=== PATIENT | male | born 1940 | race Caucasian/White ===

== ENCOUNTER 2021-09-26 14:20 | Outpatient (CLI) | payer OTHER, SELFPAY | END 2021-09-26 14:21 | disposition home or self-care (01) | PROVIDERS: PCP Family Medicine; Visit Provider Family Medicine | DX: M17.12 Unilateral primary osteoarthritis, left knee (principal); M25.562 Pain in left knee | CPT/HCPCS: 64454 ==

== ENCOUNTER 2021-10-16 12:03 | Outpatient (REF) | payer OTHER, SELFPAY ==
[2021-10-16 14:11] LABS: SARS PCR* Negative SARS-CoV-2 (Negative)
== END 2021-10-16 12:04 | disposition home or self-care (01) ==
LOC: NPINS 12:03
PROVIDERS: PCP Family Medicine; Visit Provider Family Medicine
DX: Z20.822 Contact with and (suspected) exposure to COVID-19 (principal)
CPT/HCPCS: 87635

== ENCOUNTER 2021-10-17 13:09 | Outpatient (CLI) | payer OTHER, SELFPAY | END 2021-10-17 13:10 | disposition home or self-care (01) | LOC: INJ CL 13:11 | PROVIDERS: PCP Family Medicine; Visit Provider Family Medicine | DX: M17.12 Unilateral primary osteoarthritis, left knee (principal); G89.29 Other chronic pain; M25.562 Pain in left knee | CPT/HCPCS: 64624; J2250; J3010 ==

== ENCOUNTER 2023-03-01 09:45 | Outpatient (RCR) | payer OTHER, SELFPAY | END 2023-06-29 23:59 | disposition home or self-care (01) | PROVIDERS: PCP Family Medicine; Visit Provider Family Medicine | DX: R29.898 Other symptoms and signs involving the musculoskeletal system (principal); R26.81 Unsteadiness on feet; Z51.89 Encounter for other specified aftercare | CPT/HCPCS: 97110; 97162 ==

== ENCOUNTER 2023-03-20 08:45 | Outpatient (CLI) | payer OTHER, SELFPAY ==
--- OUTSIDE RECORDS SUMMARY | 2023-03-20 08:49 | XMS_ITS | Clinical Summary ---
Author Name Unknown Organization [facility] Address [address] [place] [id number] Care Team Providers Care Telecom Billing Analyst Name Role Phone [facility], [facility] Primary Care Provider Allergies No known active allergies Medications Medication Sig Dispensed Refills Start Date End Date Status cyanocobalamin 500 MCG TABS Take 1 tablet by mouth daily 0 Active losartan (COZAAR) 100 MG tablet Take 100 mg by mouth daily 0 Active metFORMIN (GLUCOPHAGE) 1000 MG tablet Take 1,000 mg by mouth 2 times daily (with meals) 0 Active Vitamin D, Cholecalciferol, 1000 UNITS CAPS Take 1,000 Units by mouth daily 0 Active warfarin (COUMADIN) 5 MG tablet Take by mouth daily 5mg on Tues,Thurs,Sat, & 2.5mg on Sun,Mon,Wed,Fri 0 Active atorvastatin (LIPITOR) 20 MG tablet Take 20 mg by mouth every evening 0 Active aspirin 81 MG EC tablet Take 81 mg by mouth daily 0 Active amLODIPine (NORVASC) 5 MG tablet Take 5 mg by mouth daily 0 Active acetaminophen (TYLENOL) 325 MG tabletIndications: Closed fracture of right hip, initial encounter (H) Take 2 tablets (650 mg) by mouth every 6 hours as needed for mild pain 100 tablet 0 03/28/2017 Active sennosides (SENOKOT) 8.6 MG tabletIndications: Closed fracture of right hip, initial encounter (H) Take 1-2 tablets by mouth 2 times daily as needed for constipation Hold if loose stools. 120 tablet 1 03/28/2017 Active polyethylene glycol (MIRALAX) powderIndications: Constipation, unspecified constipation type Take 17 g by mouth daily 510 g 1 03/28/2017 Active bisacodyl (DULCOLAX) 10 MG SuppositoryIndicat ions:Constipation, unspecified constipation type Place 1 suppository (10 mg) rectally daily as needed for constipation 25 suppository 1 03/28/2017 Active tamsulosin (FLOMAX) 0.4 MG capsuleIndications :Urine retention Take 1 capsule (0.4 mg) by mouth daily 60 capsule 0 03/29/2017 Active HYDROcodone-acetam inophen (NORCO) 5-325 MG per tabletIndications: Complete tear of right rotator cuff Take 1-2 tablets by mouth every 4 hours as needed for other (Moderate to Severe Pain) 40 tablet 0 08/13/2017 Active ondansetron (ZOFRAN-ODT) 4 MG ODT tabIndications:Com plete tear of right rotator cuff Take 1-2 tablets (4-8 mg) by mouth every 8 hours as needed for nausea Dissolve ON the tongue. 4 tablet 0 08/13/2017 Active senna-docusate (SENOKOT-S;PERICOL KONG) 8.6-50 MG per tabletIndications: Complete tear of right rotator cuff Take 1-2 tablets by mouth 2 times daily Take while on oral narcotics to prevent or treat constipation. 30 tablet 0 08/13/2017 Active Active Problems Problem Noted Date Diagnosed Date Hip fracture 03/23/2017 Social History Tobacco Use Types Packs/Day Years Used Date Smoking Tobacco: Former Cigarettes Q uit: 08/06/1978 Smokeless Tobacco: Never Alcohol Use Standard Drinks/Week Comments Yes 0 (1 standard drink = 0.6 oz pur e alcohol) occas Sex and Gender Information Value Date Recorded Sex Assigned at Not on file Gender Identity Not on file Sexual Orientation Not on file Last Filed Vital Signs Vital Sign Reading Time Taken Comments Blood Pressure 135/72 08/13/2017 5:00 PM CDT Pulse 55 03/23/2017 12:20 PM [employer] Temperature 36 ??C (96.8 ??F) 08/13/2017 4:04 PM CDT Respiratory Rate 18 08/13/2017 5:00 PM CDT Oxygen Saturation 97% 08/13/2017 5:00 PM CDT Inhaled Oxygen Concentration - - Weight 112.4 kg (247 lb 14.4 oz) 08/13/2017 8:39 AM CDT Height 188 cm (6' 2) 08/13/2017 8:39 AM CDT Body Mass Index 31.83 08/13/2017 8:39 AM CDT Plan of Treatment Not on file Medical Devices Implanted Type Area [employer] Builder Device Identifier Shelf Expiration Date Model / Serial / Lot Imp Mer[employer]-Swivelock [id number] Implanted:Qty : 1 on 08/13/2017 by Dg Rose MD at [facility] Metallic Hardware/An chor Right: Shoulder ARTH[employer]X 03/27/2019 [id number] / / [id number] Imp Femoral Sleeve S&N Long Mod +8mm Neck Ti [id number] Implanted:Qty : 1 on 03/25/2017 by Lj Ornelas MD at [facility] Total Joint Component/I nsert Right: Hip PASCAL 03/03/2025 [id number] / / [id number] 40mm Modular Femoral Head Implanted:Qty : 1 on 03/25/2017 by Lj Ornelas MD at [facility] Right: Hip 12/02/2026 [id number] / / [id number] Advance Directives For more information, please contact: [phone] Latest Code Status on File Code Status Date Activated Date Inactivated Comments Full Code 03/28/2017 2:36 PM Code Status History Code Status Date Activated Date Inactivated Comments Full Code 03/23/2017 5:42 PM 03/27/2017 12:01 AM Care Teams Telecom Billing Analyst Relationship Specialty Start Date End Date [address] [id number] PCP - General 03/23/17
--- OUTSIDE RECORDS SUMMARY | 2023-03-20 08:49 | XMS_ITS | Clinical Summary ---
Author Name Unknown Organization [facility] Address [place], [place] [address] Care Team Providers Care Plugman Name Role Phone Doug Taylor MD Primary Care Provider Allergies Active Allergy Reactions Criticality Noted Date Comments Amlodipine Edema 07/27/2019 On 5 mg Medications Medication Sig Dispensed Refills Start Date End Date Status polyethylene glycol-electrolyte (GOLYTELY) 236-22.74-6.74 -5.86 gram suspensionIndicatio ns:Encounter for screening colonoscopy Drink 3 quarts the day before procedure and drink 1 quart 6 hours before procedure 4000 mL 0 1 Active cholecalciferol (VITAMIN D3) 1,000 unit tabletIndications:V itamin D deficiency Take 1 Tablet (1,000 units) by mouth once daily. 90 tablet. 3 2 Active cyanocobalamin (Vitamin B-12) 500 mcg tabletIndications:N utrition disorder Take 1 Tablet (500 mcg) by mouth once daily. 90 Tablet 3 3 Active lancetsIndications: Type 2 diabetes mellitus with diabetic neuropathy, without long-term current use of insulin (HC) Test 1 times per day. 100 Each 3 3 Active tamsulosin (FLOMAX) 0.4 mg capsuleIndications: Frequent urination Take 1 Capsule (0.4 mg) by mouth once daily after a meal. 90 Capsule 3 3 Active blood sugar diagnostic (Blood Glucose Test) stripIndications:Ty pe 2 diabetes mellitus with diabetic neuropathy, without long-term current use of insulin (HC) Test one time per day. 100 Each 3 3 Active blood-glucose meterIndications:Ty pe 2 diabetes mellitus with diabetic neuropathy, without long-term current use of insulin (HC) Inject subcutaneous. Dispense meter, test strips, lancets covered by pt ins. E11.9 NIDDM type II - Test 1 time/day 1 Each 0 3 Active Walker - 4 wheelsIndications:G ait instability For home use. Length of need: 99 1 Each 0 3 Active Diabetic ShoeIndications:Makenzie betic peripheral neuropathy (HC) As directed. One pair diabetic shoes. 1 Each 1 3 Active losartan (COZAAR) 100 mg tabletIndications:H TN (hypertension) TAKE 1 AND 1/2 TABLETS EVERY DAY 135 Tablet 3 3 Active hydroCHLOROthiazide (HCTZ) 25 mg tabletIndications:B enign essential HTN Take 1 Tablet (25 mg) by mouth once daily. 90 Tablet 3 3 Active atorvastatin (LIPITOR) 20 mg tabletIndications:M ixed hyperlipidemia Take 1 Tablet (20 mg) by mouth once daily. 90 Tablet 3 3 Active metFORMIN (GLUCOPHAGE XR) 500 mg Extended-Release tabletIndications:D iabetes mellitus without complication (HC) Take 2 Tablets (1,000 mg) by mouth once daily with evening meal. 180 Tablet 1 3 Active Walker - 4 wheelsIndications:W eakness of lower extremity, unspecified laterality,Unstable gait For home use. Length of need: 99. With seat. 1 Each 0 3 Active sotaloL (BETAPACE) 80 mg tabletIndications:A trial fibrillation, unspecified type (HC) Take 1 Tablet (80 mg) by mouth every 24 hours. 180 Tablet 0 3 Active gabapentin (NEURONTIN) 100 mg capsuleIndications: Peripheral sensory neuropathy Take 1 Capsule (100 mg) by mouth three times daily. 270 Capsule 3 3 Active warfarin (COUMADIN) 2.5 mg tabletIndications:P aroxysmal atrial fibrillation (HC),Anticoagulatio n monitoring, INR range 2-3,TIA (transient ischemic attack) Take by mouth 2.5 mg (2.5 mg x 1) every Mon, Wed, Fri; 1.25 mg (2.5 mg x 0.5) all other days in the evening OR as directed 65 Tablet 0 3 Active DropSafe Alcohol Prep PadsIndications:Makenzie betes mellitus without complication (HC) USE DIRECTED 300 Each 3 3 Active honey (Manuka Honey) 100 % gelIndications:Diab etic ulcer of toe associated with type 2 diabetes mellitus, unspecified laterality, unspecified ulcer stage (HC) Apply topically to affected area(s) once daily. 15 mL 1 4 Active warfarin (COUMADIN) 2.5 mg tabletIndications:P aroxysmal atrial fibrillation (HC),Anticoagulatio n monitoring, INR range 2-3,TIA (transient ischemic attack) Take by mouth 2.5 mg (2.5 mg x 1) every Mon, Wed, Fri; 1.25 mg (2.5 mg x 0.5) all other days in the evening OR as directed 0 3 02/20/20 23 Discontinued Active Problems Problem Noted Date Diagnosed Date Anticoagulation monitoring, INR range 2-3 2022 Peripheral arterial disease 03/29/2022 Paroxysmal atrial fibrillation 10/16/2021 Malignant neoplasm of urinary bladder 05/05/2021 Stage 3a chronic kidney disease 12/29/2019 Bilateral lower extremity edema 08/18/2019 Chronic pain of right knee 09/03/2018 Overview: August 2018: cortisone injection by Dr. Berry bilateral knees. Great improvement 2 weeks out. March 2020: Repeat Bilateral cortisone knee injections. September 2020: Repeat Bilateral cortisone knee injections. Chronic pain of left knee 09/03/2018 Overview: August 2018: cortisone injection by Dr. Berry bilateral knees. Great improvement 2 weeks out. March 2020: Repeat Bilateral cortisone knee injections. September 2020: Repeat Bilateral cortisone knee injections. Trochanteric bursitis of both hips 04/23/2018 Overview: July [address] [facility]. Mar 2018: bilateral Greater Trochanteric Bursa injections by Dr. Berry. Left side improved, right side did not improve after injection. Sep 2018: repeat Greater Trochanteric Bursa injection on right side by Dr. Berry. Dec 2018: bilateral Greater Trochanteric Bursa injection. Diabetic peripheral neuropathy 07/23/2017 History of DVT (deep vein thrombosis) 03/11/2016 Hyperlipidemia 03/11/2016 TIA (transient ischemic attack) 03/11/2016 Overview: 03/11/16: 20 minutes of numbness affecting his right arm- [facility] [place] MRI and MRA showed no new acute changes, but underlying small vessel disease. Echo with bubble study was unremarkable. He was thought to have a TIA caused by small vessel disease. Discharged on aspirin 81 mg per day. Already on Coumadin and his INR was therapeutic. Apparently demonstrated some visual spatial disturbance and so OT evaluation was recommended 03/06/17: slurred speech and confusion at home that resolved by the time of presentation. Blood pressure was elevated into the 200s over 1 teens.MRI/A of the head and neck was normal. Serial neurologic exams were normal Type II or unspecified type diabetes mellitus without mention of complication, not stated as uncontrolled 10/09/2012 Obesity, unspecified 02/05/2012 Unspecified essential hypertension 06/04/2006 Resolved Problems Problem Noted Date Diagnosed Date Resolved Date Anticoagulation monitoring, DOAC 10/16/2021 07/31/2022 Anticoagulation monitoring, DOAC 10/14/2020 10/16/2021 Atrial fibrillation 11/24/2018 12/28/19 22 Anticoagulation monitoring, INR range 2-3 12/24/2013 10/13/2020 Diabetic neuropathy 10/09/2012 03/11/19 17 Acute thromboembolism of john p veins of both lower extremities 06/04/2006 03/11/2016 Type 2 diabetes mellitus wit h diabetic neuropathy, without long-term current use of insulin 05/14/2017 Encounters Date Type Department Care Team Description 03/18/2023 3:15 PM SECURITIES CONSULTANT Ancillary Procedure [facility] [address] [place] [address] Arrived 03/18/2023 3:00 PM SECURITIES CONSULTANT Ancillary Procedure [facility] [address] [place] [address] Arrived 03/18/2023 1:40 PM SECURITIES CONSULTANT Office Visit [facility] [address] [place] [address] Doug Taylor MD Fall (03/16/23, whole body hurts, knees, forehead, left arm) 03/18/2023 Travel 03/18/2023 Telephone [facility] [address] [place] [address] Doug Taylor MD Appointment Request (TODAY 03/18/23/FALL) 03/09/2023 Anticoagulation (warfarin) [facility] [address] [place] [address] 1, [facility] Anticoagulation 03/08/2023 2:30 PM SECURITIES CONSULTANT Orders [place] [address] [place] [address] Lab, [facility] 03/08/2023 Nurse Triage [facility] [address] [place] [address] Doug Taylor MD Arm Pain/problem (L inner elbow and forearm swelling) 03/08/2023 Travel 03/06/2023 3:00 PM SECURITIES CONSULTANT Office Visit [facility] [address] [place] [address] Seven Briones DPM Consult (Bilateral toe ulcer) 03/06/2023 Travel 02/26/2023 9:40 AM SECURITIES CONSULTANT Office Visit [facility] [place] [facility] [address] [place] [address] Rupert Moore MD Consult (Bilateral leg weakness /Bilateral heel x 6 months ) 02/26/2023 Travel 02/26/2023 Telephone [facility] [address] [place] [address] [place] [address] Светлана La MD Results (Mild progression per echo. Plan for annual echo) 02/21/2023 9:00 AM SECURITIES CONSULTANT Ancillary Procedure [facility] [address] [place] [address] 02/21/2023 Travel 02/17/2023 Refill [facility] [address] [place] [address] Doug Taylor MD Refill Request (Dropsafe Alcohol Prep Pads) 02/16/2023 Refill [facility] [address] [place] [address] Doug Taylor MD Refill Request (Warfarin) 02/15/[address] [place] [address] Светлана La MD Results 02/15/2023 Travel 02/08/2023 10:10 AM SECURITIES CONSULTANT Orders Only [address] [address] Lab[facility] 02/08/2023 Anticoagulation (warfarin) [address] [address] 1, [facility] Anticoagulation 02/08/2023 Travel 02/01/2023 Telephone [facility] [address] [place] [address] Doug Taylor MD Refill Request (Gabapentin 100mg ) 01/31/2023 Orders Only [facility] [address] [place] [address] Juan Davila NP <No scans attached> 01/28/2023 Telephone [facility] [address] [place] [address] Doug Taylor MD CLARIFICATION 01/23/2023 Orders Only [facility] [address] [place] [id number] Светлана La MD 1 scan: (1-Ord) [facility]-EKG-11.28.23 01/22/2023 3:00 PM SECURITIES CONSULTANT Office Visit [facility] [address] [place] [address] Светлана La MD Consult (Atrial fibrillation) 01/22/2023 Orders Only [facility] [address] [place] [address] [place] [address] Светлана La MD 1 scan: (1-Ord) LUZMA ([id number]) 01/22/2023 Telephone [facility] [place] [facility] [address] [place] [address] Rupert Moore MD Referral (Neurology consultation ready to schedule ) 01/21/2023 10:15 AM SECURITIES CONSULTANT Orders Only [facility] [address] [place] [address] 1 scan: (1-Ord) US TOE PRESSURE ONLY BILAT ([id number]) 01/21/2023 Travel 01/21/2023 Refill [facility] [address] [place] [address] Doug Taylor MD Refill Request (Gabapentin 300mg cap ) 01/18/2023 10:05 AM SECURITIES CONSULTANT Office Visit [facility] [address] [place] [address] Doug Taylor MD Medicare ANNUAL (subsequent) Visit (82 year old); Foot Problem (Bilateral foot neuropathy ); DME Supply (Discuss walker) 01/18/2023 Travel 01/08/2023 10:10 AM SECURITIES CONSULTANT Orders Only [facility] [address] [place] [address] Lab[facility] 01/08/2023 Anticoagulation (warfarin) [facility] [address] [place] [address] 1, [facility] Anticoagulation (Lab ) 01/08/2023 Travel 01/06/2023 Refill [facility] [address] [place] [address] Doug Taylor MD Refill Request (Losartan) 01/03/2023 Orders Only [facility] Scanner 1 scan: (1-Ord) [place] [facility], CYSTOSCOPY, 01/03/2023 12/27/2022 Telephone [facility] [address] [place] [address] Doug Taylor MD DME Supply (Prior authorization for walker); Follow Up 12/18/2022 Anticoagulation (warfarin) [facility] [address] [place] [address] Doug Taylor MD Error-please disregard (opened in error) 12/18/2022 Refill [facility] [address] [place] [address] Doug Taylor MD Refill Request (Warfarin) 12/18/2022 Refill [facility] [address] [place] [address] Doug Taylor MD Refill Request (Warfarin 2.5) from Last 3 Months Immunizations Name Administration Dates Next Due AMB INFLUENZA IIV3 (AGE 65+ YRS) PF (Flu Clinic Only) 01/01/2018 Amb Influenza, Inactivated A IIV4 (Age 65+ Years) Preserv Free 11/30/2019 COVID-19 vaccine (Pfizer-Bio NTech 30mcg/0.3mL) 12YO+ BIVALENT PF, MDV 06/28/2022,12/27/2021 COVID-19 vaccine (Pfizer-Bio NTech 30mcg/0.3mL) 12YO+ JOSE ANGEL-SUCROSE PF, MDV 06/12/2021 COVID-19 vaccine (Pfizer-Bio NTech 30mcg/0.3mL) PF, MDV 11/24/2020,04/26/2020,04/05/2020 Influenza A (H1N1), Inactiva vishnu (Age >=3 Years) 03/25/2009 Influenza, High-dose Inactivated 12/14/2015,1006/2014,12/24/2013 Influenza, IIV3 (Age 6-35 mos) 12/18/2010,2007 Influenza, IIV3 (Age >=3 years) 12/19/19 13,01/30/2012,11/24/2009,11/16,12/26/2006,11/29/2005,12/28/2004 ,12/06/2003,12/18/2002,12/19/2001,02/1988 Influenza, Inactivated AIIV4 (Age 65+ Years) Preserv Free 11/21/2022,12/27/2021,11/24/2020 Influenza, Inactivated IIV3 (Age 65+ Years) Preserv Free 11/18/2018,11/21/2016 Pneumococcal Conj 20-valent (Prevnar 20) 06/28/2022 Pneumococcal Poly,23-Valent (Pneumovax) 02/20/2011,11/29/2005,01/25/2005 Pneumococcal conj 13-Valent (Prevnar 13) 03/15/2016,09/17/2014 RSV, Recombinant ADJ Reconst ituted (Arexvy 120MCG/0.5mL) 02/04/2023 Td (Age >=7 Years) 01/25/2005,10/07/1998 Td, Preservative Free (age >= 7 Years) 6 Tdap 04/11/2022,02/20/2011 Zoster (Shingrix-RZV, recombinant) 07/20/2022, Zoster (Zostavax-ZVL, live) 01/05/2009, 9 Family History Medical History Relation Name Comments Cancer-colon Neg. 1 Cancer-prostate Neg. 2 Diabetes Paternal Grandmother Anesthesia Problem No Family History Relation Name Status Comments Neg. 1 Neg. 2 Paternal Grandmother Social History Tobacco Use Types Packs/Day Years Used Date Smoking Tobacco: Former Cigarettes Q uit: 02/25/1974 Smokeless Tobacco: Never Tobacco Cessation:Counseling Given: Yes Alcohol Use Standard Drinks/Week Comments Yes 0 (1 standard drink = 0.6 oz pur e alcohol) occasionally PHQ-2 Answer Date Recorded PHQ-2 TOTAL SCORE 0 01/18/2023 Social Connections Answer Date Recorded Frequency of Communication with Friends and Fami ly 0 01/18/2023 Financial Resource Strain Answer Date R ecorded Difficulty of Paying Living Expenses 3 01/18/2023 Difficulty of Paying Living Expenses Not on file 01/18/2023 Food Insecurity Answer Date Recorded Worried About Running Out of Food in the Last Ye ar 1 01/18/2023 Transportation Needs Answer Date Record ed Lack of Transportation (Medical) 1 01/18/2023 Housing Stability Answer Date Recorded Unable to Pay for Housing in the Last Year 1 01/18/2023 Sex and Gender Information Value Date Recorded Sex Assigned at Not on file Gender Identity Not on file Sexual Orientation Not on file Obstetrics History Last Filed Vital Signs Vital Sign Reading Time Taken Comments Blood Pressure 147/67 03/18/2023 1:53 PM SECURITIES CONSULTANT Pulse 66 03/18/2023 1:53 PM SECURITIES CONSULTANT Temperature 36.3 ??C (97.4 ??F) 03/06/2023 3:54 PM CS T Respiratory Rate 16 05/25/2021 2:10 PM CDT Oxygen Saturation 94% 03/18/2023 1:53 PM SECURITIES CONSULTANT Inhaled Oxygen Concentration - - Weight 108.9 kg (240 lb) 01/26/2021 11:29 AM SECURITIES CONSULTANT Height 188 cm (6' 2) 01/26/2021 11:29 AM SECURITIES CONSULTANT Body Mass Index 30.81 01/26/2021 11:29 AM SECURITIES CONSULTANT Plan of Treatment Upcoming Encounters Date Type Department Care Team (Late st Contact Info) Description 04/01/2023 10:00 AM SECURITIES CONSULTANT Orders Only [facility] [address] [place] [address] 04/04/2023 10:00 AM SECURITIES CONSULTANT Office Visit [facility] [address] [place] [address] Kuldip Briones MD [address] [place] [id number] [place] [address] 04/04/2023 11:45 AM SECURITIES CONSULTANT Ancillary Procedure [facility] [address] [place] [address] 04/04/2023 12:30 PM SECURITIES CONSULTANT Ancillary Procedure [facility] [address] [place] [address] 04/24/2023 2:40 PM SECURITIES CONSULTANT Office Visit [facility] [place] [facility] [address] [place] [address] Rupert Moore MD [address] [place] [address] 07/24/2023 10:30 AM CDT Office Visit [facility] [address] [place] [address] Doug Taylor MD [address] [place] [address] Health Maintenance Due Date Last Done Comments BMI (ht and wt on same day) for age 18+ 01/26/2022 01/26/2021, 12/06/2020, 12/29/2019, Additional history exists COVID-19 vaccine series ( season) 2023 11/21/2022, 06/28/2022, 12/27/2021, Additional history exists Medicare Wellness for age 65+ 01/18/2024 01/18/2023, 12/27/2021 Depression screening for age 12+ 01/23/2024 01/22/2023, 01/21/2023, 01/18/2023, Additional history exists Tetanus booster 04/11/2032 04/11/2022, 01/26, 11/29/2005, Additional history exists Tdap Completed 04/11/2022, 02/20/2011 Pneumococcal series for age 65+ Completed 06/28/2022, 03/15/2016, 09/17/2014, Additional history exists Zoster (shingles) series for age 50+ Completed 07/20/2022, 04/11/2022, 01/05/2009, Additional history exists Influenza for age 65+ Completed 11/21/2022 , 12/27/2021, 11/24/2020, Additional history exists Procedures Procedure Name Priority Date/Time Associated Diagnosis Comments XR KNEE 3 VIEWS LEFT Routine 03/18/2023 3:13 PM SECURITIES CONSULTANT Acute pain of left knee XR WRIST 3 VIEWS LEFT Routine 03/18/2023 3:04 PM SECURITIES CONSULTANT Left wrist pain INR,POCT Routine 03/08/2023 2:45 PM SECURITIES CONSULTANT Paroxysmal atrial fibrillation (HC) Anticoagulation monitoring, INR range 2-3 ECHO TTE COMPLETE WO CONTRAST Routine 02/21/2023 9:41 AM SECURITIES CONSULTANT Atrial fibrillation, unspecified type (HC) EXTENDED HOLTER Routine 02/14/2023 Atrial fibrillation, unspecified type (HC) INR,POCT Routine 02/08/2023 10:24 AM SECURITIES CONSULTANT Paroxysmal atrial fibrillation (HC) Anticoagulation monitoring, INR range 2-3 EKG 12 LEAD Routine 01/23/2023 2:42 PM SECURITIES CONSULTANT Atrial fibrillation, unspecified type (HC) US TOE PRESSURE ONLY BILAT Routine 01/21/2023 10:41 AM SECURITIES CONSULTANT PAD (peripheral artery disease) (HC) URINE ALBUMIN TO CREATININE RATIO, RANDOM Routine 01/18/2023 9:40 AM SECURITIES CONSULTANT Diabetes mellitus without complication (HC) PROTIME-INR STAT 01/08/2023 10:18 AM SECURITIES CONSULTANT Paroxysmal atrial fibrillation (HC) Anticoagulation monitoring, INR range 2-3 BASIC METABOLIC PANEL Routine 01/08/2023 10:18 AM SECURITIES CONSULTANT Diabetes mellitus without complication (HC) LIPID PANEL W REFLEX MEASURED LDL Routine 01/08/2023 10:18 AM SECURITIES CONSULTANT Diabetes mellitus without complication (HC) HEMOGLOBIN A1C Routine 01/08/2023 10:18 AM SECURITIES CONSULTANT Diabetes mellitus without complication (HC) SCAN-OPERATIVE/PROC EDURE REPORT 01/03/2023 12:00 AM SECURITIES CONSULTANT from Last 3 Months Results * XR KNEE 3 VIEWS LEFT (03/18/2023 3:13 PM SECURITIES CONSULTANT) Anatomical Region Laterality Modality KNEES, KNEE L Computed Radiogr aphy 03/18/2023 3:30 PM SECURITIES CONSULTANT Narrative 03/18/2023 3:30 PM SECURITIES CONSULTANT For Patients: ??As a result of the 21st Century Cures Act, medical imaging exams and procedure reports are released immediately into your electronic medical record. ??You may view this report before your referring provider. ??If you have questions, please contact your health care provider. Indication: Knee pain Technique: Left knee 3 views Comparison: 07/14/2018 Findings: Medial compartment narrowing and spurring. Spurring of the tibial spines and hypertrophic changes at the intercondylar notch. Chronic subcortical lucency involving the medial femoral condyle adjacent to the intercondylar notch. Joint effusion is present. Vascular calcifications noted. Patellofemoral spurring. Impression: Degenerative joint disease, similar to the prior study. Increased joint effusion. Dictated by Abel Padilla MD @ Mar 18 2023 ??3:30PM (Electronically Signed) ?? Procedure Note Abel Padilla MD - 03/18/2023 For Patients: As a result of the s , medical imagingexams and procedure reports are released immediately into your electronicmedical record. You may view this report before your referring provider.If you have questions, please contact your health care provider. Indication: Knee pain Technique: Left knee 3 views Comparison: 07/14/2018 Findings: Medial compartment narrowing and spurring. Spurring of the tibial spinesand hypertrophic changes at the intercondylar notch. Chronic subcorticallucency involving the medial femoral condyle adjacent to the intercondylarnotch. Joint effusion is present. Vascular calcifications noted.Patellofemoral spurring. Impression: Degenerative joint disease, similar to the prior study. Increased jointeffusion. Dictated by Aebl Padilla MD @ Mar 18 2023 3:30PM (Electronically Signed) Doug Taylor MD GENERAL IMAGIN G * XR WRIST 3 VIEWS LEFT (03/18/2023 3:04 PM SECURITIES CONSULTANT) Anatomical Region Laterality Modality WRISTS, WRIST L Computed Radiogr aphy 03/18/2023 3:28 PM SECURITIES CONSULTANT Narrative 03/18/2023 3:28 PM SECURITIES CONSULTANT For Patients: ??As a result of the s Act, medical imaging exams and procedure reports are released immediately into your electronic medical record. ??You may view this report before your referring provider. ??If you have questions, please contact your health care provider. Indication: Left wrist pain Technique: Three views left wrist Comparison: None Findings: Narrowing and spurring at the 1st carpometacarpal joint. No fracture. Vascular calcifications. Impression: Moderate 1st carpometacarpal degenerative joint disease. Dictated by Abel Padilla MD @ Mar 18 2023 ??3:28PM (Electronically Signed) ?? Procedure Note Abel Padilla MD - 03/18/2023 For Patients: As a result of the Cures Act, medical imagingexams and procedure reports are released immediately into your electronicmedical record. You may view this report before your referring provider.If you have questions, please contact your health care provider. Indication: Left wrist pain Technique: Three views left wrist Comparison: None Findings: Narrowing and spurring at the 1st carpometacarpal joint. No fracture.Vascular calcifications. Impression: Moderate 1st carpometacarpal degenerative joint disease. Dictated by Abel Padilla MD @ Mar 18 2023 3:28PM (Electronically Signed) Doug Taylor MD GENERAL IMAGIN G * (ABNORMAL) INR,POCT (03/08/2023 2:45 PM SECURITIES CONSULTANT) Only the most recent of2 resultswithin the time period is included. INR 2.4(H) <1.3 03/08/2023 2:48 PM SECURITIES CONSULTANT [facility] Blood BLOOD SPECIMEN / Unknown 03/08/2023 2:45 PM SECURITIES CONSULTANT 03/08/2023 2:48 PM SECURITIES CONSULTANT Narrative [facility] - 03/08/2023 2:48 PM SECURITIES CONSULTANT ?Therapeutic Range 2.0-3.0 for most anticoagulated patients 2.5-3.5 or 4.0 for high risk patients Doug Taylor MD LABORATORY [facility] [address] [place] [address], [place] [phone] * ECHO TTE COMPLETE WO CONTRAST (02/21/2023 9:41 AM SECURITIES CONSULTANT) AORTIC VALVE MEAN PG 22 mmHg EJECTION FRACTION 59 % PEAK TR VELOCITY 3.4 m/s LVEDD 4.4 cm EJECTION FRACTION 60 - 65% Anatomical Region Laterality Modality Ultrasound 02/21/2023 9:06 AM SECURITIES CONSULTANT Narrative 02/21/2023 10:41 AM SECURITIES CONSULTANT ECHOCARDIOGRAM CECILIO ROSA ?Accession#: ?? [id number] : ?1940 82 years Study Date: ?? 02/21/2023 9:06:01 AM Gender: M ? BP: ? 151/60 mmHg Height: 188.00 cm ? BSA: ?2.31 m? ? ? Weight: 105.00 kg ? Tech: ? MJW ?Referring MD: СВЕТЛАНА LA Site: ? [facility] Reading Location: Mobile-OP Patient Location: Outpatient. Procedure: 2D, Color Doppler and Spectral Doppler. Indication for study: A Fib Cardiac Rhythm: Normal sinus.Study quality: Final Impressions: 1. Normal LV size, mildly increased wall thickness, estimated EF of 60 - 65%. 2. Normal RV size and systolic function. 3. Moderate biatrial enlargement. 4. The aortic valve is calcified, likely moderate stenosis with discrepant measurements: Vmax 3.1 m/s, MG 22 mmHg, SVi is normal. 5. The mitral valve is sclerotic, mild regurgitation. 6. Elevated PA pressure based on incomplete TR Doppler signal: PASP 47 mmHg + RA pressure. 7. Normal IVC geometry. Comparison Compared to prior exam of 12/13/2020: - has progressed Chamber Sizes and Function Normal left ventricular size, mildly increased wall thickness, normal global systolic function with an estimated EF of 60 - 65%. No definite resting regional wall motion abnormality seen. Left atrial size is moderately enlarged. Right ventricular cavity size is normal, global systolic RV function is normal. RV wall thickness is normal. The right atrium is mildly enlarged. Right atrial volume index is 36 ml/m? ? ?. Right atrial area is 26 cm? ? ?. The pulmonary artery is of normal size and origin. The sinus of Valsalva is normal for age/sex/bsa. The ascending aorta is normal sized. Valves, RV Pressures and Diastolic Function The aortic valve is calcified, severe stenosis and no regurgitation. The mitral valve is sclerotic, mild mitral regurgitation. Mitral annular calcification is present. Indeterminate pattern of LV diastolic filling. The tricuspid valve is normal in structure. Tricuspid regurgitation is trace regurgitation. The tricuspid regurgitant velocity is 3.4 m/s, the estimated right ventricular systolic pressure is 47 mmHg plus right atrial pressure. There is moderately increased estimated pulmonary pressure by tricuspid regurgitation velocity and right atrial pressure. The pulmonic valve is normal. Mild pulmonary regurgitation. Masses, Effusion, Shunts There is no pericardial effusion. The inferior vena cava is normal sized, respiratory size variation greater than 50%. Interatrial septum is not well visualized. MEASUREMENTS AND CALCULATIONS 2-D Measurements and LV Function: LVID (d) 4.4 cm LV FS% (2D) ?? 22 % LVID (s) 3.4 cm LVOT diameter 2.9 cm IVS (d) ??1.3 cm HR ?66 bpm LVPW (d) 1.2 cm LA Vol index ??45 ml/m2 Ao Sinus 3.9 cm RA Vol index ??36 ml/m2 Asc Ao ?? 3.6 cm RA area ? 26 cm? ? ? LA ? 5.0 cm RV Max 4C (d) 4.0 cm Diastology: Mitral ?Tissue Doppler E Peak 0.9 m/s ??e', Septum ? 0.07 m/s A Peak 0.9 m/s ??e', Lateral ?0.08 m/s E/A ?1.0 ?E/e' Average ?? 10.86 DT ? 256 msec Aortic Valve: Vmax ? 3.1 m/s ??FELTON (V) ?? 1.41 cm? ? ? VTI ?0.72 m ?? FELTON (I) ?? 1.43 cm? ? ? LVOT V max ? 0.7 m/s ??Max PG ?39 mmHg LVOT VTI ? 0.16 m ?? Mean PG ?? 22 mmHg SV ? 103 ml ?? Dim Index 0.22 SV index ? 45 ml/m? ? ? CO ?6.8 l/min AV Ejection Time 0.35 sec CI ?2.9 l/min/m? ? ? AV Flow Rate ? 292 ml/s Mitral Valve: MVA ?3.0 cm? ? ? MV P 1/2 74 msec Tricuspid Valve and estimated PA pressures: TR Vmax 3.4 m/s TAPSE 2.6 cm TR maxG 47 mmHg . This study was interpreted by an [facility] accredited facility. ??Final ?? Procedure Note Anthony Thompson MD - 02/21/2023 ECHOCARDIOGRAM CECILIO ROSA : 1940 82 years Study Date: 02/21/2023 9:06:01 AM Gender: M BP: 151/60 mmHg Height: 188.00 cm BSA: 2.31 m? ? ? Weight: 105.00 kg Tech: XENIA Referring MD: СВЕТЛАНА LA Site: [facility] Reading Location: Mobile-OP Patient Location: Outpatient. Procedure: 2D, Color Doppler and Spectral Doppler. Indication for study: A Fib Cardiac Rhythm: Normal sinus.Study quality: Final Impressions: 1. Normal LV size, mildly increased wall thickness, estimated EF of 60 -65%. 2. Normal RV size and systolic function. 3. Moderate biatrial enlargement. 4. The aortic valve is calcified, likely moderate stenosis withdiscrepant measurements: Vmax 3.1 m/s, MG 22 mmHg, SVi is normal. 5. The mitral valve is sclerotic, mild regurgitation. 6. Elevated PA pressure based on incomplete TR Doppler signal: PASP 47mmHg + RA pressure. 7. Normal IVC geometry. Comparison Compared to prior exam of 12/13/2020: - has progressed Chamber Sizes and Function Normal left ventricular size, mildly increased wall thickness, normalglobal systolic function with an estimated EF of 60 - 65%. No definiteresting regional wall motion abnormality seen. Left atrial size ismoderately enlarged. Right ventricular cavity size is normal, globalsystolic RV function is normal. RV wall thickness is normal. The rightatrium is mildly enlarged. Right atrial volume index is 36 ml/m? ? ?. Rightatrial area is 26 cm? ? ?. The pulmonary artery is of normal size and origin.The sinus of Valsalva is normal for age/sex/bsa. The ascending aorta isnormal sized. Valves, RV Pressures and Diastolic Function The aortic valve is calcified, severe stenosis and no regurgitation. Themitral valve is sclerotic, mild mitral regurgitation. Mitral annularcalcification is present. Indeterminate pattern of LV diastolic filling.The tricuspid valve is normal in structure. Tricuspid regurgitation istrace regurgitation. The tricuspid regurgitant velocity is 3.4 m/s, theestimated right ventricular systolic pressure is 47 mmHg plus right atrialpressure. There is moderately increased estimated pulmonary pressure bytricuspid regurgitation velocity and right atrial pressure. The pulmonicvalve is normal. Mild pulmonary regurgitation. Masses, Effusion, Shunts There is no pericardial effusion. The inferior vena cava is normal sized,respiratory size variation greater than 50%. Interatrial septum is notwell visualized. MEASUREMENTS AND CALCULATIONS 2-D Measurements and LV Function: LVID (d) 4.4 cm LV FS% (2D) 22 % LVID (s) 3.4 cm LVOT diameter 2.9 cm IVS (d) 1.3 cm HR 66 bpm LVPW (d) 1.2 cm LA Vol index 45 ml/m2 Ao Sinus 3.9 cm RA Vol index 36 ml/m2 Asc Ao 3.6 cm RA area 26 cm? ? ? LA 5.0 cm RV Max 4C (d) 4.0 cm Diastology: Mitral Tissue Doppler E Peak 0.9 m/s e', Septum 0.07 m/s A Peak 0.9 m/s e', Lateral 0.08 m/s E/A 1.0 E/e' Average 10.86 DT 256 msec Aortic Valve: Vmax 3.1 m/s FELTON (V) 1.41 cm? ? ? VTI 0.72 m FELTON (I) 1.43 cm? ? ? LVOT V max 0.7 m/s Max PG 39 mmHg LVOT VTI 0.16 m Mean PG 22 mmHg SV 103 ml Dim Index 0.22 SV index 45 ml/m? ? ? CO 6.8 l/min AV Ejection Time 0.35 sec CI 2.9 l/min/m? ? ? AV Flow Rate 292 ml/s Mitral Valve: MVA 3.0 cm? ? ? MV P 1/2 74 msec Tricuspid Valve and estimated PA pressures: TR Vmax 3.4 m/s TAPSE 2.6 cm TR maxG 47 mmHg . This study was interpreted by an [facility] accredited facility. Final Светлана La MD ECHO ORD * ZIO PATCH XT - weekly to monthly symptoms. (02/14/2023) Светлана La MD CARDIAC SERVICE S ORD * EKG 12 LEAD (01/23/2023 2:42 PM SECURITIES CONSULTANT) Светлана La MD EKG ORD * US TOE PRESSURE ONLY BILAT (01/21/2023 10:41 AM SECURITIES CONSULTANT) Anatomical Region Laterality Modality TOES Ultrasound 01/21/2023 9:18 AM SECURITIES CONSULTANT Narrative 01/21/2023 12:39 PM SECURITIES CONSULTANT VASCULAR ULTRASOUND REPORT CECILIO ROSA Accession#: ?? [id number] : ?1940 ?? Study Date: ?? 01/21/2023 9:18:40 AM Age: ?82 years ?? Tech: ? BVB Gender: M ?Referring MD: DOUG TAYLOR Site: [facility] Study performed: ?Lower extremity TBI, (bilateral). Indication for study: Follow-up known PAD TECHNIQUE: Lower/upper extremity arteries were examined per exam protocol by duplex ultrasound, color-flow and spectral Doppler. Peak systolic velocities (PSV), Doppler waveform quality, velocity ratios and vessel size in cm, were documented at protocol specific sites. Physiologic data including segmental pressures, ankle/brachial index (BRITTNI), digit PPG recordings, laser Doppler flowmetry, transcutaneous oximetry, and digit temperatures were documented at sites per exam protocol and test requirements. IMPRESSION: 1. Toe-brachial index is moderately reduced on the right at 0.45 and toe- brachial index on the left at 0.38. 2. Monphasic waveforms noted at the bilateral posterior tibial and dorsalis pedias arteries. COMPARISON: Compared to prior study 07/31/21, 07/31/21. FINDINGS: Elevated BP. Right toe/brachial index indicates moderate range. +-------+ + + RIGHT ?? Velocity cm/s Phasicity +-------+ + + RUG FRAME MOUNTER DST ? 103 ? monophasic +-------+ + + DPA ? 71 ? monophasic +-------+ + + +-------+ + + LEFT ?? Velocity cm/s Phasicity +-------+ + + RUG FRAME MOUNTER DST ? 45 ? monophasic +-------+ + + DPA ? 52 ? monophasic +-------+ + + Criteria: Stenosis ?V. Ratio Mild ?<50% ?<2.0 Moderate ?? 50-74% ?> or = 2.0 Severe ? 75-99% ?> or = 4.0 Occluded ?100% ?? no detectable flow Pressures +-----+ +--------+ +-----+ ? RIGHT (mmHg) ? LEFT (mmHg) ? +-----+ +--------+ +-----+ Index ?189 ? Brachial ?190 ? Index +-----+ +--------+ +-----+ 0.45 ? 86 ? Digit 1 ?73 ? 0.38 +-----+ +--------+ +-----+ Nehemiah Reynolds MD. Electronically signed on 01/21/2023 12:39:56 PM This study was performed and interpreted by a service accredited by the Intersocietal Accreditation Commission (IAC/Vascular), [email or web address] Report generated by [employer]. ??Final ?? Procedure Note Nehemiah Reynolds MD - 01/21/2023 VASCULAR ULTRASOUND REPORT CECILIO ROSA : 1940 Study Date: 01/21/2023 9:18:40 AM Age: 82 years Tech: BVB Gender: M Referring MD: DOUG TAYLOR Site: [facility] Study performed: Lower extremity TBI, (bilateral). Indication for study: Follow-up known PAD TECHNIQUE: Lower/upper extremity arteries were examined per exam protocol by duplexultrasound, color-flow and spectral Doppler. Peak systolic velocities(PSV), Doppler waveform quality, velocity ratios and vessel size in cm,were documented at protocol specific sites. Physiologic data includingsegmental pressures, ankle/brachial index (BRITTNI), digit PPG recordings,laser Doppler flowmetry, transcutaneous oximetry, and digit temperatureswere documented at sites per exam protocol and test requirements. IMPRESSION: 1. Toe-brachial index is moderately reduced on the right at 0.45 andtoe-brachial index on the left at 0.38. 2. Monphasic waveforms noted at the bilateral posterior tibial anddorsalis pedias arteries. COMPARISON: Compared to prior study 07/31/21, 07/31/21. FINDINGS: Elevated BP. Right toe/brachial index indicates moderate range. +-------+ + + RIGHT Velocity cm/s Phasicity +-------+ + + RUG FRAME MOUNTER DST 103 monophasic +-------+ + + DPA 71 monophasic +-------+ + + +-------+ + + LEFT Velocity cm/s Phasicity +-------+ + + RUG FRAME MOUNTER DST 45 monophasic +-------+ + + DPA 52 monophasic +-------+ + + Criteria: Stenosis V. Ratio Mild <50% <2.0 Moderate 50-74% > or = 2.0 Severe 75-99% > or = 4.0 Occluded 100% no detectable flow Pressures +-----+ +--------+ +-----+ RIGHT (mmHg) LEFT (mmHg) +-----+ +--------+ +-----+ Index 189 Brachial 190 Index +-----+ +--------+ +-----+ 0.45 86 Digit 1 73 0.38 +-----+ +--------+ +-----+ Nehemiah Reynolds MD. Electronically signed on 01/21/2023 12:39:56 PM This study was performed and interpreted by a service accredited by theIntersocietal Accreditation Commission (IAC/Vascular),[email or web address] Report generated by [employer]. Final Doug Taylor MD US * (ABNORMAL) URINE ALBUMIN TO CREATININE RATIO, RANDOM (01/18/2023 9:40 AM SECURITIES CONSULTANT) ALB RAND URINE 63.3 mg/L 01/18/2023 6:24 PM SECURITIES CONSULTANT [facility] CREATININE,URIN E 1.80 g/L 01/18/2023 6:24 PM SECURITIES CONSULTANT [facility] ALBUMIN TO CREATININE RATIO,RAND UR 35.2(H) <30.0 mg/g creat 01/18/2023 6:24 PM SECURITIES CONSULTANT [facility] Urine URINE SPECIMEN / Unknown Non-Blood / Unknown 01/18/2023 9:40 AM SECURITIES CONSULTANT 01/18/2023 10:11 AM SECURITIES CONSULTANT Narrative [facility] - 01/18/2023 6:24 PM SECURITIES CONSULTANT If Albumin to Creatinine Ratio is elevated, consider the following: ? Elevations seen with incipient nephropathy associated ?? with diabetes mellitus or hypertension. Stress, exercise,hematuria, ?? and urinary tract infection may also produce elevated results. If clinically indicated, confirm with ?24 Hour Albumin to Creatinine Ratio. ?? Doug Taylor MD URINE [facility] [address] [place] [address], * LIPID PANEL W REFLEX MEASURED LDL (01/08/2023 10:18 AM SECURITIES CONSULTANT) CHOLESTEROL,TOTAL 119 100 - 199 mg/dL 01/08/2023 4:12 PM SECURITIES CONSULTANT [facility] Comment: Cholesterol, Total Reference Ranges Desirable <200 mg/dL Borderline 200-239 mg/dL High >=240 mg/dL TRIGLYCERIDES 70 <150 mg/dL 01/08/2023 4:12 PM SECURITIES CONSULTANT [facility] HDL CHOLESTEROL 70 >40 mg/dL 4:12 PM SECURITIES CONSULTANT [facility] NON-HDL CHOLESTEROL 49 <145 mg/dl 01/08/2023 4:12 PM [facility] CHOL/HDL RATIO 1.70 <4.50 01/08/2023 4:12 PM SECURITIES CONSULTANT [facility] LDL CHOLESTEROL 35 <=130 mg/dL 01/08/2023 4:12 PM SECURITIES CONSULTANT [facility] VLDL CHOLESTEROL 14 <=30 mg/dL 01/08/2023 4:12 PM SECURITIES CONSULTANT [facility] PROVIDER ORDERED STATUS RANDOM 01/08/2023 4:12 PM SECURITIES CONSULTANT [facility] Blood BLOOD SPECIMEN / Unknown Venipuncture / Unknown 01/08/2023 10:18 AM SECURITIES CONSULTANT 01/08/2023 10:23 AM SECURITIES CONSULTANT Doug Taylor MD CHEMISTRY Performing Organization Address [facility] Co de Phone Number [facility] [address] [place] [id number], * (ABNORMAL) PROTIME-INR (01/08/2023 10:18 AM SECURITIES CONSULTANT) INR 1.8(H) <1.3 01/08/2023 3:22 PM SECURITIES CONSULTANT [facility] PROTIME 19.8(H) 10.3 - 12.3 sec 01/08/2023 3:22 PM SECURITIES CONSULTANT [facility] Blood BLOOD SPECIMEN / Unknown Venipuncture / Unknown 01/08/2023 10:18 AM SECURITIES CONSULTANT 01/08/2023 10:23 AM SECURITIES CONSULTANT Narrative [facility] - 01/08/2023 3:22 PM SECURITIES CONSULTANT ?Therapeutic Range 2.0-3.0 for most anticoagulated patients 2.5-3.5 or 4.0 for high risk patients The INR is only used for patients on stable oral anticoagulant therapy. It makes no significant contribution to the diagnosis or treatment of patients whose Protime is prolonged for other reasons. INR results are increased when heparin levels exceed 1.0 U/mL, which corresponds to an aPTT >125 seconds if the patient is on UFH. Doug Taylor MD HEMATOLOGY Performing Organization Address [facility] Co de Phone Number [facility] [address] [place] [id number], [place] * HEMOGLOBIN A1C MONITORING (POCT) (01/08/2023 10:18 AM [facility]) [facility] HEMOGLOBIN A1C MONITORING (POCT) 5.6 <=6.4 % 01/08/2023 10:41 AM SECURITIES CONSULTANT [facility] Blood BLOOD SPECIMEN / Unknown Venipuncture / Unknown 01/08/2023 10:18 AM SECURITIES CONSULTANT 01/08/2023 10:23 AM SECURITIES CONSULTANT Narrative [facility] - 01/08/2023 10:41 AM SECURITIES CONSULTANT ? (<=6.9%) ? Indicates good control ? (7.0% to 7.9%) ? Indicates fair control ? (>=8.0%) ? Indicates poor control ?? NOTE: ??These thresholds are guidelines and ?individual targets may vary. Falsely low levels may be seen with: Recent Transfusion, Recent Significant Blood Loss, Hemolytic Diseases, or Falsely elevated levels may be seen with: Untreated Anemias, Splenectomy ? Doug Taylor MD CHEMISTRY [facility] [address] [place] [address], * (ABNORMAL) BASIC METABOLIC PANEL (01/08/2023 10:18 AM SECURITIES CONSULTANT) [facility] SODIUM 137 136 - 145 mmol/L 01/08/2023 4:12 PM [facility] POTASSIUM 4.3 3.5 - 5.1 mmol/L 01/08/2023 4:12 PM [facility] CHLORIDE 105 98 - 107 mmol/L 01/08/2023 4:12 PM [facility] CO2,TOTAL 22 22 - 29 mmol/L 01/08/2023 4:12 PM [facility] ANION GAP 10 5 - 18 01/08/2023 4:12 PM [facility] GLUCOSE 139(H) 70 - 99 mg/dL 01/08/2023 4:12 PM SECURITIES CONSULTANT [facility] CALCIUM 9.0 8.8 - 10.2 mg/dL 01/08/2023 4:12 PM SECURITIES CONSULTANT [facility] BUN 24(H) 8 - 23 mg/dL 01/08/2023 4:12 PM SECURITIES CONSULTANT [facility] CREATININE 1.61(H) 0.70 - 1.20 mg/dL 01/08/2023 4:12 PM SECURITIES CONSULTANT [facility] BUN/CREAT RATIO 15 10 - 20 4:12 PM SECURITIES CONSULTANT [facility] eGFR 42(L) >90 mL/min/1.7 3m2 01/08/2023 4:12 PM [facility] Comment:As of 2021, eG FR is calculated by the CKD-EPI creatinine equation without race adjustment. ??eGFR can be influenced by muscle mass, exercise, and diet. ??The reported eGFR is an estimation only and is only applicable if the renal function is stable. Blood BLOOD SPECIMEN / Unknown Venipuncture / Unknown 01/08/2023 10:18 AM SECURITIES CONSULTANT 01/08/2023 10:23 AM SECURITIES CONSULTANT Doug Taylor MD CHEMISTRY [facility] [address] [place] [address], * SCAN-OPERATIVE/PROCEDURE REPORT (01/03/2023 12:00 AM SECURITIES CONSULTANT) Scanner OTHER from Last 3 Months Advance Directives Latest Code Status on File Code Status Date Activated Date Inactivated Comments Full Code 04/15/2019 1:26 PM 04/15/2019 4:48 PM Code Status History Code Status Date Activated Date Inactivated Comments Full Code 03/11/2016 7:17 PM 03/12/2016 7:38 PM Question Answer Comments Code Status Discussion: Discussed Care Teams Plugman Relationship Specialty Start Date End Date Doug Taylor MD [address] [facility] [address] PCP - General Family Practice 04/18/12
--- OUTSIDE RECORDS SUMMARY | 2023-03-20 08:49 | XMS_ITS | Data Portability ---
Author Name Unknown Address [address] [place] [address] Phone [phone] Organization [facility], [facility] Address [address] [place] [address] Care Team Providers Care Radiographer Technologist Name Role Phone DOUG TAYLOR Primary Care Provider Assessment Encounter Date Assessment Date Assessment LastModified by Organization Details LastModified Time 06/08/2021 06/08/2021 Patient to return to clinic next week for BCG treatment #2/6. [email or web address] Not available 06/08/2021 13:21:00 06/15/2021 06/15/2021 Patient presented to clinic for BCG #2/6. Unable to complete procedure today as patient was positive for nitrates, large leuk, moderate blood, foul smelling/cloud y urine. Recommended increasing fluid intake. Touched base with JEOVANNY Hathaway about abx. Bactrim BID x4days sent to patient's pharmacy of choice. 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 Repeat resection with CIS only. 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 Repeat resection with CIS only. 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 Repeat resection with CIS only. [email or web address] Not available 01/03/2023 08:45:48 Plan of Treatment Reminders Order Date Submit Date Provider Last Modified By Organization Details Last Modified Time Details Appointments None recorded . Lab urinalys is, dipstick 2022 023 [email or web address] [facility], [address], [place], [address], 3 15:07:41 urinalys is, dipstick 2022 023 [email or web address] [facility], [address], [place], [address], 3 14:44:37 urinalys is, dipstick 2022 023 [email or web address] [facility], [address], [place], [address], 3 13:13:22 urinalys is, dipstick 2021 022 [email or web address] Not available 13:23:29 urinalys is, dipstick 2021 022 [email or web address] Not available 2 12:39:20 urinalys is, dipstick 2021 022 [email or web address] Not available 2 13:01:34 urinalys is, dipstick 2021 022 [email or web address] Not available 2 12:38:57 urinalys is, dipstick 2021 022 [email or web address] Not available 13:00:18 urinalys is, dipstick 2021 022 [email or web address] Not available 14:50:42 culture, urine 2021 022 [facility], [address], [place], [address], 11:27:28 urinalys is, dipstick 2021 [email or web address] Not available 13:20:30 Referral None recorded . Procedures None recorded . Surgeries None recorded . Imaging None recorded . Medication Orders Nilda BCG 50 mg intraves ical suspensi on 2021 [id number], [address] [place], [place], [id number], 3 13:09:52 Granger BCG 50 mg intraves ical suspensi on 2021 022 [id number], [address] [place], [place], [id number], 3 13:09:52 Granger BCG 50 mg intraves ical suspensi on 2021 022 [facility], [address] [place], [place], [id number], 3 13:09:52 Granger BCG 50 mg intraves ical suspensi on 2021 022 [facility]75846, [address] [place], [place], [id number], 3 13:09:52 Granger BCG 50 mg intraves ical suspensi on 2021 [facility], [address] [place], [place], [id number], 3 13:09:52 Bactrim DS 800 mg-160 mg tablet 2021 [facility], [address] [place], [place], [id number], 3 13:09:32 Nilda BCG 50 mg intraves ical suspensi on 2021 022 [email or web address] Not available 13:09:52 Patient TargetsNo targets recorded. Patient Instructions Encounter Date Encounter Id Patient Instructions Last Modified By Organization Details Last Modified Time 06/15/2021 [id number] Will f/u once urine culture results. Take Bactrim as prescribed and notified to call triage with any questions/concer ns. [email or web address] Not available 06/15/2021 15:16:16 06/08/2021 [id number] BCG instructions reviewed with patient and . Information provided. Direct triage line provided for any questions/concer ns. [email or web address] Not available 06/08/2021 13:21:42 Reason for Referral None Reported. Results Created Date Observation Date Name Description Value Unit Range Abnormal Flag LastModifiedBy Organization Detail LastModifiedTime 06/09/1906/08/2021 urina lysis , dipst ick Color-Status Yellow Not Available [facility] [address], [place], [address], 06/08/2021 13:18:58 06/09/19 22 06/08/2021 urina lysis , dipst ick Clarity-Stat us Clear Not Available [facility] [address], [place], [address], 06/08/2021 13:18:58 06/09/19 22 06/08/2021 urina lysis , dipst ick pH-Status 6.5 Not Available [facility] [address], [place], [address], 06/08/2021 13:18:58 06/09/19 22 06/08/2021 urina lysis , dipst ick Protein-Stat us >=9.0 Not Available [facility] [address], [place], [address], 06/08/2021 13:18:58 06/09/19 22 06/08/2021 urina lysis , dipst ick Urobilinogen -Status 2.0 Not Available [facility] [address], [place], [address], 06/08/2021 13:18:58 06/09/19 22 06/08/2021 urina lysis , dipst ick Nitrates-Sta tus negati ve Not Available [facility] [address], [place], [address], 06/08/2021 13:18:58 06/09/19 22 06/08/2021 urina lysis , dipst ick Blood-Status Trace Not Available [facility] [address], [place], [address], 06/08/2021 13:18:58 06/09/19 22 06/08/2021 urina lysis , dipst ick Leuko-Status Trace Not Available [facility] [address], [place], [address], 06/08/2021 13:18:58 06/09/19 22 06/08/2021 urina lysis , dipst ick Specimen Type Voided Not Available [facility] [address], [place], [address], 06/08/2021 13:18:58 06/09/19 22 06/08/2021 urina lysis , dipst ick Performed by Raquel BRANTLEY Not Available [facility] [address], [place], [address], 06/08/2021 13:18:58 06/09/19 22 06/08/2021 urina lysis , dipst ick Total Urine Volume 20cc Not Available [facility] [address], [place], [address], 06/08/2021 13:18:58 06/16/19 22 06/15/2021 URINE CULTU RE final report microb iology result s abnormal Not Available [facility] [address], [place], [address], 06/17/2021 11:27:28 06/16/19 22 06/15/2021 urina lysis , dipst ick Color-Status Yellow Not Available [facility] [address], [place], [address], 06/15/2021 14:49:06 06/16/19 22 06/15/2021 urina lysis , dipst ick Clarity-Stat us Cloudy Not Available [facility] [address], [place], [address], 06/15/2021 14:49:06 06/16/19 22 06/15/2021 urina lysis , dipst ick pH-Status 6.0 Not Available [facility] [address], [place], [address], 06/15/2021 14:49:06 06/16/19 22 06/15/2021 urina lysis , dipst ick Protein-Stat us >=9.0 Not Available [facility] [address], [place], [address], 06/15/2021 14:49:06 06/16/19 22 06/15/2021 urina lysis , dipst ick Nitrates-Sta tus positi ve Not Available [facility] [address], [place], [address], 06/15/2021 14:49:06 06/16/19 22 06/15/2021 urina lysis , dipst ick Blood-Status Modera te Not Available [facility] [address], [place], [address], 06/15/2021 14:49:06 06/16/19 22 06/15/2021 urina lysis , dipst ick Leuko-Status Large Not Available [facility] [address], [place], [address], 06/15/2021 14:49:06 06/16/19 22 06/15/2021 urina lysis , dipst ick Specimen Type Voided Not Available [facility] [address], [place], [address], 06/15/2021 14:49:06 06/16/19 22 06/15/2021 urina lysis , dipst ick Performed by Raquel BRANTLEY Not Available [facility] [address], [place], [address], 06/15/2021 14:49:06 06/16/19 22 06/15/2021 urina lysis , dipst ick Total Urine Volume 20cc Not Available [facility] [address], [place], [address], 06/15/2021 14:49:06 06/23/19 22 06/22/2021 urina lysis , dipst ick Color-Status Dark Yellow Not Available [facility] [address], [place], [address], 06/22/2021 12:59:06 06/23/19 22 06/22/2021 urina lysis , dipst ick Bilirubin-St atus Small Not Available [facility] [address], [place], [address], 06/22/2021 12:59:06 06/23/19 22 06/22/2021 urina lysis , dipst ick Nitrates-Sta tus negati ve Not Available [facility] [address], [place], [address], 06/22/2021 12:59:06 06/23/19 22 06/22/2021 urina lysis , dipst ick Blood-Status Trace Not Available [facility] [address], [place], [address], 06/22/2021 12:59:06 06/23/19 22 06/22/2021 urina lysis , dipst ick Leuko-Status Negati ve Not Available [facility] [address], [place], [address], 06/22/2021 12:59:06 06/23/19 22 06/22/2021 urina lysis , dipst ick Specimen Type Voided Not Available [facility] [address], [place], [address], 06/22/2021 12:59:06 06/23/19 22 06/22/2021 urina lysis , dipst ick Performed by ARELIS RN Not Available [facility] [address], [place], [address], 06/22/2021 12:59:06 06/23/19 22 06/22/2021 urina lysis , dipst ick Total Urine Volume 30cc Not Available [facility] [address], [place], [address], 06/22/2021 12:59:06 06/30/19 22 06/29/2021 urina lysis , dipst ick Color-Status Dark Yellow Not Available [facility] [address], [place], [address], 06/29/2021 12:37:33 06/30/19 22 06/29/2021 urina lysis , dipst ick Clarity-Stat us Clear Not Available [facility] [address], [place], [address], 06/29/2021 12:37:33 06/30/19 22 06/29/2021 urina lysis , dipst ick Nitrates-Sta tus negati ve Not Available [facility] [address], [place], [address], 06/29/2021 12:37:33 06/30/19 22 06/29/2021 urina lysis , dipst ick Blood-Status Trace Not Available [facility] [address], [place], [address], 06/29/2021 12:37:33 06/30/19 22 06/29/2021 urina lysis , dipst ick Leuko-Status Trace Not Available [facility] [address], [place], [address], 06/29/2021 12:37:33 06/30/19 22 06/29/2021 urina lysis , dipst ick Specimen Type Voided Not Available [facility] [address], [place], [address], 06/29/2021 12:37:33 06/30/19 22 06/29/2021 urina lysis , dipst ick Performed by ARELIS RN Not Available [facility] [address], [place], [address], 06/29/2021 12:37:33 06/30/19 22 06/29/2021 urina lysis , dipst ick Total Urine Volume 35cc Not Available [facility] [address], [place], [address], 06/29/2021 12:37:33 07/07/19 22 07/06/2021 urina lysis , dipst ick Color-Status Dark Yellow Not Available [facility] [address], [place], [address], 07/06/2021 13:00:14 07/07/19 22 07/06/2021 urina lysis , dipst ick Clarity-Stat us Clear Not Available [facility] [address], [place], [address], 07/06/2021 13:00:14 07/07/19 22 07/06/2021 urina lysis , dipst ick Nitrates-Sta tus negati ve Not Available [facility] [address], [place], [address], 07/06/2021 13:00:14 07/07/19 22 07/06/2021 urina lysis , dipst ick Blood-Status Negati ve Not Available [facility] [address], [place], [address], 07/06/2021 13:00:14 07/07/19 22 07/06/2021 urina lysis , dipst ick Leuko-Status Small Not Available [facility] [address], [place], [address], 07/06/2021 13:00:14 07/07/19 22 07/06/2021 urina lysis , dipst ick Specimen Type Cathet erized Not Available [facility] [address], [place], [address], 07/06/2021 13:00:14 07/07/19 22 07/06/2021 urina lysis , dipst ick Performed by ARELIS RN Not Available [facility] [address], [place], [address], 07/06/2021 13:00:14 07/07/19 22 07/06/2021 urina lysis , dipst ick Total Urine Volume 125cc Not Available [facility] [address], [place], [address], 07/06/2021 13:00:14 07/14/19 22 07/13/2021 urina lysis , dipst ick Color-Status Yellow Not Available [facility] [address], [place], [address], 07/13/2021 12:37:03 07/14/19 22 07/13/2021 urina lysis , dipst ick Clarity-Stat us Clear Not Available [facility] [address], [place], [address], 07/13/2021 12:37:03 07/14/19 22 07/13/2021 urina lysis , dipst ick Glucose-Stat us Negati ve Not Available [facility] [address], [place], [address], 07/13/2021 12:37:03 07/14/19 22 07/13/2021 urina lysis , dipst ick Bilirubin-St atus Negati ve Not Available [facility] [address], [place], [address], 07/13/2021 12:37:03 07/14/19 22 07/13/2021 urina lysis , dipst ick Ketones-Stat us Negati ve Not Available [facility] [address], [place], [address], 07/13/2021 12:37:03 07/14/19 22 07/13/2021 urina lysis , dipst ick Nitrates-Sta tus negati ve Not Available [facility] [address], [place], [address], 07/13/2021 12:37:03 07/14/19 22 07/13/2021 urina lysis , dipst ick Blood-Status Negati ve Not Available [facility] [address], [place], [address], 07/13/2021 12:37:03 07/14/19 22 07/13/2021 urina lysis , dipst ick Leuko-Status Negati ve Not Available [facility] [address], [place], [address], 07/13/2021 12:37:03 07/14/19 22 07/13/2021 urina lysis , dipst ick Specimen Type Voided Not Available [facility] [address], [place], [address], 07/13/2021 12:37:03 07/14/19 22 07/13/2021 urina lysis , dipst ick Performed by ARELIS RN Not Available [facility] [address], [place], [address], 07/13/2021 12:37:03 07/14/19 22 07/13/2021 urina lysis , dipst ick Total Urine Volume 45cc Not Available [facility] [address], [place], [address], 07/13/2021 12:37:03 07/21/19 22 07/20/2021 urina lysis , dipst ick Color-Status Yellow Not Available [facility] [address], [place], [address], 07/20/2021 13:22:03 07/21/19 22 07/20/2021 urina lysis , dipst ick Clarity-Stat us Clear Not Available [facility] [address], [place], [address], 07/20/2021 13:22:03 07/21/19 22 07/20/2021 urina lysis , dipst ick Nitrates-Sta tus negati ve Not Available [facility] [address], [place], [address], 07/20/2021 13:22:03 07/21/19 22 07/20/2021 urina lysis , dipst ick Blood-Status Negati ve Not Available [facility] [address], [place], [address], 07/20/2021 13:22:03 07/21/19 22 07/20/2021 urina lysis , dipst ick Leuko-Status Small Not Available [facility] [address], [place], [address], 07/20/2021 13:22:03 07/21/19 22 07/20/2021 urina lysis , dipst ick Specimen Type Voided Not Available [facility] [address], [place], [address], 07/20/2021 13:22:03 07/21/19 22 07/20/2021 urina lysis , dipst ick Performed by ARELIS BRANTLEY Not Available [facility] [address], [place], [address], 07/20/2021 13:22:03 07/21/19 22 07/20/2021 urina lysis , dipst ick Total Urine Volume 45cc Not Available [facility] [address], [place], [address], 07/20/2021 13:22:03 03/29/19 23 03/29/2022 urina lysis , dipst ick Color-Status Yellow Not Available [facility] [address], [place], [address], 03/29/2022 13:12:16 03/29/19 23 03/29/2022 urina lysis , dipst ick Clarity-Stat us Clear Not Available [facility] [address], [place], [address], 03/29/2022 13:12:16 03/29/19 23 03/29/2022 urina lysis , dipst ick Glucose-Stat us Negati ve Not Available [facility] [address], [place], [address], 03/29/2022 13:12:16 03/29/19 23 03/29/2022 urina lysis , dipst ick Bilirubin-St atus Negati ve Not Available [facility] [address], [place], [address], 03/29/2022 13:12:16 03/29/19 23 03/29/2022 urina lysis , dipst ick Ketones-Stat us Negati ve Not Available [facility] [address], [place], [address], 03/29/2022 13:12:16 03/29/19 23 03/29/2022 urina lysis , dipst ick Nitrates-Sta tus negati ve Not Available [facility] [address], [place], [address], 03/29/2022 13:12:16 03/29/19 23 03/29/2022 urina lysis , dipst ick Blood-Status Trace Not Available [facility] [address], [place], [address], 03/29/2022 13:12:16 03/29/19 23 03/29/2022 urina lysis , dipst ick Leuko-Status Negati ve Not Available [facility] [address], [place], [address], 03/29/2022 13:12:16 07/20/19 23 07/19/2022 urina lysis , dipst ick Color-Status Straw Not Available [facility] [address], [place], [address], 07/19/2022 14:43:03 07/20/1907/19/2022 urina lysis , dipst ick Clarity-Stat us Cloudy Not Available [facility] [address], [place], [address], 07/19/2022 14:43:03 07/20/19 23 07/19/2022 urina lysis , dipst ick Glucose-Stat us Negati ve Not Available [facility] [address], [place], [address], 07/19/2022 14:43:03 07/20/19 23 07/19/2022 urina lysis , dipst ick Bilirubin-St atus Small Not Available [facility] [address], [place], [address], 07/19/2022 14:43:03 07/20/19 23 07/19/2022 urina lysis , dipst ick Ketones-Stat us Negati ve Not Available [facility] [address], [place], [address], 07/19/2022 14:43:03 07/20/19 23 07/19/2022 urina lysis , dipst ick Urobilinogen -Status 4.0 Not Available [facility] [address], [place], [address], 07/19/2022 14:43:03 07/20/19 23 07/19/2022 urina lysis , dipst ick Nitrates-Sta tus negati ve Not Available [facility] [address], [place], [address], 07/19/2022 14:43:03 07/20/19 23 07/19/2022 urina lysis , dipst ick Blood-Status Modera te Not Available [facility] [address], [place], [address], 07/19/2022 14:43:03 07/20/19 23 07/19/2022 urina lysis , dipst ick Leuko-Status Large Not Available [facility] [address], [place], [address], 07/19/2022 14:43:03 01/04/20 23 01/03/2023 urina lysis , dipst ick pH-Status 6.5 Not Available [facility] [address], [place], [address], 01/03/2023 15:06:56 01/04/2001/03/2023 urina lysis , dipst ick Protein-Stat us >=9.0 Not Available [facility] [address], [place], [address], 01/03/2023 15:06:56 01/04/2001/03/2023 urina lysis , dipst ick Urobilinogen -Status 4.0 Not Available [facility] [address], [place], [address], 01/03/2023 15:06:56 01/04/20 23 01/03/2023 urina lysis , dipst ick Nitrates-Sta tus negati ve Not Available [facility] [address], [place], [address], 01/03/2023 15:06:56 01/04/20 23 01/03/2023 urina lysis , dipst ick Blood-Status Trace Not Available [facility] [address], [place], [address], 01/03/2023 15:06:56 01/04/20 23 01/03/2023 urina lysis , dipst ick Leuko-Status Negati ve Not Available [facility] [address], [place], [address], 01/03/2023 15:06:56 01/04/20 23 01/03/2023 urina lysis , dipst ick Specimen Type Voided Not Available [facility] [address], [place], [address], 01/03/2023 15:06:56 Result Notes None recorded. Problems Name Status Onset Date Resolution Date Notes Provider Name and Address Organization Details Recorded Time Malignant tumor of urinary bladder Active 2 Raquel Esquivel null, [facility] 06/08/2021 13:04:27 Problem Notes None recorded. Procedures Surgical History Date Name Laterality Status Provider Name and Address Organization Details Recorded Time 01/04/20 23 Cystoscopy- male completed Juan Garcia MD [address] [place] [address],[address], [place], [address], [facility] 01/03/2023 15:16:02 01/04/20 23 Sulfa post Cysto completed Farrah Curtis null, [facility] 01/03/2023 15:09:38 07/20/19 23 Cystoscopy- male completed Juan Garcia MD [address] [place] [address],[address], [place], [address], [facility] 07/19/2022 18:19:49 03/29/19 23 Cystoscopy- male completed Juan Garcia MD [address] [place] [address],[address], [place], [address], [facility] 03/29/2022 13:48:04 07/21/19 22 [facility] 13:21:59 07/14/19 22 BCG Full Dose Tx 50mg completed Brenda pena, [facility] 07/13/2021 12:36:56 07/07/19 22 BCG Full Dose Tx 50mg completed Brenda pena, [facility] 07/06/2021 13:00:05 06/30/19 22 BCG Full Dose Tx 50mg completed Brenda pena, [facility] 06/29/2021 12:37:26 06/23/19 22 BCG Full Dose Tx 50mg completed Brenda pena, [facility] 06/22/2021 12:59:03 06/16/19 22 Urinalysis completed Aminta pena [facility] 06/15/2021 15:06:05 06/09/19 22 BCG Full Dose Tx 50mg completed Raquel Jaznoel becky [facility] 06/08/2021 13:18:54 02/09/20 21 TRANSURETHRAL RESECTION OF BLADDER TUMOR (SURG) completed Jil Roy becky [facility] 02/08/2021 16:46:49 Imaging Results None recorded. Procedure Notes None recorded. Medical Equipment None Reported. Allergies No known drug allergies Medications Name Sig Start Date Stop Date Status Note LastModified by Organization Details LastModified Time atorvastati n 20 mg tablet active Not Available Not Available Not Available ofloxacin 0.3 % eye drops INT 1 DROP IN OPERATIVE EYE QID STARTING SATURDAY BEFORE SURGERY 07/19 completed Not Available Not Available Not Available cephalexin 250 mg capsule 07/19 completed Not Available Not Available Not Available sotalol 80 mg tablet active Not Available Not Available No t Available cyanocobala min (vit B-12) 1,000 mcg tablet active Not Available Not Available N ot Available warfarin 2.5 mg tablet active Not Available Not Available Not Available sulfamethox azole 800 mg-trimetho prim 160 mg tablet TAKE 1 TABLET BY MOUTH EVERY 12 HOURS 03/29 completed Not Available Not Available Not Available ketorolac 0.5 % eye drops 07/19 completed Not Available Not Available Not Available Granger BCG 50 mg intravesica l suspension Instill 50 mL by intravesi hussein route. 03/29 completed Not Available Not Available Not Available prednisolon e acetate 1 % eye drops,suspe nsion 07/19 completed Not Available Not Available Not Available tamsulosin 0.4 mg capsule active Not Available Not Available Not Available metformin 1,000 mg tablet 03/29 completed Not Available Not Available Not Available hydrochloro thiazide 25 mg tablet active Not Available Not Available No t Available zolpidem 5 mg tablet 03/29 completed Not Available Not Available Not Available furosemide 20 mg tablet 03/29 completed Not Available Not Available Not Available losartan 100 mg tablet active Not Available Not Available Not Available metformin ER 500 mg tablet,exte nded release 24 hr active Not Available Not Available Not Available oxycodone 5 mg tablet 07/19 completed Not Available Not Available Not Available enoxaparin 40 mg/0.4 mL subcutaneou s syringe INJECT 0.4ML SUBCUTANE OUS EVERY DAY active Not Available Not Available No t Available potassium chloride ER 10 mEq tablet,exte nded release(par t/cryst) 03/29 completed Not Available Not Available Not Available cholecalcif rj (vitamin D3) 25 mcg (1,000 unit) tablet TAKE 1 TABLET BY MOUTH EVERY DAY active Not Available Not Available No t Available peg 3350-electr olytes 236 gram-22.74 gram-6.74 gram-5.86 gram solution DRINK 3 QUARTS THE DAY BEFORE PROCEDURE AND DRINK 1 QUART 6 HOURS PRIOR TO PROCEDURE 03/29 completed Not Available Not Available Not Available Xarelto 15 mg tablet active Not Available Not Available No t Available Xarelto 20 mg tablet 03/29 completed Not Available Not Available Not Available TRUEplus Lancets 33 gauge active Not Available Not Available Not Available Invokana 100 mg tablet 03/29 completed Not Available Not Available Not Available True Metrix Glucose Test Strip active Not Available Not Available N ot Available Xarelto DVT-PE Treatment 30-Day Starter 15 mg(42)-20 mg(9) tablet pack 03/29 completed Not Available Not Available Not Available True Metrix Air Glucose Meter kit active Not Available Not Available No t Available Accu-Chek Guide Glucose Meter active Not Available Not Available Not Available DropSafe Alcohol Prep Pads active Not Available Not Available No t Available Vitals Date Recorded Body height Body mass index (BMI) Body weight Provider Name and Address Organization Details Last Updated DateTime 03/29/2022 187.96 cm 29.5 kg/m2 623064.25 g Tulio Haile [facility] 03/29/2022 13:05:47 Date Recorded Body height Body mass index (BMI) Body weight Provider Name and Address Organization Details Last Updated DateTime 07/19/2022 187.96 cm 29.5 kg/m2 086633.25 g Juan Garcia MD [address] [facility],[address], [place], [address] 07/19/2022 14:39:36 Date Recorded Body height Body mass index (BMI) Body weight Provider Name and Address Organization Details Last Updated DateTime 01/03/2023 187.96 cm 29.5 kg/m2 337463.25 g Farrah pena [facility] 01/03/2023 15:01:04 Social History Question Answer Notes LastModified by Organizat ion Details LastModified Time Tobacco Smoking Status Former Smoker Tulio pena [facility] 03/29/2022 13:11:40 What Is Your Level Of Alcohol Consumption? Moderate Information not available 03/29/2022 How Many Times Per Week Do You Consume Alcohol? 5-7 Times Per Week Information not available 07/19/2022 What Is Your Level Of Caffeine Consumption? Moderate Information not available 03/29/2022 Are You Currently Employed? No Information not available 03/29/2022 When Did You Quit Smoking? 16+yearssince lastcigarette Information not available 03/29/2022 Recreational Drug Use No Information not available 03/29/2022 What Was The Date Of Your Most Recent Tobacco Screening? 01/03/2023 [email or web address] Information not available 01/03/2023 What Is Your Relationship Status? Information not available 03/29/2022 Do You Use Any Illicit Or Recreational Drugs? No Information not available 03/29/2022 Has Tobacco Cessation Counseling Been Provided? No Information not available 03/29/2022 How Many Years Have You Smoked Tobacco? 25 Information not available 03/29/2022 Do You Or Have You Ever Used Any Other Forms Of Tobacco Or Nicotine? No Information not available 03/29/2022 Sex: Male Functional Status None recorded. Mental Status None recorded. Family History Nothing Reported. Medical History No medical history recorded. Immunizations Vaccine Type Date Status Provider Name and Address Organization Details Recorded Time influenza, trivalent, adjuvanted 11/18/2018 completed Farrah Curtis becky [facility] 01/03/2023 15:01:14 influenza, trivalent, adjuvanted 11/21/2016 completed Farrah Curtis becky [facility] 01/03/2023 15:01:14 influenza, trivalent, adjuvanted 01/01/2018 completed Farrah Curtis becky [facility] 01/03/2023 15:01:14 Influenza vaccine, quadrivalent, adjuvanted 11/24/2020 completed Farrah Stromquist null, [facility] 01/03/2023 15:01:14 Influenza vaccine, quadrivalent, adjuvanted 11/30/2019 completed Farrah Stromquist null, [facility] 01/03/2023 15:01:14 COVID-19, mRNA, LNP-S, PF, 30 mcg/0.3 mL dose 04/05/2020 completed Farrah Stromquist null, [facility] 01/03/2023 15:01:14 COVID-19, mRNA, LNP-S, PF, 30 mcg/0.3 mL dose 04/26/2020 completed Farrah Stromquist null, [facility] 01/03/2023 15:01:14 COVID-19, mRNA, LNP-S, PF, 30 mcg/0.3 mL dose 11/24/2020 completed Farrah Stromquist null, [facility] 01/03/2023 15:01:14 COVID-19, mRNA, LNP-S, PF, 30 mcg/0.3 mL dose, marvin-sucrose 06/12/2021 completed Farrah Stromquist null, [facility] 01/03/2023 15:01:14 pneumococcal polysaccharide PPV23 11/29/2005 completed Farrah Stromquist null, [facility] 01/03/2023 15:01:14 pneumococcal polysaccharide PPV23 01/25/2005 completed Farrah Stromquist null, [facility] 01/03/2023 15:01:14 pneumococcal polysaccharide PPV23 02/20/2011 completed Farrah Stromquist null, [facility] 01/03/2023 15:01:14 influenza, unspecified formulation 11/25/2008 completed Farrah Stromquist null, [facility] 01/03/2023 15:01:14 Tdap 02/20/2011 completed Farrah Stromquist null, [facility] 01/03/2023 15:01:14 Pneumococcal conjugate PCV 13 03/15/2016 completed Farrah Stromquist null, [facility] 01/03/2023 15:01:14 Pneumococcal conjugate PCV 13 09/17/2014 completed Farrah Stromquist null, [facility] 01/03/2023 15:01:14 zoster live 02/26/2008 completed Farrah Stromquist null, [facility] 01/03/2023 15:01:14 zoster live 01/05/2009 completed Farrah Stromquist null, [facility] 01/03/2023 15:01:14 Influenza, high dose seasonal 11/29/2014 completed Farrah Stromquist null, [facility] 01/03/2023 15:01:14 Influenza, high dose seasonal 12/14/2015 completed Farrah Stromquist null, [facility] 01/03/2023 15:01:14 Influenza, high dose seasonal 12/24/2013 completed Farrah Stromquist null, [facility] 01/03/2023 15:01:14 Influenza, seasonal, injectable 02/26/1988 completed Farrah Stromquist null, [facility] 01/03/2023 15:01:14 Influenza, seasonal, injectable 11/16/2008 completed Farrah Stromquist null, [facility] 01/03/2023 15:01:14 Influenza, seasonal, injectable 11/24/2009 completed Farrah Stromquist null, [facility] 01/03/2023 15:01:14 Influenza, seasonal, injectable 11/29/2005 completed Farrah Stromquist null, [facility] 01/03/2023 15:01:14 Influenza, seasonal, injectable 12/06/2003 completed Farrah Stromquist null, [facility] 01/03/2023 15:01:14 Influenza, seasonal, injectable 12/18/2002 completed Farrah Stromquist null, [facility] 01/03/2023 15:01:14 Influenza, seasonal, injectable 12/18/2012 completed Farrah Stromquist null, [facility] 01/03/2023 15:01:14 Influenza, seasonal, injectable 12/19/2001 completed Farrah Stromquist null, [facility] 01/03/2023 15:01:14 Influenza, seasonal, injectable 12/26/2006 completed Farrah Stromquist null, [facility] 01/03/2023 15:01:14 Influenza, seasonal, injectable 12/28/2004 completed Farrah Stromquist null, [facility] 01/03/2023 15:01:14 Influenza, seasonal, injectable 01/30/2012 completed Farrah Stromquist null, [facility] 01/03/2023 15:01:14 Influenza, seasonal, injectable, preservative free 12/16/2007 completed Farrah Stromquist null, [facility] 01/03/2023 15:01:14 Influenza, seasonal, injectable, preservative free 12/18/2010 completed Farrah Stromquist null, [facility] 01/03/2023 15:01:14 Novel [id number] 03/25/2009 completed Farrah Stromquist null, [facility] 01/03/2023 15:01:14 Td (adult), 5 Lf tetanus toxoid, preservative free, adsorbed 11/29/2005 completed Farrah Stromquist null, [facility] 01/03/2023 15:01:14 Td (adult), 2 Lf tetanus toxoid, preservative free, adsorbed 10/07/1998 completed Farrah Stromquist null, [facility] 01/03/2023 15:01:14 Td (adult), 2 Lf tetanus toxoid, preservative free, adsorbed 01/25/2005 completed Farrah Stromquist null, [facility] 01/03/2023 15:01:14 influenza, injectable, quadrivalent, preservative free 03/25/2009 completed Farrah Stromquist null, [facility] 01/03/2023 15:01:14 Past Encounters Encounter ID Performer Location Encounter Start Date Encounter Closed Date Diagnosis/Indication [id number] MD CLEM Brannon_Yoh[facility] [address] 06/08/2021 12:06:29 06/09/2021 12:49:18 Malignant tumor of urinary bladder [id number] MD CLEM Brannon[facility] [address] 06/15/2021 14:29:45 06/16/2021 10:17:08 Malignant tumor of urinary bladder [id number] MD Ezio Brannon [address] [place] [address] 06/22/2021 12:09:08 06/26/2021 10:10:48 Malignant tumor of urinary bladder [id number] MD CLEM Brannon[facility] [address] [place] [address] 06/29/2021 12:04:22 06/30/2021 10:32:05 Malignant tumor of urinary bladder [id number] MD CLEM Brannon[facility] [address] [place] [address] 07/06/2021 12:00:01 07/10/2021 08:52:06 Malignant tumor of urinary bladder [id number] MD David Brannona [address] [place] [address] 07/13/2021 11:55:07 07/14/2021 08:27:46 Malignant tumor of urinary bladder [id number] MD CLEM Brannon_[place] [address] [place] [address] 07/20/2021 12:41:28 07/21/2021 15:05:59 Malignant tumor of urinary bladder [id number] MD CLEM [facility]annon[facility] [address] [place] [address] 03/29/2022 12:36:10 04/02/2022 12:54:20 Malignant tumor of urinary bladder [id number] MD David Brannona [address] [place] [address] 07/19/2022 14:19:30 07/27/2022 15:09:48 Malignant tumor of urinary bladder Pyuria [id number] MD CLEM BrannonEdinnoel [address] [place] [address] 01/03/2023 14:52:35 01/08/2023 11:52:12 Malignant tumor of urinary bladder Pyuria Health Concerns Section Related Observation LastModified by Organization Detai ls LastModified Time None Recorded Concern Status LastModified by Organization Details LastModified Time None Recorded Advance Directives Directive None Recorded Payers Encounter Date Sequence Insurance Name Policy Number Policy Zelaya Covered Member ID Zelaya Member ID Guarantor Name 01/03/2023 1 [employer] (MEDICARE REPLACEMENT/A DVANTAGE - PPO) Cecilio Rosa [id number] Cecilio Rosa 07/19/2022 1 [employer] (MEDICARE REPLACEMENT/A DVANTAGE - PPO) Cecilio Rosa [id number] Cecilio Rosa 03/29/2022 1 [employer] (MEDICARE REPLACEMENT/A DVANTAGE - PPO) Cecilio Rosa [id number] Cecilio Rosa 07/20/2021 1 [employer] (MEDICARE REPLACEMENT/A DVANTAGE - PPO) Cecilio Rosa [id number] Cecilio Rosa 07/13/2021 1 [employer] (MEDICARE REPLACEMENT/A DVANTAGE - PPO) Cecilio Rosa [id number] Cecilio Rosa 07/06/2021 1 [employer] (MEDICARE REPLACEMENT/A DVANTAGE - PPO) Cecilio Rosa [id number] Cecilio Rosa 06/29/2021 1 [employer] (MEDICARE REPLACEMENT/A DVANTAGE - PPO) Cecilio Rosa [id number] Cecilio Rosa 06/22/2021 1 [employer] (MEDICARE REPLACEMENT/A DVANTAGE - PPO) Cecilio Rosa [id number] Cecilio Rosa 06/15/2021 1 [employer] (MEDICARE REPLACEMENT/A DVANTAGE - PPO) Cecilio Rosa [id number] Cecilio Rosa 06/08/2021 1 [employer] (MEDICARE REPLACEMENT/A DVANTAGE - PPO) Cecilio Rosa [id number] Cecilio Rosa Notes Date Note Type Note Provider Name and Address Organization Details Recorded Time 06/08/2021 text/html HPI Notes: Karin hanson arrived to clinic today to begin BCG induction therapy #03/02. Patient has history of urotheilial carcinoma in situ. Had 02/08/21 Transurethral resection of bladder tumor. Patient then had 05/10/2021 cystoscopy, biopsy with fulguration due to insufficient sampling. Juan Garcia MD [address] [facility],[address], [place], [address], [facility] 06/08/2021 18:20:54 06/15/2021 text/html HPI Notes: Karin hanson arrived to clinic today to begin BCG induction therapy #04/02. Patient has history of urotheilial carcinoma in situ. Unable to complete BCG due to nitrate positive urinalysis. Had 02/08/21 Transurethral resection of bladder tumor. Patient then had 05/10/2021 cystoscopy, biopsy with fulguration due to insufficient sampling. Juan Garcia MD [address] [place] [address],[address], [place], [address], [facility] 06/20/2021 12:01:54 06/22/2021 text/html HPI Notes: Karin hanson arrived to clinic today to begin BCG induction therapy #2/6. Patient has history of urotheilial carcinoma in situ. Unable to complete BCG due to nitrate positive urinalysis. Had 02/08/21 Transurethral resection of bladder tumor. Patient then had 05/10/2021 cystoscopy, biopsy with fulguration due to insufficient sampling. 06/22/21: Patient presented to clinic for #2/6 BCG induction treatment. Juan Garcia MD [address] [place] [address],[address], [place], [address], [facility] 06/22/2021 18:23:42 06/29/2021 text/html HPI Notes: Karin hanson arrived to clinic today to begin BCG induction therapy #2/6. Patient has history of urotheilial carcinoma in situ. Unable to complete BCG due to nitrate positive urinalysis. Had 02/08/21 Transurethral resection of bladder tumor. Patient then had 05/10/2021 cystoscopy, biopsy with fulguration due to insufficient sampling. 06/22/21: Patient presented to clinic for #2/6 BCG induction treatment. 06/29/21: Patient presented to clinic for #3/6 BCG induction treatment. Juan Garcia MD [address] [place] [address],[address], [place], [address], [facility] 06/30/2021 08:25:36 07/06/2021 text/html HPI Notes: Karin hanson arrived to clinic today to begin BCG induction therapy #2/6. Patient has history of urotheilial carcinoma in situ. Unable to complete BCG due to nitrate positive urinalysis. Had 02/08/21 Transurethral resection of bladder tumor. Patient then had 05/10/2021 cystoscopy, biopsy with fulguration due to insufficient sampling. 06/22/21: Patient presented to clinic for #2/6 BCG induction treatment. 06/29/21: Patient presented to clinic for #3/6 BCG induction treatment. 07/06/21: Patient presented to clinic for #4/6 BCG induction treatment. Juan Garcia MD [address] [place] [address],[address], [place], [address], [facility] 07/06/2021 13:50:26 07/13/2021 text/html HPI Notes: Karin hanson arrived to clinic today to begin BCG induction therapy #2/6. Patient has history of urotheilial carcinoma in situ. Unable to complete BCG due to nitrate positive urinalysis. Had 02/08/21 Transurethral resection of bladder tumor. Patient then had 05/10/2021 cystoscopy, biopsy with fulguration due to insufficient sampling. 06/22/21: Patient presented to clinic for #2/6 BCG induction treatment. 06/29/21: Patient presented to clinic for #3/6 BCG induction treatment. 07/06/21: Patient presented to clinic for #4/6 BCG induction treatment. 07/13/21: Patient presented to clinic for #5/6 BCG induction treatment. Juan Garcia MD [address] [place] [address],[address], [place], [address], [facility] 07/13/2021 18:13:55 07/20/2021 text/html HPI Notes: Karin hanson arrived to clinic today to begin BCG induction therapy #2/6. Patient has history of urotheilial carcinoma in situ. Unable to complete BCG due to nitrate positive urinalysis. Had 02/08/21 Transurethral resection of bladder tumor. Patient then had 05/10/2021 cystoscopy, biopsy with fulguration due to insufficient sampling. 06/22/21: Patient presented to clinic for #2/6 BCG induction treatment. 06/29/21: Patient presented to clinic for #3/6 BCG induction treatment. 07/06/21: Patient presented to clinic for #4/6 BCG induction treatment. 07/13/21: Patient presented to clinic for #5/6 BCG induction treatment. 07/20/21: Patient presented to clinic for #6/6 BCG induction treatment. Juan Garcia MD [address] [facility],[address], [place], [address], [facility] 07/20/2021 18:21:28 03/29/2022 text/html HPI Notes: Mr. Mary strange is a very pleasant 81 yoM who is referred to me by his PCP, Doug Taylor MD, regarding gross hematuria. Patient experienced painless gross hematuria several times. During this time he was supratherapeutic on his Warfarin (5.72). Once his INR was corrected he had no further hematuria. He underwent a CT A/P and was referred to me today for further evaluation and treatment. He has since been transitioned to Xarelto with no recurrence of his hematuria. 05/24/21 Here for follow up history of bladder cancer. Underwent re-resection which revealed... A) BLADDER, DEEP, BIOPSY: 1. Urothelial carcinoma in situ 2. Negative for invasive tumor in this sample 3. Sampling includes: Urothelium, lamina propria, muscularis propria Seen today with his who provides some of the history. 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 Has now completed induction course of BCG. Has been doing well. No issues. 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 No new symptoms Juan Garcia MD [address] [facility], [place], [address], [facility] 03/29/2022 13:49:01 07/19/2022 text/html HPI Notes: Mr. Mary strange is a very pleasant 81 yoM who is referred to me by his PCP, Doug Taylor MD, regarding gross hematuria. Patient experienced painless gross hematuria several times. During this time he was supratherapeutic on his Warfarin (5.72). Once his INR was corrected he had no further hematuria. He underwent a CT A/P and was referred to me today for further evaluation and treatment. He has since been transitioned to Xarelto with no recurrence of his hematuria. 05/24/21 Here for follow up history of bladder cancer. Underwent re-resection which revealed... A) BLADDER, DEEP, BIOPSY: 1. Urothelial carcinoma in situ 2. Negative for invasive tumor in this sample 3. Sampling includes: Urothelium, lamina propria, muscularis propria Seen today with his who provides some of the history. 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 Has now completed induction course of BCG. Has been doing well. No issues. 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 No new symptoms Juan Garcia MD [address] [facility],[address], [place], [address], [facility] 07/19/2022 18:20:57 01/03/2023 text/html HPI Notes: Mr. Mary strange is a very pleasant 82 yoM who is referred to me by his PCP, Doug Taylor MD, regarding gross hematuria. Patient experienced painless gross hematuria several times. During this time he was supratherapeutic on his Warfarin (5.72). Once his INR was corrected he had no further hematuria. He underwent a CT A/P and was referred to me today for further evaluation and treatment. He has since been transitioned to Xarelto with no recurrence of his hematuria. 05/24/21 Here for follow up history of bladder cancer. Underwent re-resection which revealed... A) BLADDER, DEEP, BIOPSY: 1. Urothelial carcinoma in situ 2. Negative for invasive tumor in this sample 3. Sampling includes: Urothelium, lamina propria, muscularis propria Seen today with his who provides some of the history. 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 Has now completed induction course of BCG. Has been doing well. No issues. 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 No new symptoms Juan Garcia MD [address] [facility],[address], [place], [address], [facility] 01/03/2023 15:16:45
--- OUTSIDE RECORDS SUMMARY | 2023-03-20 08:49 | XMS_ITS | Continuity of Care Document ---
Author Name Unknown Address [address] [place] [address] Phone [phone] Organization [facility], [facility] Address [address] 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 [email or web address] Not available 01/03/2023 08:45:48 Plan of Treatment Reminders Order Date Submit Date Provider Last Modified By Organization Details Last Modified Time Details Appointments None recorded . Lab urinalys is, dipstick 2022 023 [email or web address] [facility], [address], [place], [address], 15:07:41 Referral None recorded . Procedures None recorded . Surgeries None recorded . Imaging None recorded . Medication Orders None recorded . Patient TargetsNo targets recorded. Patient InstructionsNo instructions recorded. Reason for Referral None Reported. Results Created Date Observation Date Name Description Value Unit Range Abnormal Flag LastModifiedBy Organization Detail LastModifiedTime 01/04/2001/03/2023 urina lysis , dipst ick pH-Status 6.5 Not Available [facility] [address], [place], [address], 01/03/2023 15:06:56 01/04/2001/03/2023 urina lysis , dipst ick Protein-Stat us >=9.0 Not Available [facility] [address], [place], [address], 01/03/2023 15:06:56 01/04/20 23 01/03/2023 urina lysis , dipst ick Urobilinogen -Status 4.0 Not Available [facility] [address], [place], [address], 01/03/2023 15:06:56 01/04/20 23 01/03/2023 urina lysis , dipst ick Nitrates-Sta tus negati ve Not Available [facility] [address], [place], [address], 01/03/2023 15:06:56 01/04/20 23 01/03/2023 urina lysis , dipst ick Blood-Status Trace Not Available [facility] [address], [place], [address], 01/03/2023 15:06:56 01/04/20 23 01/03/2023 urina lysis , dipst ick Leuko-Status Negati ve Not Available [facility] [address], [place], [address], 01/03/2023 15:06:56 01/04/2001/03/2023 urina lysis , dipst ick Specimen Type Voided Not Available [facility] [address], [place], [address], 01/03/2023 15:06:56 Result Notes None recorded. Problems Name Status Onset Date Resolution Date Notes Provider Name and Address Organization Details Recorded Time Malignant tumor of urinary bladder Active 2 Raquel pena [place] - [facility] 06/08/2021 13:04:27 Problem Notes None recorded. Procedures Surgical History Date Name Laterality Status Provider Name and Address Organization Details Recorded Time 01/04/20 23 Cystoscopy- male completed Juan Garcia MD [address], [place], [address], [facility] 01/03/2023 15:16:02 01/04/20 23 Sulfa post Cysto completed Farrah Curtis null, [facility] 01/03/2023 15:09:38 07/20/19 23 Cystoscopy- male completed Juan Garcia MD [address], [place], [address], [facility] 07/19/2022 18:19:49 03/29/19 23 Cystoscopy- male completed Juan Garcia MD [address], [place], [address], [facility] 03/29/2022 13:48:04 07/21/19 22 BCG Full Dose Tx 50mg completed Brenda Colvin null, [facility] 07/20/2021 13:21:59 07/14/19 22 BCG Full Dose Tx 50mg completed Brenda Colvin null, [facility] 07/13/2021 12:36:56 07/07/19 22 BCG Full Dose Tx 50mg completed Brenda Colvin null, [facility] 07/06/2021 13:00:05 06/30/19 22 BCG Full Dose Tx 50mg completed Brenda Colvin null, [facility] 06/29/2021 12:37:26 06/23/19 22 BCG Full Dose Tx 50mg completed Brenda Colvin null, [facility] 06/22/2021 12:59:03 06/16/19 22 Urinalysis completed Aminta Interiano null, [facility] 06/15/2021 15:06:05 06/09/19 22 BCG Full Dose Tx 50mg completed Raquel Esquivel null, [facility] 06/08/2021 13:18:54 02/09/20 21 TRANSURETHRAL RESECTION OF BLADDER TUMOR (SURG) completed Jil Roy null, [facility] 02/08/2021 16:46:49 Imaging Results None recorded. Procedure [...] completed Not Available Not Available Not Available Nilda BCG 50 mg intravesica l suspension Instill [...] Updated DateTime 01/03/2023 187.96 cm 29.5 kg/m2 465694.25 g Farrah Kirsten pena [facility] 01/03/2023 15:01:04 Social History Question Answer Notes LastModified by Organizat ion Details LastModified Time Tobacco Smoking Status Former Smoker Tulio Haile [facility] 03/29/2022 13:11:40 What Is Your Level Of Alcohol Consumption? Moderate Information not available 03/29/2022 How Many Times Per Week Do You Consume Alcohol? 5-7 Times Per Week [email or web address] Information not available 07/19/2022 What Is Your [...] Time influenza, trivalent, adjuvanted 11/18/2018 completed Farrah Stromquist null, [facility] 01/03/2023 15:01:14 influenza, trivalent, adjuvanted 11/21/2016 completed Farrah Stromquist null, [facility] 01/03/2023 15:01:14 influenza, trivalent, adjuvanted 01/01/2018 completed Farrah Stromquist null, [facility] 01/03/2023 15:01:14 Influenza vaccine, quadrivalent, adjuvanted 11/24/2020 completed Farrah Stromquist null, [facility] 01/03/2023 15:01:14 Influenza vaccine, quadrivalent, adjuvanted 11/30/2019 [facility] 15:01:14 COVID-19, mRNA, LNP-S, PF, 30 mcg/0.3 mL dose 04/05/2020 completed Farrah Stromquist null, [facility] 01/03/2023 15:01:14 COVID-19, mRNA, LNP-S, PF, 30 mcg/0.3 mL dose 04/26/2020 completed Farrah Stromquist null, [facility] 01/03/2023 15:01:14 COVID-19, mRNA, LNP-S, PF, 30 mcg/0.3 mL dose 11/24/2020 [facility]23 15:01:14 COVID-19, mRNA, LNP-S, PF, 30 mcg/0.3 mL dose, marvin-sucrose 06/12/2021 completed Farrah Stromquist null, [facility] 01/03/2023 15:01:14 pneumococcal polysaccharide PPV23 11/29/2005 completed Farrah Stromquist null, [facility] 01/03/2023 15:01:14 pneumococcal polysaccharide PPV23 01/25/2005 completed Farrah Stromquist null, [facility] 01/03/2023 15:01:14 pneumococcal polysaccharide PPV23 02/20/2011 completed Farrah Stromquist null, [facility] 01/03/2023 15:01:14 influenza, unspecified formulation 11/25/2008 completed Farrah Stromquist null, [facility] 01/03/2023 15:01:14 Tdap 02/20/2011 completed Farrah Stromquist null, [facility] 01/03/2023 15:01:14 Pneumococcal conjugate PCV 13 03/15/2016 completed Farrah Stromquist null, [facility] 01/03/2023 15:01:14 Pneumococcal conjugate PCV 13 09/17/2014 completed Farrah Stromquist null, [facility] 01/03/2023 15:01:14 zoster live 02/26/2008 completed Farrah Stromquist null, [facility] 01/03/2023 15:01:14 zoster live 01/05/2009 completed Farrah Stromquist null, [facility] 01/03/2023 15:01:14 Influenza, high dose seasonal 11/29/2014 completed Farrah Stromquist null, [facility] 01/03/2023 15:01:14 Influenza, high dose seasonal 12/14/2015 completed Farrah Stromquist null, [facility] 01/03/2023 15:01:14 Influenza, high dose seasonal 12/24/2013 completed Farrah Stromquist null, [facility] 01/03/2023 15:01:14 Influenza, seasonal, injectable 02/26/1988 completed Farrah Stromquist null, [facility] 01/03/2023 15:01:14 Influenza, seasonal, injectable 11/16/2008 completed Farrah Stromquist null, [facility] 01/03/2023 15:01:14 Influenza, seasonal, injectable 11/24/2009 completed Farrah Stromquist null, [facility] 01/03/2023 15:01:14 Influenza, seasonal, injectable 11/29/2005 completed Farrah Stromquist null, [facility] 01/03/2023 15:01:14 Influenza, seasonal, injectable 12/06/2003 completed Farrah Stromquist null, [facility] 01/03/2023 15:01:14 Influenza, seasonal, injectable 12/18/2002 completed Farrah Stromquist null, [facility] 01/03/2023 15:01:14 Influenza, seasonal, injectable 12/18/2012 completed Farrah Stromquist null, [facility] 01/03/2023 15:01:14 Influenza, seasonal, injectable 12/19/2001 completed Farrah Stromquist null, [facility] 01/03/2023 15:01:14 Influenza, seasonal, injectable 12/26/2006 completed Farrah Stromquist null, [facility] 01/03/2023 15:01:14 Influenza, seasonal, injectable 12/28/2004 completed Farrah Stromquist null, [facility] 01/03/2023 15:01:14 Influenza, seasonal, injectable 01/30/2012 completed Farrah Stromquist null, [facility] 01/03/2023 15:01:14 Influenza, seasonal, injectable, preservative free 12/16/2007 completed Farrah Stromquist null, [facility] 01/03/2023 15:01:14 Influenza, seasonal, injectable, preservative free 12/18/2010 completed Farrah Stromquist null, [facility] 01/03/2023 15:01:14 Novel [id number] 03/25/2009 completed Farrah Stromquist null, [facility] 01/03/2023 15:01:14 Td (adult), 5 Lf tetanus toxoid, preservative free, adsorbed 11/29/2005 completed Farrah Stromquist null, [facility] 01/03/2023 15:01:14 Td (adult), 2 Lf tetanus toxoid, preservative free, adsorbed 10/07/1998 completed Farrah Stromquist null, [facility] 01/03/2023 15:01:14 Td (adult), 2 Lf tetanus toxoid, preservative free, adsorbed 01/25/2005 [facility] 15:01:14 influenza, injectable, quadrivalent, preservative free 03/25/2009 completed Farrah Curtis becky, [facility] 01/03/2023 15:01:14 Past Encounters Encounter ID Performer Location Encounter Start Date Encounter Closed Date Diagnosis/Indication [id number] Juan Garcia MD [facility] [address] [place] [address] 01/03/2023 14:52:35 01/08/2023 11:52:12 Malignant tumor of urinary bladder Pyuria Health Concerns Section Related Observation LastModified by Organization Detai ls LastModified Time None Recorded Concern Status LastModified by Organization Details LastModified Time None Recorded Payers Encounter Date Sequence Insurance Name Policy Number Policy Zelaya Covered Member ID Zelaya Member ID Guarantor Name 01/03/2023 1 [employer] (MEDICARE REPLACEMENT/A DVANTAGE - PPO) Cecilio Rosa [id number] Cecilio Rosa Notes Date Note Type Note Provider Name and Address Organization Details Recorded Time 01/03/2023 text/html HPI Notes: Mr. Mary strange [...] No new symptoms Juan Garcia MD [address], [place], [address], [facility] 01/03/2023 15:16:45
--- OUTSIDE RECORDS SUMMARY | 2023-03-20 08:49 | XMS_ITS | Referral Summary ---
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 Metallic Hardware/An chor Right: Shoulder [employer] 03/27/2019 [id number] / / [id number] Imp Femoral Sleeve S&N Long Mod +8mm Neck Ti [id number] Implanted:Qty : 1 on 03/25/2017 by Lj Ornelas MD at [facility] Total Joint Component/I nsert Right: Hip PASCAL 03/03/2025 [id number] / / [id number] 40mm Modular Femoral Head Implanted:Qty : 1 on 03/25/2017 by Lj Ornelas MD at [facility] Right: Hip 12/02/2026 [id number] / / [id number] Advance Directives For more information, please contact: [phone] Latest Code Status on File Code Status Date Activated Date Inactivated Comments Full Code 03/28/2017 2:36 PM Code Status History Code Status Date Activated Date Inactivated Comments Full Code 03/23/2017 5:42 PM 03/27/2017 12:01 AM Care Teams Air And Hydronic Balancing Technician Relationship Specialty Start Date End Date [address] [address] PCP - General 03/23/17
== END 2023-03-20 08:46 | disposition home or self-care (01) ==
LOC: WOUND 08:46
PROVIDERS: PCP Family Medicine; Visit Provider Family Medicine
DX: S81.012A Laceration without foreign body, left knee, initial encounter (principal); S81.011A Laceration without foreign body, right knee, initial encounter; S51.012A Laceration without foreign body of left elbow, initial encounter; S01.81XA Laceration without foreign body of other part of head, initial encounter; W19.XXXA Unspecified fall, initial encounter
CPT/HCPCS: 97602; G0463

== ENCOUNTER 2023-03-27 09:54 | Outpatient (CLI) | payer OTHER, SELFPAY ==
--- OUTSIDE RECORDS SUMMARY | 2023-03-27 09:56 | XMS_ITS | Clinical Summary ---
Author Name Unknown Organization [facility] Address [place], [place] [address] Care Team Providers Care [employer] Name Role Phone Doug Taylor MD Primary Care Provider Allergies Active Allergy Reactions Criticality Noted Date Comments Amlodipine Edema 07/27/2019 On 5 mg Medications Medication Sig Dispensed Refills Start Date End Date Status polyethylene glycol-electrolyte (GOLYTELY) 236-22.74-6.74 -5.86 gram suspensionIndications :Encounter for screening colonoscopy Drink 3 quarts the day before procedure and drink 1 quart 6 hours before procedure 4000 mL 0 12/28/2020 Active cholecalciferol (VITAMIN D3) 1,000 unit tabletIndications:Vit juan D deficiency Take 1 Tablet (1,000 units) by mouth once daily. 90 tablet. 3 06/23/2021 Active cyanocobalamin (Vitamin B-12) 500 mcg tabletIndications:Nut rition disorder Take 1 Tablet (500 mcg) by mouth once daily. 90 Tablet 3 03/29/2022 Active lancetsIndications:Ty pe 2 diabetes mellitus with diabetic neuropathy, without long-term current use of insulin (HC) Test 1 times per day. 100 Each 3 07/30/2022 Active tamsulosin (FLOMAX) 0.4 mg capsuleIndications:Fr equent urination Take 1 Capsule (0.4 mg) by mouth once daily after a meal. 90 Capsule 3 07/30/2022 Active blood sugar diagnostic (Blood Glucose Test) stripIndications:Type 2 diabetes mellitus with diabetic neuropathy, without long-term current use of insulin (HC) Test one time per day. 100 Each 3 07/30/2022 Active blood-glucose meterIndications:Type 2 diabetes mellitus with diabetic neuropathy, without long-term current use of insulin (HC) Inject subcutaneous. Dispense meter, test strips, lancets covered by pt ins. E11.9 NIDDM type II - Test 1 time/day 1 Each 0 07/30/2022 Active Walker - 4 wheelsIndications:Gai t instability For home use. Length of need: 99 1 Each 0 10/17/2022 Active Diabetic ShoeIndications:Diabe tic peripheral neuropathy (HC) As directed. One pair diabetic shoes. 1 Each 1 10/17/2022 Active losartan (COZAAR) 100 mg tabletIndications:HTN (hypertension) TAKE 1 AND 1/2 TABLETS EVERY DAY 135 Tablet 3 01/18/2023 Active hydroCHLOROthiazide (HCTZ) 25 mg tabletIndications:Orion ign essential HTN Take 1 Tablet (25 mg) by mouth once daily. 90 Tablet 3 01/18/2023 Active atorvastatin (LIPITOR) 20 mg tabletIndications:Mix ed hyperlipidemia Take 1 Tablet (20 mg) by mouth once daily. 90 Tablet 3 01/18/2023 Active metFORMIN (GLUCOPHAGE XR) 500 mg Extended-Release tabletIndications:Makenzie betes mellitus without complication (HC) Take 2 Tablets (1,000 mg) by mouth once daily with evening meal. 180 Tablet 1 01/18/2023 Active Walker - 4 wheelsIndications:Wea kness of lower extremity, unspecified laterality,Unstable gait For home use. Length of need: 99. With seat. 1 Each 0 01/18/2023 Active sotaloL (BETAPACE) 80 mg tabletIndications:Atr ial fibrillation, unspecified type (HC) Take 1 Tablet (80 mg) by mouth every 24 hours. 180 Tablet 0 01/22/2023 Active gabapentin (NEURONTIN) 100 mg capsuleIndications:Pe ripheral sensory neuropathy Take 1 Capsule (100 mg) by mouth three times daily. 270 Capsule 3 02/01/2023 Active warfarin (COUMADIN) 2.5 mg tabletIndications:Par oxysmal atrial fibrillation (HC),Anticoagulation monitoring, INR range 2-3,TIA (transient ischemic attack) Take by mouth 2.5 mg (2.5 mg x 1) every Mon, Wed, Fri; 1.25 mg (2.5 mg x 0.5) all other days in the evening OR as directed 65 Tablet 0 02/19/2023 Active DropSafe Alcohol Prep PadsIndications:Diabe treasure mellitus without complication (HC) USE DIRECTED 300 Each 3 02/18/2023 Active honey (Manuka Honey) 100 % gelIndications:Diabet ic ulcer of toe associated with type 2 diabetes mellitus, unspecified laterality, unspecified ulcer stage (HC) Apply topically to affected area(s) once daily. 15 mL 1 03/06/2023 Active Active Problems Problem Noted Date Diagnosed [...] minutes of numbness affecting his right arm- [facility] MRI and MRA showed no new acute [...] DOAC 10/14/2020 10/16/2021 Atrial fibrillation 11/24/2018 12/28/19 Anticoagulation monitoring, INR range 2-3 12/24/2013 10/13/2020 Diabetic neuropathy 10/09/2012 03/11/19 17 Acute thromboembolism of john p veins of both lower extremities 06/04/2006 03/11/2016 Type 2 diabetes mellitus wit h diabetic neuropathy, without long-term current use of insulin 05/14/2017 Encounters Date Type Department Care Team Description 03/22/2023 Telephone [facility] [address] [place] [address] Doug Taylor MD Follow Up 03/18/2023 3:15 PM SOFTWARE SYSTEMS ANALYST Ancillary Procedure [address] [address] 03/18/2023 3:00 PM SOFTWARE SYSTEMS ANALYST Ancillary Procedure [facility] [address] [place] [address] 03/18/2023 1:40 PM SOFTWARE SYSTEMS ANALYST Office Visit [address] [address] Doug Taylor MD Fall (03/16/23, whole body hurts, knees, forehead, left arm) 03/18/2023 Travel 03/18/[address] [place] [address] Doug Taylor MD Appointment Request (TODAY 03/18/23/FALL) 03/09/2023 Anticoagulation (warfarin) [facility] [address] [place] [address] 1, [facility] Anticoagulation 03/08/2023 2:30 PM SOFTWARE SYSTEMS ANALYST Orders Only [address] [address] Lab, [facility] 03/08/2023 Nurse Triage [facility] [address] [place] [address] Doug Taylor MD Arm Pain/problem (L inner elbow and forearm swelling) 03/08/2023 Travel 03/06/2023 3:00 PM SOFTWARE SYSTEMS ANALYST Office Visit [address] [address] Seven Briones DPM Consult (Bilateral toe ulcer) 03/06/2023 Travel 02/26/2023 9:40 AM SOFTWARE SYSTEMS ANALYST Office Visit [facility] [address] [place] [address] Rupert Moore MD Consult (Bilateral leg weakness /Bilateral heel x 6 months ) 02/26/2023 Travel 02/26/2023 Telephone [facility] [address] [place] [address] [place] [address] Светлана La MD Results (Mild progression per echo. Plan for annual echo) 02/21/2023 9:00 AM SOFTWARE SYSTEMS ANALYST Ancillary Procedure [facility] [address] [place] [address] 02/21/2023 Travel 02/17/[address] [address] Doug Taylor MD Refill Request (Dropsafe Alcohol Prep Pads) 02/16/[address] [address] Doug Taylor MD Refill Request (Warfarin) 02/15/[address] [place] [address] Светлана La MD Results 02/15/2023 Travel 02/08/2023 10:10 AM SOFTWARE SYSTEMS ANALYST Orders Only [facility] [address] [place] [address] Lab, [facility] 02/08/2023 Anticoagulation (warfarin) [facility] [address] [place] [address] 1, [facility] Anticoagulation 02/08/2023 Travel 02/01/2023 Telephone [facility] [address] [place] [address] Doug Taylor MD Refill Request (Gabapentin 100mg ) 01/31/2023 Orders Only [facility] [address] [place] [address] Juan Davila NP <No scans attached> 01/28/2023 Telephone [facility] [address] [place] [address] oDug Taylor MD CLARIFICATION 01/23/2023 Orders Only [facility] [address] [place] [phone] Светлана La MD 1 scan: (1-Ord) [facility]-11.28.23 01/22/2023 3:00 PM SOFTWARE SYSTEMS ANALYST Office Visit [facility] [address] [place] [phone] Светлана La MD Consult (Atrial fibrillation) 01/22/2023 Orders Only [address] [place] [address] Светлана La MD 1 scan: (1-Ord) [employer] ([id number]) 01/22/2023 Telephone [facility] [address] [place] [address] Rupert Moore MD Referral (Neurology consultation ready to schedule ) 01/21/2023 10:15 AM SOFTWARE SYSTEMS ANALYST Orders Only [facility] [address] [place] [address] 1 scan: (1-Ord) US TOE PRESSURE ONLY BILAT ([id number]) 01/21/2023 Travel 01/21/2023 Refill [facility] [address] [place] [address] Doug Taylor MD Refill Request (Gabapentin 300mg cap ) 01/18/2023 10:05 AM SOFTWARE SYSTEMS ANALYST Office Visit [facility] [address] [place] [address] Doug Taylor MD Medicare ANNUAL (subsequent) Visit (82 year old); Foot Problem (Bilateral foot neuropathy ); DME Supply (Discuss walker) 01/18/2023 Travel 01/08/2023 10:10 AM SOFTWARE SYSTEMS ANALYST Orders Only [facility] [address] [place] [address] Lab, [facility] 01/08/2023 Anticoagulation (warfarin) [facility] [address] [place] [address] 1, [facility] Anticoagulation (Lab ) 01/08/2023 Travel 01/06/2023 Refill [facility] [address] [place] [address] Doug Taylor MD Refill Request (Losartan) 01/03/2023 Orders Only [facility] Scanner 1 scan: (1-Ord) [facility]ESSICA UROLOGY, CYSTOSCOPY, 01/03/2023 12/27/2022 Telephone [facility] [address] [place] [address] Doug Taylor MD DME Supply (Prior authorization for walker); Follow Up from Last 3 Months Immunizations Name Administration Dates Next Due AMB INFLUENZA IIV3 (AGE 65+ YRS) PF (Flu Clinic Only) 01/01/2018 Amb Influenza, Inactivated A IIV4 (Age 65+ Years) Preserv Free 11/30/2019 COVID-19 vaccine ([employer] 30mcg/0.3mL) 12YO+ BIVALENT PF, MDV 06/28/2022,12/27/2021 COVID-19 vaccine ([employer] 30mcg/0.3mL) 12YO+ JOSE ANGEL-SUCROSE PF, MDV 06/12/2021 COVID-19 vaccine ([employer] 30mcg/0.3mL) PF, MDV 11/24/2020,04/26/2020,04/05/2020 Influenza A (H1N1), Inactiva vishnu (Age >=3 Years) 03/25/2009 Influenza, High-dose Inactivated 12/14/2015,06/2014,12/24/2013 Influenza, IIV3 (Age 6-35 mos) 12/18/2010,2007 Influenza, [...] Comments Blood Pressure 147/67 03/18/2023 1:53 PM SOFTWARE SYSTEMS ANALYST Pulse 66 03/18/2023 1:53 PM SOFTWARE SYSTEMS ANALYST Temperature 36.3 ??C (97.4 ??F) 03/06/2023 3:54 PM CS T Respiratory Rate 16 05/25/2021 2:10 PM CDT Oxygen Saturation 94% 03/18/2023 1:53 PM SOFTWARE SYSTEMS ANALYST Inhaled Oxygen Concentration - - Weight 108.9 kg (240 lb) 01/26/2021 11:29 AM SOFTWARE SYSTEMS ANALYST Height 188 cm (6' 2) 01/26/2021 11:29 AM SOFTWARE SYSTEMS ANALYST Body Mass Index 30.81 01/26/2021 11:29 AM SOFTWARE SYSTEMS ANALYST Plan of Treatment Upcoming Encounters Date Type Department Care Team (Late st Contact Info) Description 04/01/2023 10:00 AM SOFTWARE SYSTEMS ANALYST Orders Only [facility] [address] [place] [address] 04/04/2023 10:00 AM SOFTWARE SYSTEMS ANALYST Office Visit [facility] [address] [place] [address] Kuldip Briones MD [address] [place] [address] 04/04/2023 11:45 AM SOFTWARE SYSTEMS ANALYST Ancillary Procedure [facility] [address] [place] [address] 04/04/2023 12:30 PM SOFTWARE SYSTEMS ANALYST Ancillary Procedure [facility] [address] [place] [address] 04/24/2023 2:40 PM SOFTWARE SYSTEMS ANALYST Office Visit [facility] [address] [place] [address] Rupert Moore MD [address] [place] [address] 07/24/2023 10:30 AM CDT Office Visit [facility] [address] [place] [address] Doug Taylor MD [address] [place] [address] Health Maintenance Due Date Last Done Comments BMI (ht and wt on same day) for age 18+ 01/26/2022 01/26/2021, 12/06/2020, 12/29/2019, Additional history exists COVID-19 vaccine series (2022- season) 2023 11/21/2022, 06/28/2022, 12/27/2021, Additional history [...] 3 VIEWS LEFT Routine 03/18/2023 3:13 PM SOFTWARE SYSTEMS ANALYST Acute pain of left knee XR WRIST 3 VIEWS LEFT Routine 03/18/2023 3:04 PM SOFTWARE SYSTEMS ANALYST Left wrist pain INR,POCT Routine 03/08/2023 2:45 PM SOFTWARE SYSTEMS ANALYST Paroxysmal atrial fibrillation (HC) Anticoagulation monitoring, INR range 2-3 ECHO TTE COMPLETE WO CONTRAST Routine 02/21/2023 9:41 AM SOFTWARE SYSTEMS ANALYST Atrial fibrillation, unspecified type (HC) EXTENDED HOLTER Routine 02/14/2023 Atrial fibrillation, unspecified type (HC) INR,POCT Routine 02/08/2023 10:24 AM SOFTWARE SYSTEMS ANALYST Paroxysmal atrial fibrillation (HC) Anticoagulation monitoring, INR range 2-3 EKG 12 LEAD Routine 01/23/2023 2:42 PM SOFTWARE SYSTEMS ANALYST Atrial fibrillation, unspecified type (HC) US TOE PRESSURE ONLY BILAT Routine 01/21/2023 10:41 AM SOFTWARE SYSTEMS ANALYST PAD (peripheral artery disease) (HC) URINE ALBUMIN TO CREATININE RATIO, RANDOM Routine 01/18/2023 9:40 AM SOFTWARE SYSTEMS ANALYST Diabetes mellitus without complication (HC) PROTIME-INR STAT 01/08/2023 10:18 AM SOFTWARE SYSTEMS ANALYST Paroxysmal atrial fibrillation (HC) Anticoagulation monitoring, INR range 2-3 BASIC METABOLIC PANEL Routine 01/08/2023 10:18 AM SOFTWARE SYSTEMS ANALYST Diabetes mellitus without complication (HC) LIPID PANEL W REFLEX MEASURED LDL Routine 01/08/2023 10:18 AM SOFTWARE SYSTEMS ANALYST Diabetes mellitus without complication (HC) HEMOGLOBIN A1C Routine 01/08/2023 10:18 AM SOFTWARE SYSTEMS ANALYST Diabetes mellitus without complication (HC) SCAN-OPERATIVE/PROC EDURE REPORT 01/03/2023 12:00 AM SOFTWARE SYSTEMS ANALYST from Last 3 Months Results * XR KNEE 3 VIEWS LEFT (03/18/2023 3:13 PM SOFTWARE SYSTEMS ANALYST) Anatomical Region Laterality Modality KNEES, KNEE L Computed Radiogr aphy 03/18/2023 3:30 PM SOFTWARE SYSTEMS ANALYST Narrative 03/18/2023 3:30 PM SOFTWARE SYSTEMS ANALYST For Patients: ??As a result of the Cures Act, medical imaging exams and procedure [...] Patients: As a result of the s Act, medical imagingexams and procedure reports are [...] the prior study. Increased jointeffusion. Dictated by Abel Padilla MD @ Mar 18 2023 3:30PM (Electronically Signed) Doug Taylor MD GENERAL IMAGIN G * XR WRIST 3 VIEWS LEFT (03/18/2023 3:04 PM SOFTWARE SYSTEMS ANALYST) Anatomical Region Laterality Modality WRISTS, WRIST L Computed Radiogr aphy 03/18/2023 3:28 PM SOFTWARE SYSTEMS ANALYST Narrative 03/18/2023 3:28 PM SOFTWARE SYSTEMS ANALYST For Patients: ??As a result of the Cures Act, medical imaging exams and procedure [...] G * (ABNORMAL) INR,POCT (03/08/2023 2:45 PM SOFTWARE SYSTEMS ANALYST) Only the most recent of2 resultswithin the time period is included. INR 2.4(H) <1.3 03/08/2023 2:48 PM SOFTWARE SYSTEMS ANALYST [facility] Blood BLOOD SPECIMEN / Unknown 03/08/2023 2:45 PM SOFTWARE SYSTEMS ANALYST 03/08/2023 2:48 PM SOFTWARE SYSTEMS ANALYST Narrative [facility] - 03/08/2023 2:48 PM SOFTWARE SYSTEMS ANALYST ?Therapeutic Range 2.0-3.0 for most anticoagulated patients 2.5-3.5 or 4.0 for high risk patients Doug Taylor MD LABORATORY [facility] [address] [place] [address], * ECHO TTE COMPLETE WO CONTRAST (02/21/2023 9:41 AM SOFTWARE SYSTEMS ANALYST) AORTIC VALVE MEAN PG 22 mmHg EJECTION FRACTION 59 % PEAK TR VELOCITY 3.4 m/s LVEDD 4.4 cm EJECTION FRACTION 60 - 65% Anatomical Region Laterality Modality Ultrasound 02/21/2023 9:06 AM SOFTWARE SYSTEMS ANALYST Narrative 02/21/2023 10:41 AM SOFTWARE SYSTEMS ANALYST ECHOCARDIOGRAM CECILIO Param ROSA ?Accession#: ?? [id number] : ?1940 82 years Study Date: ?? 02/21/2023 9:06:01 AM Gender: M ? BP: ? 151/60 mmHg Height: 188.00 cm ? BSA: ?2.31 m? ? ? Weight: 105.00 kg ? Tech: ? MJW ?Referring MD: СВЕТЛАНА LA Site: ? [facility] Reading Location: Mobile-OP Patient Location: Outpatient. [...] . This study was interpreted by an [facility] accredited facility. ??Final ?? Procedure Note Anthony Thompson MD - 02/21/2023 ECHOCARDIOGRAM CECILIO ROSA : 1940 82 years Study Date: 02/21/2023 9:06:01 AM Gender: M BP: 151/60 mmHg Height: 188.00 cm BSA: 2.31 m? ? ? Weight: 105.00 kg Tech: XENIA Referring MD: СВЕТЛАНА LA Site: [facility] Reading Location: Mobile-OP Patient Location: Outpatient. [...] . This study was interpreted by an [facility] accredited facility. Final Светлана La MD ECHO ORD * ZIO PATCH XT - weekly to monthly symptoms. (02/14/2023) Светлана La MD CARDIAC SERVICE S ORD * EKG 12 LEAD (01/23/2023 2:42 PM SOFTWARE SYSTEMS ANALYST) Светлана La MD EKG ORD * US TOE PRESSURE ONLY BILAT (01/21/2023 10:41 AM SOFTWARE SYSTEMS ANALYST) Anatomical Region Laterality Modality TOES Ultrasound 01/21/2023 9:18 AM SOFTWARE SYSTEMS ANALYST Narrative 01/21/2023 12:39 PM SOFTWARE SYSTEMS ANALYST VASCULAR ULTRASOUND REPORT CECILIO ROSA Accession#: ?? [id number] : ?1940 ?? Study Date: ?? 01/21/2023 9:18:40 AM Age: ?82 years ?? Tech: ? BVB Gender: M ?Referring MD: DOUG TAYLOR Site: [facility] Study performed: ?Lower extremity TBI, (bilateral). [...] ?? Velocity cm/s Phasicity +-------+ + + CHIEF METEOROLOGIST DST ? 103 ? monophasic +-------+ + + DPA ? 71 ? monophasic +-------+ + + +-------+ + + LEFT ?? Velocity cm/s Phasicity +-------+ + + CHIEF METEOROLOGIST DST ? 45 ? monophasic +-------+ + [...] Accreditation Commission (IAC/Vascular), [email or web address].org/vascular Report generated by [employer]. ??Final ?? Procedure Note Nehemiah Reynolds MD - 01/21/2023 VASCULAR ULTRASOUND REPORT CECILIO ROSA : 1940 Study Date: 01/21/2023 9:18:40 AM Age: 82 years Tech: BVB Gender: M Referring MD: DOUG TAYLOR Site: [facility] Study performed: Lower extremity TBI, (bilateral). [...] RIGHT Velocity cm/s Phasicity +-------+ + + CHIEF METEOROLOGIST DST 103 monophasic +-------+ + + DPA 71 monophasic +-------+ + + +-------+ + + LEFT Velocity cm/s Phasicity +-------+ + + CHIEF METEOROLOGIST DST 45 monophasic +-------+ + + DPA [...] theIntersocietal Accreditation Commission (IAC/Vascular),[email or web address] Report generated by [employer]. Final Doug Taylor MD US * (ABNORMAL) URINE ALBUMIN TO CREATININE RATIO, RANDOM (01/18/2023 9:40 AM SOFTWARE SYSTEMS ANALYST) ALB RAND URINE 63.3 mg/L 01/18/2023 6:24 PM SOFTWARE SYSTEMS ANALYST [facility] CREATININE,URIN E 1.80 g/L 01/18/2023 6:24 PM SOFTWARE SYSTEMS ANALYST [facility] ALBUMIN TO CREATININE RATIO,RAND UR 35.2(H) <30.0 mg/g creat 01/18/2023 6:[address] [facility] Urine URINE SPECIMEN / Unknown Non-Blood / Unknown 01/18/2023 9:40 AM SOFTWARE SYSTEMS ANALYST 01/18/2023 10:11 AM SOFTWARE SYSTEMS ANALYST Narrative [facility] 01/18/2023 6:24 PM SOFTWARE SYSTEMS ANALYST If Albumin to Creatinine Ratio is elevated, consider the following: ? Elevations seen with incipient nephropathy associated ?? with diabetes mellitus or hypertension. Stress, exercise,hematuria, ?? and urinary tract infection may also produce elevated results. If clinically indicated, confirm with ?24 Hour Albumin to Creatinine Ratio. ?? Doug Taylor MD URINE [facility] [address] [place] [address], [place] * LIPID PANEL W REFLEX MEASURED LDL (01/08/2023 10:18 AM SOFTWARE SYSTEMS ANALYST) CHOLESTEROL,TOTAL 119 100 - 199 mg/dL 01/08/2023 4:12 PM SOFTWARE SYSTEMS ANALYST [facility] Comment: Cholesterol, Total Reference Ranges Desirable <200 mg/dL Borderline 200-239 mg/dL High >=240 mg/dL TRIGLYCERIDES 70 <150 mg/dL 01/08/2023 4:12 PM SOFTWARE SYSTEMS ANALYST [facility] HDL CHOLESTEROL 70 >40 mg/dL 4:12 PM SOFTWARE SYSTEMS ANALYST [facility] NON-HDL CHOLESTEROL 49 <145 mg/dl 01/08/2023 4:12 PM SOFTWARE SYSTEMS ANALYST [facility] CHOL/HDL RATIO 1.70 <4.50 01/08/2023 4:12 PM SOFTWARE SYSTEMS ANALYST [facility] LDL CHOLESTEROL 35 <=130 mg/dL 01/08/2023 4:12 PM SOFTWARE SYSTEMS ANALYST [facility] VLDL CHOLESTEROL 14 <=30 mg/dL 01/08/2023 4:12 PM SOFTWARE SYSTEMS ANALYST [facility] PROVIDER ORDERED STATUS RANDOM 01/08/2023 4:12 PM SOFTWARE SYSTEMS ANALYST [facility] Blood BLOOD SPECIMEN / Unknown Venipuncture / Unknown 01/08/2023 10:18 AM SOFTWARE SYSTEMS ANALYST 01/08/2023 10:23 AM SOFTWARE SYSTEMS ANALYST Doug Taylor MD CHEMISTRY [facility] [address] [place] [address], [place] * (ABNORMAL) PROTIME-INR (01/08/2023 10:18 AM SOFTWARE SYSTEMS ANALYST) INR 1.8(H) <1.3 01/08/2023 3:22 PM SOFTWARE SYSTEMS ANALYST [facility] PROTIME 19.8(H) 10.3 - 12.3 sec 01/08/2023 3:22 PM SOFTWARE SYSTEMS ANALYST [facility] Blood BLOOD SPECIMEN / Unknown Venipuncture / Unknown 01/08/2023 10:18 AM SOFTWARE SYSTEMS ANALYST 01/08/2023 10:23 AM SOFTWARE SYSTEMS ANALYST [facility] - 01/08/2023 3:22 PM SOFTWARE SYSTEMS ANALYST ?Therapeutic Range 2.0-3.0 for most anticoagulated patients [...] is on UFH. Doug Taylor MD HEMATOLOGY [facility] [address] [place], [place] [id number], * HEMOGLOBIN A1C MONITORING (POCT) (01/08/2023 10:18 AM SOFTWARE SYSTEMS ANALYST) Pathologist [facility] HEMOGLOBIN A1C MONITORING (POCT) 5.6 <=6.4 % 01/08/2023 10:41 AM SOFTWARE SYSTEMS ANALYST [facility] Blood BLOOD SPECIMEN / Unknown Venipuncture / Unknown 01/08/2023 10:18 AM SOFTWARE SYSTEMS ANALYST 01/08/2023 10:[address] [facility] - 01/08/2023 10:41 AM SOFTWARE SYSTEMS ANALYST ? (<=6.9%) ? Indicates good control ? (7.0% to 7.9%) ? Indicates fair control ? (>=8.0%) ? Indicates poor control ?? NOTE: ??These thresholds are guidelines and ?individual targets may vary. Falsely low levels may be seen with: Recent Transfusion, Recent Significant Blood Loss, Hemolytic Diseases, or Falsely elevated levels may be seen with: Untreated Anemias, Splenectomy ? Doug Taylor MD CHEMISTRY [facility] [address] [place] [address], * (ABNORMAL) BASIC METABOLIC PANEL (01/08/2023 10:18 AM SOFTWARE SYSTEMS ANALYST) SODIUM 137 136 - 145 mmol/L 01/08/2023 4:[address] [facility] POTASSIUM 4.3 3.5 - 5.1 mmol/L 01/08/2023 4:[address] [facility] CHLORIDE 105 98 - 107 mmol/L 01/08/2023 4:[address] [facility] CO2,TOTAL 22 22 - 29 mmol/L 01/08/2023 4:[address] [facility] ANION GAP 10 5 - 18 01/08/2023 4:[address] [facility] GLUCOSE 139(H) 70 - 99 mg/dL 01/08/2023 4:[address] [facility] CALCIUM 9.0 8.8 - 10.2 mg/dL 01/08/2023 4:[address] [facility] BUN 24(H) 8 - 23 mg/dL 01/08/2023 4:[address] [facility] CREATININE 1.61(H) 0.70 - 1.20 mg/dL 01/08/2023 4:[address] [facility] BUN/CREAT RATIO 15 10 - 20 4:[address] [facility] eGFR 42(L) >90 mL/min/1.7 3m2 01/08/2023 4:[address] [facility] Comment:As of 2021, eG FR is calculated by the CKD-EPI creatinine equation without race adjustment. ??eGFR can be influenced by muscle mass, exercise, and diet. ??The reported eGFR is an estimation only and is only applicable if the renal function is stable. Blood BLOOD SPECIMEN / Unknown Venipuncture / Unknown 01/08/2023 10:18 AM SOFTWARE SYSTEMS ANALYST 01/08/2023 10:23 AM SOFTWARE SYSTEMS ANALYST Doug Taylor MD CHEMISTRY [facility] [address] [place] [address], * SCAN-OPERATIVE/PROCEDURE REPORT (01/03/2023 12:00 AM SOFTWARE SYSTEMS ANALYST) Scanner OTHER from Last 3 Months Advance Directives Latest Code Status on File Code Status Date Activated Date Inactivated Comments Full Code 04/15/2019 1:26 PM 04/15/2019 4:48 PM Code Status History Code Status Date Activated Date Inactivated Comments Full Code 03/11/2016 7:17 PM 03/12/2016 7:38 PM Question Answer Comments Code Status Discussion: Discussed Care Teams [employer] Relationship Specialty Start Date End Date Doug Taylor MD [address] [place] [address] PCP - General Family Practice 04/18/12
--- OUTSIDE RECORDS SUMMARY | 2023-03-27 09:57 | XMS_ITS | Data Portability ---
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, [place], [address], 3 15:07:41 urinalys is, dipstick 2022 023 [email or web address] [facility], [address], [place], [address], 3 14:44:37 urinalys is, dipstick 2022 023 [email or web address] [facility], [address], [place], [address], 3 13:13:22 urinalys is, dipstick 2021 022 [email or web address] Not available 13:23:29 urinalys is, dipstick 2021 022 lzais Not available 2 12:39:20 urinalys is, dipstick 2021 022 lzais Not available 2 13:01:34 urinalys is, dipstick 2021 022 lzais Not available 2 12:38:57 urinalys is, dipstick 2021 022 lzais Not available 13:00:18 urinalys is, dipstick 2021 022 [email or web address] Not available 14:50:42 culture, urine 2021 022 [facility], [address], [address], [place], [address], 11:27:28 urinalys is, dipstick 2021 [email or web address] Not available 13:20:30 Referral None recorded . Procedures None recorded . Surgeries None recorded . Imaging None recorded . Medication Orders Nilda BCG 50 mg intraves ical suspensi on 2021 [id number], [address] [place], [place], [id number], 3 13:09:52 [place] BCG 50 mg intraves ical suspensi on 2021 022 [facility] #07889, [address] [place], [place], [id number], 3 13:09:52 [place] BCG 50 mg intraves ical suspensi on 2021 022 [facility] #13330, [address] [place], [place], [id number], 3 13:09:52 [place] BCG 50 mg intraves ical suspensi on 2021 022 [facility] #07327, [address] [place], [place], [id number], 3 13:09:52 [place] BCG 50 mg intraves ical suspensi on 2021 [facility] #72851, [address] [place], [place], [id number], 3 13:09:52 Bactrim DS 800 mg-160 mg tablet 2021 [facility] #33832, [address] [place], [place], [id number], 3 13:09:32 Nilda BCG 50 mg intraves ical suspensi on 2021 022 [email or web address] Not available 13:09:52 Patient TargetsNo targets recorded. Patient Instructions Encounter Date Encounter Id Patient Instructions Last Modified By Organization Details Last Modified Time 06/15/2021 [id number] Will f/u once urine culture results. Take Bactrim as prescribed and notified to call triage with any questions/concer ns. [email or web address] Not available 06/15/2021 15:16:16 06/08/2021 [id number] BCG instructions reviewed with patient and . Information provided. Direct triage line provided for any questions/concer ns. [email or web address] Not available 06/08/2021 13:21:42 Reason for Referral None Reported. Results Created Date Observation Date Name Description Value Unit Range Abnormal Flag LastModifiedBy Organization Detail LastModifiedTime 06/09/1906/08/2021 urina lysis , dipst ick Color-Status Yellow Not Available [facility] [address], [place], [address], 06/08/2021 13:18:58 06/09/19 22 06/08/2021 urina lysis , dipst ick Clarity-Stat us Clear Not Available [facility] [address], [place], [address], 06/08/2021 13:18:58 06/09/19 22 06/08/2021 urina lysis , dipst ick pH-Status 6.5 Not Available [facility] [address], [place], [address], 06/08/2021 13:18:58 06/09/19 22 06/08/2021 urina lysis , dipst ick Protein-Stat us >=9.0 Not Available [facility] [address], [place], [address], 06/08/2021 13:18:58 06/09/19 22 06/08/2021 urina lysis , dipst ick Urobilinogen -Status 2.0 Not Available [facility] [address], [place], [address], 06/08/2021 13:18:58 06/09/19 22 06/08/2021 urina lysis , dipst ick Nitrates-Sta tus negati ve Not Available [facility] [address], [place], [address], 06/08/2021 13:18:58 06/09/19 22 06/08/2021 urina lysis , dipst ick Blood-Status Trace Not Available [facility] [address], [place], [address], 06/08/2021 13:18:58 06/09/19 22 06/08/2021 urina lysis , dipst ick Leuko-Status Trace Not Available [facility] [address], [place], [address], 06/08/2021 13:18:58 06/09/19 22 06/08/2021 urina lysis , dipst ick Specimen Type Voided Not Available [facility] [address], [place], [address], 06/08/2021 13:18:58 06/09/19 22 06/08/2021 urina lysis , dipst ick Performed by Raquel BRANTLEY Not Available [facility] [address], [place], [address], 06/08/2021 13:18:58 06/09/19 22 06/08/2021 urina lysis , dipst ick Total Urine Volume 20cc Not Available [facility] [address], [place], [address], 06/08/2021 13:18:58 06/16/19 22 06/15/2021 URINE CULTU RE final report microb iology result s abnormal Not Available [facility] [address], [place], [address], 06/17/2021 11:27:28 06/16/19 22 06/15/2021 urina lysis , dipst ick Color-Status Yellow Not Available [facility] [address], [place], [address], 06/15/2021 14:49:06 06/16/19 22 06/15/2021 urina lysis , dipst ick Clarity-Stat us Cloudy Not Available [facility] [address], [place], [address], 06/15/2021 14:49:06 06/16/19 22 06/15/2021 urina lysis , dipst ick pH-Status 6.0 Not Available [facility] [address], [place], [address], 06/15/2021 14:49:06 06/16/19 22 06/15/2021 urina lysis , dipst ick Protein-Stat us >=9.0 Not Available [facility] [address], [place], [address], 06/15/2021 14:49:06 06/16/19 22 06/15/2021 urina lysis , dipst ick Nitrates-Sta tus positi ve Not Available [facility] [address], [place], [address], 06/15/2021 14:49:06 06/16/19 22 06/15/2021 urina lysis , dipst ick Blood-Status Modera te Not Available [facility] [address], [place], [address], 06/15/2021 14:49:06 06/16/19 22 06/15/2021 urina lysis , dipst ick Leuko-Status Large Not Available [facility] [address], [place], [address], 06/15/2021 14:49:06 06/16/19 22 06/15/2021 urina lysis , dipst ick Specimen Type Voided Not Available [facility] [address], [place], [address], 06/15/2021 14:49:06 06/16/19 22 06/15/2021 urina lysis , dipst ick Performed by Raquel BRANTLEY Not Available [facility] [address], [place], [address], 06/15/2021 14:49:06 06/16/19 22 06/15/2021 urina lysis , dipst ick Total Urine Volume 20cc Not Available [facility] [address], [place], [address], 06/15/2021 14:49:06 06/23/19 22 06/22/2021 urina lysis , dipst ick Color-Status Dark Yellow Not Available [facility] [address], [place], [address], 06/22/2021 12:59:06 06/23/19 22 06/22/2021 urina lysis , dipst ick Bilirubin-St atus Small Not Available [facility] [address], [place], [address], 06/22/2021 12:59:06 06/23/19 22 06/22/2021 urina lysis , dipst ick Nitrates-Sta tus negati ve Not Available [facility] [address], [place], [address], 06/22/2021 12:59:06 06/23/19 22 06/22/2021 urina lysis , dipst ick Blood-Status Trace Not Available [facility] [address], [place], [address], 06/22/2021 12:59:06 06/23/19 22 06/22/2021 urina lysis , dipst ick Leuko-Status Negati ve Not Available [facility] [address], [place], [address], 06/22/2021 12:59:06 06/23/19 22 06/22/2021 urina lysis , dipst ick Specimen Type Voided Not Available [facility] [address], [place], [address], 06/22/2021 12:59:06 06/23/19 22 06/22/2021 urina lysis , dipst ick Performed by ARELIS RN Not Available [facility] [address], [place], [address], 06/22/2021 12:59:06 06/23/19 22 06/22/2021 urina lysis , dipst ick Total Urine Volume 30cc Not Available [facility] [address], [place], [address], 06/22/2021 12:59:06 06/30/19 22 06/29/2021 urina lysis , dipst ick Color-Status Dark Yellow Not Available [facility] [address], [place], [address], 06/29/2021 12:37:33 06/30/19 22 06/29/2021 urina lysis , dipst ick Clarity-Stat us Clear Not Available [facility] [address], [place], [address], 06/29/2021 12:37:33 06/30/19 22 06/29/2021 urina lysis , dipst ick Nitrates-Sta tus negati ve Not Available [facility] [address], [place], [address], 06/29/2021 12:37:33 06/30/19 22 06/29/2021 urina lysis , dipst ick Blood-Status Trace Not Available [facility] [address], [place], [address], 06/29/2021 12:37:33 06/30/19 22 06/29/2021 urina lysis , dipst ick Leuko-Status Trace Not Available [facility] [address], [place], [address], 06/29/2021 12:37:33 06/30/19 22 06/29/2021 urina lysis , dipst ick Specimen Type Voided Not Available [facility] [address], [place], [address], 06/29/2021 12:37:33 06/30/19 22 06/29/2021 urina lysis , dipst ick Performed by ARELIS RN Not Available [facility] [address], [place], [address], 06/29/2021 12:37:33 06/30/19 22 06/29/2021 urina lysis , dipst ick Total Urine Volume 35cc Not Available [facility] [address], [place], [address], 06/29/2021 12:37:33 07/07/19 22 07/06/2021 urina lysis , dipst ick Color-Status Dark Yellow Not Available [facility] [address], [place], [address], 07/06/2021 13:00:14 07/07/19 22 07/06/2021 urina lysis , dipst ick Clarity-Stat us Clear Not Available [facility] [address], [place], [address], 07/06/2021 13:00:14 07/07/19 22 07/06/2021 urina lysis , dipst ick Nitrates-Sta tus negati ve Not Available [facility] [address], [place], [address], 07/06/2021 13:00:14 07/07/19 22 07/06/2021 urina lysis , dipst ick Blood-Status Negati ve Not Available [facility] [address], [place], [address], 07/06/2021 13:00:14 07/07/19 22 07/06/2021 urina lysis , dipst ick Leuko-Status Small Not Available [facility] [address], [place], [address], 07/06/2021 13:00:14 07/07/19 22 07/06/2021 urina lysis , dipst ick Specimen Type Cathet erized Not Available [facility] [address], [place], [address], 07/06/2021 13:00:14 07/07/19 22 07/06/2021 urina lysis , dipst ick Performed by ARELIS RN Not Available [facility] [address], [place], [address], 07/06/2021 13:00:14 07/07/19 22 07/06/2021 urina lysis , dipst ick Total Urine Volume 125cc Not Available [facility] [address], [place], [address], 07/06/2021 13:00:14 07/14/19 22 07/13/2021 urina lysis , dipst ick Color-Status Yellow Not Available [facility] [address], [place], [address], 07/13/2021 12:37:03 07/14/19 22 07/13/2021 urina lysis , dipst ick Clarity-Stat us Clear Not Available [facility] [address], [place], [address], 07/13/2021 12:37:03 07/14/19 22 07/13/2021 urina lysis , dipst ick Glucose-Stat us Negati ve Not Available [facility] [address], [place], [address], 07/13/2021 12:37:03 07/14/19 22 07/13/2021 urina lysis , dipst ick Bilirubin-St atus Negati ve Not Available [facility] [address], [place], [address], 07/13/2021 12:37:03 07/14/19 22 07/13/2021 urina lysis , dipst ick Ketones-Stat us Negati ve Not Available [facility] [address], [place], [address], 07/13/2021 12:37:03 07/14/19 22 07/13/2021 urina lysis , dipst ick Nitrates-Sta tus negati ve Not Available [facility] [address], [place], [address], 07/13/2021 12:37:03 07/14/19 22 07/13/2021 urina lysis , dipst ick Blood-Status Negati ve Not Available [facility] [address], [place], [address], 07/13/2021 12:37:03 07/14/19 22 07/13/2021 urina lysis , dipst ick Leuko-Status Negati ve Not Available [facility] [address], [place], [address], 07/13/2021 12:37:03 07/14/19 22 07/13/2021 urina lysis , dipst ick Specimen Type Voided Not Available [facility] [address], [place], [address], 07/13/2021 12:37:03 07/14/19 22 07/13/2021 urina lysis , dipst ick Performed by ARELIS RN Not Available [facility] [address], [place], [address], 07/13/2021 12:37:03 07/14/19 22 07/13/2021 urina lysis , dipst ick Total Urine Volume 45cc Not Available [facility] [address], [place], [address], 07/13/2021 12:37:03 07/21/19 22 07/20/2021 urina lysis , dipst ick Color-Status Yellow Not Available [facility] [address], [place], [address], 07/20/2021 13:22:03 07/21/19 22 07/20/2021 urina lysis , dipst ick Clarity-Stat us Clear Not Available [facility] [address], [place], [address], 07/20/2021 13:22:03 07/21/19 22 07/20/2021 urina lysis , dipst ick Nitrates-Sta tus negati ve Not Available [facility] [address], [place], [address], 07/20/2021 13:22:03 07/21/19 22 07/20/2021 urina lysis , dipst ick Blood-Status Negati ve Not Available [facility] [address], [place], [address], 07/20/2021 13:22:03 07/21/19 22 07/20/2021 urina lysis , dipst ick Leuko-Status Small Not Available [facility] [address], [place], [address], 07/20/2021 13:22:03 07/21/19 22 07/20/2021 urina lysis , dipst ick Specimen Type Voided Not Available [facility] [address], [place], [address], 07/20/2021 13:22:03 07/21/19 22 07/20/2021 urina lysis , dipst ick Performed by ARELIS BRANTLEY Not Available [facility] [address], [place], [address], 07/20/2021 13:22:03 07/21/19 22 07/20/2021 urina lysis , dipst ick Total Urine Volume 45cc Not Available [facility] [address], [place], [address], 07/20/2021 13:22:03 03/29/19 23 03/29/2022 urina lysis , dipst ick Color-Status Yellow Not Available [facility] [address], [place], [address], 03/29/2022 13:12:16 03/29/19 23 03/29/2022 urina lysis , dipst ick Clarity-Stat us Clear Not Available [facility] [address], [place], [address], 03/29/2022 13:12:16 03/29/19 23 03/29/2022 urina lysis , dipst ick Glucose-Stat us Negati ve Not Available [facility] [address], [place], [address], 03/29/2022 13:12:16 03/29/19 23 03/29/2022 urina lysis , dipst ick Bilirubin-St atus Negati ve Not Available [facility] [address], [place], [address], 03/29/2022 13:12:16 03/29/19 23 03/29/2022 urina lysis , dipst ick Ketones-Stat us Negati ve Not Available [facility] [address], [place], [address], 03/29/2022 13:12:16 03/29/19 23 03/29/2022 urina lysis , dipst ick Nitrates-Sta tus negati ve Not Available [facility] [address], [place], [address], 03/29/2022 13:12:16 03/29/19 23 03/29/2022 urina lysis , dipst ick Blood-Status Trace Not Available [facility] [address], [place], [address], 03/29/2022 13:12:16 03/29/19 23 03/29/2022 urina lysis , dipst ick Leuko-Status Negati ve Not Available [facility] [address], [place], [address], 03/29/2022 13:12:16 07/20/19 23 07/19/2022 urina lysis , dipst ick Color-Status Straw Not Available [facility] [address], [place], [address], 07/19/2022 14:43:03 07/20/1907/19/2022 urina lysis , dipst ick Clarity-Stat us Cloudy Not Available [facility] [address], [place], [address], 07/19/2022 14:43:03 07/20/19 23 07/19/2022 urina lysis , dipst ick Glucose-Stat us Negati ve Not Available [facility] [address], [place], [address], 07/19/2022 14:43:03 07/20/19 23 07/19/2022 urina lysis , dipst ick Bilirubin-St atus Small Not Available [facility] [address], [place], [address], 07/19/2022 14:43:03 07/20/19 23 07/19/2022 urina lysis , dipst ick Ketones-Stat us Negati ve Not Available [facility] [address], [place], [address], 07/19/2022 14:43:03 07/20/19 23 07/19/2022 urina lysis , dipst ick Urobilinogen -Status 4.0 Not Available [facility] [address], [place], [address], 07/19/2022 14:43:03 07/20/19 23 07/19/2022 urina lysis , dipst ick Nitrates-Sta tus negati ve Not Available [facility] [address], [place], [address], 07/19/2022 14:43:03 07/20/19 23 07/19/2022 urina lysis , dipst ick Blood-Status Modera te Not Available [facility] [address], [place], [address], 07/19/2022 14:43:03 07/20/19 23 07/19/2022 urina lysis , dipst ick Leuko-Status Large Not Available [facility] [address], [place], [address], 07/19/2022 14:43:03 01/04/20 23 01/03/2023 urina lysis , dipst ick pH-Status 6.5 Not Available [facility] [address], [place], [address], 01/03/2023 15:06:56 01/04/2001/03/2023 urina lysis , dipst ick Protein-Stat us >=9.0 Not Available [facility] [address], [place], [address], 01/03/2023 15:06:56 01/04/2001/03/2023 urina lysis , dipst ick Urobilinogen -Status 4.0 Not Available [facility] [address], [place], [address], 01/03/2023 15:06:56 01/04/20 23 01/03/2023 urina lysis , dipst ick Nitrates-Sta tus negati ve Not Available [facility] [address], [place], [address], 01/03/2023 15:06:56 01/04/20 23 01/03/2023 urina lysis , dipst ick Blood-Status Trace Not Available [facility] [address], [place], [address], 01/03/2023 15:06:56 01/04/20 23 01/03/2023 urina lysis , dipst ick Leuko-Status Negati ve Not Available [facility] [address], [place], [address], 01/03/2023 15:06:56 01/04/20 23 01/03/2023 urina lysis , dipst ick Specimen Type Voided Not Available [facility] [address], [place], [address], 01/03/2023 15:06:56 Result Notes None recorded. Problems Name Status Onset Date Resolution Date Notes Provider Name and Address Organization Details Recorded Time Malignant tumor of urinary bladder Active 2 Raquel Esquivel null, [facility] 06/08/2021 13:04:27 Problem Notes None recorded. Procedures Surgical History Date Name Laterality Status Provider Name and Address Organization Details Recorded Time 01/04/20 23 Cystoscopy- male completed Juan Garcia MD [address] [place] [address],[address], [place], [address], [facility] 01/03/2023 15:16:02 01/04/20 23 Sulfa post Cysto completed Farrah Curtis null, [facility] 01/03/2023 15:09:38 07/20/19 23 Cystoscopy- male completed Juan Garcia MD [address] [place] [address],[address], [place], [address], [facility] 07/19/2022 18:19:49 03/29/19 23 Cystoscopy- male completed Juan Garcia MD [address] [place] [address],[address], [place], [address], [facility] 03/29/2022 13:48:04 07/21/19 22 [facility] 13:21:59 07/14/19 22 BCG Full Dose Tx 50mg completed Brenda pena, [facility] 07/13/2021 12:36:56 07/07/19 22 BCG Full Dose Tx 50mg completed Brenda pena, [facility] 07/06/2021 13:00:05 06/30/19 22 BCG Full Dose Tx 50mg completed Brenda pena, [facility] 06/29/2021 12:37:26 06/23/19 22 BCG Full Dose Tx 50mg completed Brenda pena, [facility] 06/22/2021 12:59:03 06/16/19 22 Urinalysis completed Aminta pena [facility] 06/15/2021 15:06:05 06/09/19 22 BCG Full Dose Tx 50mg completed Raquel Jaznoel becky [facility] 06/08/2021 13:18:54 02/09/20 21 TRANSURETHRAL RESECTION OF BLADDER TUMOR (SURG) completed Jil Roy becky [facility] 02/08/2021 16:46:49 Imaging Results None recorded. [...] completed Not Available Not Available Not Available [place] BCG 50 mg intravesica l suspension Instill [...] Updated DateTime 03/29/2022 187.96 cm 29.5 kg/m2 946730.25 g Tulio Haile [facility] 03/29/2022 13:05:47 Date Recorded Body height Body mass index (BMI) Body weight Provider Name and Address Organization Details Last Updated DateTime 07/19/2022 187.96 cm 29.5 kg/m2 977940.25 g Juan Garcia MD [address] [facility] [facility],[address], [place], [address] 07/19/2022 14:39:36 Date Recorded Body height Body mass index (BMI) Body weight Provider Name and Address Organization Details Last Updated DateTime 01/03/2023 187.96 cm 29.5 kg/m2 310345.25 g Farrah pena [facility] 01/03/2023 15:01:04 Social History Question Answer Notes LastModified by Organizat ion Details LastModified Time Tobacco Smoking Status Former Smoker Tulio pena [facility] 03/29/2022 13:11:40 What Is Your Level Of [...] trivalent, adjuvanted 11/18/2018 completed Farrah Curtis becky [facility] 01/03/2023 15:01:14 influenza, trivalent, adjuvanted 11/21/2016 completed Farrah Curtis becky [facility] 01/03/2023 15:01:14 influenza, trivalent, adjuvanted 01/01/2018 completed Farrah Curtis becky [facility] 01/03/2023 15:01:14 Influenza vaccine, quadrivalent, adjuvanted 11/24/2020 completed Farrah Stromquist null, [facility] 01/03/2023 15:01:14 Influenza vaccine, quadrivalent, adjuvanted 11/30/2019 completed Farrah Stromquist null, [facility] 01/03/2023 15:01:14 COVID-19, mRNA, LNP-S, PF, 30 mcg/0.3 mL dose 04/05/2020 completed Farrah Stromquist null, [facility] 01/03/2023 15:01:14 COVID-19, mRNA, LNP-S, PF, 30 mcg/0.3 mL dose 04/26/2020 completed Farrah Stromquist null, [facility] 01/03/2023 15:01:14 COVID-19, mRNA, LNP-S, PF, 30 mcg/0.3 mL dose 11/24/2020 completed Farrah Stromquist null, [facility] 01/03/2023 15:01:14 COVID-19, mRNA, LNP-S, PF, 30 mcg/0.3 mL dose, marvin-sucrose 06/12/2021 completed Farrah Stromquist null, [facility] 01/03/2023 15:01:14 pneumococcal polysaccharide PPV23 11/29/2005 completed Farrah Stromquist null, [facility] 01/03/2023 15:01:14 pneumococcal polysaccharide PPV23 01/25/2005 completed Farrah Stromquist null, [facility] 01/03/2023 15:01:14 pneumococcal polysaccharide PPV23 02/20/2011 completed Farrah Stromquist null, [facility] 01/03/2023 15:01:14 influenza, unspecified formulation 11/25/2008 completed Farrah Stromquist null, [facility] 01/03/2023 15:01:14 Tdap 02/20/2011 completed Farrah Stromquist null, [facility] 01/03/2023 15:01:14 Pneumococcal conjugate PCV 13 03/15/2016 completed Farrah Stromquist null, [facility] 01/03/2023 15:01:14 Pneumococcal conjugate PCV 13 09/17/2014 completed Farrah Stromquist null, [facility] 01/03/2023 15:01:14 zoster live 02/26/2008 completed Farrah Stromquist null, [facility] 01/03/2023 15:01:14 zoster live 01/05/2009 completed Farrah Stromquist null, [facility] 01/03/2023 15:01:14 Influenza, high dose seasonal 11/29/2014 completed Farrah Stromquist null, [facility] 01/03/2023 15:01:14 Influenza, high dose seasonal 12/14/2015 completed Farrah Stromquist null, [facility] 01/03/2023 15:01:14 Influenza, high dose seasonal 12/24/2013 completed Farrah Stromquist null, [facility] 01/03/2023 15:01:14 Influenza, seasonal, injectable 02/26/1988 completed Farrah Stromquist null, [facility] 01/03/2023 15:01:14 Influenza, seasonal, injectable 11/16/2008 completed Farrah Stromquist null, [facility] 01/03/2023 15:01:14 Influenza, seasonal, injectable 11/24/2009 completed Farrah Stromquist null, [facility] 01/03/2023 15:01:14 Influenza, seasonal, injectable 11/29/2005 completed Farrah Stromquist null, [facility] 01/03/2023 15:01:14 Influenza, seasonal, injectable 12/06/2003 completed Farrah Stromquist null, [facility] 01/03/2023 15:01:14 Influenza, seasonal, injectable 12/18/2002 completed Farrah Stromquist null, [facility] 01/03/2023 15:01:14 Influenza, seasonal, injectable 12/18/2012 completed Farrah Stromquist null, [facility] 01/03/2023 15:01:14 Influenza, seasonal, injectable 12/19/2001 completed Farrah Stromquist null, [facility] 01/03/2023 15:01:14 Influenza, seasonal, injectable 12/26/2006 completed Farrah Stromquist null, [facility] 01/03/2023 15:01:14 Influenza, seasonal, injectable 12/28/2004 completed Farrah Stromquist null, [facility] 01/03/2023 15:01:14 Influenza, seasonal, injectable 01/30/2012 completed Farrah Stromquist null, [facility] 01/03/2023 15:01:14 Influenza, seasonal, injectable, preservative free 12/16/2007 completed Farrah Stromquist null, [facility] 01/03/2023 15:01:14 Influenza, seasonal, injectable, preservative free 12/18/2010 completed Farrah Stromquist null, [facility] 01/03/2023 15:01:14 Novel [id number] 03/25/2009 completed Farrah Stromquist null, [facility] 01/03/2023 15:01:14 Td (adult), 5 Lf tetanus toxoid, preservative free, adsorbed 11/29/2005 completed Farrah Stromquist null, [facility] 01/03/2023 15:01:14 Td (adult), 2 Lf tetanus toxoid, preservative free, adsorbed 10/07/1998 completed Farrah Stromquist null, [facility] 01/03/2023 15:01:14 Td (adult), 2 Lf tetanus toxoid, preservative free, adsorbed 01/25/2005 completed Farrah Stromquist null, [facility] 01/03/2023 15:01:14 influenza, injectable, quadrivalent, preservative free 03/25/2009 completed Farrah Stromquist null, [facility] 01/03/2023 15:01:14 Past Encounters Encounter ID Performer Location Encounter Start Date Encounter Closed Date Diagnosis/Indication [id number] MD CLEM [facility] [place] [address] 06/08/2021 12:06:29 06/09/2021 12:49:18 Malignant tumor of urinary bladder [id number] MD CLEM [facility] [place] [address] 06/15/2021 14:29:45 06/16/2021 10:17:08 Malignant tumor of urinary bladder [id number] MD Ezio Brannon [address] [place] [address] 06/22/2021 12:09:08 06/26/2021 10:10:48 Malignant tumor of urinary bladder [id number] MD CLEM [facility] [address] [place] [address] 06/29/2021 12:04:22 06/30/2021 10:32:05 Malignant tumor of urinary bladder [id number] MD CLEM [facility] [address] [place] [address] 07/06/2021 12:00:01 07/10/2021 08:52:06 Malignant tumor of urinary bladder [id number] MD David Brannona [address] [place] [address] 07/13/2021 11:55:07 07/14/2021 08:27:46 Malignant tumor of urinary bladder [id number] MD CLEM [facility] [address] [place] [address] 07/20/2021 12:41:28 07/21/2021 15:05:59 Malignant tumor of urinary bladder [id number] MD CLEM [facility] [address] [place] [address] 03/29/2022 12:36:10 04/02/2022 12:54:20 Malignant tumor of urinary bladder [id number] MD David Brannona [address] [place] [address] 07/19/2022 14:19:30 07/27/2022 15:09:48 Malignant tumor of urinary bladder Pyuria [id number] MD CLEM [facility] [address] [place] [address] 01/03/2023 14:52:35 01/08/2023 11:52:12 Malignant tumor of [...] (MEDICARE REPLACEMENT/A DVANTAGE - PPO) Cecilio Rosa [id number] Cecilio Rosa 07/19/2022 1 [employer] (MEDICARE REPLACEMENT/A DVANTAGE - PPO) Cecilio Rsoa [id number] Cecilio Rosa 03/29/2022 1 [employer] (MEDICARE REPLACEMENT/A DVANTAGE - PPO) Cecilio Rosa [id number] Cecilio Rosa 07/20/2021 1 [employer] (MEDICARE REPLACEMENT/A DVANTAGE - PPO) Cecilio Rosa [id number] Cecilio Rosa 07/13/2021 1 [employer] (MEDICARE REPLACEMENT/A DVANTAGE - PPO) Cecilio Rosa [id number] Cecilio Rosa 07/06/2021 1 [employer] (MEDICARE REPLACEMENT/A DVANTAGE - PPO) Cecilio Rosa [id number] Cecilio Rosa 06/29/2021 1 [employer] (MEDICARE REPLACEMENT/A DVANTAGE - PPO) Cecilio Rosa [id number] Cecilio Rosa 06/22/2021 1 [employer] (MEDICARE REPLACEMENT/A DVANTAGE - PPO) Cecilio Rosa [id number] Cecilio Rosa 06/15/2021 1 [employer] (MEDICARE REPLACEMENT/A DVANTAGE - PPO) Cecilio Rosa [id number] Cecilio Rosa 06/08/2021 1 [employer] (MEDICARE REPLACEMENT/A DVANTAGE - PPO) Cecilio Rosa [id number] Cecilio Rosa Notes Date Note Type Note Provider Name and Address Organization Details Recorded Time 06/08/2021 text/html HPI Notes: Karin hanson arrived to clinic today to begin BCG induction therapy #03/02. Patient has history of urotheilial carcinoma in situ. Had 02/08/21 Transurethral resection of bladder tumor. Patient then had 05/10/2021 cystoscopy, biopsy with fulguration due to insufficient sampling. Juan Garcia MD [address] [facility],[address], [place], [address], [facility] 06/08/2021 18:20:54 06/15/2021 text/html HPI Notes: Karin hanson arrived to clinic today to begin BCG induction therapy #04/02. Patient has history of urotheilial carcinoma in situ. Unable to complete BCG due to nitrate positive urinalysis. Had 02/08/21 Transurethral resection of bladder tumor. Patient then had 05/10/2021 cystoscopy, biopsy with fulguration due to insufficient sampling. Juan Garcia MD [address] [place] [address],[address], [place], [address], [facility] 06/20/2021 12:01:54 06/22/2021 text/html HPI Notes: Karin [...] #2/6 BCG induction treatment. Juan Garcia MD [address] [place] [address],[address], [address], [facility] 06/22/2021 18:23:42 06/29/2021 text/html HPI Notes: Karin [...] #3/6 BCG induction treatment. Juan Garcia MD [address] [place] [address],[address], [place], [address], [facility] 06/30/2021 08:25:36 07/06/2021 text/html HPI Notes: Karin [...] #4/6 BCG induction treatment. Juan Garcia MD [address] [place] [address],[address], [place], [address], [facility] 07/06/2021 13:50:26 07/13/2021 text/html HPI Notes: Karin [...] #5/6 BCG induction treatment. Juan Garcia MD [address] [place] [address],[address], [place], [address], [facility] 07/13/2021 18:13:55 07/20/2021 text/html HPI Notes: Karin [...] BCG induction treatment. Juan Garcia MD [address] [facility],[address], [place], [address], [facility] 07/20/2021 18:21:28 03/29/2022 text/html HPI Notes: [...] No new symptoms Juan Garcia MD [address] [facility],[address], [address], [facility] 03/29/2022 13:49:01 07/19/2022 text/html HPI Notes: [...] No new symptoms Juan Garcia MD [address] [facility],[address], [place], [address], [facility] 07/19/2022 18:20:57 01/03/2023 text/html HPI Notes: [...] No new symptoms Juan Garcia MD [address] [facility],[address], [place], [address], [facility] 01/03/2023 15:16:45
--- OUTSIDE RECORDS SUMMARY | 2023-03-27 09:57 | XMS_ITS | Continuity of Care Document ---
Author Name Unknown Address [address] [place] [address] Phone [phone] Organization [facility], [facility] Address [address] [place] [address] Care Team Providers Care Wafer Line Worker Name Role Phone DOUG TAYLOR Primary Care [...] 023 rstromquist [facility], [address], [place], [address], 15:07:41 Referral None recorded . Procedures None [...] Available [facility] [address], [place], [address], 01/03/2023 15:06:56 01/04/2001/03/2023 urina lysis , dipst ick Protein-Stat us >=9.0 Not Available [facility] [address], [place], [address], 01/03/2023 15:06:56 01/04/20 23 01/03/2023 urina lysis , dipst ick Urobilinogen -Status 4.0 Not Available [facility] [address], [place], [address], 01/03/2023 15:06:56 01/04/20 23 01/03/2023 urina lysis , dipst ick Nitrates-Sta tus negati ve Not Available [facility] [address], [place], [address], 01/03/2023 15:06:56 01/04/20 23 01/03/2023 urina lysis , dipst ick Blood-Status Trace Not Available [facility] [address], [place], [address], 01/03/2023 15:06:56 01/04/20 23 01/03/2023 urina lysis , dipst ick Leuko-Status Negati ve Not Available [facility] [address], [place], [address], 01/03/2023 15:06:56 01/04/2001/03/2023 urina lysis , dipst ick Specimen Type Voided Not Available [facility] [address], [place], [address], 01/03/2023 15:06:56 Result Notes None recorded. Problems Name Status Onset Date Resolution Date Notes Provider Name and Address Organization Details Recorded Time Malignant tumor of urinary bladder Active 2 Raquel pena [place] - [facility] 06/08/2021 13:04:27 Problem Notes None recorded. Procedures Surgical History Date Name Laterality Status Provider Name and Address Organization Details Recorded Time 01/04/20 23 Cystoscopy- male completed Juan Garcia MD [address] [facility],[address], [place], [address], [facility] 01/03/2023 15:16:02 01/04/20 23 Sulfa post Cysto completed Farrah Curtis null, [facility] 01/03/2023 15:09:38 07/20/19 23 Cystoscopy- male completed Juan Garcia MD [address] [facility],[address], [place], [address], [facility] 07/19/2022 18:19:49 03/29/19 23 Cystoscopy- male completed Juan Garcia MD [address] [facility],[address], [place], [address], [facility] 03/29/2022 13:48:04 07/21/19 22 BCG Full Dose Tx 50mg completed Brenda Colvin null, [facility] 07/20/2021 13:21:59 07/14/19 22 BCG Full Dose Tx 50mg completed Brenda Colvin null, [facility] 07/13/2021 12:36:56 07/07/19 22 BCG Full Dose Tx 50mg completed Brenda Colvin null, [facility] 07/06/2021 13:00:05 06/30/19 22 BCG Full Dose Tx 50mg completed Brenda Colvin null, [facility] 06/29/2021 12:37:26 06/23/19 22 BCG Full Dose Tx 50mg completed Brenda Colvin null, [facility] 06/22/2021 12:59:03 06/16/19 22 Urinalysis completed Aminta Interiano null, [facility] 06/15/2021 15:06:05 06/09/19 22 BCG Full Dose Tx 50mg completed Raquel Esquivel null, [facility] 06/08/2021 13:18:54 02/09/20 21 TRANSURETHRAL RESECTION OF BLADDER TUMOR (SURG) completed Jil Roy null, [facility] 02/08/2021 16:46:49 Imaging Results None recorded. Procedure [...] Updated DateTime 01/03/2023 187.96 cm 29.5 kg/m2 837539.25 g Farrah Kristen pena [facility] 01/03/2023 15:01:04 Social History Question Answer Notes LastModified by Organizat ion Details LastModified Time Tobacco Smoking Status Former Smoker Tulio Haile [facility] 03/29/2022 13:11:40 What Is Your Level [...] trivalent, adjuvanted 11/18/2018 completed Farrah Stromquist null, [facility] 01/03/2023 15:01:14 influenza, trivalent, adjuvanted 11/21/2016 completed Farrah Stromquist null, [facility] 01/03/2023 15:01:14 influenza, trivalent, adjuvanted 01/01/2018 completed Farrah Stromquist null, [facility] 01/03/2023 15:01:14 Influenza vaccine, quadrivalent, adjuvanted 11/24/2020 completed Farrah Stromquist null, [facility] 01/03/2023 15:01:14 Influenza vaccine, quadrivalent, adjuvanted 11/30/2019 [facility] 01/[facility]23 15:01:14 COVID-19, mRNA, LNP-S, PF, 30 mcg/0.3 mL dose 04/05/2020 completed Farrah Stromquist null, [facility] 01/03/2023 15:01:14 COVID-19, mRNA, LNP-S, PF, 30 mcg/0.3 mL dose 04/26/2020 completed Farrah Stromquist null, [facility] 01/03/2023 15:01:14 COVID-19, mRNA, LNP-S, PF, 30 mcg/0.3 mL dose 11/24/2020 [facility] 01/[facility]23 15:01:14 COVID-19, mRNA, LNP-S, PF, 30 mcg/0.3 mL dose, marvin-sucrose 06/12/2021 completed Farrah Stromquist null, [facility] 01/03/2023 15:01:14 pneumococcal polysaccharide PPV23 11/29/2005 completed Farrah Stromquist null, [facility] 01/03/2023 15:01:14 pneumococcal polysaccharide PPV23 01/25/2005 completed Farrah Stromquist null, [facility] 01/03/2023 15:01:14 pneumococcal polysaccharide PPV23 02/20/2011 completed Farrah Stromquist null, [facility] 01/03/2023 15:01:14 influenza, unspecified formulation 11/25/2008 completed Farrah Stromquist null, [facility] 01/03/2023 15:01:14 Tdap 02/20/2011 completed Farrah Stromquist null, [facility] 01/03/2023 15:01:14 Pneumococcal conjugate PCV 13 03/15/2016 completed Farrah Stromquist null, [facility] 01/03/2023 15:01:14 Pneumococcal conjugate PCV 13 09/17/2014 completed Farrah Stromquist null, [facility] 01/03/2023 15:01:14 zoster live 02/26/2008 completed Farrah Stromquist null, [facility] 01/03/2023 15:01:14 zoster live 01/05/2009 completed Farrah Stromquist null, [facility] 01/03/2023 15:01:14 Influenza, high dose seasonal 11/29/2014 completed Farrah Stromquist null, [facility] 01/03/2023 15:01:14 Influenza, high dose seasonal 12/14/2015 completed Farrah Stromquist null, [facility] 01/03/2023 15:01:14 Influenza, high dose seasonal 12/24/2013 completed Farrah Stromquist null, [facility] 01/03/2023 15:01:14 Influenza, seasonal, injectable 02/26/1988 completed Farrah Stromquist null, [facility] 01/03/2023 15:01:14 Influenza, seasonal, injectable 11/16/2008 completed Farrah Stromquist null, [facility] 01/03/2023 15:01:14 Influenza, seasonal, injectable 11/24/2009 completed Farrah Stromquist null, [facility] 01/03/2023 15:01:14 Influenza, seasonal, injectable 11/29/2005 completed Farrah Stromquist null, [facility] 01/03/2023 15:01:14 Influenza, seasonal, injectable 12/06/2003 completed Farrah Stromquist null, [facility] 01/03/2023 15:01:14 Influenza, seasonal, injectable 12/18/2002 completed Farrah Stromquist null, [facility] 01/03/2023 15:01:14 Influenza, seasonal, injectable 12/18/2012 completed Farrah Stromquist null, [facility] 01/03/2023 15:01:14 Influenza, seasonal, injectable 12/19/2001 completed Farrah Stromquist null, [facility] 01/03/2023 15:01:14 Influenza, seasonal, injectable 12/26/2006 completed Farrah Stromquist null, [facility] 01/03/2023 15:01:14 Influenza, seasonal, injectable 12/28/2004 completed Farrah Stromquist null, [facility] 01/03/2023 15:01:14 Influenza, seasonal, injectable 01/30/2012 completed Farrah Stromquist null, [facility] 01/03/2023 15:01:14 Influenza, seasonal, injectable, preservative free 12/16/2007 completed Farrah Stromquist null, [facility] 01/03/2023 15:01:14 Influenza, seasonal, injectable, preservative free 12/18/2010 completed Farrah Stromquist null, [facility] 01/03/2023 15:01:14 Novel [id number]-[id number] 03/25/2009 completed Farrah Stromquist null, [facility] 01/03/2023 15:01:14 Td (adult), 5 Lf tetanus toxoid, preservative free, adsorbed 11/29/2005 completed Farrah Stromquist null, [facility] 01/03/2023 15:01:14 Td (adult), 2 Lf tetanus toxoid, preservative free, adsorbed 10/07/1998 completed Farrah Stromquist null, [facility] 01/03/2023 15:01:14 Td (adult), 2 Lf tetanus toxoid, preservative free, adsorbed 01/25/2005 [facility] 15:01:14 influenza, injectable, quadrivalent, preservative free 03/25/2009 completed Farrah Curtis becky, [facility] 01/03/2023 15:01:14 Past Encounters Encounter ID Performer Location Encounter Start Date Encounter Closed Date Diagnosis/Indication [id number] Juan Garcia MD [facility] [address] [place] [address] 01/03/2023 14:52:35 01/08/2023 11:52:12 Malignant tumor of urinary bladder Pyuria Health Concerns Section Related Observation LastModified by Organization Detai ls LastModified Time None Recorded Concern Status LastModified by Organization Details LastModified Time None Recorded Payers Encounter Date Sequence Insurance Name Policy Number Policy Zelaya Covered Member ID Zelaya Member ID Guarantor Name 01/03/2023 1 [employer] (MEDICARE REPLACEMENT/A DVANTAGE - PPO) Cecilio Rosa [id number] Cecilio Rosa Notes Date Note Type Note [...] No new symptoms Juan Garcia MD [address] [facility],[address], [place], [address], [facility] 01/03/2023 15:16:45
--- OUTSIDE RECORDS SUMMARY | 2023-03-27 09:58 | XMS_ITS | Referral Summary ---
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 Temperature 36 ??C (96.8 ??F) 08/13/2017 4:04 [...] on file Medical Devices Implanted Type Area Senior Logistics Manager Device Identifier Shelf Expiration Date Model / Serial / Lot Imp [place] Ar[employer]rex Bio-Swivelock [id number] Implanted:Qty : 1 on 08/13/2017 by Dg Rose MD at [facility] Metallic Hardware/An chor Right: Shoulder ARTHREX 03/27/2019 AR-2324BCC- 2 / / [id number] Imp Femoral Sleeve S&N Long Mod +8mm Neck Ti [id number] Implanted:Qty : 1 on 03/25/2017 by Lj Ornelas MD at [facility] Total Joint Component/I nsert Right: Hip PASCAL 03/03/2025 [id number] / / [id number] 40mm Modular Femoral Head Implanted:Qty : 1 on 03/25/2017 by Lj Ornelas MD at [facility] Right: Hip 12/02/2026 [id number] / / [id number] Advance Directives For more information, please contact: [phone] Latest Code Status on File Code Status Date Activated Date Inactivated Comments Full Code 03/28/2017 2:36 PM Code Status History Code Status Date Activated Date Inactivated Comments Full Code 03/23/2017 5:42 PM 03/27/2017 12:01 AM Care Teams Controller Repairer And Tester Relationship Specialty Start Date End Date [address] [address] PCP - General 03/23/17
--- OUTSIDE RECORDS SUMMARY | 2023-03-27 09:58 | XMS_ITS | Clinical Summary ---
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 Temperature 36 ??C (96.8 ??F) 08/13/2017 4:04 [...] on file Medical Devices Implanted Type Area Courier Delivery Driver Device Identifier Shelf Expiration Date Model / Serial / Lot Imp [place] Ar[employer] Bio-Swivelock [id number] Implanted:Qty : 1 on 08/13/2017 by Dg Rose MD at [facility] Metallic Hardware/An chor Right: Shoulder ARTHREX 03/27/2019 AR-2324BCC- 2 / / [id number] Imp Femoral Sleeve S&N Long Mod +8mm Neck Ti [id number] Implanted:Qty : 1 on 03/25/2017 by Lj Ornelas MD at [facility] Total Joint Component/I nsert Right: Hip PASCAL 03/03/2025 [id number] / / [id number] 40mm Modular Femoral Head Implanted:Qty : 1 on 03/25/2017 by Lj Ornelas MD at [facility] Right: Hip 12/02/2026 [id number] / / [id number] Advance Directives For more information, please contact: [phone] Latest Code Status on File Code Status Date Activated Date Inactivated Comments Full Code 03/28/2017 2:36 PM Code Status History Code Status Date Activated Date Inactivated Comments Full Code 03/23/2017 5:42 PM 03/27/2017 12:01 AM Care Teams Biotechnician Relationship Specialty Start Date End Date [address] [address] PCP - General 03/23/17
== END 2023-03-27 09:55 | disposition home or self-care (01) ==
LOC: WOUND 09:54
PROVIDERS: PCP Family Medicine; Visit Provider Family Medicine
DX: S51.012A Laceration without foreign body of left elbow, initial encounter (principal); S81.011A Laceration without foreign body, right knee, initial encounter; W19.XXXA Unspecified fall, initial encounter
CPT/HCPCS: 11042

== ENCOUNTER 2023-04-03 08:29 | Outpatient (CLI) | payer OTHER, SELFPAY ==
--- OUTSIDE RECORDS SUMMARY | 2023-04-03 08:31 | XMS_ITS | Clinical Summary ---
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 Temperature 36 ??C (96.8 ??F) 08/13/2017 4:04 [...] on file Medical Devices Implanted Type Area Inspector [employer] Device Identifier Shelf Expiration Date Model / Serial / Lot Imp [place] Ar[employer]rex Bio-Swivelock [id number] Implanted:Qty : 1 on 08/13/2017 by Dg Rose MD at [facility] Metallic Hardware/An chor Right: Shoulder ARTHREX 03/27/2019 AR-2324BCC- 2 / / [id number] Imp Femoral Sleeve S&N Long Mod +8mm Neck Ti [id number] Implanted:Qty : 1 on 03/25/2017 by Lj Ornelas MD at [facility] Total Joint Component/I nsert Right: Hip PASCAL 03/03/2025 [id number] / / [id number] 40mm Modular Femoral Head Implanted:Qty : 1 on 03/25/2017 by Lj Ornelas MD at [facility] Right: Hip 12/02/2026 [id number] / / [id number] Advance Directives For more information, please contact: [phone] Latest Code Status on File Code Status Date Activated Date Inactivated Comments Full Code 03/28/2017 2:36 PM Code Status History Code Status Date Activated Date Inactivated Comments Full Code 03/23/2017 5:42 PM 03/27/2017 12:01 AM Care Teams Senior Nurse Manager Relationship Specialty Start Date End Date [address] [address] PCP - General 03/23/17
--- OUTSIDE RECORDS SUMMARY | 2023-04-03 08:31 | XMS_ITS | Clinical Summary ---
Author Name Unknown Organization [facility] Address [place], [place] [address] Care Team Providers Care Circular Ripsaw Operator Name Role Phone Doug Taylor MD Primary [...] 12/28/2020 Active cholecalciferol (VITAMIN D3) 1,000 unit tabletIndications:V itamin D deficiency Take 1 Tablet (1,000 units) by mouth once daily. 90 tablet. 3 06/23/2021 Active cyanocobalamin (Vitamin B-12) 500 mcg tabletIndications:N utrition disorder Take 1 Tablet (500 mcg) by mouth once daily. 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 100 Each 3 07/30/2022 Active tamsulosin (FLOMAX) 0.4 mg capsuleIndications: Frequent urination Take 1 Capsule (0.4 mg) by mouth once daily after a meal. 90 Capsule 3 07/30/2022 Active blood sugar diagnostic (Blood Glucose Test) stripIndications:Ty pe 2 diabetes mellitus with diabetic neuropathy, without long-term current use of insulin (HC) Test one time per day. 100 Each 3 07/30/2022 Active blood-glucose meterIndications:Ty pe 2 diabetes mellitus with diabetic neuropathy, without long-term current use of insulin (HC) Inject subcutaneous. Dispense meter, test strips, lancets covered by pt ins. E11.9 NIDDM type II - Test 1 time/day 1 Each 0 07/30/2022 Active Walker - 4 wheelsIndications:G ait instability For home use. Length of need: 99 1 Each 0 10/17/2022 Active Diabetic ShoeIndications:Makenzie betic peripheral neuropathy (HC) As directed. One pair diabetic shoes. 1 Each 1 10/17/2022 Active losartan (COZAAR) 100 mg tabletIndications:H TN (hypertension) TAKE 1 AND 1/2 TABLETS EVERY DAY 135 Tablet 3 01/18/2023 Active hydroCHLOROthiazide (HCTZ) 25 mg tabletIndications:B enign essential HTN Take 1 Tablet (25 mg) by mouth once daily. 90 Tablet 3 01/18/2023 Active atorvastatin (LIPITOR) 20 mg tabletIndications:M ixed hyperlipidemia Take 1 Tablet (20 mg) by mouth once daily. 90 Tablet 3 01/18/2023 Active metFORMIN (GLUCOPHAGE XR) 500 mg Extended-Release tabletIndications:D iabetes mellitus without complication (HC) Take 2 Tablets (1,000 mg) by mouth once daily with evening meal. 180 Tablet 1 01/18/2023 Active Walker - 4 wheelsIndications:W eakness of lower extremity, unspecified laterality,Unstable gait For home use. Length of need: 99. With seat. 1 Each 0 01/18/2023 Active gabapentin (NEURONTIN) 100 mg capsuleIndications: Peripheral sensory neuropathy Take 1 Capsule (100 mg) by mouth three times daily. 270 Capsule 3 02/01/2023 Active warfarin (COUMADIN) 2.5 mg tabletIndications:P aroxysmal atrial fibrillation (HC),Anticoagulatio n monitoring, INR range 2-3,TIA (transient ischemic attack) Take by mouth 2.5 mg (2.5 mg x 1) every Mon, Wed, Fri; 1.25 mg (2.5 mg x 0.5) all other days in the evening OR as directed 65 Tablet 0 02/19/2023 Active DropSafe Alcohol Prep PadsIndications:Makenzie betes mellitus without complication (HC) USE DIRECTED 300 Each 3 02/18/2023 Active honey (Manuka Honey) 100 % gelIndications:Diab etic ulcer of toe associated with type 2 diabetes mellitus, unspecified laterality, unspecified ulcer stage (HC) Apply topically to affected area(s) once daily. 15 mL 1 03/06/2023 Active sotaloL (BETAPACE) 80 mg tabletIndications:A trial fibrillation, unspecified type (HC) Take 1 Tablet (80 mg) by mouth every 24 hours. 90 Tablet 0 04/02/2023 Active sotaloL (BETAPACE) 80 mg tabletIndications:A trial fibrillation, unspecified type (HC) Take 1 Tablet (80 mg) by mouth every 24 hours. 180 Tablet 0 01/22/2023 4 Discontinue d(Reorder (E-cancel not sent)) Active Problems Problem Noted Date Diagnosed Date [...] minutes of numbness affecting his right arm- [facility] [place] MRI and MRA showed no new acute [...] Encounters Date Type Department Care Team Description 04/02/2023 Refill [facility] [address] [place] [address] Doug Taylor MD Refill Request (SOTALOL 80MG TAB) 04/01/2023 10:00 AM PLATE GRAINER Orders Only [facility] [address] [place] [address] 2 scans: (2-Ord) US ARTERIAL LOWER EXTREMITY W BRITTNI BILATERAL ([id number]) 04/01/2023 Travel 03/22/2023 Telephone [facility] [address] [place] [address] oDug Taylor MD Follow Up 03/18/2023 3:15 PM PLATE GRAINER Ancillary Procedure [facility] [address] [place] [address] 03/18/2023 3:00 PM PLATE GRAINER Ancillary Procedure [facility] [address] [place] [address] 03/18/2023 1:40 PM PLATE GRAINER Office Visit [facility] [address] [place] [address] Doug Taylor MD Fall (03/16/23, whole body hurts, knees, forehead, left arm) 03/18/2023 Travel 03/18/2023 Telephone [facility] [address] [place] [address] Doug Taylor MD Appointment Request (TODAY 03/18/23/FALL) 03/09/2023 Anticoagulation (warfarin) [facility] [address] [place] [address] 1, [facility] Anticoagulation 03/08/2023 2:30 PM PLATE GRAINER Orders [place] [address] [place] [address] Lab[facility] 03/08/2023 Nurse Triage [address] [place] [address] Doug Taylor MD Arm Pain/problem (L inner elbow and forearm swelling) 03/08/2023 Travel 03/06/2023 3:00 PM PLATE GRAINER Office Visit [facility] [address] [place] [address] Seven Briones DPM Consult (Bilateral toe ulcer) 03/06/2023 Travel 02/26/2023 9:40 AM PLATE GRAINER Office Visit [facility] [place] [facility] [address] [place] [address] Rupert Moore MD Consult (Bilateral leg weakness /Bilateral heel x 6 months ) 02/26/2023 Travel 02/26/[address] [facility] [address] Светлана La MD Results (Mild progression per echo. Plan for annual echo) 02/21/2023 9:00 AM PLATE GRAINER Ancillary Procedure [facility] [address] [place] [address] 02/21/2023 Travel 02/17/2023 Refill [facility] [address] [place] [address] Doug Taylor MD Refill Request (Dropsafe Alcohol Prep Pads) 02/16/2023 Refill [facility] [address] [place] [address] Doug Taylor MD Refill Request (Warfarin) 02/15/[address] [place] [address] Светлана La MD Results 02/15/2023 Travel 02/08/2023 10:10 AM PLATE GRAINER Orders Only [facility] [address] [place] [address] Lab[facility] 02/08/2023 Anticoagulation (warfarin) [facility] [address] [place] [address] 1, [facility] Anticoagulation 02/08/2023 Travel 02/01/2023 Telephone [facility] [address] [place] [address] Doug Taylor MD Refill Request (Gabapentin 100mg ) 01/31/2023 Orders Only [facility] [address] [place] [address] Juan Davila NP <No scans attached> 01/28/2023 Telephone [facility] [address] [place] [address] Doug Taylor MD CLARIFICATION 01/23/2023 Orders Only [facility] [address] [facility] [place] [address] Светлана La MD 1 scan: (1-Ord) NFLD-EKG-.[id number] 01/22/2023 3:00 PM PLATE GRAINER Office Visit [facility] [address] [place] [address] Светлана La MD Consult (Atrial fibrillation) 01/22/2023 Orders Only [address] [place] [address] Светлана La MD 1 scan: (1-Ord) [employer] ([id number]) 01/22/2023 Telephone [facility] [place] [facility] [address] [place] [address] Rupert Moore MD Referral (Neurology consultation ready to schedule ) 01/21/2023 10:15 AM PLATE GRAINER Orders Only [facility] [address] [place] [address] 1 scan: (1-Ord) US TOE PRESSURE ONLY BILAT ([id number]) 01/21/2023 Travel 01/21/2023 Refill [facility] [address] [place] [address] Doug Taylor MD Refill Request (Gabapentin 300mg cap ) 01/18/2023 10:05 AM PLATE GRAINER Office Visit [facility] [address] [place] [address] Doug Taylor MD Medicare ANNUAL (subsequent) Visit (82 year old); Foot Problem (Bilateral foot neuropathy ); DME Supply (Discuss walker) 01/18/2023 Travel 01/08/2023 10:10 AM PLATE GRAINER Orders Only [facility] [address] [place] [address] [facility] 01/08/2023 Anticoagulation (warfarin) [facility] [address] [place] [address] 1, [facility] Anticoagulation (Lab ) 01/08/2023 Travel 01/06/2023 Refill [facility] [address] [place] [address] Doug Taylor MD Refill Request (Losartan) 01/03/2023 Orders Only [facility] Scanner 1 scan: (1-Ord) [place] UROLOGY, CYSTOSCOPY, 01/03/2023 from Last 3 Months Immunizations Name Administration [...] Comments Blood Pressure 147/67 03/18/2023 1:53 PM PLATE GRAINER Pulse 66 03/18/2023 1:53 PM PLATE GRAINER Temperature 36.3 ??C (97.4 ??F) 03/06/2023 3:54 PM CS T Respiratory Rate 16 05/25/2021 2:10 PM CDT Oxygen Saturation 94% 03/18/2023 1:53 PM PLATE GRAINER Inhaled Oxygen Concentration - - Weight 108.9 kg (240 lb) 01/26/2021 11:29 AM PLATE GRAINER Height 188 cm (6' 2) 01/26/2021 11:29 AM PLATE GRAINER Body Mass Index 30.81 01/26/2021 11:29 AM PLATE GRAINER Plan of Treatment Upcoming Encounters Date Type Department Care Team (Late st Contact Info) Description 04/04/2023 10:00 AM PLATE GRAINER Office Visit [facility] [address] [place] [address] Kuldip Briones MD [address] [facility] [address] [place] [address] 04/04/2023 11:45 AM PLATE GRAINER Ancillary Procedure [facility] [address] [place] [address] 04/04/2023 12:30 PM PLATE GRAINER Ancillary Procedure [facility] [address] [place] [address] 04/08/2023 1:30 PM PLATE GRAINER Orders Only [facility] [address] [place] [address] [facility] [place] 04/24/2023 2:40 PM PLATE GRAINER Office Visit [facility] [place] [facility] [address] [place] [address] Rupert Moore MD [address] [place] [address] 07/24/2023 10:30 AM CDT Office Visit [facility] [address] [place] [address] Doug Taylor MD [address] [place] [address] Health Maintenance Due Date Last Done Comments BMI (ht and wt on same day) for age 18+ 01/26/2022 01/26/2021, 12/06/2020, 12/29/2019, Additional history exists COVID-19 vaccine series ( season) 2023 11/21/2022, 06/28/2022, 12/27/2021, Additional history exists Medicare Wellness for age 65+ 01/19/2024 01/18/2023, 12/27/2021 Depression screening for age 12+ [...] Procedure Name Priority Date/Time Associated Diagnosis Comments US ARTERIAL LOWER EXTREMITY W BRITTNI BILATERAL Routine 04/01/2023 1:23 PM PLATE GRAINER Peripheral arterial disease (HC) XR KNEE 3 VIEWS LEFT Routine 03/18/2023 3:13 PM PLATE GRAINER Acute pain of left knee XR WRIST 3 VIEWS LEFT Routine 03/18/2023 3:04 PM PLATE GRAINER Left wrist pain INR,POCT Routine 03/08/2023 2:45 PM PLATE GRAINER Paroxysmal atrial fibrillation (HC) Anticoagulation monitoring, INR range 2-3 ECHO TTE COMPLETE WO CONTRAST Routine 02/21/2023 9:41 AM PLATE GRAINER Atrial fibrillation, unspecified type (HC) EXTENDED HOLTER Routine 02/14/2023 Atrial fibrillation, unspecified type (HC) INR,POCT Routine 02/08/2023 10:24 AM PLATE GRAINER Paroxysmal atrial fibrillation (HC) Anticoagulation monitoring, INR range 2-3 EKG 12 LEAD Routine 01/23/2023 2:42 PM PLATE GRAINER Atrial fibrillation, unspecified type (HC) US TOE PRESSURE ONLY BILAT Routine 01/21/2023 10:41 AM PLATE GRAINER PAD (peripheral artery disease) (HC) URINE ALBUMIN TO CREATININE RATIO, RANDOM Routine 01/18/2023 9:40 AM PLATE GRAINER Diabetes mellitus without complication (HC) PROTIME-INR STAT 01/08/2023 10:18 AM PLATE GRAINER Paroxysmal atrial fibrillation (HC) Anticoagulation monitoring, INR range 2-3 BASIC METABOLIC PANEL Routine 01/08/2023 10:18 AM PLATE GRAINER Diabetes mellitus without complication (HC) LIPID PANEL W REFLEX MEASURED LDL Routine 01/08/2023 10:18 AM PLATE GRAINER Diabetes mellitus without complication (HC) HEMOGLOBIN A1C Routine 01/08/2023 10:18 AM PLATE GRAINER Diabetes mellitus without complication (HC) SCAN-OPERATIVE/PROC EDURE REPORT 01/03/2023 12:00 AM PLATE GRAINER from Last 3 Months Results * US ARTERIAL LOWER EXTREMITY W BRITTNI BILATERAL (04/01/2023 1:23 PM PLATE GRAINER) Anatomical Region Laterality Modality LEGS Ultrasound 04/01/2023 9:48 AM PLATE GRAINER Narrative 04/01/2023 2:57 PM PLATE GRAINER VASCULAR ULTRASOUND REPORT CECILIO ROSA Accession#: ?? [id number] : ?1940 ?? Study Date: ?? 04/01/2023 9:48:12 AM Age: ?82 years ?? Tech: ? TLW Gender: M ?Referring MD: JUAN DAVILA Site: [facility] Study performed: ?Lower extremity duplex US, TBI, (bilateral). Indication for study: Follow-up known PAD Study Quality: ?Good Patient History: H/O DVT and Diabetes. Other History: ?? Patient on blood thinners. TECHNIQUE: Lower/upper extremity arteries were examined per [...] test requirements. IMPRESSION: 1. Toe-brachial index is mildly reduced on the right at 0.56 and toe-brachial index is moderately reduced on the left at 0.43. 2. On the left, focal velocity elevation in proximal superficial femoral artery is at the threshold between 50-74% and 75-99% narrowing. No other site concerning for stenosis on the left leg. 3. No sonographic evidence of arterial occlusion or hemodynamically significant stenosis in the right leg. COMPARISON: Compared to prior study 01/21/2023, the TBIs have increased, previously 0.45 on the right and 0.38 on the left. FINDINGS: Incidental finding of bilateral DVT distal FEM V and POPV; suspect chronic. Patient H/O DVT. Patient on blood thinners. Right toe/brachial index indicates mild range. Left toe/brachial index indicates moderate range. + + + + RIGHT ? Velocity cm/s Phasicity ?? + + + + SWEET PICKLED FRUIT MAKER PRX ? 64 ? monophasic + + + + SWEET PICKLED FRUIT MAKER DST ? 48 ? multiphasic + + + + PFA ? 63 ? monophasic + + + + SFA PRX ? 66 ? multiphasic + + + + SFA PRX MID ? 45 ? monophasic + + + + SFA MID ? 51 ? multiphasic + + + + SFA MID DST ? 44 ? monophasic + + + + SFA DST ? 33 ? multiphasic + + + + MATTHEW PRX ? 34 ? multiphasic + + + + MATTHEW DST ? 30 ? multiphasic + + + + NET WPF DEVELOPER DST ? 62 ? multiphasic + + + + DPA ? 60 ? monophasic + + + + + + + + +--------+-----+ LEFT ? Velocity cm/s PRE ? Phasicity ?? Stenosis Ratio ? Velocity cm/s ? Phasicity ? + + + + +--------+-----+ SWEET PICKLED FRUIT MAKER PRX ? 51 ? multiphasic ? + + + + +--------+-----+ SWEET PICKLED FRUIT MAKER DST ? 47 ? multiphasic ? + + + + +--------+-----+ PFA ? 42 ? multiphasic ? + + + + +--------+-----+ SFA PRX ? 67 ? monophasic ? + + + + +--------+-----+ SFA PRX MID ? 262 ? 67 ? multiphasic 50-74% 3.9 ? monophasic ? + + + + +--------+-----+ SFA MID ? 37 ? multiphasic ? + + + + +--------+-----+ SFA MID DST ? 35 ? multiphasic ? + + + + +--------+-----+ SFA DST ? 39 ? multiphasic ? + + + + +--------+-----+ MATTHEW PRX ? 41 ? multiphasic ? + + + + +--------+-----+ MATTHEW DST ? 31 ? multiphasic ? + + + + +--------+-----+ NET WPF DEVELOPER DST ? 47 ? monophasic ? + + + + +--------+-----+ DPA ? 61 ? monophasic ? + + + + +--------+-----+ Criteria: Stenosis ?V. Ratio Mild ?<50% ?<2.0 Moderate ?? 50-74% ?> or = 2.0 Severe ? 75-99% ?> or = 4.0 Occluded ?100% ?? no detectable flow Pressures +-----+ +--------+ +-----+ ? RIGHT (mmHg) ? LEFT (mmHg) ? +-----+ +--------+ +-----+ Index ?172 ? Brachial ?158 ? Index +-----+ +--------+ +-----+ 0.56 ? 97 ? Digit 1 ?74 ? 0.43 +-----+ +--------+ +-----+ Reinaldo Limon MD. [employer] Electronically signed on 04/01/2023 2:57:53 PM This study was performed and interpreted by a service accredited by the Intersocietal Accreditation Commission (IAC/Vascular), www.intersocietal.org/vascular Report generated by [employer]. ??Final ?? Procedure Note Reinaldo Limon MD - 04/01/2023 VASCULAR ULTRASOUND REPORT CECILIO ROSA : 1940 Study Date: 04/01/2023 9:48:12 AM Age: 82 years Tech: TLW Gender: M Referring MD: JUAN DAVILA Site: [facility] Study performed: Lower extremity duplex US, TBI, (bilateral). Indication for study: Follow-up known PAD Study Quality: Good Patient History: H/O DVT and Diabetes. Other History: Patient on blood thinners. TECHNIQUE: Lower/upper extremity arteries were examined per [...] test requirements. IMPRESSION: 1. Toe-brachial index is mildly reduced on the right at 0.56 andtoe-brachial index is moderately reduced on the left at 0.43. 2. On the left, focal velocity elevation in proximal superficial femoralartery is at the threshold between 50-74% and 75-99% narrowing. No othersite concerning for stenosis on the left leg. 3. No sonographic evidence of arterial occlusion or hemodynamicallysignificant stenosis in the right leg. COMPARISON: Compared to prior study 01/21/2023, the TBIs have increased, previously0.45 on the right and 0.38 on the left. FINDINGS: Incidental finding of bilateral DVT distal FEM V and POPV; suspectchronic. Patient H/O DVT. Patient on blood thinners. Right toe/brachial index indicates mild range. Left toe/brachial index indicates moderate range. + + + + RIGHT Velocity cm/s Phasicity + + + + SWEET PICKLED FRUIT MAKER PRX 64 monophasic + + + + SWEET PICKLED FRUIT MAKER DST 48 multiphasic + + + + PFA 63 monophasic + + + + SFA PRX 66 multiphasic + + + + SFA PRX MID 45 monophasic + + + + SFA MID 51 multiphasic + + + + SFA MID DST 44 monophasic + + + + SFA DST 33 multiphasic + + + + MATTHEW PRX 34 multiphasic + + + + MATTHEW DST 30 multiphasic + + + + NET WPF DEVELOPER DST 62 multiphasic + + + + DPA 60 monophasic + + + + + + + + +--------+-----+ LEFT Velocity cm/s PRE Phasicity Stenosis Ratio Velocity cm/s Phasicity + + + + +--------+-----+ SWEET PICKLED FRUIT MAKER PRX 51 multiphasic + + + + +--------+-----+ SWEET PICKLED FRUIT MAKER DST 47 multiphasic + + + + +--------+-----+ PFA 42 multiphasic + + + + +--------+-----+ SFA PRX 67 monophasic + + + + +--------+-----+ SFA PRX MID 262 67 multiphasic 50-74% 3.9 monophasic + + + + +--------+-----+ SFA MID 37 multiphasic + + + + +--------+-----+ SFA MID DST 35 multiphasic + + + + +--------+-----+ SFA DST 39 multiphasic + + + + +--------+-----+ MATTHEW PRX 41 multiphasic + + + + +--------+-----+ MATTHEW DST 31 multiphasic + + + + +--------+-----+ NET WPF DEVELOPER DST 47 monophasic + + + + +--------+-----+ DPA 61 monophasic + + + + +--------+-----+ Criteria: Stenosis V. Ratio Mild <50% <2.0 Moderate 50-74% > or = 2.0 Severe 75-99% > or = 4.0 Occluded 100% no detectable flow Pressures +-----+ +--------+ +-----+ RIGHT (mmHg) LEFT (mmHg) +-----+ +--------+ +-----+ Index 172 Brachial 158 Index +-----+ +--------+ +-----+ 0.56 97 Digit 1 74 0.43 +-----+ +--------+ +-----+ Reinaldo Limon MD. [employer] Electronically signed on 04/01/2023 2:57:53 PM This study was performed and interpreted by a service accredited by theIntersocietal Accreditation Commission (IAC/Vascular),www.[email or web address]/vascular Report generated by [employer]. Final Juan Davila NP US * XR KNEE 3 VIEWS LEFT (03/18/2023 3:13 PM PLATE GRAINER) Anatomical Region Laterality Modality KNEES, KNEE L Computed Radiogr aphy 03/18/2023 3:30 PM PLATE GRAINER Narrative 03/18/2023 3:30 PM PLATE GRAINER For Patients: ??As a result of the [...] WRIST 3 VIEWS LEFT (03/18/2023 3:04 PM PLATE GRAINER) Anatomical Region Laterality Modality WRISTS, WRIST L Computed Radiogr aphy 03/18/2023 3:28 PM PLATE GRAINER Narrative 03/18/2023 3:28 PM PLATE GRAINER For Patients: ??As a result of the [...] G * (ABNORMAL) INR,POCT (03/08/2023 2:45 PM PLATE GRAINER) Only the most recent of2 resultswithin the time period is included. INR 2.4(H) <1.3 03/08/2023 2:48 PM PLATE GRAINER [facility] Blood BLOOD SPECIMEN / Unknown 03/08/2023 2:45 PM PLATE GRAINER 03/08/2023 2:48 PM PLATE GRAINER Narrative [facility] - 03/08/2023 2:48 PM PLATE GRAINER ?Therapeutic Range 2.0-3.0 for most anticoagulated patients 2.5-3.5 or 4.0 for high risk patients Doug Taylor MD LABORATORY [facility] [address] [place] [address], * ECHO TTE COMPLETE WO CONTRAST (02/21/2023 9:41 AM PLATE GRAINER) AORTIC VALVE MEAN PG 22 mmHg EJECTION FRACTION 59 % PEAK TR VELOCITY 3.4 m/s LVEDD 4.4 cm EJECTION FRACTION 60 - 65% Anatomical Region Laterality Modality Ultrasound 02/21/2023 9:06 AM PLATE GRAINER Narrative 02/21/2023 10:41 AM PLATE GRAINER ECHOCARDIOGRAM CECILIO Param ROSA ?Accession#: ?? [id number] : ?1940 82 years Study Date: ?? 02/21/2023 9:06:01 AM Gender: M ? BP: ? 151/60 mmHg Height: 188.00 cm ? BSA: ?2.31 m? ? ? Weight: 105.00 kg ? Tech: ? MJW ?Referring MD: СВЕТЛАНА LA Site: ? [facility] Reading Location: Mobile-OP Patient Location: Outpatient. [...] . This study was interpreted by an [facility] accredited facility. ??Final ?? Procedure Note Anthony Thompson MD - 02/21/2023 ECHOCARDIOGRAM CECILIO ROSA : 1940 82 years Study Date: 02/21/2023 9:06:01 AM Gender: M BP: 151/60 mmHg Height: 188.00 cm BSA: 2.31 m? ? ? Weight: 105.00 kg Tech: XENIA Referring MD: СВЕТЛАНА LA Site: [facility] Reading Location: Mobile-OP Patient Location: Outpatient. [...] . This study was interpreted by an [facility] accredited facility. Final Светлана La MD ECHO ORD * ZIO PATCH XT - weekly to monthly symptoms. (02/14/2023) Светлана La MD CARDIAC SERVICE S ORD * EKG 12 LEAD (01/23/2023 2:42 PM PLATE GRAINER) Светлана La MD EKG ORD * US TOE PRESSURE ONLY BILAT (01/21/2023 10:41 AM PLATE GRAINER) Anatomical Region Laterality Modality TOES Ultrasound 01/21/2023 9:18 AM PLATE GRAINER Narrative 01/21/2023 12:39 PM PLATE GRAINER VASCULAR ULTRASOUND REPORT CECILIO ROSA Accession#: ?? [id number] : ?1940 ?? Study Date: ?? 01/21/2023 9:18:40 AM Age: ?82 years ?? Tech: ? BVB Gender: M ?Referring MD: DOUG TAYLOR Site: [facility] Study performed: ?Lower extremity TBI, (bilateral). [...] ?? Velocity cm/s Phasicity +-------+ + + NET WPF DEVELOPER DST ? 103 ? monophasic +-------+ + + DPA ? 71 ? monophasic +-------+ + + +-------+ + + LEFT ?? Velocity cm/s Phasicity +-------+ + + NET WPF DEVELOPER DST ? 45 ? monophasic +-------+ + [...] Accreditation Commission (IAC/Vascular), www.intersocietal.org/vascular Report generated by [employer]. ??Final ?? Procedure Note Nehemiah Reynolds MD - 01/21/2023 VASCULAR ULTRASOUND REPORT CECILIO ROSA : 1940 Study Date: 01/21/2023 9:18:40 AM Age: 82 years Tech: BVB Gender: M Referring MD: DOUG TAYLOR Site: [facility] Study performed: Lower extremity TBI, (bilateral). [...] RIGHT Velocity cm/s Phasicity +-------+ + + NET WPF DEVELOPER DST 103 monophasic +-------+ + + DPA 71 monophasic +-------+ + + +-------+ + + LEFT Velocity cm/s Phasicity +-------+ + + NET WPF DEVELOPER DST 45 monophasic +-------+ + + DPA [...] theIntersocietal Accreditation Commission (IAC/Vascular),www.intersocietal.org/vascular Report generated by [employer]. Final Doug Taylor MD * (ABNORMAL) URINE ALBUMIN TO CREATININE RATIO, RANDOM (01/18/2023 9:40 AM PLATE GRAINER) ALB RAND URINE 63.3 mg/L 01/18/2023 6:24 PM [facility] CREATININE,URIN E 1.80 g/L 01/18/2023 6:24 PM [facility] ALBUMIN TO CREATININE RATIO,RAND UR 35.2(H) <30.0 mg/g creat 01/18/2023 6:24 PM [facility] Urine URINE SPECIMEN / Unknown Non-Blood / Unknown 01/18/2023 9:40 AM PLATE GRAINER 01[facility]18[facility]23 10:11 [facility] 01/18/2023 6:24 PM PLATE GRAINER If Albumin to Creatinine Ratio is elevated, consider the following: ? Elevations seen with incipient nephropathy associated ?? with diabetes mellitus or hypertension. Stress, exercise,hematuria, ?? and urinary tract infection may also produce elevated results. If clinically indicated, confirm with ?24 Hour Albumin to Creatinine Ratio. ?? Doug Taylor MD [facility] [address] [address], [place] * LIPID PANEL W REFLEX MEASURED LDL (01/08/2023 10:18 AM PLATE GRAINER) Pathologist [facility] CHOLESTEROL,TOTAL 119 100 - 199 mg/dL 01/08/2023 4:12 PM PLATE GRAINER [facility] Comment: Cholesterol, Total Reference Ranges Desirable <200 mg/dL Borderline 200-239 mg/dL High >=240 mg/dL TRIGLYCERIDES 70 <150 mg/dL 01/08/2023 4:12 PM PLATE GRAINER [facility] HDL CHOLESTEROL 70 >40 mg/dL 4:12 PM PLATE GRAINER [facility] NON-HDL CHOLESTEROL 49 <145 mg/dl 01/08/2023 4:12 PM PLATE GRAINER [facility] CHOL/HDL RATIO 1.70 <4.50 01/08/2023 4:12 PM PLATE GRAINER [facility] LDL CHOLESTEROL 35 <=130 mg/dL 01/08/2023 4:12 PM PLATE GRAINER [facility] VLDL CHOLESTEROL 14 <=30 mg/dL 01/08/2023 4:12 PM PLATE GRAINER [facility] PROVIDER ORDERED STATUS RANDOM 01/08/2023 4:12 PM PLATE GRAINER [facility] Blood BLOOD SPECIMEN / Unknown Venipuncture / Unknown 01/08/2023 10:18 AM PLATE GRAINER 01/08/2023 10:23 AM PLATE GRAINER Doug Taylor MD CHEMISTRY [facility] [address], [place] [address], * (ABNORMAL) PROTIME-INR (01/08/2023 10:18 AM PLATE GRAINER) INR 1.8(H) <1.3 01/08/2023 3:22 PM PLATE GRAINER [facility] PROTIME 19.8(H) 10.3 - 12.3 sec 01/08/2023 3:22 PM PLATE GRAINER [facility] Blood BLOOD SPECIMEN / Unknown Venipuncture / Unknown 01/08/2023 10:18 AM PLATE GRAINER 01/08/2023 10:23 AM PLATE GRAINER [facility] - 01/08/2023 3:22 PM PLATE GRAINER ?Therapeutic Range 2.0-3.0 for most anticoagulated patients [...] is on UFH. Doug Taylor MD HEMATOLOGY [facility] [address] [place] [address], * HEMOGLOBIN A1C MONITORING (POCT) (01/08/2023 10:18 AM PLATE GRAINER) HEMOGLOBIN A1C MONITORING (POCT) 5.6 <=6.4 % 01/08/2023 10:41 AM PLATE GRAINER [facility] Blood BLOOD SPECIMEN / Unknown Venipuncture / Unknown 01/08/2023 10:18 AM PLATE GRAINER 01/08/2023 10:23 AM PLATE GRAINER [facility] - 01/08/2023 10:41 AM PLATE GRAINER ? (<=6.9%) ? Indicates good control ? (7.0% to 7.9%) ? Indicates fair control ? (>=8.0%) ? Indicates poor control ?? NOTE: ??These thresholds are guidelines and ?individual targets may vary. Falsely low levels may be seen with: Recent Transfusion, Recent Significant Blood Loss, Hemolytic Diseases, or Falsely elevated levels may be seen with: Untreated Anemias, Splenectomy ? Doug Taylor MD CHEMISTRY [facility] [address] [place] [address], * (ABNORMAL) BASIC METABOLIC PANEL (01/08/2023 10:18 AM PLATE GRAINER) Pathologist [facility] SODIUM 137 136 - 145 mmol/L 01/08/2023 4:12 PM [facility] POTASSIUM 4.3 3.5 - 5.1 mmol/L 01/08/2023 4:12 PM [facility] CHLORIDE 105 98 - 107 mmol/L 01/08/2023 4:12 PM [facility] CO2,TOTAL 22 22 - 29 mmol/L 01/08/2023 4:12 PM [facility] ANION GAP 10 5 - 18 01/08/2023 4:12 PM [facility] GLUCOSE 139(H) 70 - 99 mg/dL 01/08/2023 4:12 PM [facility] CALCIUM 9.0 8.8 - 10.2 mg/dL 01/08/2023 4:12 PM [facility] BUN 24(H) 8 - 23 mg/dL 01/08/2023 4:12 PM [facility] CREATININE 1.61(H) 0.70 - 1.20 mg/dL 01/08/2023 4:12 PM [facility] BUN/CREAT RATIO 15 10 - 20 4:12 PM [facility] eGFR 42(L) >90 mL/min/1.7 3m2 01/08/2023 4:12 PM PLATE GRAINER [facility] Comment:As of 2021, eG FR is calculated by the CKD-EPI creatinine equation without race adjustment. ??eGFR can be influenced by muscle mass, exercise, and diet. ??The reported eGFR is an estimation only and is only applicable if the renal function is stable. Blood BLOOD SPECIMEN / Unknown Venipuncture / Unknown 01/08/2023 10:18 AM PLATE GRAINER 01/08/2023 10:23 AM PLATE GRAINER Doug Taylor MD CHEMISTRY [facility] [address] [place] [address], * SCAN-OPERATIVE/PROCEDURE REPORT (01/03/2023 12:00 AM PLATE GRAINER) Scanner OTHER from Last 3 Months Advance Directives Latest Code Status on File Code Status Date Activated Date Inactivated Comments Full Code 04/15/2019 1:26 PM 04/15/2019 4:48 PM Code Status History Code Status Date Activated Date Inactivated Comments Full Code 03/11/2016 7:17 PM 03/12/2016 7:38 PM Question Answer Comments Code Status Discussion: Discussed Care Teams Circular Ripsaw Operator Relationship Specialty Start Date End Date Doug Taylor MD [address] [place] [address] PCP - General Family Practice 04/18/12
--- OUTSIDE RECORDS SUMMARY | 2023-04-03 08:31 | XMS_ITS | Referral Summary ---
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 Metallic Hardware/An chor Right: Shoulder ARTHREX 03/27/2019 [id number] / / [id number] Imp Femoral Sleeve S&N Long Mod +8mm Neck Ti [id number] Implanted:Qty : 1 on 03/25/2017 by Lj Ornelas MD at [facility] Total Joint Component/I nsert Right: Hip PASCAL 03/03/2025 [id number] / / [id number] 40mm Modular Femoral Head Implanted:Qty : 1 on 03/25/2017 by Lj Ornelas MD at [facility] Right: Hip 12/02/2026 [id number] / / [id number] Advance Directives For more information, please contact: [phone] Latest Code Status on File Code Status Date Activated Date Inactivated Comments Full Code 03/28/2017 2:36 PM Code Status History Code Status Date Activated Date Inactivated Comments Full Code 03/23/2017 5:42 PM 03/27/2017 12:01 AM Care Teams Wireless Telegrapher Relationship Specialty Start Date End Date [address] [address] PCP - General 03/23/17
--- OUTSIDE RECORDS SUMMARY | 2023-04-03 08:31 | XMS_ITS | Continuity of Care Document ---
Author Name Unknown Address [address] [place] [address] Phone [phone] Organization [facility] Address [address] [place] [address] Care Team Providers Care Tank Tender Name Role Phone DOUG TAYLOR Primary Care Provider [phone] Assessment Encounter Date Assessment Date Assessment LastModified [...] 023 [email or web address] [facility], [address], [place], [address], 15:07:41 Referral None recorded . Procedures None [...] Available [facility] [address], [place], [address], 01/03/2023 15:06:56 01/04/2001/03/2023 urina lysis , dipst ick Protein-Stat us >=9.0 Not Available [facility] [address], [place], [address], 01/03/2023 15:06:56 01/04/20 23 01/03/2023 urina lysis , dipst ick Urobilinogen -Status 4.0 Not Available [facility] [address], [place], [address], 01/03/2023 15:06:56 01/04/20 23 01/03/2023 urina lysis , dipst ick Nitrates-Sta tus negati ve Not Available [facility] [address], [place], [address], 01/03/2023 15:06:56 01/04/20 23 01/03/2023 urina lysis , dipst ick Blood-Status Trace Not Available [facility] [address], [place], [address], 01/03/2023 15:06:56 01/04/20 23 01/03/2023 urina lysis , dipst ick Leuko-Status Negati ve Not Available [facility] [address], [place], [address], 01/03/2023 15:06:56 01/04/2001/03/2023 urina lysis , dipst ick Specimen Type Voided Not Available [facility] [address], [place], [address], 01/03/2023 15:06:56 Result Notes None recorded. Problems Name Status Onset Date Resolution Date Notes Provider Name and Address Organization Details Recorded Time Malignant tumor of urinary bladder Active 2 Raquel pena [place] - [facility] 06/08/2021 13:04:27 Problem Notes None recorded. Procedures Surgical History Date Name Laterality Status Provider Name and Address Organization Details Recorded Time 01/04/20 23 Cystoscopy- male completed Juan Garcia MD [address] [facility], [place], [address], [facility] 01/03/2023 15:16:02 01/04/20 23 Sulfa post Cysto completed Farrah Curtis null, [facility] 01/03/2023 15:09:38 07/20/19 23 Cystoscopy- male completed Juan Garcia MD [address] [facility],[address], [place], [address], [facility] 07/19/2022 18:19:49 03/29/19 23 Cystoscopy- male completed Juan Garcia MD [address] [facility],[address], [place], [address], [facility] 03/29/2022 13:48:04 07/21/19 22 BCG Full Dose Tx 50mg completed Brenda Colvin null, [facility] 07/20/2021 13:21:59 07/14/19 22 BCG Full Dose Tx 50mg completed Brenda Colvin null, [facility] 07/13/2021 12:36:56 07/07/19 22 BCG Full Dose Tx 50mg completed Brenda Colvin null, [facility] 07/06/2021 13:00:05 06/30/19 22 BCG Full Dose Tx 50mg completed Brenda Colvin null, [facility] 06/29/2021 12:37:26 06/23/19 22 BCG Full Dose Tx 50mg completed Brenda Colvin null, [facility] 06/22/2021 12:59:03 06/16/19 22 Urinalysis completed Aminta Interiano null, [facility] 06/15/2021 15:06:05 06/09/19 22 BCG Full Dose Tx 50mg completed Raquel Esquivel null, [facility] 06/08/2021 13:18:54 02/09/20 21 TRANSURETHRAL RESECTION OF BLADDER TUMOR (SURG) completed Jil Roy null, [facility] 02/08/2021 16:46:49 Imaging Results None [...] Updated DateTime 01/03/2023 187.96 cm 29.5 kg/m2 752140.25 g Farrah Kirsten pena [facility] 01/03/2023 15:01:04 Social History Question Answer Notes LastModified by Organizat ion Details LastModified Time Tobacco Smoking Status Former Smoker Tulio Haile [facility] 03/29/2022 13:11:40 What Is Your [...] trivalent, adjuvanted 11/18/2018 completed Farrah Stromquist null, [facility] 01/03/2023 15:01:14 influenza, trivalent, adjuvanted 11/21/2016 completed Farrah Stromquist null, [facility] 01/03/2023 15:01:14 influenza, trivalent, adjuvanted 01/01/2018 completed Farrah Stromquist null, [facility] 01/03/2023 15:01:14 Influenza vaccine, quadrivalent, adjuvanted 11/24/2020 completed Farrah Stromquist null, [facility] 01/03/2023 15:01:14 Influenza vaccine, quadrivalent, adjuvanted 11/30/2019 [facility] 15:01:14 COVID-19, mRNA, LNP-S, PF, 30 mcg/0.3 mL dose 04/05/2020 completed Farrah Stromquist null, [facility] 01/03/2023 15:01:14 COVID-19, mRNA, LNP-S, PF, 30 mcg/0.3 mL dose 04/26/2020 completed Farrah Stromquist null, [facility] 01/03/2023 15:01:14 COVID-19, mRNA, LNP-S, PF, 30 mcg/0.3 mL dose 11/24/2020 [facility] 15:01:14 COVID-19, mRNA, LNP-S, PF, 30 mcg/0.3 mL dose, marvin-sucrose 06/12/2021 completed Farrah Stromquist null, [facility] 01/03/2023 15:01:14 pneumococcal polysaccharide PPV23 11/29/2005 completed Farrah Stromquist null, [facility] 01/03/2023 15:01:14 pneumococcal polysaccharide PPV23 01/25/2005 completed Farrah Stromquist null, [facility] 01/03/2023 15:01:14 pneumococcal polysaccharide PPV23 02/20/2011 completed Farrah Stromquist null, [facility] 01/03/2023 15:01:14 influenza, unspecified formulation 11/25/2008 completed Farrah Stromquist null, [facility] 01/03/2023 15:01:14 Tdap 02/20/2011 completed Farrah Stromquist null, [facility] 01/03/2023 15:01:14 Pneumococcal conjugate PCV 13 03/15/2016 completed Farrah Stromquist null, [facility] 01/03/2023 15:01:14 Pneumococcal conjugate PCV 13 09/17/2014 completed Farrah Stromquist null, [facility] 01/03/2023 15:01:14 zoster live 02/26/2008 completed Farrah Stromquist null, [facility] 01/03/2023 15:01:14 zoster live 01/05/2009 completed Farrah Stromquist null, [facility] 01/03/2023 15:01:14 Influenza, high dose seasonal 11/29/2014 completed Farrah Stromquist null, [facility] 01/03/2023 15:01:14 Influenza, high dose seasonal 12/14/2015 completed Farrah Stromquist null, [facility] 01/03/2023 15:01:14 Influenza, high dose seasonal 12/24/2013 completed Farrah Stromquist null, [facility] 01/03/2023 15:01:14 Influenza, seasonal, injectable 02/26/1988 completed Farrah Stromquist null, [facility] 01/03/2023 15:01:14 Influenza, seasonal, injectable 11/16/2008 completed Farrah Stromquist null, [facility] 01/03/2023 15:01:14 Influenza, seasonal, injectable 11/24/2009 completed Farrah Stromquist null, [facility] 01/03/2023 15:01:14 Influenza, seasonal, injectable 11/29/2005 completed Farrah Stromquist null, [facility] 01/03/2023 15:01:14 Influenza, seasonal, injectable 12/06/2003 completed Farrah Stromquist null, [facility] 01/03/2023 15:01:14 Influenza, seasonal, injectable 12/18/2002 completed Farrah Stromquist null, [facility] 01/03/2023 15:01:14 Influenza, seasonal, injectable 12/18/2012 completed Farrah Stromquist null, [facility] 01/03/2023 15:01:14 Influenza, seasonal, injectable 12/19/2001 completed Farrah Stromquist null, [facility] 01/03/2023 15:01:14 Influenza, seasonal, injectable 12/26/2006 completed Farrah Stromquist null, [facility] 01/03/2023 15:01:14 Influenza, seasonal, injectable 12/28/2004 completed Farrah Stromquist null, [facility] 01/03/2023 15:01:14 Influenza, seasonal, injectable 01/30/2012 completed Farrah Stromquist null, [facility] 01/03/2023 15:01:14 Influenza, seasonal, injectable, preservative free 12/16/2007 completed Farrah Stromquist null, [facility] 01/03/2023 15:01:14 Influenza, seasonal, injectable, preservative free 12/18/2010 completed Farrah Stromquist null, [facility] 01/03/2023 15:01:14 Novel [id number] 03/25/2009 completed Farrah Stromquist null, [facility] 01/03/2023 15:01:14 Td (adult), 5 Lf tetanus toxoid, preservative free, adsorbed 11/29/2005 completed Farrah Stromquist null, [facility] 01/03/2023 15:01:14 Td (adult), 2 Lf tetanus toxoid, preservative free, adsorbed 10/07/1998 completed Farrah Stromquist null, [facility] 01/03/2023 15:01:14 Td (adult), 2 Lf tetanus toxoid, preservative free, adsorbed [facility]/25/2005 [facility] 15:01:14 influenza, injectable, quadrivalent, preservative free 03/25/2009 completed Farrah Curtis becky, [facility] 01/03/2023 15:01:14 Past Encounters Encounter ID Performer Location Encounter Start Date Encounter Closed Date Diagnosis/Indication [id number] Juan Garcia MD [facility] [address] [place] [address] 01/03/2023 14:52:35 01/08/2023 11:52:12 Malignant tumor of urinary bladder Pyuria Health Concerns Section Related Observation LastModified by Organization Detai ls LastModified Time None Recorded Concern Status LastModified by Organization Details LastModified Time None Recorded Payers Encounter Date Sequence Insurance Name Policy Number Policy Zelaya Covered Member ID Zelaya Member ID Guarantor Name 01/03/2023 1 [employer] (MEDICARE REPLACEMENT/A DVANTAGE - PPO) Cecilio Rosa [id number] Cecilio Rosa Notes Date Note Type Note [...] symptoms Juan Garcia MD [address] [facility], [place], [address], [facility] 01/03/2023 15:16:45
--- OUTSIDE RECORDS SUMMARY | 2023-04-03 08:31 | XMS_ITS | Data Portability ---
Author Name Unknown Address [address] [place] [address] Phone [phone] Organization [facility] Address [address] [place] [address] Care Team Providers Care Director Pharmacy Services Name Role Phone DOUG TAYLOR Primary Care [...] 023 [email or web address] [facility], [address], [place], [address], 3 15:07:41 urinalys is, dipstick 2022 023 [email or web address] [facility], [address], [place], [address], 3 14:44:37 urinalys is, dipstick 2022 023 [email or web address] [facility], [address], [place], [address], 3 13:13:22 urinalys is, dipstick 2021 022 lzais Not available 13:23:29 urinalys is, dipstick 2021 022 lzais Not available 2 12:39:20 urinalys is, dipstick 2021 022 lzais Not available 2 13:01:34 urinalys is, dipstick 2021 022 lzais Not available 2 12:38:57 urinalys is, dipstick 2021 022 lzais Not available 13:00:18 urinalys is, dipstick 2021 022 [email or web address] Not available 14:50:42 culture, urine 2021 022 [facility], [address], [place], [address], 11:27:28 urinalys is, dipstick 2021 [email or web address] Not available 13:20:30 Referral None recorded . Procedures None recorded . Surgeries None recorded . Imaging None recorded . Medication Orders Nilda BCG 50 mg intraves ical suspensi on 2021 [id number], [address] [place], [place], [id number], 3 13:09:52 Bartow BCG 50 mg intraves ical suspensi on 2021 022 [id number], [address] [place], [place], [phone], 3 13:09:52 Bartow BCG 50 mg intraves ical suspensi on 2021 022 [id number], [address] [place], [place], [id number], 3 13:09:52 Bartow BCG 50 mg intraves ical suspensi on 2021 022 [facility], [address] [place], [place], [phone], 3 13:09:52 Bartow BCG 50 mg intraves ical suspensi on 2021 [facility], [address] [place], [place], [id number], 3 13:09:52 Bactrim DS 800 mg-160 mg tablet 2021 [employer] [facility], [address] [place], [place], [phone], 3 13:09:32 Nilda BCG 50 mg intraves ical suspensi on 2021 022 [email or web address] Not available 13:09:52 Patient TargetsNo targets recorded. Patient Instructions Encounter Date Encounter Id Patient Instructions Last Modified By Organization Details Last Modified Time 06/15/2021 [id number] Will f/u once urine culture results. Take Bactrim as prescribed and notified to call triage with any questions/concer ns. [email or web address] Not available 06/15/2021 15:16:16 06/08/2021 [id number] BCG instructions reviewed with patient and . Information provided. Direct triage line provided for any questions/concer ns. [email or web address] Not available 06/08/2021 13:21:42 Reason for Referral None Reported. Results Created Date Observation Date Name Description Value Unit Range Abnormal Flag LastModifiedBy Organization Detail LastModifiedTime 06/09/1906/08/2021 urina lysis , dipst ick Color-Status Yellow Not Available [facility] [address], [place], [address], 06/08/2021 13:18:58 06/09/19 22 06/08/2021 urina lysis , dipst ick Clarity-Stat us Clear Not Available [facility] [address], [place], [address], 06/08/2021 13:18:58 06/09/19 22 06/08/2021 urina lysis , dipst ick pH-Status 6.5 Not Available [facility] [address], [place], [address], 06/08/2021 13:18:58 06/09/19 22 06/08/2021 urina lysis , dipst ick Protein-Stat us >=9.0 Not Available [facility] [address], [place], [address], 06/08/2021 13:18:58 06/09/19 22 06/08/2021 urina lysis , dipst ick Urobilinogen -Status 2.0 Not Available [facility] [address], [place], [address], 06/08/2021 13:18:58 06/09/19 22 06/08/2021 urina lysis , dipst ick Nitrates-Sta tus negati ve Not Available [facility] [address], [place], [address], 06/08/2021 13:18:58 06/09/19 22 06/08/2021 urina lysis , dipst ick Blood-Status Trace Not Available [facility] [address], [place], [address], 06/08/2021 13:18:58 06/09/19 22 06/08/2021 urina lysis , dipst ick Leuko-Status Trace Not Available [facility] [address], [place], [address], 06/08/2021 13:18:58 06/09/19 22 06/08/2021 urina lysis , dipst ick Specimen Type Voided Not Available [facility] [address], [place], [address], 06/08/2021 13:18:58 06/09/19 22 06/08/2021 urina lysis , dipst ick Performed by Raquel BRANTLEY Not Available [facility] [address], [place], [address], 06/08/2021 13:18:58 06/09/19 22 06/08/2021 urina lysis , dipst ick Total Urine Volume 20cc Not Available [facility] [address], [place], [address], 06/08/2021 13:18:58 06/16/19 22 06/15/2021 URINE CULTU RE final report microb iology result s abnormal Not Available [facility] [address], [place], [address], 06/17/2021 11:27:28 06/16/19 22 06/15/2021 urina lysis , dipst ick Color-Status Yellow Not Available [facility] [address], [place], [address], 06/15/2021 14:49:06 06/16/19 22 06/15/2021 urina lysis , dipst ick Clarity-Stat us Cloudy Not Available [facility] [address], [place], [address], 06/15/2021 14:49:06 06/16/19 22 06/15/2021 urina lysis , dipst ick pH-Status 6.0 Not Available [facility] [address], [place], [address], 06/15/2021 14:49:06 06/16/19 22 06/15/2021 urina lysis , dipst ick Protein-Stat us >=9.0 Not Available [facility] [address], [place], [address], 06/15/2021 14:49:06 06/16/19 22 06/15/2021 urina lysis , dipst ick Nitrates-Sta tus positi ve Not Available [facility] [address], [place], [address], 06/15/2021 14:49:06 06/16/19 22 06/15/2021 urina lysis , dipst ick Blood-Status Modera te Not Available [facility] [address], [place], [address], 06/15/2021 14:49:06 06/16/19 22 06/15/2021 urina lysis , dipst ick Leuko-Status Large Not Available [facility] [address], [place], [address], 06/15/2021 14:49:06 06/16/19 22 06/15/2021 urina lysis , dipst ick Specimen Type Voided Not Available [facility] [address], [place], [address], 06/15/2021 14:49:06 06/16/19 22 06/15/2021 urina lysis , dipst ick Performed by Raquel BRANTLEY Not Available [facility] [address], [place], [address], 06/15/2021 14:49:06 06/16/19 22 06/15/2021 urina lysis , dipst ick Total Urine Volume 20cc Not Available [facility] [address], [place], [address], 06/15/2021 14:49:06 06/23/19 22 06/22/2021 urina lysis , dipst ick Color-Status Dark Yellow Not Available [facility] [address], [place], [address], 06/22/2021 12:59:06 06/23/19 22 06/22/2021 urina lysis , dipst ick Bilirubin-St atus Small Not Available [facility] [address], [place], [address], 06/22/2021 12:59:06 06/23/19 22 06/22/2021 urina lysis , dipst ick Nitrates-Sta tus negati ve Not Available [facility] [address], [place], [address], 06/22/2021 12:59:06 06/23/19 22 06/22/2021 urina lysis , dipst ick Blood-Status Trace Not Available [facility] [address], [place], [address], 06/22/2021 12:59:06 06/23/19 22 06/22/2021 urina lysis , dipst ick Leuko-Status Negati ve Not Available [facility] [address], [place], [address], 06/22/2021 12:59:06 06/23/19 22 06/22/2021 urina lysis , dipst ick Specimen Type Voided Not Available [facility] [address], [place], [address], 06/22/2021 12:59:06 06/23/19 22 06/22/2021 urina lysis , dipst ick Performed by ARELIS RN Not Available [facility] [address], [place], [address], 06/22/2021 12:59:06 06/23/19 22 06/22/2021 urina lysis , dipst ick Total Urine Volume 30cc Not Available [facility] [address], [place], [address], 06/22/2021 12:59:06 06/30/19 22 06/29/2021 urina lysis , dipst ick Color-Status Dark Yellow Not Available [facility] [address], [place], [address], 06/29/2021 12:37:33 06/30/19 22 06/29/2021 urina lysis , dipst ick Clarity-Stat us Clear Not Available [facility] [address], [place], [address], 06/29/2021 12:37:33 06/30/19 22 06/29/2021 urina lysis , dipst ick Nitrates-Sta tus negati ve Not Available [facility] [address], [place], [address], 06/29/2021 12:37:33 06/30/19 22 06/29/2021 urina lysis , dipst ick Blood-Status Trace Not Available [facility] [address], [place], [address], 06/29/2021 12:37:33 06/30/19 22 06/29/2021 urina lysis , dipst ick Leuko-Status Trace Not Available [facility] [address], [place], [address], 06/29/2021 12:37:33 06/30/19 22 06/29/2021 urina lysis , dipst ick Specimen Type Voided Not Available [facility] [address], [place], [address], 06/29/2021 12:37:33 06/30/19 22 06/29/2021 urina lysis , dipst ick Performed by ARELIS RN Not Available [facility] [address], [place], [address], 06/29/2021 12:37:33 06/30/19 22 06/29/2021 urina lysis , dipst ick Total Urine Volume 35cc Not Available [facility] [address], [place], [address], 06/29/2021 12:37:33 07/07/19 22 07/06/2021 urina lysis , dipst ick Color-Status Dark Yellow Not Available [facility] [address], [place], [address], 07/06/2021 13:00:14 07/07/19 22 07/06/2021 urina lysis , dipst ick Clarity-Stat us Clear Not Available [facility] [address], [place], [address], 07/06/2021 13:00:14 07/07/19 22 07/06/2021 urina lysis , dipst ick Nitrates-Sta tus negati ve Not Available [facility] [address], [place], [address], 07/06/2021 13:00:14 07/07/19 22 07/06/2021 urina lysis , dipst ick Blood-Status Negati ve Not Available [facility] [address], [place], [address], 07/06/2021 13:00:14 07/07/19 22 07/06/2021 urina lysis , dipst ick Leuko-Status Small Not Available [facility] [address], [place], [address], 07/06/2021 13:00:14 07/07/19 22 07/06/2021 urina lysis , dipst ick Specimen Type Cathet erized Not Available [facility] [address], [place], [address], 07/06/2021 13:00:14 07/07/19 22 07/06/2021 urina lysis , dipst ick Performed by ARELIS RN Not Available [facility] [address], [place], [address], 07/06/2021 13:00:14 07/07/19 22 07/06/2021 urina lysis , dipst ick Total Urine Volume 125cc Not Available [facility] [address], [place], [address], 07/06/2021 13:00:14 07/14/19 22 07/13/2021 urina lysis , dipst ick Color-Status Yellow Not Available [facility] [address], [place], [address], 07/13/2021 12:37:03 07/14/19 22 07/13/2021 urina lysis , dipst ick Clarity-Stat us Clear Not Available [facility] [address], [place], [address], 07/13/2021 12:37:03 07/14/19 22 07/13/2021 urina lysis , dipst ick Glucose-Stat us Negati ve Not Available [facility] [address], [place], [address], 07/13/2021 12:37:03 07/14/19 22 07/13/2021 urina lysis , dipst ick Bilirubin-St atus Negati ve Not Available [facility] [address], [place], [address], 07/13/2021 12:37:03 07/14/19 22 07/13/2021 urina lysis , dipst ick Ketones-Stat us Negati ve Not Available [facility] [address], [place], [address], 07/13/2021 12:37:03 07/14/19 22 07/13/2021 urina lysis , dipst ick Nitrates-Sta tus negati ve Not Available [facility] [address], [place], [address], 07/13/2021 12:37:03 07/14/19 22 07/13/2021 urina lysis , dipst ick Blood-Status Negati ve Not Available [facility] [address], [place], [address], 07/13/2021 12:37:03 07/14/19 22 07/13/2021 urina lysis , dipst ick Leuko-Status Negati ve Not Available [facility] [address], [place], [address], 07/13/2021 12:37:03 07/14/19 22 07/13/2021 urina lysis , dipst ick Specimen Type Voided Not Available [facility] [address], [place], [address], 07/13/2021 12:37:03 07/14/19 22 07/13/2021 urina lysis , dipst ick Performed by ARELIS RN Not Available [facility] [address], [place], [address], 07/13/2021 12:37:03 07/14/19 22 07/13/2021 urina lysis , dipst ick Total Urine Volume 45cc Not Available [facility] [address], [place], [address], 07/13/2021 12:37:03 07/21/19 22 07/20/2021 urina lysis , dipst ick Color-Status Yellow Not Available [facility] [address], [place], [address], 07/20/2021 13:22:03 07/21/19 22 07/20/2021 urina lysis , dipst ick Clarity-Stat us Clear Not Available [facility] [address], [place], [address], 07/20/2021 13:22:03 07/21/19 22 07/20/2021 urina lysis , dipst ick Nitrates-Sta tus negati ve Not Available [facility] [address], [place], [address], 07/20/2021 13:22:03 07/21/19 22 07/20/2021 urina lysis , dipst ick Blood-Status Negati ve Not Available [facility] [address], [place], [address], 07/20/2021 13:22:03 07/21/19 22 07/20/2021 urina lysis , dipst ick Leuko-Status Small Not Available [facility] [address], [place], [address], 07/20/2021 13:22:03 07/21/19 22 07/20/2021 urina lysis , dipst ick Specimen Type Voided Not Available [facility] [address], [place], [address], 07/20/2021 13:22:03 07/21/19 22 07/20/2021 urina lysis , dipst ick Performed by ARELIS BRANTLEY Not Available [facility] [address], [place], [address], 07/20/2021 13:22:03 07/21/19 22 07/20/2021 urina lysis , dipst ick Total Urine Volume 45cc Not Available [facility] [address], [place], [address], 07/20/2021 13:22:03 03/29/19 23 03/29/2022 urina lysis , dipst ick Color-Status Yellow Not Available [facility] [address], [place], [address], 03/29/2022 13:12:16 03/29/19 23 03/29/2022 urina lysis , dipst ick Clarity-Stat us Clear Not Available [facility] [address], [place], [address], 03/29/2022 13:12:16 03/29/19 23 03/29/2022 urina lysis , dipst ick Glucose-Stat us Negati ve Not Available [facility] [address], [place], [address], 03/29/2022 13:12:16 03/29/19 23 03/29/2022 urina lysis , dipst ick Bilirubin-St atus Negati ve Not Available [facility] [address], [place], [address], 03/29/2022 13:12:16 03/29/19 23 03/29/2022 urina lysis , dipst ick Ketones-Stat us Negati ve Not Available [facility] [address], [place], [address], 03/29/2022 13:12:16 03/29/19 23 03/29/2022 urina lysis , dipst ick Nitrates-Sta tus negati ve Not Available [facility] [address], [place], [address], 03/29/2022 13:12:16 03/29/19 23 03/29/2022 urina lysis , dipst ick Blood-Status Trace Not Available [facility] [address], [place], [address], 03/29/2022 13:12:16 03/29/19 23 03/29/2022 urina lysis , dipst ick Leuko-Status Negati ve Not Available [facility] [address], [place], [address], 03/29/2022 13:12:16 07/20/19 23 07/19/2022 urina lysis , dipst ick Color-Status Straw Not Available [facility] [address], [place], [address], 07/19/2022 14:43:03 07/20/1907/19/2022 urina lysis , dipst ick Clarity-Stat us Cloudy Not Available [facility] [address], [place], [address], 07/19/2022 14:43:03 07/20/19 23 07/19/2022 urina lysis , dipst ick Glucose-Stat us Negati ve Not Available [facility] [address], [place], [address], 07/19/2022 14:43:03 07/20/19 23 07/19/2022 urina lysis , dipst ick Bilirubin-St atus Small Not Available [facility] [address], [place], [address], 07/19/2022 14:43:03 07/20/19 23 07/19/2022 urina lysis , dipst ick Ketones-Stat us Negati ve Not Available [facility] [address], [place], [address], 07/19/2022 14:43:03 07/20/19 23 07/19/2022 urina lysis , dipst ick Urobilinogen -Status 4.0 Not Available [facility] [address], [place], [address], 07/19/2022 14:43:03 07/20/19 23 07/19/2022 urina lysis , dipst ick Nitrates-Sta tus negati ve Not Available [facility] [address], [place], [address], 07/19/2022 14:43:03 07/20/19 23 07/19/2022 urina lysis , dipst ick Blood-Status Modera te Not Available [facility] [address], [place], [address], 07/19/2022 14:43:03 07/20/19 23 07/19/2022 urina lysis , dipst ick Leuko-Status Large Not Available [facility] [address], [place], [address], 07/19/2022 14:43:03 01/04/20 23 01/03/2023 urina lysis , dipst ick pH-Status 6.5 Not Available [facility] [address], [place], [address], 01/03/2023 15:06:56 01/04/2001/03/2023 urina lysis , dipst ick Protein-Stat us >=9.0 Not Available [facility] [address], [place], [address], 01/03/2023 15:06:56 01/04/2001/03/2023 urina lysis , dipst ick Urobilinogen -Status 4.0 Not Available [facility] [address], [place], [address], 01/03/2023 15:06:56 01/04/20 23 01/03/2023 urina lysis , dipst ick Nitrates-Sta tus negati ve Not Available [facility] [address], [place], [address], 01/03/2023 15:06:56 01/04/20 23 01/03/2023 urina lysis , dipst ick Blood-Status Trace Not Available [facility] [address], [place], [address], 01/03/2023 15:06:56 01/04/20 23 01/03/2023 urina lysis , dipst ick Leuko-Status Negati ve Not Available [facility] [address], [place], [address], 01/03/2023 15:06:56 01/04/20 23 01/03/2023 urina lysis , dipst ick Specimen Type Voided Not Available [facility] [address], [place], [address], 01/03/2023 15:06:56 Result Notes None recorded. Problems Name Status Onset Date Resolution Date Notes Provider Name and Address Organization Details Recorded Time Malignant tumor of urinary bladder Active 2 Raquel Esquivel null, [facility] 06/08/2021 13:04:27 Problem Notes None recorded. Procedures Surgical History Date Name Laterality Status Provider Name and Address Organization Details Recorded Time 01/04/20 23 Cystoscopy- male completed Juan Garcia MD [address] [place] [address],[address], [place], [address], [facility] 01/03/2023 15:16:02 01/04/20 23 Sulfa post Cysto completed Farrah Curtis null, [facility] 01/03/2023 15:09:38 07/20/19 23 Cystoscopy- male completed Juan Garcia MD [address] [place] [address],[address], [place], [address], [facility] 07/19/2022 18:19:49 03/29/19 23 Cystoscopy- male completed Juan Garcia MD [address] [place] [address],[address], [place], [address], [facility] 03/29/2022 13:48:04 07/21/19 22 [facility] 13:21:59 07/14/19 22 BCG Full Dose Tx 50mg completed Brenda pena, [facility] 07/13/2021 12:36:56 07/07/19 22 BCG Full Dose Tx 50mg completed Brenda pena, [facility] 07/06/2021 13:00:05 06/30/19 22 BCG Full Dose Tx 50mg completed Brenda pena, [facility] 06/29/2021 12:37:26 06/23/19 22 BCG Full Dose Tx 50mg completed Brenda pena, [facility] 06/22/2021 12:59:03 06/16/19 22 Urinalysis completed Aminta pena [facility] 06/15/2021 15:06:05 06/09/19 22 BCG Full Dose Tx 50mg completed Raquel Jaznoel becky [facility] 06/08/2021 13:18:54 02/09/20 21 TRANSURETHRAL RESECTION OF BLADDER TUMOR (SURG) completed Jil Roy becky [facility] 02/08/2021 16:46:49 Imaging Results None recorded. [...] completed Not Available Not Available Not Available [place] BCG 50 mg intravesica l suspension Instill [...] Updated DateTime 03/29/2022 187.96 cm 29.5 kg/m2 496359.25 g Tulio Haile [facility] 03/29/2022 13:05:47 Date Recorded Body height Body mass index (BMI) Body weight Provider Name and Address Organization Details Last Updated DateTime 07/19/2022 187.96 cm 29.5 kg/m2 457957.25 g Juan Garcia MD [address], [place], [address] 07/19/2022 14:39:36 Date Recorded Body height Body mass index (BMI) Body weight Provider Name and Address Organization Details Last Updated DateTime 01/03/2023 187.96 cm 29.5 kg/m2 759289.25 g Farrah pena [facility] 01/03/2023 15:01:04 Social History Question Answer Notes LastModified by Organizat ion Details LastModified Time Tobacco Smoking Status Former Smoker Tulio pena [facility] 03/29/2022 13:11:40 What Is Your Level [...] trivalent, adjuvanted 11/18/2018 completed Farrah Curtis becky [facility] 01/03/2023 15:01:14 influenza, trivalent, adjuvanted 11/21/2016 completed Farrah Curtis becky [facility] 01/03/2023 15:01:14 influenza, trivalent, adjuvanted 01/01/2018 completed Farrah Curtis becky [facility] 01/03/2023 15:01:14 Influenza vaccine, quadrivalent, adjuvanted 11/24/2020 completed Farrah Stromquist null, [facility] 01/03/2023 15:01:14 Influenza vaccine, quadrivalent, adjuvanted 11/30/2019 completed Farrah Stromquist null, [facility] 01/03/2023 15:01:14 COVID-19, mRNA, LNP-S, PF, 30 mcg/0.3 mL dose 04/05/2020 completed Farrah Stromquist null, [facility] 01/03/2023 15:01:14 COVID-19, mRNA, LNP-S, PF, 30 mcg/0.3 mL dose 04/26/2020 completed Farrah Stromquist null, [facility] 01/03/2023 15:01:14 COVID-19, mRNA, LNP-S, PF, 30 mcg/0.3 mL dose 11/24/2020 completed Farrah Stromquist null, [facility] 01/03/2023 15:01:14 COVID-19, mRNA, LNP-S, PF, 30 mcg/0.3 mL dose, marvin-sucrose 06/12/2021 completed Farrah Stromquist null, [facility] 01/03/2023 15:01:14 pneumococcal polysaccharide PPV23 11/29/2005 completed Farrah Stromquist null, [facility] 01/03/2023 15:01:14 pneumococcal polysaccharide PPV23 01/25/2005 completed Farrah Stromquist null, [facility] 01/03/2023 15:01:14 pneumococcal polysaccharide PPV23 02/20/2011 completed Farrah Stromquist null, [facility] 01/03/2023 15:01:14 influenza, unspecified formulation 11/25/2008 completed Farrah Stromquist null, [facility] 01/03/2023 15:01:14 Tdap 02/20/2011 completed Farrah Stromquist null, [facility] 01/03/2023 15:01:14 Pneumococcal conjugate PCV 13 03/15/2016 completed Farrah Stromquist null, [facility] 01/03/2023 15:01:14 Pneumococcal conjugate PCV 13 09/17/2014 completed Farrah Stromquist null, [facility] 01/03/2023 15:01:14 zoster live 02/26/2008 completed Farrah Stromquist null, [facility] 01/03/2023 15:01:14 zoster live 01/05/2009 completed Farrah Stromquist null, [facility] 01/03/2023 15:01:14 Influenza, high dose seasonal 11/29/2014 completed Farrah Stromquist null, [facility] 01/03/2023 15:01:14 Influenza, high dose seasonal 12/14/2015 completed Farrah Stromquist null, [facility] 01/03/2023 15:01:14 Influenza, high dose seasonal 12/24/2013 completed Farrah Stromquist null, [facility] 01/03/2023 15:01:14 Influenza, seasonal, injectable 02/26/1988 completed Farrah Stromquist null, [facility] 01/03/2023 15:01:14 Influenza, seasonal, injectable 11/16/2008 completed Farrah Stromquist null, [facility] 01/03/2023 15:01:14 Influenza, seasonal, injectable 11/24/2009 completed Farrah Stromquist null, [facility] 01/03/2023 15:01:14 Influenza, seasonal, injectable 11/29/2005 completed Farrah Stromquist null, [facility] 01/03/2023 15:01:14 Influenza, seasonal, injectable 12/06/2003 completed Farrah Stromquist null, [facility] 01/03/2023 15:01:14 Influenza, seasonal, injectable 12/18/2002 completed Farrah Stromquist null, [facility] 01/03/2023 15:01:14 Influenza, seasonal, injectable 12/18/2012 completed Farrah Stromquist null, [facility] 01/03/2023 15:01:14 Influenza, seasonal, injectable 12/19/2001 completed Farrah Stromquist null, [facility] 01/03/2023 15:01:14 Influenza, seasonal, injectable 12/26/2006 completed Farrah Stromquist null, [facility] 01/03/2023 15:01:14 Influenza, seasonal, injectable 12/28/2004 completed Farrah Stromquist null, [facility] 01/03/2023 15:01:14 Influenza, seasonal, injectable 01/30/2012 completed Farrah Stromquist null, [facility] 01/03/2023 15:01:14 Influenza, seasonal, injectable, preservative free 12/16/2007 completed Farrah Stromquist null, [facility] 01/03/2023 15:01:14 Influenza, seasonal, injectable, preservative free 12/18/2010 completed Farrah Stromquist null, [facility] 01/03/2023 15:01:14 Novel [id number] 03/25/2009 completed Farrah Stromquist null, [facility] 01/03/2023 15:01:14 Td (adult), 5 Lf tetanus toxoid, preservative free, adsorbed 11/29/2005 completed Farrah Stromquist null, [facility] 01/03/2023 15:01:14 Td (adult), 2 Lf tetanus toxoid, preservative free, adsorbed 10/07/1998 completed Farrah Stromquist null, [facility] 01/03/2023 15:01:14 Td (adult), 2 Lf tetanus toxoid, preservative free, adsorbed 01/25/2005 completed Farrah Stromquist null, [facility] 01/03/2023 15:01:14 influenza, injectable, quadrivalent, preservative free 03/25/2009 completed Farrah Stromquist null, [facility] 01/03/2023 15:01:14 Past Encounters Encounter ID Performer Location Encounter Start Date Encounter Closed Date Diagnosis/Indication [id number] MD CLEM Brannon_Yoh[place] [place] [address] 06/08/2021 12:06:29 06/09/2021 12:49:18 Malignant tumor of urinary bladder [id number] MD CLEM Brannon_Yohannes [place] [address] 06/15/2021 14:29:45 06/16/2021 10:17:08 Malignant tumor of urinary bladder [id number] MD Ezio Brannon [address] [place] [address] 06/22/2021 12:09:08 06/26/2021 10:10:48 Malignant tumor of urinary bladder [id number] MD CLEM Brannon_[place] [address] [place] [address] 06/29/2021 12:04:22 06/30/2021 10:32:05 Malignant tumor of urinary bladder [id number] MD CLEM Brannon[facility] [address] [place] [address] 07/06/2021 12:00:01 07/10/2021 08:52:06 Malignant tumor of urinary bladder [id number] MD David Brannona [address] [place] [address] 07/13/2021 11:55:07 07/14/2021 08:27:46 Malignant tumor of urinary bladder [id number] MD CLEM Brannon_[place] [address] [place] [address] 07/20/2021 12:41:28 07/21/2021 15:05:59 Malignant tumor of urinary bladder [id number] MD CLEM Brannon[place] [address] [place] [address] 03/29/2022 12:36:10 04/02/2022 12:54:20 Malignant tumor of urinary bladder [id number] MD David Brannona [address] [place] [address] 07/19/2022 14:19:30 07/27/2022 15:09:48 Malignant tumor of urinary bladder Pyuria [id number] MD CLEM BrannonEdinnoel [address] [place] [address] 01/03/2023 14:52:35 01/08/2023 11:52:12 Malignant tumor of [...] (MEDICARE REPLACEMENT/A DVANTAGE - PPO) Cecilio Rosa [id number] Cecilio Rosa 07/19/2022 1 [employer] (MEDICARE REPLACEMENT/A DVANTAGE - PPO) Cecilio Rosa [id number] Cecilio Rosa 03/29/2022 1 [employer] (MEDICARE REPLACEMENT/A DVANTAGE - PPO) Cecilio Rosa [id number] Cecilio Rosa 07/20/2021 1 [employer] (MEDICARE REPLACEMENT/A DVANTAGE - PPO) Cecilio Rosa [id number] Cecilio Rosa 07/13/2021 1 [employer] (MEDICARE REPLACEMENT/A DVANTAGE - PPO) Cecilio Rosa [id number] Cecilio Rosa 07/06/2021 1 [employer] (MEDICARE REPLACEMENT/A DVANTAGE - PPO) Cecilio Rosa [id number] Cecilio Rosa 06/29/2021 1 [employer] (MEDICARE REPLACEMENT/A DVANTAGE - PPO) Cecilio Rosa [id number] Cecilio Rosa 06/22/2021 1 [employer] (MEDICARE REPLACEMENT/A DVANTAGE - PPO) Cecilio Rosa [id number] Cecilio Rosa 06/15/2021 1 [employer] (MEDICARE REPLACEMENT/A DVANTAGE - PPO) Cecilio Rosa [id number] Cecilio Rosa 06/08/2021 1 [employer] (MEDICARE REPLACEMENT/A DVANTAGE - PPO) Cecilio Rosa [id number] Cecilio Rosa Notes Date Note Type Note [...] sampling. Juan Garcia MD [address], [place], [address], [facility] [[email or web address]] - [facility] 06/08/2021 18:20:54 06/15/2021 text/html HPI Notes: Karin hanson arrived to clinic today to begin BCG induction therapy #04/02. Patient has history of urotheilial carcinoma in situ. Unable to complete BCG due to nitrate positive urinalysis. Had 02/08/21 Transurethral resection of bladder tumor. Patient then had 05/10/2021 cystoscopy, biopsy with fulguration due to insufficient sampling. Juan Garcia MD [address] [place] [address],[address], [place], [address], [facility] 06/20/2021 12:01:54 06/22/2021 text/html HPI Notes: [...] #2/6 BCG induction treatment. Juan Garcia MD [address] [place] [address],[address], [place], [address], [facility] 06/22/2021 18:23:42 06/29/2021 text/html HPI Notes: [...] #3/6 BCG induction treatment. Juan Garcia MD [address] [place] [address],[address], [place], [address], [facility] 06/30/2021 08:25:36 07/06/2021 text/html HPI Notes: [...] #4/6 BCG induction treatment. Juan Garcia MD [address] [place] [address],[address], [place], [address], [facility] 07/06/2021 13:50:26 07/13/2021 text/html HPI Notes: [...] #5/6 BCG induction treatment. Juan Garcia MD [address] [place] [address],[address], [place], [address], [facility] 07/13/2021 18:13:55 07/20/2021 text/html HPI Notes: Karin [...] treatment. Juan Garcia MD [address] [facility], [place], [address], [facility] 07/20/2021 18:21:28 03/29/2022 text/html HPI Notes: [...] symptoms Juan Garcia MD [address], [place], [address], [facility] [[email or web address]] - [facility] 03/29/2022 13:49:01 07/19/2022 text/html HPI Notes: [...] symptoms Juan Garcia MD [address], [place], [address], [facility] 07/19/2022 18:20:57 01/03/2023 text/html HPI Notes: [...] symptoms Juan Garcia MD [address], [place], [address], [facility] 01/03/2023 15:16:45
== END 2023-04-03 08:30 | disposition home or self-care (01) ==
LOC: WOUND 08:29
PROVIDERS: PCP Family Medicine; Visit Provider Family Medicine
DX: S81.012A Laceration without foreign body, left knee, initial encounter (principal); W19.XXXA Unspecified fall, initial encounter
CPT/HCPCS: 11042

== ENCOUNTER 2023-04-10 08:33 | Outpatient (CLI) | payer OTHER, SELFPAY ==
--- OUTSIDE RECORDS SUMMARY | 2023-04-10 08:39 | XMS_ITS | Data Portability ---
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, [place], [address], 3 15:07:41 urinalys is, dipstick 2022 023 [email or web address] [facility], [address], [place], [address], 3 14:44:37 urinalys is, dipstick 2022 023 [email or web address] [facility], [address], [place], [address], 3 13:13:22 urinalys is, dipstick 2021 022 [email or web address] Not available 13:23:29 urinalys is, dipstick 2021 022 lzais Not available 2 12:39:20 urinalys is, dipstick 2021 022 lzais Not available 2 13:01:34 urinalys is, dipstick 2021 022 lzais Not available 2 12:38:57 urinalys is, dipstick 2021 022 lzais Not available 13:00:18 urinalys is, dipstick 2021 022 [email or web address] Not available 14:50:42 culture, urine 2021 022 [facility], [address], [place], [address], 11:27:28 urinalys is, dipstick 2021 [email or web address] Not available 13:20:30 Referral None recorded . Procedures None recorded . Surgeries None recorded . Imaging None recorded . Medication Orders Boyd BCG 50 mg intraves ical suspensi on 2021 [id number], [address] [place], [place], [phone], 3 13:09:52 Boyd BCG 50 mg intraves ical suspensi on 2021 022 [id number], [address] [place], [place], [id number], 3 13:09:52 Boyd BCG 50 mg intraves ical suspensi on 2021 022 [facility][id number], [address] [place], [place], [phone], 3 13:09:52 Nilda BCG 50 mg intraves ical suspensi on 2021 022 [facility][id number], [address] [place], [place], [phone], 3 13:09:52 Boyd BCG 50 mg intraves ical suspensi on 2021 [id number], [address] [place], [place], [phone], 3 13:09:52 Bactrim DS 800 mg-160 mg tablet 2021 [facility], [address] [place], [place], [id number], 3 13:09:32 Nilda BCG 50 mg intraves ical suspensi on 2021 022 [email or web address] Not available 13:09:52 Patient TargetsNo targets recorded. Patient Instructions Encounter Date Encounter Id Patient Instructions Last Modified By Organization Details Last Modified Time 06/15/2021 [id number] Will f/u once urine culture results. Take Bactrim as prescribed and notified to call triage with any questions/concer ns. [email or web address] Not available 06/15/2021 15:16:16 06/08/2021 [id number] BCG instructions reviewed with patient and . Information provided. Direct triage line provided for any questions/concer ns. [email or web address] Not available 06/08/2021 13:21:42 Reason for Referral None Reported. Results Created Date Observation Date Name Description Value Unit Range Abnormal Flag LastModifiedBy Organization Detail LastModifiedTime 06/09/1906/08/2021 urina lysis , dipst ick Color-Status Yellow Not Available [facility] [address], [place], [address], 06/08/2021 13:18:58 06/09/19 22 06/08/2021 urina lysis , dipst ick Clarity-Stat us Clear Not Available [facility] [address], [place], [address], 06/08/2021 13:18:58 06/09/19 22 06/08/2021 urina lysis , dipst ick pH-Status 6.5 Not Available [facility] [address], [place], [address], 06/08/2021 13:18:58 06/09/19 22 06/08/2021 urina lysis , dipst ick Protein-Stat us >=9.0 Not Available [facility] [address], [place], [address], 06/08/2021 13:18:58 06/09/19 22 06/08/2021 urina lysis , dipst ick Urobilinogen -Status 2.0 Not Available [facility] [address], [place], [address], 06/08/2021 13:18:58 06/09/19 22 06/08/2021 urina lysis , dipst ick Nitrates-Sta tus negati ve Not Available [facility] [address], [place], [address], 06/08/2021 13:18:58 06/09/19 22 06/08/2021 urina lysis , dipst ick Blood-Status Trace Not Available [facility] [address], [place], [address], 06/08/2021 13:18:58 06/09/19 22 06/08/2021 urina lysis , dipst ick Leuko-Status Trace Not Available [facility] [address], [place], [address], 06/08/2021 13:18:58 06/09/19 22 06/08/2021 urina lysis , dipst ick Specimen Type Voided Not Available [facility] [address], [place], [address], 06/08/2021 13:18:58 06/09/19 22 06/08/2021 urina lysis , dipst ick Performed by Raquel BRANTLEY Not Available [facility] [address], [place], [address], 06/08/2021 13:18:58 06/09/19 22 06/08/2021 urina lysis , dipst ick Total Urine Volume 20cc Not Available [facility] [address], [place], [address], 06/08/2021 13:18:58 06/16/19 22 06/15/2021 URINE CULTU RE final report microb iology result s abnormal Not Available [facility] [address], [place], [address], 06/17/2021 11:27:28 06/16/19 22 06/15/2021 urina lysis , dipst ick Color-Status Yellow Not Available [facility] [address], [place], [address], 06/15/2021 14:49:06 06/16/19 22 06/15/2021 urina lysis , dipst ick Clarity-Stat us Cloudy Not Available [facility] [address], [place], [address], 06/15/2021 14:49:06 06/16/19 22 06/15/2021 urina lysis , dipst ick pH-Status 6.0 Not Available [facility] [address], [place], [address], 06/15/2021 14:49:06 06/16/19 22 06/15/2021 urina lysis , dipst ick Protein-Stat us >=9.0 Not Available [facility] [address], [place], [address], 06/15/2021 14:49:06 06/16/19 22 06/15/2021 urina lysis , dipst ick Nitrates-Sta tus positi ve Not Available [facility] [address], [place], [address], 06/15/2021 14:49:06 06/16/19 22 06/15/2021 urina lysis , dipst ick Blood-Status Modera te Not Available [facility] [address], [place], [address], 06/15/2021 14:49:06 06/16/19 22 06/15/2021 urina lysis , dipst ick Leuko-Status Large Not Available [facility] [address], [place], [address], 06/15/2021 14:49:06 06/16/19 22 06/15/2021 urina lysis , dipst ick Specimen Type Voided Not Available [facility] [address], [place], [address], 06/15/2021 14:49:06 06/16/19 22 06/15/2021 urina lysis , dipst ick Performed by Raquel BRANTLEY Not Available [facility] [address], [place], [address], 06/15/2021 14:49:06 06/16/19 22 06/15/2021 urina lysis , dipst ick Total Urine Volume 20cc Not Available [facility] [address], [place], [address], 06/15/2021 14:49:06 06/23/19 22 06/22/2021 urina lysis , dipst ick Color-Status Dark Yellow Not Available [facility] [address], [place], [address], 06/22/2021 12:59:06 06/23/19 22 06/22/2021 urina lysis , dipst ick Bilirubin-St atus Small Not Available [facility] [address], [place], [address], 06/22/2021 12:59:06 06/23/19 22 06/22/2021 urina lysis , dipst ick Nitrates-Sta tus negati ve Not Available [facility] [address], [place], [address], 06/22/2021 12:59:06 06/23/19 22 06/22/2021 urina lysis , dipst ick Blood-Status Trace Not Available [facility] [address], [place], [address], 06/22/2021 12:59:06 06/23/19 22 06/22/2021 urina lysis , dipst ick Leuko-Status Negati ve Not Available [facility] [address], [place], [address], 06/22/2021 12:59:06 06/23/19 22 06/22/2021 urina lysis , dipst ick Specimen Type Voided Not Available [facility] [address], [place], [address], 06/22/2021 12:59:06 06/23/19 22 06/22/2021 urina lysis , dipst ick Performed by ARELIS RN Not Available [facility] [address], [place], [address], 06/22/2021 12:59:06 06/23/19 22 06/22/2021 urina lysis , dipst ick Total Urine Volume 30cc Not Available [facility] [address], [place], [address], 06/22/2021 12:59:06 06/30/19 22 06/29/2021 urina lysis , dipst ick Color-Status Dark Yellow Not Available [facility] [address], [place], [address], 06/29/2021 12:37:33 06/30/19 22 06/29/2021 urina lysis , dipst ick Clarity-Stat us Clear Not Available [facility] [address], [place], [address], 06/29/2021 12:37:33 06/30/19 22 06/29/2021 urina lysis , dipst ick Nitrates-Sta tus negati ve Not Available [facility] [address], [place], [address], 06/29/2021 12:37:33 06/30/19 22 06/29/2021 urina lysis , dipst ick Blood-Status Trace Not Available [facility] [address], [place], [address], 06/29/2021 12:37:33 06/30/19 22 06/29/2021 urina lysis , dipst ick Leuko-Status Trace Not Available [facility] [address], [place], [address], 06/29/2021 12:37:33 06/30/19 22 06/29/2021 urina lysis , dipst ick Specimen Type Voided Not Available [facility] [address], [place], [address], 06/29/2021 12:37:33 06/30/19 22 06/29/2021 urina lysis , dipst ick Performed by ARELIS RN Not Available [facility] [address], [place], [address], 06/29/2021 12:37:33 06/30/19 22 06/29/2021 urina lysis , dipst ick Total Urine Volume 35cc Not Available [facility] [address], [place], [address], 06/29/2021 12:37:33 07/07/19 22 07/06/2021 urina lysis , dipst ick Color-Status Dark Yellow Not Available [facility] [address], [place], [address], 07/06/2021 13:00:14 07/07/19 22 07/06/2021 urina lysis , dipst ick Clarity-Stat us Clear Not Available [facility] [address], [place], [address], 07/06/2021 13:00:14 07/07/19 22 07/06/2021 urina lysis , dipst ick Nitrates-Sta tus negati ve Not Available [facility] [address], [place], [address], 07/06/2021 13:00:14 07/07/19 22 07/06/2021 urina lysis , dipst ick Blood-Status Negati ve Not Available [facility] [address], [place], [address], 07/06/2021 13:00:14 07/07/19 22 07/06/2021 urina lysis , dipst ick Leuko-Status Small Not Available [facility] [address], [place], [address], 07/06/2021 13:00:14 07/07/19 22 07/06/2021 urina lysis , dipst ick Specimen Type Cathet erized Not Available [facility] [address], [place], [address], 07/06/2021 13:00:14 07/07/19 22 07/06/2021 urina lysis , dipst ick Performed by ARELIS RN Not Available [facility] [address], [place], [address], 07/06/2021 13:00:14 07/07/19 22 07/06/2021 urina lysis , dipst ick Total Urine Volume 125cc Not Available [facility] [address], [place], [address], 07/06/2021 13:00:14 07/14/19 22 07/13/2021 urina lysis , dipst ick Color-Status Yellow Not Available [facility] [address], [place], [address], 07/13/2021 12:37:03 07/14/19 22 07/13/2021 urina lysis , dipst ick Clarity-Stat us Clear Not Available [facility] [address], [place], [address], 07/13/2021 12:37:03 07/14/19 22 07/13/2021 urina lysis , dipst ick Glucose-Stat us Negati ve Not Available [facility] [address], [place], [address], 07/13/2021 12:37:03 07/14/19 22 07/13/2021 urina lysis , dipst ick Bilirubin-St atus Negati ve Not Available [facility] [address], [place], [address], 07/13/2021 12:37:03 07/14/19 22 07/13/2021 urina lysis , dipst ick Ketones-Stat us Negati ve Not Available [facility] [address], [place], [address], 07/13/2021 12:37:03 07/14/19 22 07/13/2021 urina lysis , dipst ick Nitrates-Sta tus negati ve Not Available [facility] [address], [place], [address], 07/13/2021 12:37:03 07/14/19 22 07/13/2021 urina lysis , dipst ick Blood-Status Negati ve Not Available [facility] [address], [place], [address], 07/13/2021 12:37:03 07/14/19 22 07/13/2021 urina lysis , dipst ick Leuko-Status Negati ve Not Available [facility] [address], [place], [address], 07/13/2021 12:37:03 07/14/19 22 07/13/2021 urina lysis , dipst ick Specimen Type Voided Not Available [facility] [address], [place], [address], 07/13/2021 12:37:03 07/14/19 22 07/13/2021 urina lysis , dipst ick Performed by ARELIS RN Not Available [facility] [address], [place], [address], 07/13/2021 12:37:03 07/14/19 22 07/13/2021 urina lysis , dipst ick Total Urine Volume 45cc Not Available [facility] [address], [place], [address], 07/13/2021 12:37:03 07/21/19 22 07/20/2021 urina lysis , dipst ick Color-Status Yellow Not Available [facility] [address], [place], [address], 07/20/2021 13:22:03 07/21/19 22 07/20/2021 urina lysis , dipst ick Clarity-Stat us Clear Not Available [facility] [address], [place], [address], 07/20/2021 13:22:03 07/21/19 22 07/20/2021 urina lysis , dipst ick Nitrates-Sta tus negati ve Not Available [facility] [address], [place], [address], 07/20/2021 13:22:03 07/21/19 22 07/20/2021 urina lysis , dipst ick Blood-Status Negati ve Not Available [facility] [address], [place], [address], 07/20/2021 13:22:03 07/21/19 22 07/20/2021 urina lysis , dipst ick Leuko-Status Small Not Available [facility] [address], [place], [address], 07/20/2021 13:22:03 07/21/19 22 07/20/2021 urina lysis , dipst ick Specimen Type Voided Not Available [facility] [address], [place], [address], 07/20/2021 13:22:03 07/21/19 22 07/20/2021 urina lysis , dipst ick Performed by ARELIS BRANTLEY Not Available [facility] [address], [place], [address], 07/20/2021 13:22:03 07/21/19 22 07/20/2021 urina lysis , dipst ick Total Urine Volume 45cc Not Available [facility] [address], [place], [address], 07/20/2021 13:22:03 03/29/19 23 03/29/2022 urina lysis , dipst ick Color-Status Yellow Not Available [facility] [address], [place], [address], 03/29/2022 13:12:16 03/29/19 23 03/29/2022 urina lysis , dipst ick Clarity-Stat us Clear Not Available [facility] [address], [place], [address], 03/29/2022 13:12:16 03/29/19 23 03/29/2022 urina lysis , dipst ick Glucose-Stat us Negati ve Not Available [facility] [address], [place], [address], 03/29/2022 13:12:16 03/29/19 23 03/29/2022 urina lysis , dipst ick Bilirubin-St atus Negati ve Not Available [facility] [address], [place], [address], 03/29/2022 13:12:16 03/29/19 23 03/29/2022 urina lysis , dipst ick Ketones-Stat us Negati ve Not Available [facility] [address], [place], [address], 03/29/2022 13:12:16 03/29/19 23 03/29/2022 urina lysis , dipst ick Nitrates-Sta tus negati ve Not Available [facility] [address], [place], [address], 03/29/2022 13:12:16 03/29/19 23 03/29/2022 urina lysis , dipst ick Blood-Status Trace Not Available [facility] [address], [place], [address], 03/29/2022 13:12:16 03/29/19 23 03/29/2022 urina lysis , dipst ick Leuko-Status Negati ve Not Available [facility] [address], [place], [address], 03/29/2022 13:12:16 07/20/19 23 07/19/2022 urina lysis , dipst ick Color-Status Straw Not Available [facility] [address], [place], [address], 07/19/2022 14:43:03 07/20/1907/19/2022 urina lysis , dipst ick Clarity-Stat us Cloudy Not Available [facility] [address], [place], [address], 07/19/2022 14:43:03 07/20/19 23 07/19/2022 urina lysis , dipst ick Glucose-Stat us Negati ve Not Available [facility] [address], [place], [address], 07/19/2022 14:43:03 07/20/19 23 07/19/2022 urina lysis , dipst ick Bilirubin-St atus Small Not Available [facility] [address], [place], [address], 07/19/2022 14:43:03 07/20/19 23 07/19/2022 urina lysis , dipst ick Ketones-Stat us Negati ve Not Available [facility] [address], [place], [address], 07/19/2022 14:43:03 07/20/19 23 07/19/2022 urina lysis , dipst ick Urobilinogen -Status 4.0 Not Available [facility] [address], [place], [address], 07/19/2022 14:43:03 07/20/19 23 07/19/2022 urina lysis , dipst ick Nitrates-Sta tus negati ve Not Available [facility] [address], [place], [address], 07/19/2022 14:43:03 07/20/19 23 07/19/2022 urina lysis , dipst ick Blood-Status Modera te Not Available [facility] [address], [place], [address], 07/19/2022 14:43:03 07/20/19 23 07/19/2022 urina lysis , dipst ick Leuko-Status Large Not Available [facility] [address], [place], [address], 07/19/2022 14:43:03 01/04/20 23 01/03/2023 urina lysis , dipst ick pH-Status 6.5 Not Available [facility] [address], [place], [address], 01/03/2023 15:06:56 01/04/2001/03/2023 urina lysis , dipst ick Protein-Stat us >=9.0 Not Available [facility] [address], [place], [address], 01/03/2023 15:06:56 01/04/2001/03/2023 urina lysis , dipst ick Urobilinogen -Status 4.0 Not Available [facility] [address], [place], [address], 01/03/2023 15:06:56 01/04/20 23 01/03/2023 urina lysis , dipst ick Nitrates-Sta tus negati ve Not Available [facility] [address], [place], [address], 01/03/2023 15:06:56 01/04/20 23 01/03/2023 urina lysis , dipst ick Blood-Status Trace Not Available [facility] [address], [place], [address], 01/03/2023 15:06:56 01/04/20 23 01/03/2023 urina lysis , dipst ick Leuko-Status Negati ve Not Available [facility] [address], [place], [address], 01/03/2023 15:06:56 01/04/20 23 01/03/2023 urina lysis , dipst ick Specimen Type Voided Not Available [facility] [address], [place], [address], 01/03/2023 15:06:56 Result Notes None recorded. Problems Name Status Onset Date Resolution Date Notes Provider Name and Address Organization Details Recorded Time Malignant tumor of urinary bladder Active 2 Raquel Esquivel null, [facility] 06/08/2021 13:04:27 Problem Notes None recorded. Procedures Surgical History Date Name Laterality Status Provider Name and Address Organization Details Recorded Time 01/04/20 23 Cystoscopy- male completed Juan Garcia MD [address] [place] [address],[address], [place], [address], [facility] 01/03/2023 15:16:02 01/04/20 23 Sulfa post Cysto completed Farrah Curtis null, [facility] 01/03/2023 15:09:38 07/20/19 23 Cystoscopy- male completed Juan Garcia MD [address] [place] [address],[address], [place], [address], [facility] 07/19/2022 18:19:49 03/29/19 23 Cystoscopy- male completed Juan Garcia MD [address] [place] [address],[address], [place], [address], [facility] 03/29/2022 13:48:04 07/21/19 22 [facility] 13:21:59 07/14/19 22 BCG Full Dose Tx 50mg completed Brenda pena, [facility] 07/13/2021 12:36:56 07/07/19 22 BCG Full Dose Tx 50mg completed Brenda pena, [facility] 07/06/2021 13:00:05 06/30/19 22 BCG Full Dose Tx 50mg completed Brenda pena, [facility] 06/29/2021 12:37:26 06/23/19 22 BCG Full Dose Tx 50mg completed Brenda pena, [facility] 06/22/2021 12:59:03 06/16/19 22 Ur[address]ysis [address]inta pena [facility] 06/15/2021 15:06:05 06/09/19 22 BCG Full Dose Tx 50mg completed Raquel Jaznoel becky [facility] 06/08/2021 13:18:54 02/09/20 21 TRANSURETHRAL RESECTION OF BLADDER TUMOR (SURG) completed Jil Roy becky [facility] 02/08/2021 16:46:49 Imaging Results None [...] completed Not Available Not Available Not Available Boyd BCG 50 mg intravesica l suspension Instill [...] Updated DateTime 03/29/2022 187.96 cm 29.5 kg/m2 058337.25 g Tuloi Haile [facility] 03/29/2022 13:05:47 Date Recorded Body height Body mass index (BMI) Body weight Provider Name and Address Organization Details Last Updated DateTime 07/19/2022 187.96 cm 29.5 kg/m2 921139.25 g Juan Garcia MD [address] [facility] [address], [place], [address] 07/19/2022 14:39:36 Date Recorded Body height Body mass index (BMI) Body weight Provider Name and Address Organization Details Last Updated DateTime 01/03/2023 187.96 cm 29.5 kg/m2 858429.[address] [facility] 01/03/2023 15:01:04 Social History Question Answer Notes LastModified by Organizat ion Details LastModified Time Tobacco Smoking Status Former Smoker Tulio pena [facility] 03/29/2022 13:11:40 What Is Your [...] trivalent, adjuvanted 11/18/2018 completed Farrah Curtis becky [facility] 01/03/2023 15:01:14 influenza, trivalent, adjuvanted 11/21/2016 completed Farrah Curtis becky [facility] 01/03/2023 15:01:14 influenza, trivalent, adjuvanted 01/01/2018 completed Farrah Curtis becky [facility] 01/03/2023 15:01:14 Influenza vaccine, quadrivalent, adjuvanted 11/24/2020 completed Farrah Stromquist null, [facility] 01/03/2023 15:01:14 Influenza vaccine, quadrivalent, adjuvanted 11/30/2019 completed Farrah Stromquist null, [facility] 01/03/2023 15:01:14 COVID-19, mRNA, LNP-S, PF, 30 mcg/0.3 mL dose 04/05/2020 completed Farrah Stromquist null, [facility] 01/03/2023 15:01:14 COVID-19, mRNA, LNP-S, PF, 30 mcg/0.3 mL dose 04/26/2020 completed Farrah Stromquist null, [facility] 01/03/2023 15:01:14 COVID-19, mRNA, LNP-S, PF, 30 mcg/0.3 mL dose 11/24/2020 completed Farrah Stromquist null, [facility] 01/03/2023 15:01:14 COVID-19, mRNA, LNP-S, PF, 30 mcg/0.3 mL dose, marvin-sucrose 06/12/2021 completed Farrah Stromquist null, [facility] 01/03/2023 15:01:14 pneumococcal polysaccharide PPV23 11/29/2005 completed Farrah Stromquist null, [facility] 01/03/2023 15:01:14 pneumococcal polysaccharide PPV23 01/25/2005 completed Farrah Stromquist null, [facility] 01/03/2023 15:01:14 pneumococcal polysaccharide PPV23 02/20/2011 completed Farrah Stromquist null, [facility] 01/03/2023 15:01:14 influenza, unspecified formulation 11/25/2008 completed Farrah Stromquist null, [facility] 01/03/2023 15:01:14 Tdap 02/20/2011 completed Farrah Stromquist null, [facility] 01/03/2023 15:01:14 Pneumococcal conjugate PCV 13 03/15/2016 completed Farrah Stromquist null, [facility] 01/03/2023 15:01:14 Pneumococcal conjugate PCV 13 09/17/2014 completed Farrah Stromquist null, [facility] 01/03/2023 15:01:14 zoster live 02/26/2008 completed Farrah Stromquist null, [facility] 01/03/2023 15:01:14 zoster live 01/05/2009 completed Farrah Stromquist null, [facility] 01/03/2023 15:01:14 Influenza, high dose seasonal 11/29/2014 completed Farrah Stromquist null, [facility] 01/03/2023 15:01:14 Influenza, high dose seasonal 12/14/2015 completed Farrah Stromquist null, [facility] 01/03/2023 15:01:14 Influenza, high dose seasonal 12/24/2013 completed Farrah Stromquist null, [facility] 01/03/2023 15:01:14 Influenza, seasonal, injectable 02/26/1988 completed Farrah Stromquist null, [facility] 01/03/2023 15:01:14 Influenza, seasonal, injectable 11/16/2008 completed Farrah Stromquist null, [facility] 01/03/2023 15:01:14 Influenza, seasonal, injectable 11/24/2009 completed Farrah Stromquist null, [facility] 01/03/2023 15:01:14 Influenza, seasonal, injectable 11/29/2005 completed Farrah Stromquist null, [facility] [facility] 01/03/2023 15:01:14 Influenza, seasonal, injectable 12/06/2003 completed Farrah Stromquist null, [facility] 01/03/2023 15:01:14 Influenza, seasonal, injectable 12/18/2002 completed Farrah Stromquist null, [facility] 01/03/2023 15:01:14 Influenza, seasonal, injectable 12/18/2012 completed Farrah Stromquist null, [facility] 01/03/2023 15:01:14 Influenza, seasonal, injectable 12/19/2001 completed Farrah Stromquist null, [facility] 01/03/2023 15:01:14 Influenza, seasonal, injectable 12/26/2006 completed Farrah Stromquist null, [facility] 01/03/2023 15:01:14 Influenza, seasonal, injectable 12/28/2004 completed Farrah Stromquist null, [facility] 01/03/2023 15:01:14 Influenza, seasonal, injectable 01/30/2012 completed Farrah Stromquist null, [facility] 01/03/2023 15:01:14 Influenza, seasonal, injectable, preservative free 12/16/2007 completed Farrah Stromquist null, [facility] 01/03/2023 15:01:14 Influenza, seasonal, injectable, preservative free 12/18/2010 completed Farrah Stromquist null, [facility] 01/03/2023 15:01:14 Novel [id number] 03/25/2009 completed Farrah Stromquist null, [facility] 01/03/2023 15:01:14 Td (adult), 5 Lf tetanus toxoid, preservative free, adsorbed 11/29/2005 completed Farrah Stromquist null, [facility] 01/03/2023 15:01:14 Td (adult), 2 Lf tetanus toxoid, preservative free, adsorbed 10/07/1998 completed Farrah Stromquist null, [facility] 01/03/2023 15:01:14 Td (adult), 2 Lf tetanus toxoid, preservative free, adsorbed 01/25/2005 completed Farrah Stromquist null, [facility] 01/03/2023 15:01:14 influenza, injectable, quadrivalent, preservative free 03/25/2009 completed Farrah Stromquist null, [facility] 01/03/2023 15:01:14 Past Encounters Encounter ID Performer Location Encounter Start Date Encounter Closed Date Diagnosis/Indication [id number] MD CLEM Brannon_Yohannes [employer] [place] [address] 06/08/2021 12:06:29 06/09/2021 12:49:18 Malignant tumor of urinary bladder [id number] MD CLEM Brannon_Yohannes [employer] [place] [address] 06/15/2021 14:29:45 06/16/2021 10:17:08 Malignant tumor of urinary bladder [id number] MD Ezio Brannon [address] [place] [address] 06/22/2021 12:09:08 06/26/2021 10:10:48 Malignant tumor of urinary bladder [id number] MD CLEM Brannon_[place] [address] [place] [address] 06/29/2021 12:04:22 06/30/2021 10:32:05 Malignant tumor of urinary bladder [id number] MD CLEM Brannon_[place] [address] [place] [address] 07/06/2021 12:00:01 07/10/2021 08:52:06 Malignant tumor of urinary bladder [id number] MD David Brannona [address] [place] [address] 07/13/2021 11:55:07 07/14/2021 08:27:46 Malignant tumor of urinary bladder [id number] MD CLEM Brannon_[place] [address] [place] [address] 07/20/2021 12:41:28 07/21/2021 15:05:59 Malignant tumor of urinary bladder [id number] MD CLEM Brannon_[place] [address] [place] [address] 03/29/2022 12:36:10 04/02/2022 12:54:20 Malignant tumor of urinary bladder [id number] MD David Brannona [address] [place] [address] 07/19/2022 14:19:30 07/27/2022 15:09:48 Malignant tumor of urinary bladder Pyuria [id number] MD CLEM BrannonEdinnoel [address] [place] [address] 01/03/2023 14:52:35 01/08/2023 11:52:12 Malignant tumor of [...] (MEDICARE REPLACEMENT/A DVANTAGE - PPO) Cecilio Rosa [id number] Cecilio Rosa 07/19/2022 1 [employer] (MEDICARE REPLACEMENT/A DVANTAGE - PPO) Cecilio Rosa [id number] Cecilio Rosa 03/29/2022 1 [employer] (MEDICARE REPLACEMENT/A DVANTAGE - PPO) Cecilio Rosa [id number] Cecilio Rosa 07/20/2021 1 [employer] (MEDICARE REPLACEMENT/A DVANTAGE - PPO) Cecilio Rosa [id number] Cecilio Rosa 07/13/2021 1 [employer] (MEDICARE REPLACEMENT/A DVANTAGE - PPO) Cecilio Rosa [id number] Cecilio Rosa 07/06/2021 1 [employer] (MEDICARE REPLACEMENT/A DVANTAGE - PPO) Cecilio Rosa [id number] Cecilio Rosa 06/29/2021 1 [employer] (MEDICARE REPLACEMENT/A DVANTAGE - PPO) Cecilio Rosa [id number] Cecilio Rosa 06/22/2021 1 [employer] (MEDICARE REPLACEMENT/A DVANTAGE - PPO) Cecilio Rosa [id number] Cecilio Rosa 06/15/2021 1 [employer] (MEDICARE REPLACEMENT/A DVANTAGE - PPO) Cecilio Rosa [id number] Cecilio Rosa 06/08/2021 1 [employer] (MEDICARE REPLACEMENT/A DVANTAGE - PPO) Cecilio Rosa [id number] Cecilio Rosa Notes Date Note Type Note Provider Name and Address Organization Details Recorded Time 06/08/2021 text/html HPI Notes: Karin hanson arrived to clinic today to begin BCG induction therapy #03/02. Patient has history of urotheilial carcinoma in situ. Had 02/08/21 Transurethral resection of bladder tumor. Patient then had 05/10/2021 cystoscopy, biopsy with fulguration due to insufficient sampling. Juan Garcia MD [address] [facility],[address], [place], [address], [facility] 06/08/2021 18:20:54 06/15/2021 text/html HPI Notes: Karin hanson arrived to clinic today to begin BCG induction therapy #04/02. Patient has history of urotheilial carcinoma in situ. Unable to complete BCG due to nitrate positive urinalysis. Had 02/08/21 Transurethral resection of bladder tumor. Patient then had 05/10/2021 cystoscopy, biopsy with fulguration due to insufficient sampling. Juan Garcia MD [address] [place] [address],[address], [place], [address], [facility] 06/20/2021 12:01:54 06/22/2021 text/html HPI Notes: Karin [...] #2/6 BCG induction treatment. Juan Garcia MD [address] [place] [address],[address], [place], [address], [facility] 06/22/2021 18:23:42 06/29/2021 text/html HPI Notes: Karin [...] #3/6 BCG induction treatment. Juan Garcia MD [address] [place] [address],[address], [place], [address], [facility] 06/30/2021 08:25:36 07/06/2021 text/html HPI Notes: Karin [...] #4/6 BCG induction treatment. Juan Garcia MD [address] [place] [address],[address], [place], [address], [facility] 07/06/2021 13:50:26 07/13/2021 text/html HPI Notes: Karin [...] #5/6 BCG induction treatment. Juan Garcia MD [address] [place] [address],[address], [place], [address], [facility] 07/13/2021 18:13:55 07/20/2021 text/html HPI Notes: Karin [...] BCG induction treatment. Juan Garcia MD [address] [facility],[address], [place], [address], [facility] 07/20/2021 18:21:28 03/29/2022 text/html HPI [...] symptoms Juan Garcia MD [address] [facility],[address], [place], [address], [facility] 03/29/2022 13:49:01 07/19/2022 text/html HPI Notes: [...] symptoms Juan Garcia MD [address] [facility],[address], [place], [address], [facility] 07/19/2022 18:20:57 01/03/2023 text/html HPI [...] symptoms Juan Garcia MD [address] [facility],[address], [place], [address], [facility] 01/03/2023 15:16:45
--- OUTSIDE RECORDS SUMMARY | 2023-04-10 08:39 | XMS_ITS | Referral Summary ---
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 Temperature 36 ??C (96.8 ??F) 08/13/2017 4:04 [...] on file Medical Devices Implanted Type Area Water Tender Device Identifier Shelf Expiration Date Model / Serial / Lot Imp [place] [employer] Bio-Swivelock [id number] Implanted:Qty : 1 on 08/13/2017 by Dg Rose MD at [facility] Metallic Hardware/An chor Right: Shoulder AR[employer] 03/27/2019 AR-2324BCC- 2 / / [id number] Imp Femoral Sleeve S&N Long Mod +8mm Neck Ti [id number] Implanted:Qty : 1 on 03/25/2017 by Lj Ornelas MD at [facility] Total Joint Component/I nsert Right: Hip PASCAL 03/03/2025 [id number] / / [id number] 40mm Modular Femoral Head Implanted:Qty : 1 on 03/25/2017 by Lj Ornelas MD at [facility] Right: Hip 12/02/2026 [id number] / / [id number] Advance Directives For more information, please contact: [phone] Latest Code Status on File Code Status Date Activated Date Inactivated Comments Full Code 03/28/2017 2:36 PM Code Status History Code Status Date Activated Date Inactivated Comments Full Code 03/23/2017 5:42 PM 03/27/2017 12:01 AM Care Teams Supervisor Hanging And Trimming Relationship Specialty Start Date End Date [address] [address] PCP - General 03/23/17
--- OUTSIDE RECORDS SUMMARY | 2023-04-10 08:39 | XMS_ITS | Clinical Summary ---
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 Metallic Hardware/An chor Right: Shoulder [employer] 03/27/2019 AR-2324BCC- 2 / / [id number] Imp Femoral Sleeve S&N Long Mod +8mm Neck Ti [id number] Implanted:Qty : 1 on 03/25/2017 by Lj Ornelas MD at [facility] Total Joint Component/I nsert Right: Hip PASCAL 03/03/2025 [id number] / / [id number] 40mm Modular Femoral Head Implanted:Qty : 1 on 03/25/2017 by Lj Ornelas MD at [facility] Right: Hip 12/02/2026 [id number] / / [id number] Advance Directives For more information, please contact: [phone] Latest Code Status on File Code Status Date Activated Date Inactivated Comments Full Code 03/28/2017 2:36 PM Code Status History Code Status Date Activated Date Inactivated Comments Full Code 03/23/2017 5:42 PM 03/27/2017 12:01 AM Care Teams Market Intelligence Consultant Relationship Specialty Start Date End Date [address] [address] PCP - General 03/23/17
--- OUTSIDE RECORDS SUMMARY | 2023-04-10 08:39 | XMS_ITS | Clinical Summary ---
Author Name Unknown Organization [facility] Address [place], [place] [address] Care Team Providers Care Senior Java Engineer Name Role Phone Doug Taylor MD Primary [...] minutes of numbness affecting his right arm- [facility] [place] MRI and MRA showed no new acute [...] Encounters Date Type Department Care Team Description 04/08/2023 1:30 PM SUPERVISOR ACCOUNTING CLERKS Orders Only [facility] [address] [place] [address] Lab[place] [facility] 04/08/2023 Anticoagulation (warfarin) [facility] [address] [place] [address] [address] 1, [place] Anticoagulation 04/08/2023 Travel 04/04/2023 12:30 PM SUPERVISOR ACCOUNTING CLERKS Ancillary Procedure [facility] [address] [place] [address] [address] 04/04/2023 11:45 AM SUPERVISOR ACCOUNTING CLERKS Ancillary Procedure [facility] [address] [place] [address] 04/04/2023 10:00 AM SUPERVISOR ACCOUNTING CLERKS Office Visit [facility] [address] [place] [address] Kuldip Briones MD Follow Up (Peripheral arterial disease); Fall (2 weeks ago hurt left side ) 04/04/2023 Travel 04/02/[address] [address] Doug Taylor MD Refill Request (SOTALOL 80MG TAB) 04/01/2023 10:00 AM SUPERVISOR ACCOUNTING CLERKS Orders Only [address] [address] 2 scans: (2-Ord) US ARTERIAL LOWER EXTREMITY W BRITTNI BILATERAL ([id number]) 04/01/2023 Travel 03/22/[address] [address] Doug Taylor MD Follow Up 03/18/2023 3:15 PM SUPERVISOR ACCOUNTING CLERKS Ancillary Procedure [address] [address] 03/18/2023 3:00 PM SUPERVISOR ACCOUNTING CLERKS Ancillary Procedure [address] [address] 03/18/2023 1:40 PM SUPERVISOR ACCOUNTING [employer]ERKS Office Visit [address] [address] Doug Taylor MD Fall (03/16/23, whole body hurts, knees, forehead, left arm) 03/18/2023 Travel 03/18/[address] [address] Doug Taylor MD Appointment Request (TODAY 03/18/23/FALL) 03/09/2023 Anticoagulation (warfarin) [address] [address] 1[facility] Anticoagulation 03/08/2023 2:30 PM SUPERVISOR ACCOUNTING CLERKS Orders Only [facility] [address] [place] [address] Lab[facility] [place] [facility] 03/08/2023 Nurse Triage [facility] [address] [place] [address] Doug Taylor MD Arm Pain/problem (L inner elbow and forearm swelling) 03/08/2023 Travel 03/06/2023 3:00 PM SUPERVISOR ACCOUNTING CLERKS Office Visit [facility] [address] [place] [address] Seven Briones DPM Consult (Bilateral toe ulcer) 03/06/2023 Travel 02/26/2023 9:40 AM SUPERVISOR ACCOUNTING CLERKS Office Visit [facility] [place] [facility] [address] [place] [address] Rupert Moore MD Consult (Bilateral leg weakness /Bilateral heel x 6 months ) 02/26/2023 Travel 02/26/2023 [facility]phone [facility] [address] [place] [address] Dr [address] [address] Светлана La MD Results (Mild progression per echo. Plan for annual echo) 02/21/2023 9:00 AM SUPERVISOR ACCOUNTING CLERKS Ancillary Procedure [facility] [address] [place] [address] 02/21/2023 Travel 02/17/2023 Refill [facility] [address] [place] [address] Doug Taylor MD Refill Request (Dropsafe Alcohol Prep Pads) 02/16/2023 Refill [facility] [address] [place] [address] Doug Taylor MD Refill Request (Warfarin) 02/15/2023 Telephone [facility] [address] [place] [address] Dr [address] [address] Светлана La MD Results 02/15/2023 Travel 02/08/2023 10:10 AM SUPERVISOR ACCOUNTING CLERKS Orders Only [facility] [address] [place] [address] Lab[facility] [place] [facility] 02/08/2023 Anticoagulation (warfarin) [facility] [address] [place] [address] 1, [facility] Anticoagulation 02/08/2023 Travel 02/01/2023 Telephone [facility] [address] [place] [address] Doug Taylor MD Refill Request (Gabapentin 100mg ) 01/31/2023 Orders Only [facility] [address] [place] [address] Juan Davila NP <No scans attached> 01/28/2023 Telephone [facility] [address] [place] [address] Doug Taylor MD CLARIFICATION 01/23/2023 Orders Only [facility] [address] [place] [address] Светлана La MD 1 scan: (1-Ord) [facility]-EKG-11.28.23 01/22/2023 3:00 PM SUPERVISOR ACCOUNTING CLERKS Office Visit [facility] [address] [place] [address] Светлана La MD Consult (Atrial fibrillation) 01/22/2023 Orders Only [facility] [address] [place] [address] [address] [address] Светлана La MD 1 scan: (1-Ord) EUNPORTS ([id number]) 01/22/2023 Telephone [facility] [place] [facility] [address] [place] [address] Rupert Moore MD Referral (Neurology consultation ready to schedule ) 01/21/2023 10:15 AM SUPERVISOR ACCOUNTING CLERKS Orders Only [facility] [address] [place] [address] 1 scan: (1-Ord) US TOE PRESSURE ONLY BILAT ([id number]) 01/21/2023 Travel 01/21/2023 Refill [facility] [address] [place] [address] Doug Taylor MD Refill Request (Gabapentin 300mg cap ) 01/18/2023 10:05 AM SUPERVISOR ACCOUNTING CLERKS Office Visit [facility] [address] [place] [address] Doug Taylor MD Medicare ANNUAL (subsequent) Visit (82 year old); Foot Problem (Bilateral foot neuropathy ); DME Supply (Discuss walker) 01/18/2023 Travel 01/08/2023 10:10 AM SUPERVISOR ACCOUNTING CLERKS Orders Only [facility] [address] [place] [address] Lab[facility] [place] [facility] 01/08/2023 Anticoagulation (warfarin) [facility] [address] [place] [address] 1[facility] Anticoagulation (Lab ) 01/08/2023 Travel from Last 3 Months Immunizations Name Administration [...] Sign Reading Time Taken Comments Blood Pressure 136/82 04/04/2023 10:09 AM SUPERVISOR ACCOUNTING CLERKS Pulse 68 04/04/2023 10:09 AM SUPERVISOR ACCOUNTING CLERKS Temperature 36.3 ??C (97.4 ??F) 03/06/2023 3:54 PM CS T Respiratory Rate 16 05/25/2021 2:10 PM CDT Oxygen Saturation 97% 04/04/2023 10:09 AM SUPERVISOR ACCOUNTING CLERKS Inhaled Oxygen Concentration - - Weight 108.9 kg (240 lb) 01/26/2021 11:29 AM SUPERVISOR ACCOUNTING CLERKS Height 188 cm (6' 2) 01/26/2021 11:29 AM SUPERVISOR ACCOUNTING CLERKS Body Mass Index 30.81 01/26/2021 11:29 AM SUPERVISOR ACCOUNTING CLERKS Plan of Treatment Upcoming Encounters Date Type Department Care Team (Late st Contact Info) Description 04/24/2023 2:40 PM SUPERVISOR ACCOUNTING CLERKS Office Visit [facility] [place] [facility] [address] [place] [address] Rupert Moore MD [address] [place] [address] 07/24/2023 10:30 AM CDT Office Visit [facility] [address] [place] [address] Doug Taylor MD [address] [place] [address] Health Maintenance Due Date Last Done Comments [...] Procedure Name Priority Date/Time Associated Diagnosis Comments INR,POCT Routine 04/08/2023 1:40 PM SUPERVISOR ACCOUNTING CLERKS Paroxysmal atrial fibrillation (HC) Anticoagulation monitoring, INR range 2-3 MR SPINE LUMBAR WO Routine 04/04/2023 12 :45 PM SUPERVISOR ACCOUNTING CLERKS Weakness of lower extremity, unspecified laterality MR HEAD BRAIN WO Routine 04/04/2023 12:2 2 PM SUPERVISOR ACCOUNTING CLERKS Weakness of lower extremity, unspecified laterality US ARTERIAL LOWER EXTREMITY W BRITTNI BILATERAL Routine 04/01/2023 1:23 PM SUPERVISOR ACCOUNTING CLERKS Peripheral arterial disease (HC) XR KNEE 3 VIEWS LEFT Routine 03/18/2023 3:13 PM SUPERVISOR ACCOUNTING CLERKS Acute pain of left knee XR WRIST 3 VIEWS LEFT Routine 03/18/2023 3:04 PM SUPERVISOR ACCOUNTING CLERKS Left wrist pain INR,POCT Routine 03/08/2023 2:45 PM SUPERVISOR ACCOUNTING CLERKS Paroxysmal atrial fibrillation (HC) Anticoagulation monitoring, INR range 2-3 ECHO TTE COMPLETE WO CONTRAST Routine 02/21/2023 9:41 AM SUPERVISOR ACCOUNTING CLERKS Atrial fibrillation, unspecified type (HC) EXTENDED HOLTER Routine 02/14/2023 Atrial fibrillation, unspecified type (HC) INR,POCT Routine 02/08/2023 10:24 AM SUPERVISOR ACCOUNTING CLERKS Paroxysmal atrial fibrillation (HC) Anticoagulation monitoring, INR range 2-3 EKG 12 LEAD Routine 01/23/2023 2:42 PM SUPERVISOR ACCOUNTING CLERKS Atrial fibrillation, unspecified type (HC) US TOE PRESSURE ONLY BILAT Routine 01/21/2023 10:41 AM SUPERVISOR ACCOUNTING CLERKS PAD (peripheral artery disease) (HC) URINE ALBUMIN TO CREATININE RATIO, RANDOM Routine 01/18/2023 9:40 AM SUPERVISOR ACCOUNTING CLERKS Diabetes mellitus without complication (HC) PROTIME-INR STAT 01/08/2023 10:18 AM SUPERVISOR ACCOUNTING CLERKS Paroxysmal atrial fibrillation (HC) Anticoagulation monitoring, INR range 2-3 BASIC METABOLIC PANEL Routine 01/08/2023 10:18 AM SUPERVISOR ACCOUNTING CLERKS Diabetes mellitus without complication (HC) LIPID PANEL W REFLEX MEASURED LDL Routine 01/08/2023 10:18 AM SUPERVISOR ACCOUNTING CLERKS Diabetes mellitus without complication (HC) HEMOGLOBIN A1C Routine 01/08/2023 10:18 AM SUPERVISOR ACCOUNTING CLERKS Diabetes mellitus without complication (HC) from Last 3 Months Results * (ABNORMAL) INR,POCT (04/08/2023 1:40 PM SUPERVISOR ACCOUNTING CLERKS) Only the most recent of3 resultswithin the time period is included. INR 1.9(H) <1.3 04/08/2023 1:42 PM SUPERVISOR ACCOUNTING CLERKS [facility] Blood BLOOD SPECIMEN / Unknown 04/08/2023 1:40 PM SUPERVISOR ACCOUNTING CLERKS 04/08/2023 1:42 PM SUPERVISOR ACCOUNTING [employer]ERKS Narrative [facility] - 04/08/2023 1:42 PM SUPERVISOR ACCOUNTING CLERKS ?Therapeutic Range 2.0-3.0 for most anticoagulated patients 2.5-3.5 or 4.0 for high risk patients Doug Taylor MD LABORATORY [facility] [address] [place] [address], * MR SPINE LUMBAR WO (04/04/2023 12:45 PM SUPERVISOR ACCOUNTING CLERKS) Anatomical Region Laterality Modality Spine, LUMBAR SPINE Magnetic Res onance 04/04/2023 1:07 PM SUPERVISOR ACCOUNTING CLERKS Narrative 04/04/2023 1:07 PM SUPERVISOR ACCOUNTING CLERKS For Patients: ??As a result of the Cures Act, medical imaging exams and procedure reports are released immediately into your electronic medical record. ??You may view this report before your referring provider. ??If you have questions, please contact your health care provider. Indication: Low back pain, lower extremity weakness. Technique: Multisequence multiplanar MRI of the lumbar spine without contrast. Comparison: Correlated with CT abdomen/pelvis dated 09/26/2020. Findings: Grade 1 8 mm anterolisthesis at L5-S1 with bilateral L5 pars interarticularis defects. Multilevel intervertebral disc loss and Schmorl`s nodes. Mild edema in the opposing endplates at L2-3 likely reflecting Modic type 1 degenerative signal. No T1 hypointense infiltrative lesion. Diffuse fatty infiltration of the paraspinal musculature and stable subcentimeter right upper pole renal cyst. Evaluation of the individual levels demonstrates: T12-L1: No significant spinal canal or neural foraminal stenosis. L1-L2: Shallow symmetric disc bulge. No significant spinal canal or neural foraminal stenosis. L2-L3: Mild spinal canal stenosis resulting from symmetric disc bulging and facet joint hypertrophy. No significant neural foraminal narrowing. L3-L4: Mild narrowing of the lateral recesses by epidural lipomatosis. Mild- moderate bilateral neural foraminal narrowing is sequela of show symmetric disc bulging and facet joint hypertrophy. L4-L5: Prominent facet joint hypertrophy narrows the lateral recesses questionably impinging the traversing L5 nerve roots. Shallow symmetric disc bulging and superimposed small central disc extrusion with approximately 6 mm caudal subligamentous migration. No significant neural foraminal narrowing. L5-S1: Pronounced facet joint hypertrophy with grade 1 anterolisthesis. No significant spinal canal or neural foraminal stenosis. Impression: 1. Grade 1 anterolisthesis at L5-S1 with bilateral L5 pars interarticularis defects. 2. Multilevel intervertebral disc height loss most pronounced at L4-L5 and L5- S1. 3. At L2-L3, mild spinal canal stenosis. 4. At L3-L4, mild narrowing of the lateral recesses by epidural lipomatosis and mild-moderate bilateral neural foraminal narrowing. 5. At L4-L5, prominent facet joint hypertrophy narrowing the lateral recesses and questionably contacting the traversing L5 nerve roots. In addition, small central disc extrusion with 6 mm caudal subligamentous migration. Dictated by Joesph Babin MD @ 04/04/2023 1:07:13 PM (Electronically Signed) Procedure Note Keith Babin MD - 04/04/2023 For Patients: As a result of the Century Cures Act, medical imagingexams and procedure reports are released immediately into your electronicmedical record. You may view this report before your referring provider.If you have questions, please contact your health care provider. Indication: Low back pain, lower extremity weakness. Technique: Multisequence multiplanar MRI of the lumbar spine without contrast. Comparison: Correlated with CT abdomen/pelvis dated 09/26/2020. Findings: Grade 1 8 mm anterolisthesis at L5-S1 with bilateral L5 parsinterarticularis defects. Multilevel intervertebral disc loss andSchmorl`s nodes. Mild edema in the opposing endplates at L2-3 likelyreflecting Modic type 1 degenerative signal. No T1 hypointenseinfiltrative lesion. Diffuse fatty infiltration of the paraspinalmusculature and stable subcentimeter right upper pole renal cyst. Evaluation of the individual levels demonstrates: T12-L1: No significant spinal canal or neural foraminal stenosis. L1-L2: Shallow symmetric disc bulge. No significant spinal canal or neuralforaminal stenosis. L2-L3: Mild spinal canal stenosis resulting from symmetric disc bulgingand facet joint hypertrophy. No significant neural foraminal narrowing. L3-L4: Mild narrowing of the lateral recesses by epidural lipomatosis.Mild- moderate bilateral neural foraminal narrowing is sequela of showsymmetric disc bulging and facet joint hypertrophy. L4-L5: Prominent facet joint hypertrophy narrows the lateral recessesquestionably impinging the traversing L5 nerve roots. Shallow symmetricdisc bulging and superimposed small central disc extrusion withapproximately 6 mm caudal subligamentous migration. No significant neuralforaminal narrowing. L5-S1: Pronounced facet joint hypertrophy with grade 1 anterolisthesis. Nosignificant spinal canal or neural foraminal stenosis. Impression: 1. Grade 1 anterolisthesis at L5-S1 with bilateral L5 parsinterarticularis defects. 2. Multilevel intervertebral disc height loss most pronounced at L4-L5 andL5-S1. 3. At L2-L3, mild spinal canal stenosis. 4. At L3-L4, mild narrowing of the lateral recesses by epidurallipomatosis and mild-moderate bilateral neural foraminal narrowing. 5. At L4-L5, prominent facet joint hypertrophy narrowing the lateralrecesses and questionably contacting the traversing L5 nerve roots. Inaddition, small central disc extrusion with 6 mm caudal subligamentousmigration. Dictated by Joesph Babin MD @ 04/04/2023 1:07:13 PM (Electronically Signed) Rupert Moore MD MR * MR HEAD BRAIN WO (04/04/2023 12:22 PM SUPERVISOR ACCOUNTING CLERKS) Anatomical Region Laterality Modality BRAIN, HEAD Magnetic Resonan ce 04/04/2023 12:3 2 PM SUPERVISOR ACCOUNTING CLERKS Impressions 04/04/2023 12:32 PM SUPERVISOR ACCOUNTING [employer]ERKS 1. No acute intracranial abnormality. 2. Similar moderate diffuse parenchymal volume loss and mild small vessel ischemic changes. 3. 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 Dictated by Joesph Babin MD @ 04/04/2023 12:32:06 PM (Electronically Signed) Narrative 04/04/2023 12:32 PM SUPERVISOR ACCOUNTING [employer]ERKS For Patients: ??As a result of the 21st Century Cures Act, medical imaging exams and procedure reports are released immediately into your electronic medical record. ??You may view this report before your referring provider. ??If you have questions, please contact your health care provider. INDICATION: Ataxia, lower extremity weakness. TECHNIQUE: Multisequence multiplanar MRI of the head without contrast. COMPARISON: MR brain dated 03/11/2016. FINDINGS: No evidence of acute ischemia. No focus of abnormal susceptibility artifact. Similar scattered T2/FLAIR hyperintensities in the periventricular and subcortical white matter of both cerebral hemispheres. 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 Similar moderate diffuse parenchymal volume loss. Flow voids of the larger intracranial arteries are preserved. No suspicious calvarial lesion. Evidence of prior cataract surgery. Scattered paranasal sinus mucosal thickening and trace bilateral mastoid effusions. Procedure Note Keith Babin MD - 04/04/2023 For Patients: As a result of the Cures Act, medical imagingexams and procedure reports are released immediately into your electronicmedical record. You may view this report before your referring provider.If you have questions, please contact your health care provider. INDICATION: Ataxia, lower extremity weakness. TECHNIQUE: Multisequence multiplanar MRI of the head without contrast. COMPARISON: MR brain dated 03/11/2016. FINDINGS: No evidence of acute ischemia. No focus of abnormal susceptibilityartifact. Similar scattered T2/FLAIR hyperintensities in theperiventricular and subcortical white matter of both cerebral hemispheres.Stable old lacunar infarcts in the right thalamus, right basal ganglia,and right cerebellum. Similar moderate diffuse parenchymal volume loss. Flow voids of the largerintracranial arteries are preserved. No suspicious calvarial lesion. Evidence of prior cataract surgery.Scattered paranasal sinus mucosal thickening and trace bilateral mastoideffusions. IMPRESSION: 1. No acute intracranial abnormality. 2. Similar moderate diffuse parenchymal volume loss and mild small vesselischemic changes. 3. Stable old lacunar infarcts in the right thalamus, right basal ganglia,and right cerebellum. Dictated by Joesph Babin MD @ 04/04/2023 12:32:06 PM (Electronically Signed) Rupert Moore MD MR * US ARTERIAL LOWER EXTREMITY W BRITTNI BILATERAL (04/01/2023 1:23 PM SUPERVISOR ACCOUNTING [employer]ERKS) Anatomical Region Laterality Modality LEGS Ultrasound 04/01/2023 9:48 AM SUPERVISOR ACCOUNTING [employer]ERKS Narrative 04/01/2023 2:57 PM SUPERVISOR ACCOUNTING [employer]ERKS VASCULAR ULTRASOUND REPORT CECILIO ROSA Accession#: ?? [id number] : ?1940 ?? Study Date: ?? 04/01/2023 9:48:12 AM Age: ?82 years ?? Tech: ? TLW Gender: M ?Referring MD: JUAN DAVILA Site: [facility] Study performed: ?Lower extremity duplex US, TBI, [...] cm/s Phasicity ?? + + + + RETAIL POS SPECIALIST PRX ? 64 ? monophasic + + + + RETAIL POS SPECIALIST DST ? 48 ? multiphasic + + [...] 30 ? multiphasic + + + + CHICKEN CLEANER DST ? 62 ? multiphasic + + + + DPA ? 60 ? monophasic + + + + + + + + +--------+-----+ LEFT ? Velocity cm/s PRE ? Phasicity ?? Stenosis Ratio ? Velocity cm/s ? Phasicity ? + + + + +--------+-----+ RETAIL POS SPECIALIST PRX ? 51 ? multiphasic ? + + + + +--------+-----+ RETAIL POS SPECIALIST DST ? 47 ? multiphasic ? + [...] multiphasic ? + + + + +--------+-----+ CHICKEN CLEANER DST ? 47 ? monophasic ? + [...] +-----+ +--------+ +-----+ Reinaldo Limon MD. [employer] Electronically signed on 04/01/2023 2:57:53 PM This study was performed and interpreted by a service accredited by the Intersocietal Accreditation Commission (IAC/Vascular), [email or web address] Report generated by [employer]. ??Final ?? Procedure Note Reinaldo Limon MD - 04/01/2023 VASCULAR ULTRASOUND REPORT CECILIO ROSA : 1940 Study Date: 04/01/2023 9:48:12 AM Age: 82 years Tech: TLW Gender: M Referring MD: JUAN DAVIAL Site: [facility] Study performed: Lower extremity duplex US, TBI, [...] Velocity cm/s Phasicity + + + + RETAIL POS SPECIALIST PRX 64 monophasic + + + + RETAIL POS SPECIALIST DST 48 multiphasic + + + + [...] DST 30 multiphasic + + + + CHICKEN CLEANER DST 62 multiphasic + + + + DPA 60 monophasic + + + + + + + + +--------+-----+ LEFT Velocity cm/s PRE Phasicity Stenosis Ratio Velocity cm/s Phasicity + + + + +--------+-----+ RETAIL POS SPECIALIST PRX 51 multiphasic + + + + +--------+-----+ RETAIL POS SPECIALIST DST 47 multiphasic + + + + [...] 31 multiphasic + + + + +--------+-----+ CHICKEN CLEANER DST 47 monophasic + + + + [...] +-----+ +--------+ +-----+ Reinaldo Limon MD. [employer] Electronically signed on 04/01/2023 2:57:53 PM This study was performed and interpreted by a service accredited by theIntersocietal Accreditation Commission (IAC/Vascular),[email or web address] Report generated by [employer]. Final Juan Davila NP US * XR KNEE 3 VIEWS LEFT (03/18/2023 3:13 PM SUPERVISOR ACCOUNTING CLERKS) Anatomical Region Laterality Modality KNEES, KNEE L Computed Radiogr aphy 03/18/2023 3:30 PM SUPERVISOR ACCOUNTING [employer]ERKS Narrative 03/18/2023 3:30 PM SUPERVISOR ACCOUNTING [employer]ERKS For Patients: ??As a result of the Century Cures Act, medical imaging exams and [...] WRIST 3 VIEWS LEFT (03/18/2023 3:04 PM SUPERVISOR ACCOUNTING CLERKS) Anatomical Region Laterality Modality WRISTS, WRIST L Computed Radiogr aphy 03/18/2023 3:28 PM SUPERVISOR ACCOUNTING [employer]ERKS Narrative 03/18/2023 3:28 PM SUPERVISOR ACCOUNTING [employer]ERKS For Patients: ??As a result of the [...] Doug Taylor MD GENERAL IMAGIN G * ECHO TTE COMPLETE WO CONTRAST (02/21/2023 9:41 AM SUPERVISOR ACCOUNTING CLERKS) AORTIC VALVE MEAN PG 22 mmHg EJECTION FRACTION 59 % PEAK TR VELOCITY 3.4 m/s LVEDD 4.4 cm EJECTION FRACTION 60 - 65% Anatomical Region Laterality Modality Ultrasound 02/21/2023 9:06 AM SUPER[employer]OR [employer]OUNTING [employer]ERKS Narrative 02/21/2023 10:41 AM SUPER[employer]OR [employer]OUNTING [employer]ERKS ECHOCARDIOGRAM CECILIO ROSA ?Accession#: ?? [id number] : ?1940 82 years Study Date: ?? 02/21/2023 9:06:01 AM Gender: M ? BP: ? 151/60 mmHg Height: 188.00 cm ? BSA: ?2.31 m? ? ? Weight: 105.00 kg ? Tech: ? MJW ?Referring MD: СВЕТЛАНА LA Site: ? [facility] Reading Location: Mobile-OP Patient Location: Outpatient. Procedure: [...] . This study was interpreted by an [facility] accredited facility. ??Final ?? Procedure Note Anthony Thompson MD - 02/21/2023 ECHOCARDIOGRAM CECILIO ROSA : 1940 82 years Study Date: 02/21/2023 9:06:01 AM Gender: M BP: 151/60 mmHg Height: 188.00 cm BSA: 2.31 m? ? ? Weight: 105.00 kg Tech: XENIA Referring MD: СВЕТЛАНА LA Site: [facility] Reading Location: Mobile-OP Patient Location: Outpatient. Procedure: [...] . This study was interpreted by an [facility] accredited facility. Final Светлана La MD ECHO ORD * ZIO PATCH XT - weekly to monthly symptoms. (02/14/2023) Светлана La MD CARDIAC SERVICE S ORD * EKG 12 LEAD (01/23/2023 2:42 PM SUPERVISOR ACCOUNTING [employer]ERKS) Светлана La MD EKG ORD * US TOE PRESSURE ONLY BILAT (01/21/2023 10:41 AM SUPERVISOR ACCOUNTING [employer]ERKS) Anatomical Region Laterality Modality TOES Ultrasound 01/21/2023 9:18 AM SUPERVISOR ACCOUNTING [employer]ERKS Narrative 01/21/2023 12:39 PM [employer]PER[employer]OR [employer]OUNTING [employer]ERKS VASCULAR ULTRASOUND REPORT CECILIO ROSA Accession#: ?? [id number] : ?1940 ?? Study Date: ?? 01/21/2023 9:18:40 AM Age: ?82 years ?? Tech: ? BVB Gender: M ?Referring MD: DOUG TAYLOR Site: [facility] Study performed: ?Lower extremity TBI, (bilateral). Indication [...] ?? Velocity cm/s Phasicity +-------+ + + CHICKEN CLEANER DST ? 103 ? monophasic +-------+ + + DPA ? 71 ? monophasic +-------+ + + +-------+ + + LEFT ?? Velocity cm/s Phasicity +-------+ + + CHICKEN CLEANER DST ? 45 ? monophasic +-------+ + [...] Accreditation Commission (IAC/Vascular), www.[email or web address]/vascular Report generated by [employer]. ??Final ?? Procedure Note Nehemiah Reynolds MD - 01/21/2023 VASCULAR ULTRASOUND REPORT CECILIO ROSA : 1940 Study Date: 01/21/2023 9:18:40 AM Age: 82 years Tech: BVB Gender: M Referring MD: DOUG TAYLOR Site: [facility] Study performed: Lower extremity TBI, (bilateral). Indication [...] RIGHT Velocity cm/s Phasicity +-------+ + + CHICKEN CLEANER DST 103 monophasic +-------+ + + DPA 71 monophasic +-------+ + + +-------+ + + LEFT Velocity cm/s Phasicity +-------+ + + CHICKEN CLEANER DST 45 monophasic +-------+ + + DPA [...] theIntersocietal Accreditation Commission (IAC/Vascular),[email or web address] Report generated by [employer]. Final Doug Taylor MD [place] * (ABNORMAL) URINE ALBUMIN TO CREATININE RATIO, RANDOM (01/18/2023 9:40 AM [employer]) ALB RAND URINE 63.3 mg/L 01/18/2023 6:24 PM [employer] [facility] CREATININE,URIN E 1.80 g/L 01/18/2023 6:24 PM [employer] [facility] ALBUMIN TO CREATININE RATIO,RAND UR 35.2(H) <30.0 mg/g creat 01/18/2023 6:24 PM [employer] [facility] Urine URINE SPECIMEN / Unknown Non-Blood / Unknown 01/18/2023 9:40 AM [employer] 01/18/2023 10:11 AM [employer] Narrative [facility] - 01/18/2023 6:24 PM [employer] If Albumin to Creatinine Ratio is elevated, consider the following: ? Elevations seen with incipient nephropathy associated ?? with diabetes mellitus or hypertension. Stress, exercise,hematuria, ?? and urinary tract infection may also produce elevated results. If clinically indicated, confirm with ?24 Hour Albumin to Creatinine Ratio. ?? Doug Taylor MD URINE [facility] [address] [place] [address], [place] * LIPID PANEL W REFLEX MEASURED LDL (01/08/2023 10:18 AM [employer]) CHOLESTEROL,TOTAL 119 100 - 199 mg/dL 01/08/2023 4:12 PM [employer] [facility] Comment: Cholesterol, Total Reference Ranges Desirable <200 mg/dL Borderline 200-239 mg/dL High >=240 mg/dL TRIGLYCERIDES 70 <150 mg/dL 01/08/2023 4:12 PM [employer] [facility] HDL CHOLESTEROL 70 >40 mg/dL 4:12 PM [employer] [facility] NON-HDL CHOLESTEROL 49 <145 mg/dl 01/08/2023 4:12 PM [employer] [facility] CHOL/HDL RATIO 1.70 <4.50 01/08/2023 4:12 PM [employer] [facility] LDL CHOLESTEROL 35 <=130 mg/dL 01/08/2023 4:12 PM [employer] [facility] VLDL CHOLESTEROL 14 <=30 mg/dL 01/08/2023 4:12 PM [employer] [facility] PROVIDER ORDERED STATUS RANDOM 01/08/2023 4:12 PM [employer] [facility] Blood BLOOD SPECIMEN / Unknown Venipuncture / Unknown 01/08/2023 10:18 AM [employer] 01/08/2023 10:23 AM [employer] Doug Taylor MD CHEMISTRY [facility] [address] [place] [id number], [place] * (ABNORMAL) PROTIME-INR (01/08/2023 10:18 AM [employer]) INR 1.8(H) <1.3 01/08/2023 3:22 PM [employer] [facility] PROTIME 19.8(H) 10.3 - 12.3 sec 01/08/2023 3:22 PM [employer] [facility] Blood BLOOD SPECIMEN / Unknown Venipuncture / Unknown 01/08/2023 10:18 AM [employer] 01/08/2023 10:23 AM [employer]PERVIS[employer] ACCOUNT[employer] [facility] - 01/08/2023 3:22 PM [employer] ?Therapeutic Range 2.0-3.0 for most anticoagulated patients [...] Doug Taylor MD HEMATOLOGY Performing Organization Address [facility] Co de Phone Number [facility] [address] [place] [address], * HEMOGLOBIN A1C MONITORING (POCT) (01/08/2023 10:18 AM [employer]PER[employer]OUNT[employer]) [facility] HEMOGLOBIN A1C MONITORING (POCT) 5.6 <=6.4 % 01/08/2023 10:41 AM [employer] [facility] Blood BLOOD SPECIMEN / Unknown Venipuncture / Unknown 01/08/2023 10:18 AM [employer] 01/08/2023 10:23 AM [employer] [facility] - 01/08/2023 10:41 AM [employer]PER[employer]OUNT[employer] ? (<=6.9%) ? Indicates good control ? (7.0% to 7.9%) ? Indicates fair control ? (>=8.0%) ? Indicates poor control ?? NOTE: ??These thresholds are guidelines and ?individual targets may vary. Falsely low levels may be seen with: Recent Transfusion, Recent Significant Blood Loss, Hemolytic Diseases, or Falsely elevated levels may be seen with: Untreated Anemias, Splenectomy ? Doug Taylor MD CHEMISTRY Performing Organization Address [facility] Co de Phone Number [facility] [place] [address], * (ABNORMAL) BASIC METABOLIC PANEL (01/08/2023 10:18 AM [employer]PER[employer]) SODIUM 137 136 - 145 mmol/L 01/08/2023 4:12 PM [facility] POTASSIUM 4.3 3.5 - 5.1 mmol/L 01/08/2023 4:12 PM [facility] CHLORIDE 105 98 - 107 mmol/L 01/08/2023 4:12 PM [facility] CO2,TOTAL 22 22 - 29 mmol/L 01/08/2023 4:12 PM [facility] ANION GAP 10 5 - 18 01/08/2023 4:12 PM [facility] GLUCOSE 139(H) 70 - 99 mg/dL 01/08/2023 4:12 PM [facility] CALCIUM 9.0 8.8 - 10.2 mg/dL 01/08/2023 4:12 PM [facility] BUN 24(H) 8 - 23 mg/dL 01/08/2023 4:12 PM [facility] CREATININE 1.61(H) 0.70 - 1.20 mg/dL 01/08/2023 4:12 PM [facility] BUN/CREAT RATIO 15 10 - 20 3 4:12 PM [facility] eGFR 42(L) >90 mL/min/1.7 3m2 01/08/2023 4:12 PM [facility] Comment:As of 2021, eG FR is calculated by the CKD-EPI creatinine equation without race adjustment. ??eGFR can be influenced by muscle mass, exercise, and diet. ??The reported eGFR is an estimation only and is only applicable if the renal function is stable. Blood BLOOD SPECIMEN / Unknown Venipuncture / Unknown 01/08/2023 10:18 AM [employer] 01/08/2023 10:23 AM [employer] Doug Taylor MD CHEMISTRY [facility] [address] [place] [address], from Last 3 Months Advance Directives Latest Code Status on File Code Status Date Activated Date Inactivated Comments Full Code 04/15/2019 1:26 PM 04/15/2019 4:48 PM Code Status History Code Status Date Activated Date Inactivated Comments Full Code 03/11/2016 7:17 PM 03/12/2016 7:38 PM Question Answer Comments Code Status Discussion: Discussed Care Teams Senior Java Engineer Relationship Specialty Start Date End Date Doug Taylor MD [address] [place] [address] PCP - General Family Practice 04/18/12
== END 2023-04-10 08:34 | disposition home or self-care (01) ==
LOC: WOUND 08:33
PROVIDERS: PCP Family Medicine; Visit Provider Family Medicine
DX: S81.012A Laceration without foreign body, left knee, initial encounter (principal); W19.XXXA Unspecified fall, initial encounter
CPT/HCPCS: 11042

== ENCOUNTER 2023-04-19 13:11 | Outpatient (CLI) | payer OTHER, SELFPAY | END 2023-04-19 13:12 | disposition home or self-care (01) | LOC: WOUND 13:11 | PROVIDERS: PCP Family Medicine; Visit Provider Physician Assistant | DX: S81.012A Laceration without foreign body, left knee, initial encounter (principal); W19.XXXA Unspecified fall, initial encounter | CPT/HCPCS: 11042 ==

== ENCOUNTER 2023-04-26 12:47 | Outpatient (CLI) | payer OTHER, SELFPAY | END 2023-04-26 12:48 | disposition home or self-care (01) | LOC: WOUND 12:47 | PROVIDERS: PCP Family Medicine; Visit Provider Nurse Practitioner Family | DX: S81.012A Laceration without foreign body, left knee, initial encounter (principal); W19.XXXA Unspecified fall, initial encounter | CPT/HCPCS: 11042 ==

== ENCOUNTER 2023-05-03 13:10 | Outpatient (CLI) | payer OTHER, SELFPAY | END 2023-05-03 13:11 | disposition home or self-care (01) | LOC: WOUND 13:10 | PROVIDERS: PCP Family Medicine; Visit Provider Nurse Practitioner Family | DX: S81.012A Laceration without foreign body, left knee, initial encounter (principal); W19.XXXA Unspecified fall, initial encounter | CPT/HCPCS: 11042 ==

== ENCOUNTER 2023-05-10 10:57 | Outpatient (CLI) | payer OTHER, SELFPAY | END 2023-05-10 10:58 | disposition home or self-care (01) | LOC: WOUND 10:57 | PROVIDERS: PCP Family Medicine; Visit Provider Nurse Practitioner Family | DX: S81.012A Laceration without foreign body, left knee, initial encounter (principal); W19.XXXA Unspecified fall, initial encounter | CPT/HCPCS: 11042 ==

== ENCOUNTER 2023-05-17 12:57 | Outpatient (CLI) | payer OTHER, SELFPAY | END 2023-05-17 12:58 | disposition home or self-care (01) | LOC: WOUND 12:57 | PROVIDERS: PCP Family Medicine; Visit Provider Nurse Practitioner Family | DX: S81.012A Laceration without foreign body, left knee, initial encounter (principal); W19.XXXA Unspecified fall, initial encounter | CPT/HCPCS: 11042 ==

== ENCOUNTER 2023-05-24 10:53 | Outpatient (CLI) | payer OTHER, SELFPAY | END 2023-05-24 10:54 | disposition home or self-care (01) | LOC: WOUND 10:53 | PROVIDERS: PCP Family Medicine; Visit Provider Family Medicine | DX: S81.012A Laceration without foreign body, left knee, initial encounter (principal); W19.XXXA Unspecified fall, initial encounter; L92.9 Granulomatous disorder of the skin and subcutaneous tissue, unspecified | CPT/HCPCS: 11042; 17250 ==

== ENCOUNTER 2023-05-31 12:57 | Outpatient (CLI) | payer OTHER, SELFPAY ==
--- OUTSIDE RECORDS SUMMARY | 2023-05-31 13:00 | XMS_ITS | Referral Summary ---
Author Name Unknown Organization [facility] Address [address] [place] [id number] Care Team Providers Care Leasing Sales Consultant Name Role Phone [facility], [facility] Primary Care Provider Allergies No known [...] PM CDT Pulse 55 03/23/2017 12:[address] [employer] Temperature 36 ??C (96.8 ??F) 08/13/2017 4:04 [...] on file Medical Devices Implanted Type Area Category Manager Device Identifier Shelf Expiration Date Model / Serial / Lot Imp [place] Arthrex Bio-Swivelock [id number] Implanted:Qty: 3 on 08/13/2017 by Dg Rose MD at [facility] Metallic Hardware/An chor Right: Shoulder ARTHREX 03/27/2019 AR-2324BCC -2 / / [id number] Imp [place] Arthrex Bio-Swivelock [id number] Implanted:Qty: 1 on 08/13/2017 by Dg Rose MD at [facility] Metallic Hardware/An chor Right: Shoulder ARTHREX 03/27/2019 AR-2324BCC -2 / / [id number] Imp Liner Acet S&N R3 Xlpe 40mm 20deg [id number] Implanted:Qty: 1 on 03/25/2017 by Lj Ornelas MD at [facility] Total Joint Component/I nsert Right: Hip PASCAL 04/24/2023 [id number] / / [id number] Imp Femoral Sleeve S&N Long Mod +8mm Neck Ti [id number] Implanted:Qty: 1 on 03/25/2017 by Lj Ornelas MD at [facility] Total Joint Component/I nsert Right: Hip PASCAL 03/03/2025 [id number] / / [id number] 60mm Od Three-Hole Hemispherical Coated Shell Implanted:Qty: 1 on 03/25/2017 by Lj Ornelas MD at [facility] Right: Hip 02/01/2026 [id number] / / [id number] 30mm Acetabular [place] Cancellous Screw, 6.5mm Diameter Implanted:Qty: 1 on 03/25/2017 by Lj Ornelas MD at [facility] Right: Hip 10/17/2025 [id number] / / [id number] Size 17, High Offset, Synergy Porous Femoral Component Implanted:Qty: 1 on 03/25/2017 by Lj Ornelas MD at [facility] Right: Hip 03/14/2025 [id number] / / [id number] 40mm Modular Femoral Head Implanted:Qty: 1 on 03/25/2017 by Lj Ornelas MD at [facility] Right: Hip 12/02/2026 [id number] / / [id number] Advance Directives For more information, please contact: [phone] Latest Code Status on File Code Status Date Activated Date Inactivated Comments Full Code 03/28/2017 2:36 PM Code Status History Code Status Date Activated Date Inactivated Comments Full Code 03/23/2017 5:42 PM 03/27/2017 12:01 AM Care Teams Leasing Sales Consultant Relationship Specialty Start Date End Date Clinic, [facility] [address] [place] [address] [phone] PCP - General 03/23/17
--- OUTSIDE RECORDS SUMMARY | 2023-05-31 13:00 | XMS_ITS | Clinical Summary ---
Author Name Unknown Organization [employer] [facility] [employer] [facility] Address [place], [place] [address] Care Team Providers Care Diesel Pile Hammer Operator Name Role Phone Doug Taylor MD Primary Care Provider Allergies Active Allergy Reactions Criticality Noted Date Comments Amlodipine Edema 07/27/2019 On 5 mg Medications Medication Sig Dispensed Refills Start Date End Date Status polyethylene glycol-electrolyte (GOLYTELY) 236-22.74-6.74 -5.86 gram suspensionIndicatio ns:Encounter for screening colonoscopy Drink 3 quarts the day before procedure and drink 1 quart 6 hours before procedure 4000 mL 1 Active cholecalciferol (VITAMIN D3) 1,000 unit [...] II - Test 1 time/day 1 Each 3 Active Walker - 4 wheelsIndications:G ait instability For home use. Length of need: 99 1 Each 3 Active Diabetic ShoeIndications:Makenzie betic peripheral neuropathy [...] of need: 99. With seat. 1 Each 3 Active gabapentin (NEURONTIN) 100 mg capsuleIndications: Peripheral sensory neuropathy Take 1 Capsule (100 mg) by mouth three times daily. 270 Capsule 3 3 Active DropSafe Alcohol Prep PadsIndications:Makenzie betes mellitus without complication (HC) USE DIRECTED 300 Each 3 3 Active honey (Manuka Honey) 100 % gelIndications:Diab etic ulcer of toe associated with type 2 diabetes mellitus, unspecified laterality, unspecified ulcer stage (HC) Apply topically to affected area(s) once daily. 15 mL 1 4 Active sotaloL (BETAPACE) 80 mg tabletIndications:A trial fibrillation, unspecified type (HC) Take 1 Tablet (80 mg) by mouth every 24 hours. 90 Tablet 4 Active warfarin (COUMADIN) 2.5 mg tabletIndications:P aroxysmal atrial fibrillation (HC),Anticoagulatio n monitoring, INR range 2-3,TIA (transient ischemic attack) TAKE 1 TABLET (2.5MG) EVERY MON, WED, FRI AND TAKE 1/2 TABLET (1.25MG) ALL OTHER DAYS IN THE EVENING OR DIRECTED 65 Tablet 1 4 Active tamsulosin (FLOMAX) 0.4 mg capsuleIndications: Frequent urination TAKE 1 CAPSULE (0.4 MG) BY MOUTH ONCE DAILY AFTER A MEAL. 90 Capsule 2 4 Active TRUEplus Lancets 33 gauge miscIndications:Typ e 2 diabetes mellitus with diabetic neuropathy, without long-term current use of insulin (HC) TEST BLOOD SUGAR ONE TIME DAILY 100 Each 3 4 Active blood sugar diagnostic (True Metrix Glucose Test Strip) stripIndications:Ty pe 2 diabetes mellitus with diabetic neuropathy, without long-term current use of insulin (HC) TEST BLOOD SUGAR ONE TIME DAILY 100 Each 3 4 Active tamsulosin (FLOMAX) 0.4 mg capsuleIndications: Frequent urination Take 1 Capsule (0.4 mg) by mouth once daily after a meal. 90 Capsule 3 3 05/04/19 24 Discontinued blood sugar diagnostic (Blood Glucose Test) stripIndications:Ty pe 2 diabetes mellitus with diabetic neuropathy, without long-term current use of insulin (HC) Test one time per day. 100 Each 3 3 05/11/19 24 Discontinued warfarin (COUMADIN) 2.5 mg tabletIndications:P aroxysmal atrial fibrillation (HC),Anticoagulatio n monitoring, INR range 2-3,TIA (transient ischemic attack) Take by mouth 2.5 mg (2.5 mg x 1) every Mon, Wed, Fri; 1.25 mg (2.5 mg x 0.5) all other days in the evening OR as directed 65 Tablet 3 05/04/19 24 Discontinued Active Problems Problem Noted Date Diagnosed [...] minutes of numbness affecting his right arm- [facility] [place] MRI and MRA showed no new acute [...] range 2-3 12/24/2013 10/13/2020 Diabetic neuropathy 10/09/2012 01/15/20 17 Acute thromboembolism of john p veins of both lower extremities 06/04/2006 03/11/2016 Type 2 diabetes mellitus wit h diabetic neuropathy, without long-term current use of insulin 05/14/2017 Encounters Date Type Department Care Team Description 05/10/2023 Refill [facility] [address] [facility] [place] [address] Doug Taylor MD Refill Request (Trueplus Lancets, True Metrix Glucose Test Strip) 05/08/2023 2:15 PM CDT Orders Only [facility] [address] [facility] [place] [address] Lab[facility] [place] [facility] 05/08/2023 Anticoagulation (warfarin) [facility] [address] [place] [address] 1, [facility] Anticoagulation 05/08/2023 Travel 05/03/2023 Refill [facility] [address] [place] [address] Doug Taylor MD Refill Request (Warfarin, Tamsulosin) 04/24/2023 2:40 PM PLANT ECOLOGIST Office Visit [facility] [address] [facility] [place] [address] Rupert Moore MD Follow Up (Leg weakness) 04/24/2023 Travel 04/08/2023 1:30 PM PLANT ECOLOGIST Orders Only [facility] [address] [place] [address] Lab[facility] [place] [facility] 04/08/2023 Anticoagulation (warfarin) [facility] [address] [place] [address] 1, [place] Anticoagulation 04/08/2023 Travel 04/04/2023 12:30 PM PLANT ECOLOGIST Ancillary Procedure [address] [address] 04/04/2023 11:45 AM PLANT ECOLOGIST Ancillary Procedure [facility] [address] [place] [address] 04/04/2023 10:00 AM PLANT ECOLOGIST Office Visit [facility] [address] [place] [address] Kuldip Briones MD Follow Up (Peripheral arterial disease); Fall (2 weeks ago hurt left side ) 04/04/2023 Travel 04/02/2023 Refill [facility] [address] [facility] [place] [address] Doug Taylor MD Refill Request (SOTALOL 80MG TAB) 04/01/2023 10:00 AM PLANT ECOLOGIST Orders Only [address] [place] [address] 2 scans: (2-Ord) US ARTERIAL LOWER EXTREMITY W BRITTNI BILATERAL ([id number]) 04/01/2023 Travel 03/22/[address] [address] Doug Taylor MD Follow Up 03/18/2023 3:15 PM PLANT ECOLOGIST Ancillary Procedure [address] [address] 03/18/2023 3:00 PM PLANT ECOLOGIST Ancillary Procedure [address] [address] 03/18/2023 1:40 PM PLANT ECOLOGIST Office Visit [address] [address] Doug Taylor MD Fall (03/16/23, whole body hurts, knees, forehead, left arm) 03/18/2023 Travel 03/18/[address] [address] Doug Taylor MD Appointment Request (TODAY 03/18/23/FALL) 03/09/2023 Anticoagulation (warfarin) [address] [address] 1, [facility] Anticoagulation 03/08/2023 2:30 PM PLANT ECOLOGIST Orders Only [address] [address] Lab, [place] [facility] 03/08/2023 Nurse Triage [facility] [address] [facility] [place] [address] Doug Taylor MD Arm Pain/problem (L inner elbow and forearm swelling) 03/08/2023 Travel 03/06/2023 3:00 PM PLANT ECOLOGIST Office Visit [facility] [address] [place] [address] Seven Briones, DPM Consult (Bilateral toe ulcer) 03/06/2023 Travel from Last 3 Months Immunizations Name Administration Dates Next Due AMB INFLUENZA IIV3 (AGE 65+ YRS) PF (Flu Clinic Only) 01/01/2018 Amb Influenza, Inactivated A IIV4 (Age 65+ Years) Preserv Free 11/30/2019 COVID-19 vaccine ([employer] 30mcg/0.3mL) 12YO+ BIVALENT PF, MDV 06/28/2022,12/27/2021 [...] Sign Reading Time Taken Comments Blood Pressure 140/100 04/24/2023 2:52 PM PLANT ECOLOGIST Pulse 61 04/24/2023 2:52 PM PLANT ECOLOGIST Temperature 36.3 ??C (97.4 ??F) 03/06/2023 3:54 PM CS T Respiratory Rate 16 05/25/2021 2:10 PM CDT Oxygen Saturation 100% 04/24/2023 2:52 PM PLANT ECOLOGIST Inhaled Oxygen Concentration - - Weight 108.9 kg (240 lb) 01/26/2021 11:29 AM PLANT ECOLOGIST Height 188 cm (6' 2) 01/26/2021 11:29 AM PLANT ECOLOGIST Body Mass Index 30.81 01/26/2021 11:29 AM PLANT ECOLOGIST Plan of Treatment Upcoming Encounters Date Type Department Care Team (Late st Contact Info) Description 06/14/2023 10:30 AM CDT Orders Only [facility] [address] [place] [address] [place] 07/24/2023 10:30 AM CDT Office Visit [facility] [address] [facility] [address] Doug Taylor MD [address] [place] [address] Health Maintenance Due Date Last Done Comments BMI (ht and wt on same day) for age 18+ 01/26/2022 01/26/2021, 12/06/2020, 12/29/2019, Additional history exists COVID-19 vaccine series ( season) 2023 11/21/2022, 06/28/2022, 12/27/2021, Additional history exists Influenza for age 65+ 10/27/2023 11/21/2022 , 12/27/2021, 11/24/2020, Additional history exists Medicare Wellness for age 65+ 01/19/2024 01/18/2023, 12/27/2021 Depression screening for age 12+ 01/23/2024 01/22/2023, 01/21/2023, 01/18/2023, Additional history exists Tetanus booster 04/11/2032 04/11/2022, 01/26, 11/29/2005, Additional history exists Tdap Completed 04/11/2022, 02/20/2011 Pneumococcal series for age 65+ Completed 06/28/2022, 03/15/2016, 09/17/2014, Additional history exists Zoster (shingles) series for age 50+ Completed 07/20/2022, 04/11/2022, 01/05/2009, Additional history exists Procedures Procedure Name Priority Date/Time Associated Diagnosis Comments INR,POCT Routine 05/08/2023 2:25 PM CDT Paroxysmal atrial fibrillation (HC) Anticoagulation monitoring, INR range 2-3 INR,POCT Routine 04/08/2023 1:40 PM PLANT ECOLOGIST Paroxysmal atrial fibrillation (HC) Anticoagulation monitoring, INR range 2-3 MR SPINE LUMBAR WO Routine 04/04/2023 12 :45 PM PLANT ECOLOGIST Weakness of lower extremity, unspecified laterality MR HEAD BRAIN WO Routine 04/04/2023 12:2 2 PM PLANT ECOLOGIST Weakness of lower extremity, unspecified laterality US ARTERIAL LOWER EXTREMITY W BRITTNI BILATERAL Routine 04/01/2023 1:23 PM PLANT ECOLOGIST Peripheral arterial disease (HC) XR KNEE 3 VIEWS LEFT Routine 03/18/2023 3:13 PM PLANT ECOLOGIST Acute pain of left knee XR WRIST 3 VIEWS LEFT Routine 03/18/2023 3:04 PM PLANT ECOLOGIST Left wrist pain INR,POCT Routine 03/08/2023 2:45 PM PLANT ECOLOGIST Paroxysmal atrial fibrillation (HC) Anticoagulation monitoring, INR range 2-3 from Last 3 Months Results * (ABNORMAL) INR,POCT (05/08/2023 2:25 PM CDT) Only the most recent of3 resultswithin the time period is included. INR 2.3(H) <1.3 05/08/2023 2:28 PM CDT [facility] Blood BLOOD SPECIMEN / Unknown 05/08/2023 2:25 PM CDT 05/08/2023 2:28 PM CDT Narrative [facility] - 05/08/2023 2:28 PM CDT ?Therapeutic Range 2.0-3.0 for most anticoagulated patients 2.5-3.5 or 4.0 for high risk patients Doug Taylor MD LABORATORY [facility] [address] [place] [address], * MR SPINE LUMBAR WO (04/04/2023 12:45 PM PLANT ECOLOGIST) Anatomical Region Laterality Modality Spine, LUMBAR SPINE Magnetic Res onance 04/04/2023 1:07 PM PLANT ECOLOGIST Narrative 04/04/2023 1:07 PM PLANT ECOLOGIST For Patients: ??As a result of the [...] MR HEAD BRAIN WO (04/04/2023 12:22 PM PLANT ECOLOGIST) Anatomical Region Laterality Modality BRAIN, HEAD Magnetic Resonan ce 04/04/2023 12:3 2 PM PLANT ECOLOGIST Impressions 04/04/2023 12:32 PM PLANT ECOLOGIST 1. No acute intracranial abnormality. 2. Similar moderate diffuse parenchymal volume loss and mild small vessel ischemic changes. 3. 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 Dictated by Joesph Babin MD @ 04/04/2023 12:32:06 PM (Electronically Signed) Narrative 04/04/2023 12:32 PM PLANT ECOLOGIST For Patients: ??As a result of the [...] EXTREMITY W BRITTNI BILATERAL (04/01/2023 1:23 PM PLANT ECOLOGIST) Anatomical Region Laterality Modality LEGS Ultrasound 04/01/2023 9:48 AM PLANT ECOLOGIST Narrative 04/01/2023 2:57 PM PLANT ECOLOGIST VASCULAR ULTRASOUND REPORT CECILIO ROSA Accession#: ?? [id number] : ?1940 ?? Study Date: ?? 04/01/2023 9:48:12 AM Age: ?82 years ?? Tech: ? TLW Gender: M ?Referring MD: JUAN DAVILA Site: [facility] Study performed: ?Lower extremity duplex US, TBI, [...] cm/s Phasicity ?? + + + + SERVICE DELIVERY DIRECTOR PRX ? 64 ? monophasic + + + + SERVICE DELIVERY DIRECTOR DST ? 48 ? multiphasic + + [...] 30 ? multiphasic + + + + WORKFORCE SPECIALIST DST ? 62 ? multiphasic + + + + DPA ? 60 ? monophasic + + + + + + + + +--------+-----+ LEFT ? Velocity cm/s PRE ? Phasicity ?? Stenosis Ratio ? Velocity cm/s ? Phasicity ? + + + + +--------+-----+ SERVICE DELIVERY DIRECTOR PRX ? 51 ? multiphasic ? + + + + +--------+-----+ SERVICE DELIVERY DIRECTOR DST ? 47 ? multiphasic ? + [...] multiphasic ? + + + + +--------+-----+ WORKFORCE SPECIALIST DST ? 47 ? monophasic ? + [...] 0.43 +-----+ +--------+ +-----+ Reinaldo Limon MD. [employer] Electronically signed on 04/01/2023 2:57:53 PM This study was performed and interpreted by a service accredited by the Intersocietal Accreditation Commission (IAC/Vascular), [email or web address].org/vascular Report generated by [employer]. ??Final ?? Procedure Note Reinaldo Limon MD - 04/01/2023 VASCULAR ULTRASOUND REPORT CECILIO ROSA : 1940 Study Date: 04/01/2023 9:48:12 AM Age: 82 years Tech: TLW Gender: M Referring MD: JUAN DAVILA Site: [facility] Study performed: Lower extremity duplex US, TBI, [...] Velocity cm/s Phasicity + + + + SERVICE DELIVERY DIRECTOR PRX 64 monophasic + + + + SERVICE DELIVERY DIRECTOR DST 48 multiphasic + + + + [...] DST 30 multiphasic + + + + WORKFORCE SPECIALIST DST 62 multiphasic + + + + DPA 60 monophasic + + + + + + + + +--------+-----+ LEFT Velocity cm/s PRE Phasicity Stenosis Ratio Velocity cm/s Phasicity + + + + +--------+-----+ SERVICE DELIVERY DIRECTOR PRX 51 multiphasic + + + + +--------+-----+ SERVICE DELIVERY DIRECTOR DST 47 multiphasic + + + + [...] 31 multiphasic + + + + +--------+-----+ WORKFORCE SPECIALIST DST 47 monophasic + + + + [...] theIntersocietal Accreditation Commission (IAC/Vascular),[email or web address]/vascular Report generated by [employer]. Final Juan Davila NP US * XR KNEE 3 VIEWS LEFT (03/18/2023 3:13 PM PLANT ECOLOGIST) Anatomical Region Laterality Modality KNEES, KNEE L Computed Radiogr aphy 03/18/2023 3:30 PM PLANT ECOLOGIST Narrative 03/18/2023 3:30 PM PLANT ECOLOGIST For Patients: ??As a result of the [...] WRIST 3 VIEWS LEFT (03/18/2023 3:04 PM PLANT ECOLOGIST) Anatomical Region Laterality Modality WRISTS, WRIST L Computed Radiogr aphy 03/18/2023 3:28 PM PLANT ECOLOGIST Narrative 03/18/2023 3:28 PM PLANT ECOLOGIST For Patients: ??As a result of the [...] Mar 18 2023 3:28PM (Electronically Signed) Doug SOLIZIN Nicky from Last 3 Months Advance Directives * Full Code (Latest Code Status on File) Date Activated Date Inactivated Comments 04/15/2019 1:26 PM 04/15/2019 4:48 PM * Full Code Date Activated Date Inactivated Comments 03/11/2016 7:17 PM 03/12/2016 7:38 PM Question Answer Comments Code Status Discussion: Discussed Care Teams Diesel Pile Hammer Operator Relationship Specialty Start Date End Date Doug Taylor MD [address] [place] [address] PCP - General Family Practice 04/18/12
--- OUTSIDE RECORDS SUMMARY | 2023-05-31 13:00 | XMS_ITS | Data Portability ---
Author Name Unknown Address [address] [place] [address] Phone [phone] Organization [facility], [facility] Address [address] [place] [address] Care Team Providers Care Stove Refinisher Name Role Phone DOUG TAYLOR Primary Care [...] 023 [email or web address] [facility], [address], [place], [address], 3 15:07:41 urinalys is, dipstick 2022 023 [email or web address] [facility], [address], [place], [address], 3 14:44:37 urinalys is, dipstick 2022 023 [email or web address] [facility], [address], [place], [address], 3 13:13:22 urinalys is, dipstick 2021 022 [email or web address] Not available 13:23:29 urinalys is, dipstick 2021 022 lzais Not available 2 12:39:20 urinalys is, dipstick 2021 022 [email or web address] Not available 2 13:01:34 urinalys is, dipstick 2021 022 lzais Not available 2 12:38:57 urinalys is, dipstick 2021 022 [email or web address] Not available 13:00:18 urinalys is, dipstick 2021 022 [email or web address] Not available 14:50:42 culture, urine 2021 022 [facility], [address], [place], [address], 11:27:28 urinalys is, dipstick 2021 [email or web address] Not available 13:20:30 Referral None recorded . Procedures None recorded . Surgeries None recorded . Imaging None recorded . Medication Orders Reeds BCG 50 mg intraves ical suspensi on 2021 [id number], [address] [place], [place], [phone], 3 13:09:52 Nilda BCG 50 mg intraves ical suspensi on 2021 022 [facility], [address] [place], [place], [id number], 3 13:09:52 Reeds BCG 50 mg intraves ical suspensi on 2021 022 [facility], [address] [place], [place], [phone], 3 13:09:52 Reeds BCG 50 mg intraves ical suspensi on 2021 022 [facility], [address] [place], [place], [id number], 3 13:09:52 Nilda BCG 50 mg intraves ical suspensi on 2021 [facility], [address] [place], [place], [phone], 3 13:09:52 Bactrim DS 800 mg-160 mg tablet 2021 [id number], [address] [place], [place], [id number], 3 13:09:32 Nilda BCG 50 mg intraves ical suspensi on 2021 022 [email or web address] Not available 13:09:52 Patient TargetsNo targets recorded. Patient Instructions Encounter Date Encounter Id Patient Instructions Last Modified By Organization Details Last Modified Time 06/15/2021 [id number] Will f/u once urine culture results. Take Bactrim as prescribed and notified to call triage with any questions/concer ns. [email or web address] Not available 06/15/2021 15:16:16 06/08/2021 [id number] BCG instructions reviewed with patient and . Information provided. Direct triage line provided for any questions/concer ns. [email or web address] Not available 06/08/2021 13:21:42 Reason for Referral None Reported. Results Created Date Observation Date Name Description Value Unit Range Abnormal Flag LastModifiedBy Organization Detail LastModifiedTime 06/09/1906/08/2021 urina lysis , dipst ick Color-Status Yellow Not Available [facility] [address], [place], [address], 06/08/2021 13:18:58 06/09/19 22 06/08/2021 urina lysis , dipst ick Clarity-Stat us Clear Not Available [facility] [address], [place], [address], 06/08/2021 13:18:58 06/09/19 22 06/08/2021 urina lysis , dipst ick pH-Status 6.5 Not Available [facility] [address], [place], [address], 06/08/2021 13:18:58 06/09/19 22 06/08/2021 urina lysis , dipst ick Protein-Stat us >=9.0 Not Available [facility] [address], [place], [address], 06/08/2021 13:18:58 06/09/19 22 06/08/2021 urina lysis , dipst ick Urobilinogen -Status 2.0 Not Available [facility] [address], [place], [address], 06/08/2021 13:18:58 06/09/19 22 06/08/2021 urina lysis , dipst ick Nitrates-Sta tus negati ve Not Available [facility] [address], [place], [address], 06/08/2021 13:18:58 06/09/19 22 06/08/2021 urina lysis , dipst ick Blood-Status Trace Not Available [facility] [address], [place], [address], 06/08/2021 13:18:58 06/09/19 22 06/08/2021 urina lysis , dipst ick Leuko-Status Trace Not Available [facility] [address], [place], [address], 06/08/2021 13:18:58 06/09/19 22 06/08/2021 urina lysis , dipst ick Specimen Type Voided Not Available [facility] [address], [place], [address], 06/08/2021 13:18:58 06/09/19 22 06/08/2021 urina lysis , dipst ick Performed by Raquel BRANTLEY Not Available [facility] [address], [place], [address], 06/08/2021 13:18:58 06/09/19 22 06/08/2021 urina lysis , dipst ick Total Urine Volume 20cc Not Available [facility] [address], [place], [address], 06/08/2021 13:18:58 06/16/19 22 06/15/2021 URINE CULTU RE final report microb iology result s abnormal Not Available [facility] [address], [place], [address], 06/17/2021 11:27:28 06/16/19 22 06/15/2021 urina lysis , dipst ick Color-Status Yellow Not Available [facility] [address], [place], [address], 06/15/2021 14:49:06 06/16/19 22 06/15/2021 urina lysis , dipst ick Clarity-Stat us Cloudy Not Available [facility] [address], [place], [address], 06/15/2021 14:49:06 06/16/19 22 06/15/2021 urina lysis , dipst ick pH-Status 6.0 Not Available [facility] [address], [place], [address], 06/15/2021 14:49:06 06/16/19 22 06/15/2021 urina lysis , dipst ick Protein-Stat us >=9.0 Not Available [facility] [address], [place], [address], 06/15/2021 14:49:06 06/16/19 22 06/15/2021 urina lysis , dipst ick Nitrates-Sta tus positi ve Not Available [facility] [address], [place], [address], 06/15/2021 14:49:06 06/16/19 22 06/15/2021 urina lysis , dipst ick Blood-Status Modera te Not Available [facility] [address], [place], [address], 06/15/2021 14:49:06 06/16/19 22 06/15/2021 urina lysis , dipst ick Leuko-Status Large Not Available [facility] [address], [place], [address], 06/15/2021 14:49:06 06/16/19 22 06/15/2021 urina lysis , dipst ick Specimen Type Voided Not Available [facility] [address], [place], [address], 06/15/2021 14:49:06 06/16/19 22 06/15/2021 urina lysis , dipst ick Performed by Raquel BRANTLEY Not Available [facility] [address], [place], [address], 06/15/2021 14:49:06 06/16/19 22 06/15/2021 urina lysis , dipst ick Total Urine Volume 20cc Not Available [facility] [address], [place], [address], 06/15/2021 14:49:06 06/23/19 22 06/22/2021 urina lysis , dipst ick Color-Status Dark Yellow Not Available [facility] [address], [place], [address], 06/22/2021 12:59:06 06/23/19 22 06/22/2021 urina lysis , dipst ick Bilirubin-St atus Small Not Available [facility] [address], [place], [address], 06/22/2021 12:59:06 06/23/19 22 06/22/2021 urina lysis , dipst ick Nitrates-Sta tus negati ve Not Available [facility] [address], [place], [address], 06/22/2021 12:59:06 06/23/19 22 06/22/2021 urina lysis , dipst ick Blood-Status Trace Not Available [facility] [address], [place], [address], 06/22/2021 12:59:06 06/23/19 22 06/22/2021 urina lysis , dipst ick Leuko-Status Negati ve Not Available [facility] [address], [place], [address], 06/22/2021 12:59:06 06/23/19 22 06/22/2021 urina lysis , dipst ick Specimen Type Voided Not Available [facility] [address], [place], [address], 06/22/2021 12:59:06 06/23/19 22 06/22/2021 urina lysis , dipst ick Performed by ARELIS RN Not Available [facility] [address], [place], [address], 06/22/2021 12:59:06 06/23/19 22 06/22/2021 urina lysis , dipst ick Total Urine Volume 30cc Not Available [facility] [address], [place], [address], 06/22/2021 12:59:06 06/30/19 22 06/29/2021 urina lysis , dipst ick Color-Status Dark Yellow Not Available [facility] [address], [place], [address], 06/29/2021 12:37:33 06/30/19 22 06/29/2021 urina lysis , dipst ick Clarity-Stat us Clear Not Available [facility] [address], [place], [address], 06/29/2021 12:37:33 06/30/19 22 06/29/2021 urina lysis , dipst ick Nitrates-Sta tus negati ve Not Available [facility] [address], [place], [address], 06/29/2021 12:37:33 06/30/19 22 06/29/2021 urina lysis , dipst ick Blood-Status Trace Not Available [facility] [address], [place], [address], 06/29/2021 12:37:33 06/30/19 22 06/29/2021 urina lysis , dipst ick Leuko-Status Trace Not Available [facility] [address], [place], [address], 06/29/2021 12:37:33 06/30/19 22 06/29/2021 urina lysis , dipst ick Specimen Type Voided Not Available [facility] [address], [place], [address], 06/29/2021 12:37:33 06/30/19 22 06/29/2021 urina lysis , dipst ick Performed by ARELIS RN Not Available [facility] [address], [place], [address], 06/29/2021 12:37:33 06/30/19 22 06/29/2021 urina lysis , dipst ick Total Urine Volume 35cc Not Available [facility] [address], [place], [address], 06/29/2021 12:37:33 07/07/19 22 07/06/2021 urina lysis , dipst ick Color-Status Dark Yellow Not Available [facility] [address], [place], [address], 07/06/2021 13:00:14 07/07/19 22 07/06/2021 urina lysis , dipst ick Clarity-Stat us Clear Not Available [facility] [address], [place], [address], 07/06/2021 13:00:14 07/07/19 22 07/06/2021 urina lysis , dipst ick Nitrates-Sta tus negati ve Not Available [facility] [address], [place], [address], 07/06/2021 13:00:14 07/07/19 22 07/06/2021 urina lysis , dipst ick Blood-Status Negati ve Not Available [facility] [address], [place], [address], 07/06/2021 13:00:14 07/07/19 22 07/06/2021 urina lysis , dipst ick Leuko-Status Small Not Available [facility] [address], [place], [address], 07/06/2021 13:00:14 07/07/19 22 07/06/2021 urina lysis , dipst ick Specimen Type Cathet erized Not Available [facility] [address], [place], [address], 07/06/2021 13:00:14 07/07/19 22 07/06/2021 urina lysis , dipst ick Performed by ARELIS RN Not Available [facility] [address], [place], [address], 07/06/2021 13:00:14 07/07/19 22 07/06/2021 urina lysis , dipst ick Total Urine Volume 125cc Not Available [facility] [address], [place], [address], 07/06/2021 13:00:14 07/14/19 22 07/13/2021 urina lysis , dipst ick Color-Status Yellow Not Available [facility] [address], [place], [address], 07/13/2021 12:37:03 07/14/19 22 07/13/2021 urina lysis , dipst ick Clarity-Stat us Clear Not Available [facility] [address], [place], [address], 07/13/2021 12:37:03 07/14/19 22 07/13/2021 urina lysis , dipst ick Glucose-Stat us Negati ve Not Available [facility] [address], [place], [address], 07/13/2021 12:37:03 07/14/19 22 07/13/2021 urina lysis , dipst ick Bilirubin-St atus Negati ve Not Available [facility] [address], [place], [address], 07/13/2021 12:37:03 07/14/19 22 07/13/2021 urina lysis , dipst ick Ketones-Stat us Negati ve Not Available [facility] [address], [place], [address], 07/13/2021 12:37:03 07/14/19 22 07/13/2021 urina lysis , dipst ick Nitrates-Sta tus negati ve Not Available [facility] [address], [place], [address], 07/13/2021 12:37:03 07/14/19 22 07/13/2021 urina lysis , dipst ick Blood-Status Negati ve Not Available [facility] [address], [place], [address], 07/13/2021 12:37:03 07/14/19 22 07/13/2021 urina lysis , dipst ick Leuko-Status Negati ve Not Available [facility] [address], [place], [address], 07/13/2021 12:37:03 07/14/19 22 07/13/2021 urina lysis , dipst ick Specimen Type Voided Not Available [facility] [address], [place], [address], 07/13/2021 12:37:03 07/14/19 22 07/13/2021 urina lysis , dipst ick Performed by ARELIS RN Not Available [facility] [address], [place], [address], 07/13/2021 12:37:03 07/14/19 22 07/13/2021 urina lysis , dipst ick Total Urine Volume 45cc Not Available [facility] [address], [place], [address], 07/13/2021 12:37:03 07/21/19 22 07/20/2021 urina lysis , dipst ick Color-Status Yellow Not Available [facility] [address], [place], [address], 07/20/2021 13:22:03 07/21/19 22 07/20/2021 urina lysis , dipst ick Clarity-Stat us Clear Not Available [facility] [address], [place], [address], 07/20/2021 13:22:03 07/21/19 22 07/20/2021 urina lysis , dipst ick Nitrates-Sta tus negati ve Not Available [facility] [address], [place], [address], 07/20/2021 13:22:03 07/21/19 22 07/20/2021 urina lysis , dipst ick Blood-Status Negati ve Not Available [facility] [address], [place], [address], 07/20/2021 13:22:03 07/21/19 22 07/20/2021 urina lysis , dipst ick Leuko-Status Small Not Available [facility] [address], [place], [address], 07/20/2021 13:22:03 07/21/19 22 07/20/2021 urina lysis , dipst ick Specimen Type Voided Not Available [facility] [address], [place], [address], 07/20/2021 13:22:03 07/21/19 22 07/20/2021 urina lysis , dipst ick Performed by ARELIS BRANTLEY Not Available [facility] [address], [place], [address], 07/20/2021 13:22:03 07/21/19 22 07/20/2021 urina lysis , dipst ick Total Urine Volume 45cc Not Available [facility] [address], [place], [address], 07/20/2021 13:22:03 03/29/19 23 03/29/2022 urina lysis , dipst ick Color-Status Yellow Not Available [facility] [address], [place], [address], 03/29/2022 13:12:16 03/29/19 23 03/29/2022 urina lysis , dipst ick Clarity-Stat us Clear Not Available [facility] [address], [place], [address], 03/29/2022 13:12:16 03/29/19 23 03/29/2022 urina lysis , dipst ick Glucose-Stat us Negati ve Not Available [facility] [address], [place], [address], 03/29/2022 13:12:16 03/29/19 23 03/29/2022 urina lysis , dipst ick Bilirubin-St atus Negati ve Not Available [facility] [address], [place], [address], 03/29/2022 13:12:16 03/29/19 23 03/29/2022 urina lysis , dipst ick Ketones-Stat us Negati ve Not Available [facility] [address], [place], [address], 03/29/2022 13:12:16 03/29/19 23 03/29/2022 urina lysis , dipst ick Nitrates-Sta tus negati ve Not Available [facility] [address], [place], [address], 03/29/2022 13:12:16 03/29/19 23 03/29/2022 urina lysis , dipst ick Blood-Status Trace Not Available [facility] [address], [place], [address], 03/29/2022 13:12:16 03/29/19 23 03/29/2022 urina lysis , dipst ick Leuko-Status Negati ve Not Available [facility] [address], [place], [address], 03/29/2022 13:12:16 07/20/19 23 07/19/2022 urina lysis , dipst ick Color-Status Straw Not Available [facility] [address], [place], [address], 07/19/2022 14:43:03 07/20/1907/19/2022 urina lysis , dipst ick Clarity-Stat us Cloudy Not Available [facility] [address], [place], [address], 07/19/2022 14:43:03 07/20/19 23 07/19/2022 urina lysis , dipst ick Glucose-Stat us Negati ve Not Available [facility] [address], [place], [address], 07/19/2022 14:43:03 07/20/19 23 07/19/2022 urina lysis , dipst ick Bilirubin-St atus Small Not Available [facility] [address], [place], [address], 07/19/2022 14:43:03 07/20/19 23 07/19/2022 urina lysis , dipst ick Ketones-Stat us Negati ve Not Available [facility] [address], [place], [address], 07/19/2022 14:43:03 07/20/19 23 07/19/2022 urina lysis , dipst ick Urobilinogen -Status 4.0 Not Available [facility] [address], [place], [address], 07/19/2022 14:43:03 07/20/19 23 07/19/2022 urina lysis , dipst ick Nitrates-Sta tus negati ve Not Available [facility] [address], [place], [address], 07/19/2022 14:43:03 07/20/19 23 07/19/2022 urina lysis , dipst ick Blood-Status Modera te Not Available [facility] [address], [place], [address], 07/19/2022 14:43:03 07/20/19 23 07/19/2022 urina lysis , dipst ick Leuko-Status Large Not Available [facility] [address], [place], [address], 07/19/2022 14:43:03 01/04/20 23 01/03/2023 urina lysis , dipst ick pH-Status 6.5 Not Available [facility] [address], [place], [address], 01/03/2023 15:06:56 01/04/2001/03/2023 urina lysis , dipst ick Protein-Stat us >=9.0 Not Available [facility] [address], [place], [address], 01/03/2023 15:06:56 01/04/2001/03/2023 urina lysis , dipst ick Urobilinogen -Status 4.0 Not Available [facility] [address], [place], [address], 01/03/2023 15:06:56 01/04/20 23 01/03/2023 urina lysis , dipst ick Nitrates-Sta tus negati ve Not Available [facility] [address], [place], [address], 01/03/2023 15:06:56 01/04/20 23 01/03/2023 urina lysis , dipst ick Blood-Status Trace Not Available [facility] [address], [place], [address], 01/03/2023 15:06:56 01/04/20 23 01/03/2023 urina lysis , dipst ick Leuko-Status Negati ve Not Available [facility] [address], [place], [address], 01/03/2023 15:06:56 01/04/20 23 01/03/2023 urina lysis , dipst ick Specimen Type Voided Not Available [facility] [address], [place], [address], 01/03/2023 15:06:56 Result Notes None recorded. Problems Name Status Onset Date Resolution Date Notes Provider Name and Address Organization Details Recorded Time Malignant tumor of urinary bladder Active 2 Raquel Esquivel null, [facility] 06/08/2021 13:04:27 Problem Notes None recorded. Procedures Surgical History Date Name Laterality Status Provider Name and Address Organization Details Recorded Time 01/04/20 23 Cystoscopy- male completed Juan Garcia MD [address] [place] [address],[address], [place], [address], [facility] 01/03/2023 15:16:02 01/04/20 23 Sulfa post Cysto completed Farrah Curtis null, [facility] 01/03/2023 15:09:38 07/20/19 23 Cystoscopy- male completed Juan Garcia MD [address] [place] [address],[address], [place], [address], [facility] 07/19/2022 18:19:49 03/29/19 23 Cystoscopy- male completed Juan Garcia MD [address] [place] [address],[address], [place], [address], [facility] 03/29/2022 13:48:04 07/21/19 22 [facility] 13:21:59 07/14/19 22 BCG Full Dose Tx 50mg completed Brenda pena, [facility] 07/13/2021 12:36:56 07/07/19 22 BCG Full Dose Tx 50mg completed Brenda pena, [facility] 07/06/2021 13:00:05 06/30/19 22 BCG Full Dose Tx 50mg completed Brenda pena, [facility] 06/29/2021 12:37:26 06/23/19 22 BCG Full Dose Tx 50mg completed Brenda pena, [facility] 06/22/2021 12:59:03 06/16/19 22 Urinalysis completed Aminta pena [facility] 06/15/2021 15:06:05 06/09/19 22 BCG Full Dose Tx 50mg completed Raquel Jaznoel becky [facility] 06/08/2021 13:18:54 02/09/20 21 TRANSURETHRAL RESECTION OF BLADDER TUMOR (SURG) completed Jil Roy becky [facility] 02/08/2021 16:46:49 Imaging Results [...] Updated DateTime 03/29/2022 187.96 cm 29.5 kg/m2 204861.25 g Tulio Haile [facility] 03/29/2022 13:05:47 Date Recorded Body height Body mass index (BMI) Body weight Provider Name and Address Organization Details Last Updated DateTime 07/19/2022 187.96 cm 29.5 kg/m2 702234.25 g Juan Garcia MD [address] [facility],[address], [place], [address] 07/19/2022 14:39:36 Date Recorded Body height Body mass index (BMI) Body weight Provider Name and Address Organization Details Last Updated DateTime 01/03/2023 187.96 cm 29.5 kg/m2 994946.25 g Farrah pena [facility] 01/03/2023 15:01:04 Social History Question Answer Notes LastModified by Organizat ion Details LastModified Time Tobacco Smoking Status Former Smoker Tulio pena [facility] 03/29/2022 13:11:40 What Is Your [...] trivalent, adjuvanted 11/18/2018 completed Farrah Curtis becky [facility] 01/03/2023 15:01:14 influenza, trivalent, adjuvanted 11/21/2016 completed Farrah Curtis becky [facility] 01/03/2023 15:01:14 influenza, trivalent, adjuvanted 01/01/2018 completed Farrah Curtis becky [facility] 01/03/2023 15:01:14 Influenza vaccine, quadrivalent, adjuvanted 11/24/2020 completed Farrah Stromquist null, [facility] 01/03/2023 15:01:14 Influenza vaccine, quadrivalent, adjuvanted 11/30/2019 completed Farrah Stromquist null, [facility] 01/03/2023 15:01:14 COVID-19, mRNA, LNP-S, PF, 30 mcg/0.3 mL dose 04/05/2020 completed Farrah Stromquist null, [facility] 01/03/2023 15:01:14 COVID-19, mRNA, LNP-S, PF, 30 mcg/0.3 mL dose 04/26/2020 completed Farrah Stromquist null, [facility] 01/03/2023 15:01:14 COVID-19, mRNA, LNP-S, PF, 30 mcg/0.3 mL dose 11/24/2020 completed Farrah Stromquist null, [facility] 01/03/2023 15:01:14 COVID-19, mRNA, LNP-S, PF, 30 mcg/0.3 mL dose, marvin-sucrose 06/12/2021 completed Farrah Stromquist null, [facility] 01/03/2023 15:01:14 pneumococcal polysaccharide PPV23 11/29/2005 completed Farrah Stromquist null, [facility] 01/03/2023 15:01:14 pneumococcal polysaccharide PPV23 01/25/2005 completed Farrah Stromquist null, [facility] 01/03/2023 15:01:14 pneumococcal polysaccharide PPV23 02/20/2011 completed Farrah Stromquist null, [facility] 01/03/2023 15:01:14 influenza, unspecified formulation 11/25/2008 completed Farrah Stromquist null, [facility] 01/03/2023 15:01:14 Tdap 02/20/2011 completed Farrah Stromquist null, [facility] 01/03/2023 15:01:14 Pneumococcal conjugate PCV 13 03/15/2016 completed Farrah Stromquist null, [facility] 01/03/2023 15:01:14 Pneumococcal conjugate PCV 13 09/17/2014 completed Farrah Stromquist null, [facility] 01/03/2023 15:01:14 zoster live 02/26/2008 completed Farrah Stromquist null, [facility] 01/03/2023 15:01:14 zoster live 01/05/2009 completed Farrah Stromquist null, [facility] 01/03/2023 15:01:14 Influenza, high dose seasonal 11/29/2014 completed Farrah Stromquist null, [facility] 01/03/2023 15:01:14 Influenza, high dose seasonal 12/14/2015 completed Farrah Stromquist null, [facility] 01/03/2023 15:01:14 Influenza, high dose seasonal 12/24/2013 completed Farrah Stromquist null, [facility] 01/03/2023 15:01:14 Influenza, seasonal, injectable 02/26/1988 completed Farrah Stromquist null, [facility] 01/03/2023 15:01:14 Influenza, seasonal, injectable 11/16/2008 completed Farrah Stromquist null, [facility] 01/03/2023 15:01:14 Influenza, seasonal, injectable 11/24/2009 completed Farrah Stromquist null, [facility] 01/03/2023 15:01:14 Influenza, seasonal, injectable 11/29/2005 completed Farrah Stromquist null, [facility] 01/03/2023 15:01:14 Influenza, seasonal, injectable 12/06/2003 completed Farrah Stromquist null, [facility] 01/03/2023 15:01:14 Influenza, seasonal, injectable 12/18/2002 completed Farrah Stromquist null, [facility] 01/03/2023 15:01:14 Influenza, seasonal, injectable 12/18/2012 completed Farrah Stromquist null, [facility] 01/03/2023 15:01:14 Influenza, seasonal, injectable 12/19/2001 completed Farrah Stromquist null, [facility] 01/03/2023 15:01:14 Influenza, seasonal, injectable 12/26/2006 completed Farrah Stromquist null, [facility] 01/03/2023 15:01:14 Influenza, seasonal, injectable 12/28/2004 completed Farrah Stromquist null, [facility] 01/03/2023 15:01:14 Influenza, seasonal, injectable 01/30/2012 completed Farrah Stromquist null, [facility] 01/03/2023 15:01:14 Influenza, seasonal, injectable, preservative free 12/16/2007 completed Farrah Stromquist null, [facility] 01/03/2023 15:01:14 Influenza, seasonal, injectable, preservative free 12/18/2010 completed Farrah Stromquist null, [facility] 01/03/2023 15:01:14 Novel adefiiewr-[id number] 03/25/2009 completed Farrah Stromquist null, [facility] 01/03/2023 15:01:14 Td (adult), 5 Lf tetanus toxoid, preservative free, adsorbed 11/29/2005 completed Farrah Stromquist null, [facility] 01/03/2023 15:01:14 Td (adult), 2 Lf tetanus toxoid, preservative free, adsorbed 10/07/1998 completed Farrah Stromquist null, [facility] 01/03/2023 15:01:14 Td (adult), 2 Lf tetanus toxoid, preservative free, adsorbed 01/25/2005 completed Farrah Stromquist null, [facility] 01/03/2023 15:01:14 influenza, injectable, quadrivalent, preservative free 03/25/2009 completed Farrah Stromquist null, [facility] 01/03/2023 15:01:14 Past Encounters Encounter ID Performer Location Encounter Start Date Encounter Closed Date Diagnosis/Indication Diagnosis SNOMED-CT Code [id number] MD Ezio Brannon [address] [place] [id number] 06/08/2021 12:06:29 06/09/2021 12:49:18 Malignant tumor of urinary bladder [id number] MD Ezio Brannon [address] [place] [id number] 06/15/2021 14:29:45 06/16/2021 10:17:08 Malignant tumor of urinary bladder [id number] MD Ezio Brannon [address] [place] [address] 06/22/2021 12:09:08 06/26/2021 10:10:48 Malignant tumor of urinary bladder [id number] [facility] [address] [place] [id number] 06/29/2021 12:04:22 06/30/2021 10:32:05 Malignant tumor of urinary bladder [id number] MD CLEM BrannonYohannes [address] [place] [id number] 07/06/2021 12:00:01 07/10/2021 08:52:06 Malignant tumor of urinary bladder [id number] MD Ezio Brannon [address] [place] [id number] 07/13/2021 11:55:07 07/14/2021 08:27:46 Malignant tumor of urinary bladder [id number] [facility] [address] [place] [id number] 07/20/2021 12:41:28 07/21/2021 15:05:59 Malignant tumor of urinary bladder [id number] MD CLEM BrannonYohannes [address] [place] [id number] 03/29/2022 12:36:10 04/02/2022 12:54:20 Malignant tumor of urinary bladder [id number] MD CLEM BrannonYohannes [address] [place] [id number] 07/19/2022 14:19:30 07/27/2022 15:09:48 Malignant tumor of urinary bladder [id number] Pyuria [id number] MD Ezio Brannon [address] [place] [id number] 01/03/2023 14:52:35 01/08/2023 11:52:12 Malignant tumor of urinary bladder [id number] Pyuria [id number] Health Concerns Section Related Observation LastModified by Organization Detai ls LastModified Time None Recorded Concern Status LastModified by Organization Details LastModified Time None Recorded Advance Directives Directive None Recorded Payers Encounter Date Sequence Insurance Name Policy Number Policy Zelaya Covered Member ID Zelaya Member ID Guarantor Name 01/03/2023 1 [employer] (MEDICARE REPLACEMENT/A DVANTAGE - PPO) Cecilio Rosa [id number] Cecilio Rosa 07/19/2022 1 [employer] (MEDICARE REPLACEMENT/A DVANTAGE - PPO) Cecilio Virgen Moe [id number] Cecilio Rosa 03/29/2022 1 [employer] (MEDICARE REPLACEMENT/A DVANTAGE - PPO) Cecilio Virgen Moe [id number] Cecilio Rosa 07/20/2021 1 [employer] (MEDICARE REPLACEMENT/A DVANTAGE - PPO) Cecilio Virgen Moe [id number] Cecilio Virgen Moe 07/13/2021 1 [employer] (MEDICARE REPLACEMENT/A DVANTAGE - PPO) Cecilio Virgen Moe [id number] Cecilio Rosa 07/06/2021 1 [employer] (MEDICARE REPLACEMENT/A DVANTAGE - PPO) Cecilio Virgen Moe [id number] Cecilio Virgen Moe 06/29/2021 1 [employer] (MEDICARE REPLACEMENT/A DVANTAGE - PPO) Cecilio Virgen Moe [id number] Cecilio Rosa 06/22/2021 1 [employer] (MEDICARE REPLACEMENT/A DVANTAGE - PPO) Cecilio Virgen Moe [id number] Cecilio Rosa 06/15/2021 1 [employer] (MEDICARE REPLACEMENT/A DVANTAGE - PPO) Cecilio Virgen Moe [id number] Cecilio Rosa 06/08/2021 1 [employer] (MEDICARE REPLACEMENT/A DVANTAGE - PPO) Cecilio Virgen Moe [id number] Cecilio Virgen Moe Notes Date Note Type Note Provider Name and Address Organization Details Recorded Time 06/08/2021 text/html HPI Notes: Karin hanson arrived to clinic today to begin BCG induction therapy #03/02. Patient has history of urotheilial carcinoma in situ. Had 02/08/21 Transurethral resection of bladder tumor. Patient then had 05/10/2021 cystoscopy, biopsy with fulguration due to insufficient sampling. Juan Garcia MD [address] [facility],[address], [place], [address], [facility] 06/08/2021 18:20:54 06/15/2021 text/html HPI Notes: Karin hanson arrived to clinic today to begin BCG induction therapy #2/6. Patient has history of urotheilial carcinoma in situ. Unable to complete BCG due to nitrate positive urinalysis. Had 02/08/21 Transurethral resection of bladder tumor. Patient then had 05/10/2021 cystoscopy, biopsy with fulguration due to insufficient sampling. Juan Garcia MD [address] [place] [address],[address], [place], [address], [facility] 06/20/2021 12:01:54 06/22/2021 text/html HPI Notes: [...] #2/6 BCG induction treatment. Juan Garcia MD [address] [place] [address],[address], [place], [address], [facility] 06/22/2021 18:23:42 06/29/2021 text/html HPI Notes: Karin [...] #3/6 BCG induction treatment. Juan Garcia MD [address] [place] [address],[address], [place], [address], [facility] 06/30/2021 08:25:36 07/06/2021 text/html HPI Notes: Karin [...] #4/6 BCG induction treatment. Juan Garcia MD [address] [place] [address],[address], [place], [address], [facility] 07/06/2021 13:50:26 07/13/2021 text/html HPI Notes: Karin nt arrived to clinic today to begin BCG [...] #5/6 BCG induction treatment. Juan Garcia MD [address] [place] [address],[address], [place], [address], [facility] 07/13/2021 18:13:55 07/20/2021 text/html HPI Notes: Karin nt arrived to clinic today to begin BCG [...] #6/6 BCG induction treatment. Juan Garcia MD [address] [place] [address],[address], [place], [address], [facility] 07/20/2021 18:21:28 03/29/2022 text/html HPI [...] 07/20/2021. No new symptoms Juan Garcia MD [address] [place] [address],[facility] [address], [place], [address], [facility] 03/29/2022 13:49:01 07/19/2022 text/html HPI Notes: [...] No new symptoms Juan Garcia MD [address] [facility],[address], [place], [address], [facility] 07/19/2022 18:20:57 01/03/2023 text/html HPI [...] 07/20/2021. No new symptoms Juan Garcia MD [address] [facility],[address], [place], [address], [facility] 01/03/2023 15:16:45
--- OUTSIDE RECORDS SUMMARY | 2023-05-31 13:00 | XMS_ITS | Clinical Summary ---
Author Name Unknown Organization [facility] Address [address] [place] [address] Care Team Providers Care Barrel Polisher Name Role Phone [facility], [facility] Primary Care Provider Allergies No known active [...] PM CDT Pulse 55 03/23/2017 12:20 PM HEALTH OUTREACH WORKER Temperature 36 ??C (96.8 ??F) 08/13/2017 4:04 [...] on file Medical Devices Implanted Type Area Patient Coordinator Front Desk Device Identifier Shelf Expiration Date Model / Serial / Lot Imp [place] Arthrex Bio-Swivelock [id number] Implanted:Qty: 3 on 08/13/2017 by Dg Rose MD at [facility] Metallic Hardware/An chor Right: Shoulder ARTHREX 03/27/2019 AR-2324BCC -2 / / [id number] Imp [place] Arthrex Bio-Swivelock [id number] Implanted:Qty: 1 on 08/13/2017 by Dg Rose MD at [facility] Metallic Hardware/An chor Right: Shoulder ARTHREX 03/27/2019 AR-2324BCC -2 / / [id number] Imp Liner Acet S&N R3 Xlpe 40mm 20deg [id number] Implanted:Qty: 1 on 03/25/2017 by Lj Ornelas MD at [facility] Total Joint Component/I nsert Right: Hip PASCAL 04/24/2023 [id number] / / [id number] Imp Femoral Sleeve S&N Long Mod +8mm Neck Ti [id number] Implanted:Qty: 1 on 03/25/2017 by Lj Ornelas MD at [facility] Total Joint Component/I nsert Right: Hip PASCAL 03/03/2025 [id number] / / [id number] 60mm Od Three-Hole Hemispherical Coated Shell Implanted:Qty: 1 on 03/25/2017 by Lj Ornelas MD at [facility] Right: Hip 02/01/2026 [id number] / / [id number] 30mm Acetabular [place] Cancellous Screw, 6.5mm Diameter Implanted:Qty: 1 on 03/25/2017 by Lj Ornelas MD at [facility] Right: Hip 10/17/2025 [id number] / / [id number] Size 17, High Offset, Synergy Porous Femoral Component Implanted:Qty: 1 on 03/25/2017 by Lj Ornelas MD at [facility] Right: Hip 03/14/2025 [id number] / / [id number] 40mm Modular Femoral Head Implanted:Qty: 1 on 03/25/2017 by Lj Ornelas MD at [facility] Right: Hip 12/02/2026 [id number] / / [id number] Advance Directives For more information, please contact: [phone] Latest Code Status on File Code Status Date Activated Date Inactivated Comments Full Code 03/28/2017 2:36 PM Code Status History Code Status Date Activated Date Inactivated Comments Full Code 03/23/2017 5:42 PM 03/27/2017 12:01 AM Care Teams Barrel Polisher Relationship Specialty Start Date End Date Clinic, [facility] [address] [place] [address] [id number] PCP - General 03/23/17
== END 2023-05-31 12:58 | disposition home or self-care (01) ==
LOC: WOUND 12:58
PROVIDERS: PCP Family Medicine; Visit Provider Nurse Practitioner Family
DX: S81.012A Laceration without foreign body, left knee, initial encounter (principal); W19.XXXA Unspecified fall, initial encounter; L92.9 Granulomatous disorder of the skin and subcutaneous tissue, unspecified; L23.89 Allergic contact dermatitis due to other agents
CPT/HCPCS: G0463

== ENCOUNTER 2023-06-07 12:51 | Outpatient (CLI) | payer OTHER, SELFPAY ==
--- OUTSIDE RECORDS SUMMARY | 2023-06-07 12:53 | XMS_ITS | Clinical Summary ---
Author Name Unknown Organization [facility] Address [address] [place] [address]. [place] [address] Care Team Providers Care Gameplay Engineer Name Role Phone [facility], [facility] Primary Care Provider Allergies No known active allergies Medications Medication Sig Dispensed Refills Start Date End Date Status cyanocobalamin 500 MCG TABS Take 1 tablet by mouth daily Active losartan (COZAAR) 100 MG tablet Take 100 mg by mouth daily Active metFORMIN (GLUCOPHAGE) 1000 MG tablet Take 1,000 mg by mouth 2 times daily (with meals) Active Vitamin D, Cholecalciferol, 1000 UNITS CAPS Take 1,000 Units by mouth daily Active warfarin (COUMADIN) 5 MG tablet Take by mouth daily 5mg on Tues,Thurs,Sat, & 2.5mg on Sun,Mon,Wed,Fri Active atorvastatin (LIPITOR) 20 MG tablet Take 20 mg by mouth every evening Active aspirin 81 MG EC tablet Take 81 mg by mouth daily Active amLODIPine (NORVASC) 5 MG tablet Take 5 mg by mouth daily Active acetaminophen (TYLENOL) 325 MG tabletIndications: Closed fracture of right hip, initial encounter (H) Take 2 tablets (650 mg) by mouth every 6 hours as needed for mild pain 100 tablet 03/28/2017 Active sennosides (SENOKOT) 8.6 MG tabletIndications: [...] (0.4 mg) by mouth daily 60 capsule 03/29/2017 Active HYDROcodone-acetam inophen (NORCO) 5-325 MG per tabletIndications: Complete tear of right rotator cuff Take 1-2 tablets by mouth every 4 hours as needed for other (Moderate to Severe Pain) 40 tablet 08/13/2017 Active ondansetron (ZOFRAN-ODT) 4 MG ODT tabIndications:Com plete tear of right rotator cuff Take 1-2 tablets (4-8 mg) by mouth every 8 hours as needed for nausea Dissolve ON the tongue. 4 tablet 08/13/2017 Active senna-docusate (SENOKOT-S;PERICOL KONG) 8.6-50 MG per tabletIndications: Complete tear of right rotator cuff Take 1-2 tablets by mouth 2 times daily Take while on oral narcotics to prevent or treat constipation. 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 Metallic Hardware/An chor Right: Shoulder ARTHREX 03/27/2019 AR-2324BCC -2 / / [id number] Imp [place] Arthrex Bio-Swivelock [id number] Implanted:Qty: 1 on 08/13/2017 by Dg Rose MD at [facility] Metallic Hardware/An chor Right: Shoulder ARTHREX 03/27/2019 AR-2324BCC -2 / / [id number] Imp Liner Acet S&N R3 Xlpe 40mm 20deg [id number] Implanted:Qty: 1 on 03/25/2017 by Lj Ornelas MD at [facility] Total Joint Component/I nsert Right: Hip PASCAL 04/24/2023 [id number] / / [id number] Imp Femoral Sleeve S&N Long Mod +8mm Neck Ti [id number] Implanted:Qty: 1 on 03/25/2017 by Lj Ornelas MD at [facility] Total Joint Component/I nsert Right: Hip PASCAL 03/03/2025 [id number] / / [id number] 60mm Od Three-Hole Hemispherical Coated Shell Implanted:Qty: 1 on 03/25/2017 by Lj Ornelas MD at [facility] Right: Hip 02/01/2026 [id number] / / [id number] 30mm Acetabular [place] Cancellous Screw, 6.5mm Diameter Implanted:Qty: 1 on 03/25/2017 by Lj Ornelas MD at [facility] Right: Hip 10/17/2025 [id number] / / [id number] Size 17, High Offset, Synergy Porous Femoral Component Implanted:Qty: 1 on 03/25/2017 by Lj Ornelas MD at [facility] Right: Hip 03/14/2025 [id number] / / [id number] 40mm Modular Femoral Head Implanted:Qty: 1 on 03/25/2017 by Lj Ornelas MD at [facility] Right: Hip 12/02/2026 [id number] / / [id number] Advance Directives For more information, please contact: [phone] * Full Code (Latest Code Status on File) Date Activated Date Inactivated Comments 03/28/2017 2:36 PM * Full Code Date Activated Date Inactivated Comments 03/23/2017 5:42 PM 03/27/2017 12:01 AM Care Teams Gameplay Engineer Relationship Specialty Start Date End Date [facility] [address] [address] PCP - General 03/23/17
--- OUTSIDE RECORDS SUMMARY | 2023-06-07 12:53 | XMS_ITS | Referral Summary ---
Author Name Unknown Organization [facility] Address [address] [place] [address] Care Team Providers Care Community Chest Officer Name Role Phone [facility], [facility] Primary Care Provider Allergies [...] PM CDT Pulse 55 03/23/2017 12:20 PM PUNCHER Temperature 36 ??C (96.8 ??F) 08/13/2017 4:04 [...] on file Medical Devices Implanted Type Area Cut Out Operator Device Identifier Shelf Expiration Date Model / Serial / Lot Imp [place] Arthrex Bio-Swivelock [id number] Implanted:Qty: 3 on 08/13/2017 by Dg Rose MD at [facility] Metallic Hardware/An chor Right: Shoulder ARTHREX 03/27/2019 AR-2324BCC -2 / / [id number] Imp [place] Arthrex Bio-Swivelock [id number] Implanted:Qty: 1 on 08/13/2017 by Dg Rose MD at [facility] Metallic Hardware/An chor Right: Shoulder ARTHREX 03/27/2019 AR-2324BCC -2 / / [id number] Imp Liner Acet S&N R3 Xlpe 40mm 20deg [id number] Implanted:Qty: 1 on 03/25/2017 by Lj Ornelas MD at [facility] Total Joint Component/I nsert Right: Hip PASCAL 04/24/2023 [id number] / / [id number] Imp Femoral Sleeve S&N Long Mod +8mm Neck Ti [id number] Implanted:Qty: 1 on 03/25/2017 by Lj Ornelas MD at [facility] Total Joint Component/I nsert Right: Hip PASCAL 03/03/2025 [id number] / / [id number] 60mm Od Three-Hole Hemispherical Coated Shell Implanted:Qty: 1 on 03/25/2017 by Lj Ornelas MD at [facility] Right: Hip 02/01/2026 [id number] / / [id number] 30mm Acetabular [place] Cancellous Screw, 6.5mm Diameter Implanted:Qty: 1 on 03/25/2017 by Lj Ornelas MD at [facility] Right: Hip 10/17/2025 [id number] / / [id number] Size 17, High Offset, Synergy Porous Femoral Component Implanted:Qty: 1 on 03/25/2017 by Lj Ornelas MD at [facility] Right: Hip 03/14/2025 [id number] / / [id number] 40mm Modular Femoral Head Implanted:Qty: 1 on 03/25/2017 by Lj Ornelas MD at [facility] Right: Hip 12/02/2026 [id number] / / [id number] Advance Directives For more information, please contact: [phone] * Full Code (Latest Code Status on File) Date Activated Date Inactivated Comments 03/28/2017 2:36 PM * Full Code Date Activated Date Inactivated Comments 03/23/2017 5:42 PM 03/27/2017 12:01 AM Care Teams Community Chest Officer Relationship Specialty Start Date End Date [facility] [address] [address] PCP - General 03/23/17
--- OUTSIDE RECORDS SUMMARY | 2023-06-07 12:53 | XMS_ITS | Clinical Summary ---
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 100 Each 3 3 05/11/19 24 Discontinued Active Problems Problem Noted Date [...] minutes of numbness affecting his right arm- [facility] At [place] MRI and MRA showed no new acute [...] Type Department Care Team Description 05/10/2023 Refill [facility] [address] [place] [address] [address] Doug Taylor MD Refill Request (Trueplus Lancets, True Metrix Glucose Test Strip) 05/08/2023 2:15 PM CDT Orders Only [facility] [address] [place] [address] [address] [place] [facility] 05/08/2023 Anticoagulation (warfarin) [facility] [address] [place] [address] 1, [place] [facility] Anticoagulation 05/08/2023 Travel 05/03/2023 Refill [facility] [address] [place] [address] Doug Taylor MD Refill Request (Warfarin, Tamsulosin) 04/24/2023 2:40 PM SPECIALIST ICU Office Visit [facility] [place] [facility] [place][note 2] [address] [place] [address] Rupert Moore MD Follow Up (Leg weakness) 04/24/2023 Travel 04/08/2023 1:30 PM SPECIALIST ICU Orders Only [facility] [address] [place] [address] [place] [facility] 04/08/2023 Anticoagulation (warfarin) [facility] [address] [facility] [place] [address] 1, [place] [facility] Anticoagulation 04/08/2023 Travel 04/04/2023 12:30 PM SPECIALIST ICU Ancillary Procedure [facility] [address] [facility] [place] [address] 04/04/2023 11:45 AM SPECIALIST ICU Ancillary Procedure [address] [place] [address] 04/04/2023 10:00 AM SPECIALIST ICU Office Visit [facility] [address] [facility] [place] [address] Kuldip Briones MD Follow Up (Peripheral arterial disease); Fall (2 weeks ago hurt left side ) 04/04/2023 Travel 04/02/2023 Refill [facility] [address] [facility] [place] [address] Doug Taylor MD Refill Request (SOTALOL 80MG TAB) 04/01/2023 10:00 AM SPECIALIST ICU Orders Only [facility] [address] [place] [place] [address] 2 scans: (2-Ord) US ARTERIAL LOWER EXTREMITY W BRITTNI BILATERAL ([id number]) 04/01/2023 Travel 03/22/2023 Telephone [facility] [place] [address] Doug Taylor MD Follow Up 03/18/2023 3:15 PM SPECIALIST ICU Ancillary Procedure [address] [place] [address] 03/18/2023 3:00 PM SPECIALIST ICU Ancillary Procedure [address] [place] [address] 03/18/2023 1:40 PM SPECIALIST ICU Office Visit [address] [place] [address] Doug Taylor MD Fall (03/16/23, whole body hurts, knees, forehead, left arm) 03/18/2023 Travel 03/18/2023 Telephone [facility] [address] [facility] [place] [address] Doug Taylor MD Appointment Request (TODAY 03/18/23/FALL) 03/09/2023 Anticoagulation (warfarin) [address] [place] [address] 1, [facility] Anticoagulation 03/08/2023 2:30 PM SPECIALIST ICU Orders Only [address] [address] [place] 03/08/2023 Nurse Triage [address] [address] Doug Taylor MD Arm Pain/problem (L inner elbow and forearm swelling) 03/08/2023 Travel from Last 3 Months Immunizations Name Administration Dates Next Due AMB INFLUENZA IIV3 (AGE 65+ YRS) PF (Flu Clinic Only) 01/01/2018 Amb Influenza, Inactivated A IIV4 (Age 65+ Years) Preserv Free 11/30/2019 COVID-19 vaccine ([employer] 30mcg/0.3mL) 12YO+ BIVALENT PF, MDV 06/28/2022,12/27/2021 COVID-19 vaccine ([employer] 30mcg/0.3mL) 12YO+ JOSE ANGEL-SUCROSE PF, MDV 06/12/2021 COVID-19 vaccine ([employer] 30mcg/0.3mL) PF, MDV 11/24/2020,04/26/2020,04/05/2020 Influenza A [...] Comments Blood Pressure 140/100 04/24/2023 2:52 PM SPECIALIST ICU Pulse 61 04/24/2023 2:52 PM SPECIALIST ICU Temperature 36.3 ??C (97.4 ??F) 03/06/2023 3:54 PM CS T Respiratory Rate 16 05/25/2021 2:10 PM CDT Oxygen Saturation 100% 04/24/2023 2:52 PM SPECIALIST ICU Inhaled Oxygen Concentration - - Weight 108.9 kg (240 lb) 01/26/2021 11:29 AM SPECIALIST ICU Height 188 cm (6' 2) 01/26/2021 11:29 AM SPECIALIST ICU Body Mass Index 30.81 01/26/2021 11:29 AM SPECIALIST ICU Plan of Treatment Upcoming Encounters Date Type Department Care Team (Late st Contact Info) Description 06/14/2023 10:30 AM CDT Orders Only [facility] [address] [place] [address] [address] [place] 07/24/2023 10:30 AM CDT Office Visit [facility] [address] [place] [address] [address] Doug Taylor MD [address] [place] [address] Health Maintenance Due Date Last Done Comments [...] range 2-3 INR,POCT Routine 04/08/2023 1:40 PM SPECIALIST ICU Paroxysmal atrial fibrillation (HC) Anticoagulation monitoring, INR range 2-3 MR SPINE LUMBAR WO Routine 04/04/2023 12 :45 PM SPECIALIST ICU Weakness of lower extremity, unspecified laterality MR HEAD BRAIN WO Routine 04/04/2023 12:2 2 PM SPECIALIST ICU Weakness of lower extremity, unspecified laterality US ARTERIAL LOWER EXTREMITY W BRITTNI BILATERAL Routine 04/01/2023 1:23 PM SPECIALIST ICU Peripheral arterial disease (HC) XR KNEE 3 VIEWS LEFT Routine 03/18/2023 3:13 PM SPECIALIST ICU Acute pain of left knee XR WRIST 3 VIEWS LEFT Routine 03/18/2023 3:04 PM SPECIALIST ICU Left wrist pain INR,POCT Routine 03/08/2023 2:45 PM SPECIALIST ICU Paroxysmal atrial fibrillation (HC) Anticoagulation monitoring, INR range 2-3 from Last 3 Months Results * (ABNORMAL) INR,POCT (05/08/2023 2:25 PM CDT) Only the most recent of3 resultswithin the time period is included. INR 2.3(H) <1.3 05/08/2023 2:28 PM CDT [facility] Blood BLOOD SPECIMEN / Unknown 05/08/2023 2:25 PM CDT 05/08/2023 2:28 PM CDT Narrative [facility] - 05/08/2023 2:28 PM CDT ?Therapeutic Range 2.0-3.0 for most anticoagulated patients 2.5-3.5 or 4.0 for high risk patients Doug Taylor MD LABORATORY [facility] [address] [place] [address], * MR SPINE LUMBAR WO (04/04/2023 12:45 PM SPECIALIST ICU) Anatomical Region Laterality Modality Spine, LUMBAR SPINE Magnetic Res onance 04/04/2023 1:07 PM SPECIALIST ICU Narrative 04/04/2023 1:07 PM SPECIALIST ICU For Patients: ??As a result of the [...] MR HEAD BRAIN WO (04/04/2023 12:22 PM SPECIALIST ICU) Anatomical Region Laterality Modality BRAIN, HEAD Magnetic Resonan ce 04/04/2023 12:3 2 PM SPECIALIST ICU Impressions 04/04/2023 12:32 PM SPECIALIST ICU 1. No acute intracranial abnormality. 2. Similar moderate diffuse parenchymal volume loss and mild small vessel ischemic changes. 3. 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 Dictated by Joesph Babin MD @ 04/04/2023 12:32:06 PM (Electronically Signed) Narrative 04/04/2023 12:32 PM SPECIALIST ICU For Patients: ??As a result of the [...] EXTREMITY W BRITTNI BILATERAL (04/01/2023 1:23 PM SPECIALIST ICU) Anatomical Region Laterality Modality LEGS Ultrasound 04/01/2023 9:48 AM SPECIALIST ICU Narrative 04/01/2023 2:57 PM SPECIALIST ICU VASCULAR ULTRASOUND REPORT CECILIO ROSA Accession#: ?? [id number] : ?1940 ?? Study Date: ?? 04/01/2023 [...] cm/s Phasicity ?? + + + + ROVING HAULER PRX ? 64 ? monophasic + + + + ROVING HAULER DST ? 48 ? multiphasic + + [...] 30 ? multiphasic + + + + DESIGNATED BROKER DST ? 62 ? multiphasic + + + + DPA ? 60 ? monophasic + + + + + + + + +--------+-----+ LEFT ? Velocity cm/s PRE ? Phasicity ?? Stenosis Ratio ? Velocity cm/s ? Phasicity ? + + + + +--------+-----+ ROVING HAULER PRX ? 51 ? multiphasic ? + + + + +--------+-----+ ROVING HAULER DST ? 47 ? multiphasic ? + [...] multiphasic ? + + + + +--------+-----+ DESIGNATED BROKER DST ? 47 ? monophasic ? + [...] 0.43 +-----+ +--------+ +-----+ Reinaldo Limon MD. [employer] Electronically signed on 04/01/2023 2:57:53 PM This study was performed and interpreted by a service accredited by the Intersocietal Accreditation Commission (IAC/Vascular), [email or web address] Report generated by [employer]. ??Final ?? Procedure Note Reinaldo Limon MD - 04/01/2023 VASCULAR ULTRASOUND REPORT CECILIO ROSA : 1940 Study Date: 04/01/2023 9:48:12 AM Age: 82 years Tech: TLW Gender: M Referring MD: JUAN DAVILA [facility] [...] Velocity cm/s Phasicity + + + + ROVING HAULER PRX 64 monophasic + + + + ROVING HAULER DST 48 multiphasic + + + + [...] DST 30 multiphasic + + + + DESIGNATED BROKER DST 62 multiphasic + + + + DPA 60 monophasic + + + + + + + + +--------+-----+ LEFT Velocity cm/s PRE Phasicity Stenosis Ratio Velocity cm/s Phasicity + + + + +--------+-----+ ROVING HAULER PRX 51 multiphasic + + + + +--------+-----+ ROVING HAULER DST 47 multiphasic + + + + [...] 31 multiphasic + + + + +--------+-----+ DESIGNATED BROKER DST 47 monophasic + + + + [...] theIntersocietal Accreditation Commission (IAC/Vascular),[email or web address] Report generated by [employer]. Final Juan Davila LOOM STARTER US * XR KNEE 3 VIEWS LEFT (03/18/2023 3:13 PM SPECIALIST ICU) Anatomical Region Laterality Modality KNEES, KNEE L Computed Radiogr aphy 03/18/2023 3:30 PM SPECIALIST ICU Narrative 03/18/2023 3:30 PM SPECIALIST ICU For Patients: ??As a result of the [...] Mar 18 2023 3:30PM (Electronically Signed) Doug LUI IMAGIN G * XR WRIST 3 VIEWS LEFT (03/18/2023 3:04 PM SPECIALIST ICU) Anatomical Region Laterality Modality WRISTS, WRIST L Computed Radiogr aphy 03/18/2023 3:28 PM SPECIALIST ICU Narrative 03/18/2023 3:28 PM SPECIALIST ICU For Patients: ??As a result of the [...] Mar 18 2023 3:28PM (Electronically Signed) Doug LUI IMAGIN G from Last 3 Months Advance Directives * Full Code (Latest Code Status on File) Date Activated Date Inactivated Comments 04/15/2019 1:26 PM 04/15/2019 4:48 PM * Full Code Date Activated Date Inactivated Comments 03/11/2016 7:17 PM 03/12/2016 7:38 PM Question Answer Comments Code Status Discussion: Discussed Care Teams Local Driver Relationship Specialty Start Date End Date Doug Taylor MD [address] [facility] [address] PCP - General Family Practice 04/18/12
--- OUTSIDE RECORDS SUMMARY | 2023-06-07 12:53 | XMS_ITS | Data Portability ---
Author Name Unknown Address [address] [place] [address] Phone [phone] Organization [facility] Address [address] [place] [address] Care Team Providers Care Project Mgr Name Role Phone DOUG TAYLOR Primary Care [...] 023 [email or web address] [facility], [address], [place], [address], 3 15:07:41 urinalys is, dipstick 2022 023 [email or web address] [facility], [address], [place], [address], 3 14:44:37 urinalys is, dipstick 2022 023 [email or web address] [facility], [address], [place], [address], 3 13:13:22 urinalys is, dipstick 2021 022 [email or web address] Not available 13:23:29 urinalys is, dipstick 2021 022 lzais Not available 2 12:39:20 urinalys is, dipstick 2021 022 [email or web address] Not available 2 13:01:34 urinalys is, dipstick 2021 022 lzais Not available 2 12:38:57 urinalys is, dipstick 2021 022 [email or web address] Not available 13:00:18 urinalys is, dipstick 2021 022 [email or web address] Not available 14:50:42 culture, urine 2021 022 [facility], [address], [place], [address], 11:27:28 urinalys is, dipstick 2021 [email or web address] Not available 13:20:30 Referral None recorded . Procedures None recorded . Surgeries None recorded . Imaging None recorded . Medication Orders Nilda BCG 50 mg intraves ical suspensi on 2021 [id number], [address] [place], [place], [id number], 3 13:09:52 Kinross BCG 50 mg intraves ical suspensi on 2021 022 [facility] #[id number], [address] [place], [place], [id number], 3 13:09:52 Nilda BCG 50 mg intraves ical suspensi on 2021 022 [facility] #[id number], [address] [place], [place], [id number], 3 13:09:52 Kinross BCG 50 mg intraves ical suspensi on 2021 022 [facility] #[id number], [address] [place], [place], [id number], 3 13:09:52 Kinross BCG 50 mg intraves ical suspensi on 2021 [facility], [address] [place], [place], [id number], 3 13:09:52 Bactrim DS 800 mg-160 mg tablet 2021 [facility], [address] [place], [place], [phone], 3 13:09:32 Kinross BCG 50 mg intraves ical suspensi on 2021 022 [email or web address] Not available 13:09:52 Patient TargetsNo targets recorded. Patient Instructions Encounter Date Encounter Id Patient Instructions Last Modified By Organization Details Last Modified Time 06/15/2021 [id number] Will f/u once urine culture results. Take Bactrim as prescribed and notified to call triage with any questions/concer ns. [email or web address] Not available 06/15/2021 15:16:16 06/08/2021 [id number] BCG instructions reviewed with patient and . Information provided. Direct triage line provided for any questions/concer ns. [email or web address] Not available 06/08/2021 13:21:42 Reason for Referral None Reported. Results Created Date Observation Date Name Description Value Unit Range Abnormal Flag LastModifiedBy Organization Detail LastModifiedTime 06/09/1906/08/2021 urina lysis , dipst ick Color-Status Yellow Not Available [facility] [address], [place], [address], 06/08/2021 13:18:58 06/09/19 22 06/08/2021 urina lysis , dipst ick Clarity-Stat us Clear Not Available [facility] [address], [place], [address], 06/08/2021 13:18:58 06/09/19 22 06/08/2021 urina lysis , dipst ick pH-Status 6.5 Not Available [facility] [address], [place], [address], 06/08/2021 13:18:58 06/09/19 22 06/08/2021 urina lysis , dipst ick Protein-Stat us >=9.0 Not Available [facility] [address], [place], [address], 06/08/2021 13:18:58 06/09/19 22 06/08/2021 urina lysis , dipst ick Urobilinogen -Status 2.0 Not Available [facility] [address], [place], [address], 06/08/2021 13:18:58 06/09/19 22 06/08/2021 urina lysis , dipst ick Nitrates-Sta tus negati ve Not Available [facility] [address], [place], [address], 06/08/2021 13:18:58 06/09/19 22 06/08/2021 urina lysis , dipst ick Blood-Status Trace Not Available [facility] [address], [place], [address], 06/08/2021 13:18:58 06/09/19 22 06/08/2021 urina lysis , dipst ick Leuko-Status Trace Not Available [facility] [address], [place], [address], 06/08/2021 13:18:58 06/09/19 22 06/08/2021 urina lysis , dipst ick Specimen Type Voided Not Available [facility] [address], [place], [address], 06/08/2021 13:18:58 06/09/19 22 06/08/2021 urina lysis , dipst ick Performed by Raquel BRANTLEY Not Available [facility] [address], [place], [address], 06/08/2021 13:18:58 06/09/19 22 06/08/2021 urina lysis , dipst ick Total Urine Volume 20cc Not Available [facility] [address], [place], [address], 06/08/2021 13:18:58 06/16/19 22 06/15/2021 URINE CULTU RE final report microb iology result s abnormal Not Available [facility] [address], [place], [address], 06/17/2021 11:27:28 06/16/19 22 06/15/2021 urina lysis , dipst ick Color-Status Yellow Not Available [facility] [address], [place], [address], 06/15/2021 14:49:06 06/16/19 22 06/15/2021 urina lysis , dipst ick Clarity-Stat us Cloudy Not Available [facility] [address], [place], [address], 06/15/2021 14:49:06 06/16/19 22 06/15/2021 urina lysis , dipst ick pH-Status 6.0 Not Available [facility] [address], [place], [address], 06/15/2021 14:49:06 06/16/19 22 06/15/2021 urina lysis , dipst ick Protein-Stat us >=9.0 Not Available [facility] [address], [place], [address], 06/15/2021 14:49:06 06/16/19 22 06/15/2021 urina lysis , dipst ick Nitrates-Sta tus positi ve Not Available [facility] [address], [place], [address], 06/15/2021 14:49:06 06/16/19 22 06/15/2021 urina lysis , dipst ick Blood-Status Modera te Not Available [facility] [address], [place], [address], 06/15/2021 14:49:06 06/16/19 22 06/15/2021 urina lysis , dipst ick Leuko-Status Large Not Available [facility] [address], [place], [address], 06/15/2021 14:49:06 06/16/19 22 06/15/2021 urina lysis , dipst ick Specimen Type Voided Not Available [facility] [address], [place], [address], 06/15/2021 14:49:06 06/16/19 22 06/15/2021 urina lysis , dipst ick Performed by Raquel BRANTLEY Not Available [facility] [address], [place], [address], 06/15/2021 14:49:06 06/16/19 22 06/15/2021 urina lysis , dipst ick Total Urine Volume 20cc Not Available [facility] [address], [place], [address], 06/15/2021 14:49:06 06/23/19 22 06/22/2021 urina lysis , dipst ick Color-Status Dark Yellow Not Available [facility] [address], [place], [address], 06/22/2021 12:59:06 06/23/19 22 06/22/2021 urina lysis , dipst ick Bilirubin-St atus Small Not Available [facility] [address], [place], [address], 06/22/2021 12:59:06 06/23/19 22 06/22/2021 urina lysis , dipst ick Nitrates-Sta tus negati ve Not Available [facility] [address], [place], [address], 06/22/2021 12:59:06 06/23/19 22 06/22/2021 urina lysis , dipst ick Blood-Status Trace Not Available [facility] [address], [place], [address], 06/22/2021 12:59:06 06/23/19 22 06/22/2021 urina lysis , dipst ick Leuko-Status Negati ve Not Available [facility] [address], [place], [address], 06/22/2021 12:59:06 06/23/19 22 06/22/2021 urina lysis , dipst ick Specimen Type Voided Not Available [facility] [address], [place], [address], 06/22/2021 12:59:06 06/23/19 22 06/22/2021 urina lysis , dipst ick Performed by ARELIS RN Not Available [facility] [address], [place], [address], 06/22/2021 12:59:06 06/23/19 22 06/22/2021 urina lysis , dipst ick Total Urine Volume 30cc Not Available [facility] [address], [place], [address], 06/22/2021 12:59:06 06/30/19 22 06/29/2021 urina lysis , dipst ick Color-Status Dark Yellow Not Available [facility] [address], [place], [address], 06/29/2021 12:37:33 06/30/19 22 06/29/2021 urina lysis , dipst ick Clarity-Stat us Clear Not Available [facility] [address], [place], [address], 06/29/2021 12:37:33 06/30/19 22 06/29/2021 urina lysis , dipst ick Nitrates-Sta tus negati ve Not Available [facility] [address], [place], [address], 06/29/2021 12:37:33 06/30/19 22 06/29/2021 urina lysis , dipst ick Blood-Status Trace Not Available [facility] [address], [place], [address], 06/29/2021 12:37:33 06/30/19 22 06/29/2021 urina lysis , dipst ick Leuko-Status Trace Not Available [facility] [address], [place], [address], 06/29/2021 12:37:33 06/30/19 22 06/29/2021 urina lysis , dipst ick Specimen Type Voided Not Available [facility] [address], [place], [address], 06/29/2021 12:37:33 06/30/19 22 06/29/2021 urina lysis , dipst ick Performed by ARELIS RN Not Available [facility] [address], [place], [address], 06/29/2021 12:37:33 06/30/19 22 06/29/2021 urina lysis , dipst ick Total Urine Volume 35cc Not Available [facility] [address], [place], [address], 06/29/2021 12:37:33 07/07/19 22 07/06/2021 urina lysis , dipst ick Color-Status Dark Yellow Not Available [facility] [address], [place], [address], 07/06/2021 13:00:14 07/07/19 22 07/06/2021 urina lysis , dipst ick Clarity-Stat us Clear Not Available [facility] [address], [place], [address], 07/06/2021 13:00:14 07/07/19 22 07/06/2021 urina lysis , dipst ick Nitrates-Sta tus negati ve Not Available [facility] [address], [place], [address], 07/06/2021 13:00:14 07/07/19 22 07/06/2021 urina lysis , dipst ick Blood-Status Negati ve Not Available [facility] [address], [place], [address], 07/06/2021 13:00:14 07/07/19 22 07/06/2021 urina lysis , dipst ick Leuko-Status Small Not Available [facility] [address], [place], [address], 07/06/2021 13:00:14 07/07/19 22 07/06/2021 urina lysis , dipst ick Specimen Type Cathet erized Not Available [facility] [address], [place], [address], 07/06/2021 13:00:14 07/07/19 22 07/06/2021 urina lysis , dipst ick Performed by ARELIS RN Not Available [facility] [address], [place], [address], 07/06/2021 13:00:14 07/07/19 22 07/06/2021 urina lysis , dipst ick Total Urine Volume 125cc Not Available [facility] [address], [place], [address], 07/06/2021 13:00:14 07/14/19 22 07/13/2021 urina lysis , dipst ick Color-Status Yellow Not Available [facility] [address], [place], [address], 07/13/2021 12:37:03 07/14/19 22 07/13/2021 urina lysis , dipst ick Clarity-Stat us Clear Not Available [facility] [address], [place], [address], 07/13/2021 12:37:03 07/14/19 22 07/13/2021 urina lysis , dipst ick Glucose-Stat us Negati ve Not Available [facility] [address], [place], [address], 07/13/2021 12:37:03 07/14/19 22 07/13/2021 urina lysis , dipst ick Bilirubin-St atus Negati ve Not Available [facility] [address], [place], [address], 07/13/2021 12:37:03 07/14/19 22 07/13/2021 urina lysis , dipst ick Ketones-Stat us Negati ve Not Available [facility] [address], [place], [address], 07/13/2021 12:37:03 07/14/19 22 07/13/2021 urina lysis , dipst ick Nitrates-Sta tus negati ve Not Available [facility] [address], [place], [address], 07/13/2021 12:37:03 07/14/19 22 07/13/2021 urina lysis , dipst ick Blood-Status Negati ve Not Available [facility] [address], [place], [address], 07/13/2021 12:37:03 07/14/19 22 07/13/2021 urina lysis , dipst ick Leuko-Status Negati ve Not Available [facility] [address], [place], [address], 07/13/2021 12:37:03 07/14/19 22 07/13/2021 urina lysis , dipst ick Specimen Type Voided Not Available [facility] [address], [place], [address], 07/13/2021 12:37:03 07/14/19 22 07/13/2021 urina lysis , dipst ick Performed by ARELIS RN Not Available [facility] [address], [place], [address], 07/13/2021 12:37:03 07/14/19 22 07/13/2021 urina lysis , dipst ick Total Urine Volume 45cc Not Available [facility] [address], [place], [address], 07/13/2021 12:37:03 07/21/19 22 07/20/2021 urina lysis , dipst ick Color-Status Yellow Not Available [facility] [address], [place], [address], 07/20/2021 13:22:03 07/21/19 22 07/20/2021 urina lysis , dipst ick Clarity-Stat us Clear Not Available [facility] [address], [place], [address], 07/20/2021 13:22:03 07/21/19 22 07/20/2021 urina lysis , dipst ick Nitrates-Sta tus negati ve Not Available [facility] [address], [place], [address], 07/20/2021 13:22:03 07/21/19 22 07/20/2021 urina lysis , dipst ick Blood-Status Negati ve Not Available [facility] [address], [place], [address], 07/20/2021 13:22:03 07/21/19 22 07/20/2021 urina lysis , dipst ick Leuko-Status Small Not Available [facility] [address], [place], [address], 07/20/2021 13:22:03 07/21/19 22 07/20/2021 urina lysis , dipst ick Specimen Type Voided Not Available [facility] [address], [place], [address], 07/20/2021 13:22:03 07/21/19 22 07/20/2021 urina lysis , dipst ick Performed by ARELIS BRANTLEY Not Available [facility] [address], [place], [address], 07/20/2021 13:22:03 07/21/19 22 07/20/2021 urina lysis , dipst ick Total Urine Volume 45cc Not Available [facility] [address], [place], [address], 07/20/2021 13:22:03 03/29/19 23 03/29/2022 urina lysis , dipst ick Color-Status Yellow Not Available [facility] [address], [place], [address], 03/29/2022 13:12:16 03/29/19 23 03/29/2022 urina lysis , dipst ick Clarity-Stat us Clear Not Available [facility] [address], [place], [address], 03/29/2022 13:12:16 03/29/19 23 03/29/2022 urina lysis , dipst ick Glucose-Stat us Negati ve Not Available [facility] [address], [place], [address], 03/29/2022 13:12:16 03/29/19 23 03/29/2022 urina lysis , dipst ick Bilirubin-St atus Negati ve Not Available [facility] [address], [place], [address], 03/29/2022 13:12:16 03/29/19 23 03/29/2022 urina lysis , dipst ick Ketones-Stat us Negati ve Not Available [facility] [address], [place], [address], 03/29/2022 13:12:16 03/29/19 23 03/29/2022 urina lysis , dipst ick Nitrates-Sta tus negati ve Not Available [facility] [address], [place], [address], 03/29/2022 13:12:16 03/29/19 23 03/29/2022 urina lysis , dipst ick Blood-Status Trace Not Available [facility] [address], [place], [address], 03/29/2022 13:12:16 03/29/19 23 03/29/2022 urina lysis , dipst ick Leuko-Status Negati ve Not Available [facility] [address], [place], [address], 03/29/2022 13:12:16 07/20/19 23 07/19/2022 urina lysis , dipst ick Color-Status Straw Not Available [facility] [address], [place], [address], 07/19/2022 14:43:03 07/20/1907/19/2022 urina lysis , dipst ick Clarity-Stat us Cloudy Not Available [facility] [address], [place], [address], 07/19/2022 14:43:03 07/20/19 23 07/19/2022 urina lysis , dipst ick Glucose-Stat us Negati ve Not Available [facility] [address], [place], [address], 07/19/2022 14:43:03 07/20/19 23 07/19/2022 urina lysis , dipst ick Bilirubin-St atus Small Not Available [facility] [address], [place], [address], 07/19/2022 14:43:03 07/20/19 23 07/19/2022 urina lysis , dipst ick Ketones-Stat us Negati ve Not Available [facility] [address], [place], [address], 07/19/2022 14:43:03 07/20/19 23 07/19/2022 urina lysis , dipst ick Urobilinogen -Status 4.0 Not Available [facility] [address], [place], [address], 07/19/2022 14:43:03 07/20/19 23 07/19/2022 urina lysis , dipst ick Nitrates-Sta tus negati ve Not Available [facility] [address], [place], [address], 07/19/2022 14:43:03 07/20/19 23 07/19/2022 urina lysis , dipst ick Blood-Status Modera te Not Available [facility] [address], [place], [address], 07/19/2022 14:43:03 07/20/19 23 07/19/2022 urina lysis , dipst ick Leuko-Status Large Not Available [facility] [address], [place], [address], 07/19/2022 14:43:03 01/04/20 23 01/03/2023 urina lysis , dipst ick pH-Status 6.5 Not Available [facility] [address], [place], [address], 01/03/2023 15:06:56 01/04/2001/03/2023 urina lysis , dipst ick Protein-Stat us >=9.0 Not Available [facility] [address], [place], [address], 01/03/2023 15:06:56 01/04/2001/03/2023 urina lysis , dipst ick Urobilinogen -Status 4.0 Not Available [facility] [address], [place], [address], 01/03/2023 15:06:56 01/04/20 23 01/03/2023 urina lysis , dipst ick Nitrates-Sta tus negati ve Not Available [facility] [address], [place], [address], 01/03/2023 15:06:56 01/04/20 23 01/03/2023 urina lysis , dipst ick Blood-Status Trace Not Available [facility] [address], [place], [address], 01/03/2023 15:06:56 01/04/20 23 01/03/2023 urina lysis , dipst ick Leuko-Status Negati ve Not Available [facility] [address], [place], [address], 01/03/2023 15:06:56 01/04/20 23 01/03/2023 urina lysis , dipst ick Specimen Type Voided Not Available [facility] [address], [place], [address], 01/03/2023 15:06:56 Result Notes None recorded. Problems Name Status Onset Date Resolution Date Notes Provider Name and Address Organization Details Recorded Time Malignant tumor of urinary bladder Active 2 Raquel Esquivel null, [facility] 06/08/2021 13:04:27 Problem Notes None recorded. Procedures Surgical History Date Name Laterality Status Provider Name and Address Organization Details Recorded Time 01/04/20 23 Cystoscopy- male completed Juan Garcia MD [address] [place] [address],[address], [place], [address], [facility] 01/03/2023 15:16:02 01/04/20 23 Sulfa post Cysto completed Farrah Curtis null, [facility] 01/03/2023 15:09:38 07/20/19 23 Cystoscopy- male completed Juan Garcia MD [address] [place] [address],[address], [place], [address], [facility] 07/19/2022 18:19:49 03/29/19 23 Cystoscopy- male completed Juan Garcia MD [address] [place] [address],[address], [place], [address], [facility] 03/29/2022 13:48:04 07/21/19 22 [facility] 13:21:59 07/14/19 22 BCG Full Dose Tx 50mg completed Brenda pena, [facility] 07/13/2021 12:36:56 07/07/19 22 BCG Full Dose Tx 50mg completed Brenda pena, [facility] 07/06/2021 13:00:05 06/30/19 22 BCG Full Dose Tx 50mg completed Brenda pena, [facility] 06/29/2021 12:37:26 06/23/19 22 BCG Full Dose Tx 50mg completed Brenda pena, [facility] 06/22/2021 12:59:03 06/16/19 22 Urinalysis completed Aminta pena [facility] 06/15/2021 15:06:05 06/09/19 22 BCG Full Dose Tx 50mg completed Raquel Jaznoel becky [facility] 06/08/2021 13:18:54 02/09/20 21 TRANSURETHRAL RESECTION OF BLADDER TUMOR (SURG) completed Jil Roy becky [facility] 02/08/2021 16:46:49 Imaging Results None [...] completed Not Available Not Available Not Available [facility] BCG 50 mg intravesica l suspension Instill [...] Updated DateTime 03/29/2022 187.96 cm 29.5 kg/m2 117796.25 g Tulio Haile [facility] 03/29/2022 13:05:47 Date Recorded Body height Body mass index (BMI) Body weight Provider Name and Address Organization Details Last Updated DateTime 07/19/2022 187.96 cm 29.5 kg/m2 399109.25 g Juan Garcia MD [address] [facility],[address], [place], [address] 07/19/2022 14:39:36 Date Recorded Body height Body mass index (BMI) Body weight Provider Name and Address Organization Details Last Updated DateTime 01/03/2023 187.96 cm 29.5 kg/m2 625382.25 g Farrah pena [facility] 01/03/2023 15:01:04 Social History Question Answer Notes LastModified by Organizat ion Details LastModified Time Tobacco Smoking Status Former Smoker Tulio pena [facility] 03/29/2022 13:11:40 What Is Your Level [...] trivalent, adjuvanted 11/18/2018 completed Farrah Curtis becky [facility] 01/03/2023 15:01:14 influenza, trivalent, adjuvanted 11/21/2016 completed Farrah Crutis becky [facility] 01/03/2023 15:01:14 influenza, trivalent, adjuvanted 01/01/2018 completed Farrah Curtis becky [facility] 01/03/2023 15:01:14 Influenza vaccine, quadrivalent, adjuvanted 11/24/2020 completed Farrah Stromquist null, [facility] 01/03/2023 15:01:14 Influenza vaccine, quadrivalent, adjuvanted 11/30/2019 completed Farrah Stromquist null, [facility] 01/03/2023 15:01:14 COVID-19, mRNA, LNP-S, PF, 30 mcg/0.3 mL dose 04/05/2020 completed Farrah Stromquist null, [facility] 01/03/2023 15:01:14 COVID-19, mRNA, LNP-S, PF, 30 mcg/0.3 mL dose 04/26/2020 completed Farrah Stromquist null, [facility] 01/03/2023 15:01:14 COVID-19, mRNA, LNP-S, PF, 30 mcg/0.3 mL dose 11/24/2020 completed Farrah Stromquist null, [facility] 01/03/2023 15:01:14 COVID-19, mRNA, LNP-S, PF, 30 mcg/0.3 mL dose, marvin-sucrose 06/12/2021 completed Farrah Stromquist null, [facility] 01/03/2023 15:01:14 pneumococcal polysaccharide PPV23 11/29/2005 completed Farrah Stromquist null, [facility] 01/03/2023 15:01:14 pneumococcal polysaccharide PPV23 01/25/2005 completed Farrah Stromquist null, [facility] 01/03/2023 15:01:14 pneumococcal polysaccharide PPV23 02/20/2011 completed Farrah Stromquist null, [facility] 01/03/2023 15:01:14 influenza, unspecified formulation 11/25/2008 completed Farrah Stromquist null, [facility] 01/03/2023 15:01:14 Tdap 02/20/2011 completed Farrah Stromquist null, [facility] 01/03/2023 15:01:14 Pneumococcal conjugate PCV 13 03/15/2016 completed Farrah Stromquist null, [facility] 01/03/2023 15:01:14 Pneumococcal conjugate PCV 13 09/17/2014 completed Farrah Stromquist null, [facility] 01/03/2023 15:01:14 zoster live 02/26/2008 completed Farrah Stromquist null, [facility] 01/03/2023 15:01:14 zoster live 01/05/2009 completed Farrah Stromquist null, [facility] 01/03/2023 15:01:14 Influenza, high dose seasonal 11/29/2014 completed Farrah Stromquist null, [facility] 01/03/2023 15:01:14 Influenza, high dose seasonal 12/14/2015 completed Farrah Stromquist null, [facility] 01/03/2023 15:01:14 Influenza, high dose seasonal 12/24/2013 completed Farrah Stromquist null, [facility] 01/03/2023 15:01:14 Influenza, seasonal, injectable 02/26/1988 completed Farrah Stromquist null, [facility] 01/03/2023 15:01:14 Influenza, seasonal, injectable 11/16/2008 completed Farrah Stromquist null, [facility] 01/03/2023 15:01:14 Influenza, seasonal, injectable 11/24/2009 completed Farrah Stromquist null, [facility] 01/03/2023 15:01:14 Influenza, seasonal, injectable 11/29/2005 completed Farrah Stromquist null, [facility] 01/03/2023 15:01:14 Influenza, seasonal, injectable 12/06/2003 completed Farrah Stromquist null, [facility] 01/03/2023 15:01:14 Influenza, seasonal, injectable 12/18/2002 completed Farrah Stromquist null, [facility] 01/03/2023 15:01:14 Influenza, seasonal, injectable 12/18/2012 completed Farrah Stromquist null, [facility] 01/03/2023 15:01:14 Influenza, seasonal, injectable 12/19/2001 completed Farrah Stromquist null, [facility] 01/03/2023 15:01:14 Influenza, seasonal, injectable 12/26/2006 completed Farrah Stromquist null, [facility] 01/03/2023 15:01:14 Influenza, seasonal, injectable 12/28/2004 completed Farrah Stromquist null, [facility] 01/03/2023 15:01:14 Influenza, seasonal, injectable 01/30/2012 completed Farrah Stromquist null, [facility] 01/03/2023 15:01:14 Influenza, seasonal, injectable, preservative free 12/16/2007 completed Farrah Stromquist null, [facility] 01/03/2023 15:01:14 Influenza, seasonal, injectable, preservative free 12/18/2010 completed Farrah Stromquist null, [facility] 01/03/2023 15:01:14 Novel [id number] 03/25/2009 completed Farrah Stromquist null, [facility] 01/03/2023 15:01:14 Td (adult), 5 Lf tetanus toxoid, preservative free, adsorbed 11/29/2005 completed Farrah Stromquist null, [facility] 01/03/2023 15:01:14 Td (adult), 2 Lf tetanus toxoid, preservative free, adsorbed 10/07/1998 completed Farrah Stromquist null, [facility] 01/03/2023 15:01:14 Td (adult), 2 Lf tetanus toxoid, preservative free, adsorbed 01/25/2005 completed Farrah Stromquist null, [facility] 01/03/2023 15:01:14 influenza, injectable, quadrivalent, preservative free 03/25/2009 completed Farrah Stromquist null, [facility] 01/03/2023 15:01:14 Past Encounters Encounter ID Performer Location Encounter Start Date Encounter Closed Date Diagnosis/Indication Diagnosis SNOMED-CT Code [id number] MD Ezio Brannon [address] [place] [id number] 06/08/2021 12:06:29 06/09/2021 12:49:18 Malignant tumor of urinary bladder [id number] MD Ezio Brannon [address] [place] [id number] 06/15/2021 14:29:45 06/16/2021 10:17:08 Malignant tumor of urinary bladder [id number] MD Ezio Brannon [address] [place] [address] 06/22/2021 12:09:08 06/26/2021 10:10:48 Malignant tumor of urinary bladder [id number] [facility] [address] [place] [id number] 06/29/2021 12:04:22 06/30/2021 10:32:05 Malignant tumor of urinary bladder [id number] MD CLEM BrannonYohannes [address] [place] [id number] 07/06/2021 12:00:01 07/10/2021 08:52:06 Malignant tumor of urinary bladder [id number] MD Ezio Brannon [address] [place] [address] 07/13/2021 11:55:07 07/14/2021 08:27:46 Malignant tumor of urinary bladder [id number] [facility] [address] [place] [id number] 07/20/2021 12:41:28 07/21/2021 15:05:59 Malignant tumor of urinary bladder [id number] MD CLEM BrannonYohannes [address] [place] [id number] 03/29/2022 12:36:10 04/02/2022 12:54:20 Malignant tumor of urinary bladder [id number] MD CLEM BrannonYohannes [address] [place] [id number] 07/19/2022 14:19:30 07/27/2022 15:09:48 Malignant tumor of urinary bladder [id number] Pyuria [id number] MD Ezio Brannon [address] [place] [id number] 01/03/2023 14:52:35 01/08/2023 11:52:12 Malignant tumor of urinary bladder [id number] Pyuria [id number] Health Concerns Section Related Observation LastModified by Organization Detai ls LastModified Time None Recorded Concern Status LastModified by Organization Details LastModified Time None Recorded Advance Directives Directive None Recorded Payers Encounter Date Sequence Insurance Name Policy Number Policy Zelaya Covered Member ID Zelaya Member ID Guarantor Name 01/03/2023 1 [employer] (MEDICARE REPLACEMENT/A DVANTAGE - PPO) Cecilio Rosa [id number] Cecilio Rosa 07/19/2022 1 [employer] (MEDICARE REPLACEMENT/A DVANTAGE - PPO) Cecilio Virgen Moe [id number] Cecilio Rosa 03/29/2022 1 [employer] (MEDICARE REPLACEMENT/A DVANTAGE - PPO) Cecilio Virgen Moe [id number] Cecilio Rosa 07/20/2021 1 [employer] (MEDICARE REPLACEMENT/A DVANTAGE - PPO) Cecilio Virgen Moe [id number] Cecilio Virgen Moe 07/13/2021 1 [employer] (MEDICARE REPLACEMENT/A DVANTAGE - PPO) Cecilio Virgen Moe [id number] Cecilio Rosa 07/06/2021 1 [employer] (MEDICARE REPLACEMENT/A DVANTAGE - PPO) Cecilio Virgen Moe [id number] Cecilio Virgen Moe 06/29/2021 1 [employer] (MEDICARE REPLACEMENT/A DVANTAGE - PPO) Cecilio Virgen Moe [id number] Cecilio Rosa 06/22/2021 1 [employer] (MEDICARE REPLACEMENT/A DVANTAGE - PPO) Cecilio Virgen Moe [id number] Cecilio Rosa 06/15/2021 1 [employer] (MEDICARE REPLACEMENT/A DVANTAGE - PPO) Cecilio Virgen Moe [id number] Cecilio Rosa 06/08/2021 1 [employer] (MEDICARE REPLACEMENT/A DVANTAGE - PPO) Cecilio Virgen Moe [id number] Cecilio Virgen Moe Notes Date Note Type Note Provider Name and Address Organization Details Recorded Time 06/08/2021 text/html HPI Notes: Karin hanson arrived to clinic today to begin BCG induction therapy #03/02. Patient has history of urotheilial carcinoma in situ. Had 02/08/21 Transurethral resection of bladder tumor. Patient then had 05/10/2021 cystoscopy, biopsy with fulguration due to insufficient sampling. Juan Garcia MD [address],[address], [place], [address], [facility] 06/08/2021 18:20:54 06/15/2021 text/html HPI Notes: Karin hanson arrived to clinic today to begin BCG induction therapy #2/6. Patient has history of urotheilial carcinoma in situ. Unable to complete BCG due to nitrate positive urinalysis. Had 02/08/21 Transurethral resection of bladder tumor. Patient then had 05/10/2021 cystoscopy, biopsy with fulguration due to insufficient sampling. Juan Garcia MD [address] [place] [address],[address], [place], [address], [facility] 06/20/2021 12:01:54 06/22/2021 text/html HPI [...] #2/6 BCG induction treatment. Juan Garcia MD [address] [place] [address],[address], [place], [address], [facility] 06/22/2021 18:23:42 06/29/2021 text/html HPI Notes: [...] #3/6 BCG induction treatment. Juan Garcia MD [address] [place] [address],[address], [place], [address], [facility] 06/30/2021 08:25:36 07/06/2021 text/html HPI Notes: [...] #4/6 BCG induction treatment. Juan Garcia MD [address] [place] [address],[address], [place], [address], [facility] 07/06/2021 13:50:26 07/13/2021 text/html HPI [...] #5/6 BCG induction treatment. Juan Garcia MD [address] [place] [address],[address], [place], [address], [facility] 07/13/2021 18:13:55 07/20/2021 text/html HPI Notes: [...] #6/6 BCG induction treatment. Juan Garcia MD [address] [place] [address],[address], [place], [address], [facility] 07/20/2021 18:21:28 03/29/2022 text/html [...] 07/20/2021. No new symptoms Juan Garcia MD [address] [place] [address],[facility] [address], [place], [address], [facility] 03/29/2022 13:49:01 07/19/2022 text/html HPI Notes: [...] No new symptoms Juan Garcia MD [address] [facility],[address], [place], [address], [facility] 07/19/2022 18:20:57 01/03/2023 text/html [...] 07/20/2021. No new symptoms Juan Garcia MD [address],[address], [place], [address], [facility] 01/03/2023 15:16:45
== END 2023-06-07 12:52 | disposition home or self-care (01) ==
LOC: WOUND 12:51
PROVIDERS: PCP Family Medicine; Visit Provider Nurse Practitioner Family
DX: S81.012D Laceration without foreign body, left knee, subsequent encounter (principal); W19.XXXD Unspecified fall, subsequent encounter; L23.89 Allergic contact dermatitis due to other agents
CPT/HCPCS: G0463

== ENCOUNTER 2023-12-20 19:51 | Outpatient (CLI) | payer OTHER, SELFPAY ==
--- OUTSIDE RECORDS SUMMARY | 2023-12-25 19:06 | XMS_ITS | Clinical Summary ---
Author Organization [employer] [facility] Address [place], [place] [address] Care Team Providers Care Automatic Brine Mixer Operator Name Role Phone Doug Taylor MD Primary Care Provider Allergies Active Allergy Reactions Criticality Noted Date Comments Amlodipine Edema 07/27/2019 On 5 mg Medications Medication Sig Dispensed Refills Start Date End Date Status cholecalciferol (VITAMIN D3) 1,000 unit tabletIndications: Vitamin D deficiency Take 1 Tablet (1,000 units) by mouth once daily. 90 tablet. 3 2 Active cyanocobalamin (Vitamin B-12) 500 mcg tabletIndications: Nutrition disorder Take 1 Tablet (500 mcg) by mouth once daily. 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 100 Each 3 3 Active blood-glucose meterIndications:T ype 2 diabetes mellitus with diabetic neuropathy, without long-term current use of insulin (HC) Inject subcutaneous. Dispense meter, test strips, lancets covered by pt ins. E11.9 NIDDM type II - Test 1 time/day 1 Each 3 Active Walker - 4 wheelsIndications: Gait instability For home use. Length of need: 99 1 Each 3 Active Diabetic ShoeIndications:Di abetic peripheral neuropathy (HC) As directed. One pair diabetic shoes. 1 Each 1 3 Active losartan (COZAAR) 100 mg tabletIndications: HTN (hypertension) TAKE 1 AND 1/2 TABLETS EVERY DAY 135 Tablet 3 3 Active Walker - 4 wheelsIndications: Weakness of lower extremity, unspecified laterality,Unstabl e gait For home use. Length of need: 99. With seat. 1 Each 3 Active gabapentin (NEURONTIN) 100 mg capsuleIndications :Peripheral sensory neuropathy Take 1 Capsule (100 mg) by mouth three times daily. 270 Capsule 3 3 Active honey (Manuka Honey) 100 % gelIndications:Makenzie betic ulcer of toe associated with type 2 diabetes mellitus, unspecified laterality, unspecified ulcer stage (HC) Apply topically to affected area(s) once daily. 15 mL 1 4 Active TRUEplus Lancets 33 gauge miscIndications:Ty pe 2 diabetes mellitus with diabetic neuropathy, without long-term current use of insulin (HC) TEST BLOOD SUGAR ONE TIME DAILY 100 Each 3 4 Active blood sugar diagnostic (True Metrix Glucose Test Strip) stripIndications:T ype 2 diabetes mellitus with diabetic neuropathy, without long-term current use of insulin (HC) TEST BLOOD SUGAR ONE TIME DAILY 100 Each 3 4 Active sotaloL (BETAPACE) 80 mg tabletIndications: Atrial fibrillation, unspecified type (HC) TAKE 1 TABLET EVERY 24 HOURS 90 Tablet 3 4 Active predniSONE (DELTASONE) 20 mg tabletIndications: Acute eczema Two tab oral daily for 4 days. 8 Tablet 4 Active True Metrix Air Glucose MeterIndications:D iabetes mellitus without complication (HC) USE DIRECTED 1 Kit 3 4 Active triamcinolone (ARISTOCORT; KENALOG) 0.1 % creamIndications:A cute eczema Apply topically to affected area(s) two times daily. 45 g 4 Active hydroCHLOROthiazid e 25 mg tabletIndications: Benign essential HTN TAKE 1 TABLET ONE TIME DAILY 90 Tablet 1 4 Active warfarin (COUMADIN) 2.5 mg tabletIndications: Paroxysmal atrial fibrillation (HC),Anticoagulati on monitoring, INR range 2-3,TIA (transient ischemic attack) Take by mouth 1.25 mg (2.5 mg x 0.5) every Sun, Snehal; 2.5 mg (2.5 mg x 1) all other days in the evening OR as directed 80 Tablet 4 Active alcohol swabs (DropSafe Alcohol Prep Pads)Indications:D iabetes mellitus without complication (HC) For home use. 300 Each 3 4 Active atorvastatin (LIPITOR) 20 mg tabletIndications: Mixed hyperlipidemia Take 1 Tablet (20 mg) by mouth once daily. 90 Tablet 1 4 Active metFORMIN (GLUCOPHAGE XR) 500 mg Extended-Release tabletIndications: Diabetes mellitus without complication (HC) Take 1 Tablet (500 mg) by mouth once daily with evening meal. 4 Active tamsulosin (FLOMAX) 0.4 mg capsuleIndications :Frequent urination Take 1 Capsule (0.4 mg) by mouth once daily after a meal. 90 Capsule 4 Active atorvastatin (LIPITOR) 20 mg tabletIndications: Mixed hyperlipidemia Take 1 Tablet (20 mg) by mouth once daily. 90 Tablet 3 3 12/16/19 24 Discontinued(*Av ailability/Formu mamie change/Cost of medication) DropSafe Alcohol Prep PadsIndications:Di abetes mellitus without complication (HC) USE DIRECTED 300 Each 3 3 12/16/19 24 Discontinued(*Av ailability/Formu mamie change/Cost of medication) tamsulosin (FLOMAX) 0.4 mg capsuleIndications :Frequent urination TAKE 1 CAPSULE (0.4 MG) BY MOUTH ONCE DAILY AFTER A MEAL. 90 Capsule 2 4 12/25/19 24 Discontinued warfarin (COUMADIN) 2.5 mg tabletIndications: Paroxysmal atrial fibrillation (HC),Anticoagulati on monitoring, INR range 2-3,TIA (transient ischemic attack) Take by mouth 1.25 mg (2.5 mg x 0.5) every Sun, Snehal; 2.5 mg (2.5 mg x 1) all other days in the evening OR as directed 80 Tablet 4 11/30/19 24 Discontinued metFORMIN (GLUCOPHAGE XR) 500 mg Extended-Release tabletIndications: Diabetes mellitus without complication (HC) TAKE 2 TABLETS ONE TIME DAILY WITH EVENING MEAL 180 Tablet 4 12/18/19 24 Discontinued(*Me dication adjustment) Active Problems Problem Noted Date Diagnosed Date Anticoagulation monitoring, INR range 2-3 2022 Peripheral arterial disease 03/29/2022 Paroxysmal atrial fibrillation 10/16/2021 Malignant neoplasm of urinary bladder 05/05/2021 Stage 3a chronic kidney disease 12/29/2019 Bilateral lower extremity edema 08/18/2019 Chronic pain of right knee 09/03/2018 Overview (10/08/2020): August 2018: cortisone injection by Dr. Berry bilateral knees. Great improvement 2 weeks out. March 2020: Repeat Bilateral cortisone knee injections. September 2020: Repeat Bilateral cortisone knee injections. Chronic pain of left knee 09/03/2018 Overview (10/08/2020): August 2018: cortisone injection by Dr. Berry bilateral knees. Great improvement 2 weeks out. March 2020: Repeat Bilateral cortisone knee injections. September 2020: Repeat Bilateral cortisone knee injections. Trochanteric bursitis of both hips 04/23/2018 Overview (01/21/2019): July [address] [facility] [...] Hyperlipidemia 03/11/2016 TIA (transient ischemic attack) 03/11/2016 Overview (03/12/2017): 03/11/16: 20 minutes of numbness affecting his right arm- [facility] [place] MRI and MRA showed no new acute [...] Encounters Date Type Department Care Team Description 12/23/[address] [address] Doug Taylor MD Refill Request (Tamsulosin) 12/18/2023 10:00 AM CDT Orders Only [address] [address] [place] [facility] 12/18/[address] [address] Doug Taylor MD Anticoagulation (Procedure 12/19/23) 12/18/2023 Anticoagulation (warfarin) [address] [id number] 1, [facility]ticoagulation 12/18/2023 Nurse Triage [address] [address] Doug Taylor MD Diarrhea 12/18/2023 Travel 12/14/[address] [address] Doug Taylor MD Refill Request (Dropsafe Alcohol Prep Pads, Atorvastatin) 12/13/[address] [place] [address] Doug Taylor MD Anticoagulation (Chart Update lab orders/[facility] ) 11/30/2023 Refill [facility] [address] [place] [address] Doug Taylor MD Refill Request (Warfarin) 11/22/2023 3:00 PM CDT Orders Only [facility] [address] [place] [address] [facility] [place] [facility] 11/22/2023 Anticoagulation (warfarin) [facility] [address] [place] [address] 1, [facility] Anticoagulation 11/22/2023 Travel 11/19/2023 Telephone [facility] [address] [place] [address] Doug Taylor MD Anticoagulation (AC ORDER) 11/13/2023 Refill [facility] [address] [place] [address] Doug Taylor MD Refill Request (Metformin, Hydrochlorothiazide) 10/25/2023 2:00 PM CDT Orders Only [facility] [address] [place] [address] [facility] [place] [facility] 10/25/2023 Anticoagulation (warfarin) [facility] [address] [place] [address] 1, [facility] Anticoagulation 10/25/2023 Travel from Last 3 Months Immunizations Name [...] 02/25/1974 Smokeless Tobacco: Never Tobacco Cessation:Counseling Given: No Alcohol Use Standard Drinks/Week Comments Yes 0 (1 standard drink = 0.6 oz pur e alcohol) occasionally PHQ-2 Answer Date Recorded PHQ-2 TOTAL SCORE 0 01/18/2023 Social Connections Answer Date Recorded Do you often feel lonely or isolated from those around you? 0 01/18/2023 Financial Resource Strain Answer Date R ecorded Difficulty of Paying Living Expenses 3 01/18/2023 Difficulty of Paying Living Expenses Not on file 01/18/2023 Food Insecurity Answer Date Recorded Do you worry your food will run out before you are able to buy more? 1 01/18/2023 Transportation Needs Answer Date Record ed Does lack of transportation keep you from medica l appointments? 1 01/18/2023 Does lack of transportation keep you from work, meetings or getting things that you need? 1 01/18/2023 Housing Stability Answer Date Recorded What is your housing situation today? 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 Height 188 cm (6' 2) 01/26/2021 11:29 AM FOOD SERVICE WORKER Body Mass Index 30.81 01/26/2021 11:29 AM FOOD SERVICE WORKER Plan of Treatment Upcoming Encounters Date Type Department Care Team (Late st Contact Info) Description 01/20/2024 11:30 AM FOOD SERVICE WORKER Orders Only [facility] [address] [facility] [address] [facility] [place] 01/22/2024 2:05 PM FOOD SERVICE WORKER Office Visit [facility] [address] [facility] [address] Doug Taylor MD [address] [place] [address] 01/28/2024 9:30 AM FOOD SERVICE WORKER Office Visit [facility] [address] [place] [address] Tae Maria MD [address] [facility] [address] [place], [place] [id number] Health Maintenance Due Date Last Done Comments [...] Completed 07/20/2022, 04/11/2022, 01/05/2009, Additional history exists RSV vaccine for adults or Completed 02/04/2023 Procedures Procedure Name Priority Date/Time Associated Diagnosis Comments INR,POCT Routine 12/18/2023 9:58 AM CDT Paroxysmal atrial fibrillation (HC) Anticoagulation monitoring, INR range 2-3 INR,POCT Routine 11/22/2023 2:56 PM CDT Paroxysmal atrial fibrillation (HC) Anticoagulation monitoring, INR range 2-3 INR,POCT Routine 10/25/2023 2:19 PM CDT Paroxysmal atrial fibrillation (HC) Anticoagulation monitoring, INR range 2-3 from Last 3 Months Results * (ABNORMAL) INR,POCT (12/18/2023 9:58 AM CDT) Only the most recent of3 resultswithin the time period is included. INR 2.7(H) ratio [facility] Comment: INRs >2.9 may be falsely elevated in patients receiving either unfractionated Heparin or Low Molecular Weight Heparin. Follow up testing in a hospital laboratory may be helpful if clinically indicated. INR results of > or = 5.0 should be verified using the standard venipuncture procedure. Reference Range ? 0.9-1.1 Moderate-intensity Warfarin Therapy 2.0-3.0 Higher-intensity Warfarin Therapy ?? 3.0-4.0 PROTHROMBIN TIMEP 32.9(H) 10.5 - 13.1 sec [facility] Comment: Point of care fingerstick Prothrombin Time/INR results may vary from venous Prothrombin Time/INR methodologies. Any results exhibiting inconsistency with the patient's clinical status should be repeated using a venous Prothrombin Time/INR method. Blood BLOOD SPECIMEN / Unknown 12/18/2023 9:58 AM CDT 12/18/2023 9:58 AM CDT Doug Taylor MD LABORATORY [facility] [address] [place] [address], [facility] [address] [place] [address] from Last 3 Months Advance Directives * Full Code (Latest Code Status on File) Date Activated Date Inactivated Comments 04/15/2019 1:26 PM 04/15/2019 4:48 PM * Full Code Date Activated Date Inactivated Comments 03/11/2016 7:17 PM 03/12/2016 7:38 PM Question Answer Comments Code Status Discussion: Discussed Care Teams Automatic Brine Mixer Operator Relationship Specialty Start Date End Date Doug Taylor MD [address] [facility] [place] [address] PCP - General Family Practice 04/18/12
--- OUTSIDE RECORDS SUMMARY | 2023-12-25 19:07 | XMS_ITS | Referral Summary ---
Author Organization [place] Address [address] [place] [id number] Care Team Providers Care Supervisor Ep[employer] Fabrication Name Role Phone [facility], [facility] Primary Care Provider Allergies No known active allergies Medications cyanocobalamin 500 MCG TABS Take 1 tablet [...] mouth daily Active acetaminophen (TYLENOL) 325 MG tabletIndication s:Closed fracture of right hip, initial encounter (H) Take 2 tablets (650 mg) by mouth every 6 hours as needed for mild pain 100 tablet 03/28/19 18 Active sennosides (SENOKOT) 8.6 MG tabletIndication s:Closed fracture of right hip, initial encounter (H) Take 1-2 tablets by mouth 2 times daily as needed for constipation Hold if loose stools. 120 tablet 1 03/28/19 18 Active polyethylene glycol (MIRALAX) powderIndication s:Constipation, unspecified constipation type Take 17 g by mouth daily 510 g 1 03/28/19 18 Active bisacodyl (DULCOLAX) 10 MG SuppositoryIndic ations:Constipat ion, unspecified constipation type Place 1 suppository (10 mg) rectally daily as needed for constipation 25 suppository 1 03/28/19 18 Active tamsulosin (FLOMAX) 0.4 MG capsuleIndicatio ns:Urine retention Take 1 capsule (0.4 mg) by mouth daily 60 capsule 03/29/19 18 Active HYDROcodone-acet aminophen (NORCO) 5-325 MG per tabletIndication s:Complete tear of right rotator cuff Take 1-2 tablets by mouth every 4 hours as needed for other (Moderate to Severe Pain) 40 tablet 08/14/19 18 Active ondansetron (ZOFRAN-ODT) 4 MG ODT tabIndications:C omplete tear of right rotator cuff Take 1-2 tablets (4-8 mg) by mouth every 8 hours as needed for nausea Dissolve ON the tongue. 4 tablet 08/14/19 18 Active senna-docusate (SENOKOT-S;PERIC OLACE) 8.6-50 MG per tabletIndication s:Complete tear of right rotator cuff Take 1-2 tablets by mouth 2 times daily Take while on oral narcotics to prevent or treat constipation. 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 Gender Identity Not on file Sexual Orientation Not on file Last Filed Vital Signs Vital Sign Reading Time Taken Comments Blood Pressure 135/72 08/13/2017 5:00 PM CDT Pulse 55 03/23/2017 12:20 PM SOLID WASTE COLLECTOR Temperature 36 ??C (96.8 ??F) 08/13/2017 4:04 [...] on file Medical Devices Implanted Type Area Bung Driver Device Identifier Shelf Expiration Date Model / Serial / Lot Imp [place] Ar[employer]rex Bio-Swivelock [id number] Implanted:Qty: 3 on 08/13/2017 by Dg Rose MD at [facility] Metallic Hardware/An chor Right: Shoulder ARTHREX 03/27/2019 AR-2324BCC -2 / / [id number] Imp [place] [employer] Bio-Swivelock [id number] Implanted:Qty: 1 on 08/13/2017 by Dg Rose MD at [facility] Metallic Hardware/An chor Right: Shoulder ARTHREX 03/27/2019 AR-2324BCC -2 / / [id number] Imp Liner Acet S&N R3 Xlpe 40mm 20deg [id number] Implanted:Qty: 1 on 03/25/2017 by Lj Ornelas MD at [facility] Total Joint Component/I nsert Right: Hip PASCAL 04/24/2023 [id number] / / [id number] Imp Femoral Sleeve S&N Long Mod +8mm Neck Ti [id number] Implanted:Qty: 1 on 03/25/2017 by Lj Ornelas MD at [facility] Total Joint Component/I nsert Right: Hip PASCAL 03/03/2025 [id number] / / [id number] 60mm Od Three-Hole Hemispherical Coated Shell Implanted:Qty: 1 on 03/25/2017 by Lj Ornelas MD at [facility] Right: Hip 02/01/2026 [id number] / / [id number] 30mm Acetabular [place] Cancellous Screw, 6.5mm Diameter Implanted:Qty: 1 on 03/25/2017 by Lj Ornelas MD at [facility] Right: Hip 10/17/2025 [id number] / / [id number] Size 17, High Offset, Synergy Porous Femoral Component Implanted:Qty: 1 on 03/25/2017 by Lj Ornelas MD at [facility] Right: Hip 03/14/2025 [id number] / / [id number] 40mm Modular Femoral Head Implanted:Qty: 1 on 03/25/2017 by Lj Ornelas MD at [facility] Right: Hip 12/02/2026 [id number] / / [id number] Insurance [facility] MEDIC[facility] ADVANT[facility] Advance Directives For more information, please contact: [phone] * Full Code (Latest Code Status on File) Date Activated Date Inactivated Comments 03/28/2017 2:36 PM * Full Code Date Activated Date Inactivated Comments 03/23/2017 5:42 PM 03/27/2017 12:01 AM Care Teams Supervisor Ep[employer] Fabrication Relationship Specialty Start Date End Date [facility] [address] [address] PCP - General 03/23/17
--- OUTSIDE RECORDS SUMMARY | 2023-12-25 19:07 | XMS_ITS | Clinical Summary ---
Author Organization [place] Address [address] [place] [address] Care Team Providers Care Drafter Apprentice Name Role Phone [facility], 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 Gender Identity Not on file Sexual Orientation Not on file Last Filed Vital Signs Vital Sign Reading Time Taken Comments Blood Pressure 135/72 08/13/2017 5:00 PM CDT Pulse 55 03/23/2017 12:20 PM MARKETING TECHNOLOGY COORDINATOR Temperature 36 ??C (96.8 ??F) 08/13/2017 4:04 [...] on file Medical Devices Implanted Type Area Automotive Leasing Sales Representative Device Identifier Shelf Expiration Date Model / Serial / Lot Imp [place] [employer]rex Bio-Swivelock [id number] Implanted:Qty: 3 on 08/13/2017 by Dg Rose MD at [facility] Metallic Hardware/An chor Right: Shoulder ARTHREX 03/27/2019 AR-2324BCC -2 / / [id number] Imp [place] [employer] Bio-Swivelock [id number] Implanted:Qty: 1 on 08/13/2017 by Dg Rose MD at [facility] Metallic Hardware/An chor Right: Shoulder ARTHREX 03/27/2019 AR-2324BCC -2 / / [id number] Imp Liner Acet S&N R3 Xlpe 40mm 20deg [id number] Implanted:Qty: 1 on 03/25/2017 by Lj Ornelas MD at [facility] Total Joint Component/I nsert Right: Hip PASCAL 04/24/2023 [id number] / / [id number] Imp Femoral Sleeve S&N Long Mod +8mm Neck Ti [id number] Implanted:Qty: 1 on 03/25/2017 by Lj Ornelas MD at [facility] Total Joint Component/I nsert Right: Hip PASCAL 03/03/2025 [id number] / / [id number] 60mm Od Three-Hole Hemispherical Coated Shell Implanted:Qty: 1 on 03/25/2017 by Lj Ornelas MD at [facility] Right: Hip 02/01/2026 [id number] / / [id number] 30mm Acetabular [place] Cancellous Screw, 6.5mm Diameter Implanted:Qty: 1 on 03/25/2017 by Lj Ornelas MD at [facility] Right: Hip 10/17/2025 [id number] / / [id number] Size 17, High Offset, Synergy Porous Femoral Component Implanted:Qty: 1 on 03/25/2017 by Lj Ornelas MD at [facility] Right: Hip 03/14/2025 [id number] / / [id number] 40mm Modular Femoral Head Implanted:Qty: 1 on 03/25/2017 by Lj Ornelas MD at [facility] Right: Hip 12/02/2026 [id number] / / [id number] Insurance [facility] MEDIC[employer] ADVANTAGE Advance Directives For more information, please contact: [phone] * Full Code (Latest Code Status on File) Date Activated Date Inactivated Comments 03/28/2017 2:36 PM * Full Code Date Activated Date Inactivated Comments 03/23/2017 5:42 PM 03/27/2017 12:01 AM Care Teams Drafter Apprentice Relationship Specialty Start Date End Date [facility] [address] [address] PCP - General 03/23/17
--- OUTSIDE RECORDS SUMMARY | 2023-12-25 19:07 | XMS_ITS | Data Portability ---
Author Organization [facility], [facility] Address [address] [place] [address] Care Team Providers Care Mid Level Provider Name Role Phone DOUG TAYLOR Primary Care Provider Assessment Encounter Date Assessment Date Assessment LastModified by Organization Details LastModified Time 03/29/2022 03/29/2022 81 year old male with [...] CIS only. 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 rstromquist Not available 07/29/2023 15:50:37 Plan of Treatment Reminders Order Date Submit Date Provider Last Modified By Organization Details Last Modified Time Details Appointments ESTABLI SHED 10 2023 01:40P Ghulam Garcia MD Not available Not available Not available Lab urinaly sis, dipstic k 2021 022 lzais Not available 07/20/2021 13:23:29 urinaly sis, dipstic k 2022 023 [email or web address] [facility], [address], [place], [address], 03/29/2022 13:13:22 urinaly sis, dipstic k 2022 023 [email or web address] [facility], [address], [place], [address], 07/19/2022 14:44:37 urinaly sis, dipstic k 2022 023 [email or web address] [facility], [address], [place], [address], 01/03/2023 15:07:41 urinaly sis, dipstic k 2023 024 [email or web address] [facility], [address], [place], [address], 07/31/2023 16:23:15 Referral None recorde d. Procedures None recorde d. Surgeries None recorde d. Imaging None recorde d. Medication Orders Nilda BCG 50 mg intrave sical suspens ion 2021 022 [id number], [address] [place], [place], [id number], 03/29/2022 13:09:52 Patient TargetsNo targets recorded. Patient InstructionsNo instructions recorded. Reason for Referral None Reported. Results Created Date Observation Date Name Description Value Unit Range Abnormal Flag Note LastModifiedBy Organization Detail LastModifiedTime 06/23/19 22 06/22/2021 urina lysis , dipst ick Color-Status Dark Yellow Not Available [facility] [address], [place], [address], 06/22/2021 12:59:06 06/23/19 22 06/22/2021 urina lysis , dipst ick Bilirubin-St atus Small Not Available [facility] [address], [place], [address], 06/22/2021 12:59:06 06/23/19 22 06/22/2021 urina lysis , dipst ick Nitrates-Sta tus negati ve Not Available [facility] [address], [place], [address], 06/22/2021 12:59:06 06/23/19 22 06/22/2021 urina lysis , dipst ick Blood-Status Trace Not Available [facility] [address], [place], [address], 06/22/2021 12:59:06 06/23/19 22 06/22/2021 urina lysis , dipst ick Leuko-Status Negati ve Not Available [facility] [address], [place], [address], 06/22/2021 12:59:06 06/23/19 22 06/22/2021 urina lysis , dipst ick Specimen Type Voided Not Available [facility] [address], [place], [address], 06/22/2021 12:59:06 06/23/19 22 06/22/2021 urina lysis , dipst ick Performed by ARELIS RN Not Available [facility] [address], [place], [address], 06/22/2021 12:59:06 06/23/19 22 06/22/2021 urina lysis , dipst ick Total Urine Volume 30cc Not Available [facility] [address], [place], [address], 06/22/2021 12:59:06 06/30/19 22 06/29/2021 urina lysis , dipst ick Color-Status Dark Yellow Not Available [facility] [address], [place], [address], 06/29/2021 12:37:33 06/30/19 22 06/29/2021 urina lysis , dipst ick Clarity-Stat us Clear Not Available [facility] [address], [place], [address], 06/29/2021 12:37:33 06/30/19 22 06/29/2021 urina lysis , dipst ick Nitrates-Sta tus negati ve Not Available [facility] [address], [place], [address], 06/29/2021 12:37:33 06/30/19 22 06/29/2021 urina lysis , dipst ick Blood-Status Trace Not Available [facility] [address], [place], [address], 06/29/2021 12:37:33 06/30/19 22 06/29/2021 urina lysis , dipst ick Leuko-Status Trace Not Available [facility] [address], [place], [address], 06/29/2021 12:37:33 06/30/19 22 06/29/2021 urina lysis , dipst ick Specimen Type Voided Not Available [facility] [address], [place], [address], 06/29/2021 12:37:33 06/30/19 22 06/29/2021 urina lysis , dipst ick Performed by ARELIS RN Not Available [facility] [address], [place], [address], 06/29/2021 12:37:33 06/30/19 22 06/29/2021 urina lysis , dipst ick Total Urine Volume 35cc Not Available [facility] [address], [place], [address], 06/29/2021 12:37:33 07/07/19 22 07/06/2021 urina lysis , dipst ick Color-Status Dark Yellow Not Available [facility] [address], [place], [address], 07/06/2021 13:00:14 07/07/19 22 07/06/2021 urina lysis , dipst ick Clarity-Stat us Clear Not Available [facility] [address], [place], [address], 07/06/2021 13:00:14 07/07/19 22 07/06/2021 urina lysis , dipst ick Nitrates-Sta tus negati ve Not Available [facility] [address], [place], [address], 07/06/2021 13:00:14 07/07/19 22 07/06/2021 urina lysis , dipst ick Blood-Status Negati ve Not Available [facility] [address], [place], [address], 07/06/2021 13:00:14 07/07/19 22 07/06/2021 urina lysis , dipst ick Leuko-Status Small Not Available [facility] [address], [place], [address], 07/06/2021 13:00:14 07/07/19 22 07/06/2021 urina lysis , dipst ick Specimen Type Cathet erized Not Available [facility] [address], [place], [address], 07/06/2021 13:00:14 07/07/19 22 07/06/2021 urina lysis , dipst ick Performed by ARELIS RN Not Available [facility] [address], [place], [address], 07/06/2021 13:00:14 07/07/19 22 07/06/2021 urina lysis , dipst ick Total Urine Volume 125cc Not Available [facility] [address], [place], [address], 07/06/2021 13:00:14 07/14/19 22 07/13/2021 urina lysis , dipst ick Color-Status Yellow Not Available [facility] [address], [place], [address], 07/13/2021 12:37:03 07/14/19 22 07/13/2021 urina lysis , dipst ick Clarity-Stat us Clear Not Available [facility] [address], [place], [address], 07/13/2021 12:37:03 07/14/19 22 07/13/2021 urina lysis , dipst ick Glucose-Stat us Negati ve Not Available [facility] [address], [place], [address], 07/13/2021 12:37:03 07/14/19 22 07/13/2021 urina lysis , dipst ick Bilirubin-St atus Negati ve Not Available [facility] [address], [place], [address], 07/13/2021 12:37:03 07/14/19 22 07/13/2021 urina lysis , dipst ick Ketones-Stat us Negati ve Not Available [facility] [address], [place], [address], 07/13/2021 12:37:03 07/14/19 22 07/13/2021 urina lysis , dipst ick Nitrates-Sta tus negati ve Not Available [facility] [address], [place], [address], 07/13/2021 12:37:03 07/14/19 22 07/13/2021 urina lysis , dipst ick Blood-Status Negati ve Not Available [facility] [address], [place], [address], 07/13/2021 12:37:03 07/14/19 22 07/13/2021 urina lysis , dipst ick Leuko-Status Negati ve Not Available [facility] [address], [place], [address], 07/13/2021 12:37:03 07/14/19 22 07/13/2021 urina lysis , dipst ick Specimen Type Voided Not Available [facility] [address], [place], [address], 07/13/2021 12:37:03 07/14/19 22 07/13/2021 urina lysis , dipst ick Performed by ARELIS RN Not Available [facility] [address], [place], [address], 07/13/2021 12:37:03 07/14/19 22 07/13/2021 urina lysis , dipst ick Total Urine Volume 45cc Not Available [facility] [address], [place], [address], 07/13/2021 12:37:03 07/21/19 22 07/20/2021 urina lysis , dipst ick Color-Status Yellow Not Available [facility] [address], [place], [address], 07/20/2021 13:22:03 07/21/19 22 07/20/2021 urina lysis , dipst ick Clarity-Stat us Clear Not Available [facility] [address], [place], [address], 07/20/2021 13:22:03 07/21/19 22 07/20/2021 urina lysis , dipst ick Nitrates-Sta tus negati ve Not Available [facility] [address], [place], [address], 07/20/2021 13:22:03 07/21/19 22 07/20/2021 urina lysis , dipst ick Blood-Status Negati ve Not Available [facility] [address], [place], [address], 07/20/2021 13:22:03 07/21/19 22 07/20/2021 urina lysis , dipst ick Leuko-Status Small Not Available [facility] [address], [place], [address], 07/20/2021 13:22:03 07/21/19 22 07/20/2021 urina lysis , dipst ick Specimen Type Voided Not Available [facility] [address], [place], [address], 07/20/2021 13:22:03 07/21/19 22 07/20/2021 urina lysis , dipst ick Performed by ARELIS RN Not Available [facility] [address], [place], [address], 07/20/2021 13:22:03 07/21/19 22 07/20/2021 urina lysis , dipst ick Total Urine Volume 45cc Not Available [facility] [address], [place], [address], 07/20/2021 13:22:03 03/29/19 23 03/29/2022 urina lysis , dipst ick Color-Status Yellow Not Available [facility] [address], [place], [address], 03/29/2022 13:12:16 03/29/19 23 03/29/2022 urina lysis , dipst ick Clarity-Stat us Clear Not Available [facility] [address], [place], [address], 03/29/2022 13:12:16 03/29/19 23 03/29/2022 urina lysis , dipst ick Glucose-Stat us Negati ve Not Available [facility] [address], [place], [address], 03/29/2022 13:12:16 03/29/19 23 03/29/2022 urina lysis , dipst ick Bilirubin-St atus Negati ve Not Available [facility] [address], [place], [address], 03/29/2022 13:12:16 03/29/19 23 03/29/2022 urina lysis , dipst ick Ketones-Stat us Negati ve Not Available [facility] [address], [place], [address], 03/29/2022 13:12:16 03/29/19 23 03/29/2022 urina lysis , dipst ick Nitrates-Sta tus negati ve Not Available [facility] [address], [place], [address], 03/29/2022 13:12:16 03/29/19 23 03/29/2022 urina lysis , dipst ick Blood-Status Trace Not Available [facility] [address], [place], [address], 03/29/2022 13:12:16 03/29/19 23 03/29/2022 urina lysis , dipst ick Leuko-Status Negati ve Not Available [facility] [address], [place], [address], 03/29/2022 13:12:16 07/20/19 23 07/19/2022 urina lysis , dipst ick Color-Status Straw Not Available [facility] [address], [place], [address], 07/19/2022 14:43:03 07/20/19 23 07/19/2022 urina lysis , dipst ick Clarity-Stat us Cloudy Not Available [facility] [address], [place], [address], 07/19/2022 14:43:03 07/20/19 23 07/19/2022 urina lysis , dipst ick Glucose-Stat us Negati ve Not Available [facility] [address], [place], [address], 07/19/2022 14:43:03 07/20/19 23 07/19/2022 urina lysis , dipst ick Bilirubin-St atus Small Not Available [facility] [address], [place], [address], 07/19/2022 14:43:03 07/20/19 23 07/19/2022 urina lysis , dipst ick Ketones-Stat us Negati ve Not Available [facility] [address], [place], [address], 07/19/2022 14:43:03 07/20/19 23 07/19/2022 urina lysis , dipst ick Urobilinogen -Status 4.0 Not Available [facility] [address], [place], [address], 07/19/2022 14:43:03 07/20/19 23 07/19/2022 urina lysis , dipst ick Nitrates-Sta tus negati ve Not Available [facility] [address], [place], [address], 07/19/2022 14:43:03 07/20/19 23 07/19/2022 urina lysis , dipst ick Blood-Status Modera te Not Available [facility] [address], [place], [address], 07/19/2022 14:43:03 07/20/19 23 07/19/2022 urina lysis , dipst ick Leuko-Status Large Not Available [facility] [address], [place], [address], 07/19/2022 14:43:03 01/04/20 23 01/03/2023 urina lysis , dipst ick pH-Status 6.5 Not Available [facility] [address], [place], [address], 01/03/2023 15:06:56 01/04/20 23 01/03/2023 urina lysis , dipst ick Protein-Stat us >=9.0 Not Available [facility] [address], [place], [address], 01/03/2023 15:06:56 01/04/20 23 01/03/2023 urina lysis , dipst ick Urobilinogen -Status 4.0 Not Available [facility] [address], [place], [address], 01/03/2023 15:06:56 01/04/20 23 01/03/2023 urina lysis , dipst ick Nitrates-Sta tus negati ve Not Available [facility] [address], [place], [address], 01/03/2023 15:06:56 01/04/20 23 01/03/2023 urina lysis , dipst ick Blood-Status Trace Not Available [facility] [address], [place], [address], 01/03/2023 15:06:56 01/04/20 23 01/03/2023 urina lysis , dipst ick Leuko-Status Negati ve Not Available [facility] [address], [place], [address], 01/03/2023 15:06:56 01/04/20 23 01/03/2023 urina lysis , dipst ick Specimen Type Voided Not Available [facility] [address], [place], [address], 01/03/2023 15:06:56 07/31/19 24 07/31/2023 urina lysis , dipst ick BLOOD Trace (5 RBC/uL ) Not Available [facility] [address], [place], [address], 07/31/2023 16:16:48 07/31/19 24 07/31/2023 urina lysis , dipst ick UROBILINOGEN 1.0 mg/dL Not Available [facility] [address], [place], [address], 07/31/2023 16:16:48 07/31/19 24 07/31/2023 urina lysis , dipst ick NITRITES Negati ve Not Available [facility] [address], [place], [address], 07/31/2023 16:16:48 07/31/19 24 07/31/2023 urina lysis , dipst ick p.H. 5.5 Not Available [facility] [address], [place], [address], 07/31/2023 16:16:48 07/31/19 24 07/31/2023 urina lysis , dipst ick LEUKOCYTES Negati ve Not Available [facility] [address], [place], [address], 07/31/2023 16:16:48 Result Notes None recorded. Problems Name Problem SNOMED Code Status Onset Date Resolution Date Notes Provider Name and Address Organization Details Recorded Time Malignant neoplasm of urinary bladder 812180129 Active 022 Raquel pena [facility] 13:04:27 Problem Notes None recorded. Procedures Surgical History Date Name Laterality Status Provider Name and Address Organization Details Recorded Time 07/31/19 24 Cystoscopy- male completed Juan Garcia MD [address] [place] [address],[address], [place], [address], [facility] 07/31/2023 17:55:04 07/31/19 24 COMPLEX VISIT completed Juan Garcia MD [address] [place] [address],[address], [address], [facility] 07/31/2023 17:55:32 07/31/19 24 Sulfa post Cysto completed Savannah fernandez [facility] 07/31/2023 16:17:24 01/04/20 23 Cystoscopy- male completed Juan Garcia MD [address] [place] [address],[address], [place], [address], [facility] 01/03/2023 15:16:02 01/04/20 23 Sulfa post Cysto completed Farrah Curtis [facility] 01/03/2023 15:09:38 07/20/19 23 Cystoscopy- male completed Juan Garcia MD [address] [place] [address],[address], [address], [facility] 07/19/2022 18:19:49 03/29/19 23 Cystoscopy- male completed Juan Garcia MD [address] [place] [address],[address], [address], [facility] 03/29/2022 13:48:04 07/21/19 22 BCG Full Dose Tx 50mg completed Brenda Colvin [facility] 07/20/2021 13:21:59 07/14/19 22 BCG Full Dose Tx 50mg completed Brenda Colvin [facility] 07/13/2021 12:36:56 07/07/19 22 BCG Full Dose Tx 50mg completed Brenda Colvin [facility] 07/06/2021 13:00:05 06/30/19 22 BCG Full Dose Tx 50mg completed Brenda Colvin [facility] 06/29/2021 12:37:26 06/23/19 22 BCG Full Dose Tx 50mg completed Brenda Colvin [facility] 06/22/2021 12:59:03 06/16/19 22 Urinalysis completed Aminta Jaydon [facility] 06/15/2021 15:06:05 06/09/19 22 BCG Full Dose Tx 50mg completed Raquel Esquivel [facility] 06/08/2021 13:18:54 02/09/20 21 TRANSURETHRAL RESECTION OF BLADDER TUMOR (SURG) completed Jil Roy [facility] 02/08/2021 16:46:49 Imaging Results None recorded. Procedure [...] Not Available Not Available No t Available prednisone 20 mg tablet TAKE 2 TABLETS BY MOUTH DAILY FOR 4 DAYS active Not Available Not Available No t Available cyanocobala min (vit B-12) 1,000 mcg tablet active Not Available Not Available N ot Available warfarin 2.5 mg tablet active Not Available Not Available Not Available sulfamethox azole 800 mg-trimetho prim 160 mg tablet TAKE 1 TABLET BY MOUTH EVERY 12 HOURS 03/29 completed Not Available Not Available Not Available triamcinolo ne acetonide 0.1 % topical cream APPLY TOPICALLY TO THE AFFECTED AREA TWICE DAILY active Not Available Not Available No t Available ketorolac 0.5 % eye drops 07/19 completed Not Available Not Available Not Available [place] BCG 50 mg intravesica l suspension Instill 50 mL by intravesi hussein route. 03/29 completed Not Available Not Available Not Available prednisolon e acetate 1 % eye drops,suspe nsion 07/19 completed Not Available Not Available Not Available tamsulosin 0.4 mg capsule active Not Available Not Available Not Available cephalexin 500 mg capsule 07/30 completed Not Available Not Available Not Available metformin 1,000 mg tablet 03/29 completed Not Available Not Available Not Available triamcinolo ne acetonide 0.1 % topical ointment APPLY TOPICALLY TO LEFT KNEE 3 TIMES PER WEEK active Not Available Not Available No t Available hydrochloro thiazide 25 mg tablet active Not Available Not Available No t Available zolpidem 5 mg tablet 03/29 completed Not Available Not Available Not Available furosemide 20 mg tablet 03/29 completed Not Available Not Available Not Available gabapentin 100 mg capsule active Not Available Not Available Not Available losartan [...] Not Available True Metrix Air Glucose Meter active Not Available Not Available Not Available True [employer] Air Glucose Meter kit active Not Available Not Available No t Available DropSafe Alcohol Prep Pads active Not Available Not Available No t Available Vitals Date Recorded Body height Body mass index (BMI) Body weight Provider Name and Address Organization Details Last Updated DateTime 03/29/2022 187.96 cm 29.5 kg/m2 060246.25 g Tulio Haile [facility] 03/29/2022 13:05:47 Date Recorded Body height Body mass index (BMI) Body weight Provider Name and Address Organization Details Last Updated DateTime 07/19/2022 187.96 cm 29.5 kg/m2 565539.25 g Juan Garcia MD [address] [place] [address], [address] 07/19/2022 14:39:36 Date Recorded Body height Body mass index (BMI) Body weight Provider Name and Address Organization Details Last Updated DateTime 01/03/2023 187.96 cm 29.5 kg/m2 940231.25 g Farrah Curtis [facility] 01/03/2023 15:01:04 Date Recorded Body height Body mass index (BMI) Body weight Provider Name and Address Organization Details Last Updated DateTime 07/31/2023 187.96 cm 29.5 kg/m2 615321.25 g Savannah garcia [facility] 07/31/2023 16:16:10 Social History Question Answer Notes LastModified by Organizat ion Details LastModified Time Tobacco Smoking Status [facility] 13:11:40 What Is Your Level Of Alcohol Consumption? Moderate Information not available 03/29/2022 How Many Times Per Week Do You Consume Alcohol? 5-7 Times Per Week Information not available 07/19/2022 What Is Your Level Of Caffeine Consumption? Moderate Information not available 03/29/2022 Are You Currently Employed? No Information not available 03/29/2022 When Did You Quit Smoking? 16+yearssinc elastcigaret te Information not available 03/29/2022 Recreational Drug Use No Information not available 03/29/2022 What Was The Date Of Your Most Recent Tobacco Screening? 07/31/2023 [email or web address] Information not available 07/31/2023 What Is Your Relationship Status? Information not [...] Nicotine? No Information not available 03/29/2022 Sex: Unknown Functional Status None recorded. Mental Status None recorded. Family History Nothing Reported. Medical History Condition Response Cancer Y Immunizations Vaccine Type Date Status Provider Name and Address Organization Details Recorded Time Influenza, adjuvanted, trivalent, PF 11/18/2018 completed Farrah Stromquist null, [facility] 01/03/2023 15:01:14 Influenza, adjuvanted, trivalent, PF 11/21/2016 [facility] 15:01:14 Influenza, adjuvanted, trivalent, PF 01/01/2018 completed Farrah Stromquist null, [facility] 01/03/2023 15:01:14 Influenza, adjuvanted, quadrivalent, PF 11/24/2020 completed Farrah Stromquist null, [facility] 01/03/2023 15:01:14 Influenza, adjuvanted, quadrivalent, PF 11/30/2019 completed Farrah Stromquist null, [facility] 01/03/2023 15:01:14 COVID-19, mRNA, LNP-S, PF, 30 mcg/0.3 mL dose 04/05/2020 completed Farrah Stromquist null, [facility] 01/03/2023 15:01:14 COVID-19, mRNA, LNP-S, PF, 30 mcg/0.3 mL dose 04/26/2020 completed Farrah Stromquist null, [facility] 01/03/2023 15:01:14 COVID-19, mRNA, LNP-S, PF, 30 mcg/0.3 mL dose 11/24/2020 completed Farrah Stromquist null, [facility] 01/03/2023 15:01:14 COVID-19, mRNA, LNP-S, PF, 30 mcg/0.3 mL dose, marvin-sucrose 06/12/2021 completed Farrah Stromquist null, [facility] 01/03/2023 15:01:14 pneumococcal polysaccharide PPV23 11/29/2005 completed Farrah Stromquist null, [facility] 01/03/2023 15:01:14 pneumococcal polysaccharide PPV23 01/25/2005 completed Farrah Stromquist null, [facility] 01/03/2023 15:01:14 pneumococcal polysaccharide PPV23 02/20/2011 completed Farrah Stromquist null, [facility] 01/03/2023 15:01:14 influenza, unspecified formulation 11/25/2008 completed Fararh Stromquist null, [facility] 01/03/2023 15:01:14 Tdap 02/20/2011 completed Farrah Stromquist null, [facility] 01/03/2023 15:01:14 Pneumococcal conjugate PCV 13 03/15/2016 completed Farrah Stromquist null, [facility] 01/03/2023 15:01:14 Pneumococcal conjugate PCV 13 09/17/2014 completed Farrah Stromquist null, [facility] 01/03/2023 15:01:14 zoster live 02/26/2008 completed Farrah Stromquist null, [facility] 01/03/2023 15:01:14 zoster live 01/05/2009 completed Farrah Stromquist null, [facility] 01/03/2023 15:01:14 Influenza, high-dose, trivalent, PF 11/29/2014 completed Farrah Stromquist null, [facility] 01/03/2023 15:01:14 Influenza, high-dose, trivalent, PF 12/14/2015 completed Farrah Stromquist null, [facility] 01/03/2023 15:01:14 Influenza, high-dose, trivalent, PF 12/24/2013 completed Farrah Stromquist null, [facility] 01/03/2023 15:01:14 Influenza, split virus, trivalent, preservative 02/26/1988 completed Farrah Stromquist null, [facility] 01/03/2023 15:01:14 Influenza, split virus, trivalent, preservative 11/16/2008 completed Farrah Stromquist null, [facility] 01/03/2023 15:01:14 Influenza, split virus, trivalent, preservative 11/24/2009 completed Farrah Stromquist null, [facility] 01/03/2023 15:01:14 Influenza, split virus, trivalent, preservative 11/29/2005 completed Farrah Stromquist null, [facility] 01/03/2023 15:01:14 Influenza, split virus, trivalent, preservative 12/06/2003 completed Farrah Stromquist null, [facility] 01/03/2023 15:01:14 Influenza, split virus, trivalent, preservative 12/18/2002 completed Farrah Stromquist null, [facility] 01/03/2023 15:01:14 Influenza, split virus, trivalent, preservative 12/18/2012 completed Farrah Stromquist null, [facility] 01/03/2023 15:01:14 Influenza, split virus, trivalent, preservative 12/19/2001 completed Farrah Stromquist null, [facility] 01/03/2023 15:01:14 Influenza, split virus, trivalent, preservative 12/26/2006 completed Farrah Stromquist null, [facility] 01/03/2023 15:01:14 Influenza, split virus, trivalent, preservative 12/28/2004 completed Farrah Stromquist null, [facility] 01/03/2023 15:01:14 Influenza, split virus, trivalent, preservative 01/30/2012 completed Farrah Stromquist null, [facility] 01/03/2023 15:01:14 Influenza, split virus, trivalent, PF 12/16/2007 completed Farrah Stromquist null, [facility] 01/03/2023 15:01:14 Influenza, split virus, trivalent, PF 12/18/2010 completed Farrah Stromquist null, [facility] 01/03/2023 15:01:14 Novel [id number] 03/25/2009 completed Farrah Ninoquist null, [facility] 01/03/2023 15:01:14 Td (adult), 5 Lf tetanus toxoid, preservative free, adsorbed 11/29/2005 completed Farrah Stromquist null, [facility] 01/03/2023 15:01:14 Td (adult), 2 Lf tetanus toxoid, preservative free, adsorbed 10/07/1998 completed Farrah Stromquist null, [facility] 01/03/2023 15:01:14 Td (adult), 2 Lf tetanus toxoid, preservative free, adsorbed 01/25/2005 completed Farrah Ninoquist null, [facility] 01/03/2023 15:01:14 Influenza, split virus, quadrivalent, PF 03/25/2009 completed Farrah Ninoquist null, [facility] 01/03/2023 15:01:14 Past Encounters Encounter ID Performer Location Encounter Start Date Encounter Closed Date Diagnosis/Indication Diagnosis SNOMED-CT Code Diagnosis ICD10 Code [id number] MD Ezio Brannon [address] [place] [id number] 06/08/2021 12:06:29 06/09/2021 12:49:18 Malignant neoplasm of urinary bladder [id number] C67.9 [id number] MD Ezio Brannon [address] [place] [address] 06/15/2021 14:29:45 06/16/2021 10:17:08 Malignant neoplasm of urinary bladder [id number] C67.9 [id number] MD Ezio Brannon [address] [place] [address] 06/22/2021 12:09:08 06/26/2021 10:10:48 Malignant neoplasm of urinary bladder [id number] C67.9 [id number] MD Ezio Brannon [address] [place] [id number] 06/29/2021 12:04:22 06/30/2021 10:32:05 Malignant neoplasm of urinary bladder [id number] C67.9 [id number] Juan Garcia MD [address] [place] [place] [address] 07/06/2021 12:00:01 07/10/2021 08:52:06 Malignant neoplasm of urinary bladder [id number] C67.9 [id number] Juan Garcia MD [facility] [place] [address] 07/13/2021 11:55:07 07/14/2021 08:27:46 Malignant neoplasm of urinary bladder [id number] C67.9 [id number] Juan Garcia MD [address] [place] [place] [address] 07/20/2021 12:41:28 07/21/2021 15:05:59 Malignant neoplasm of urinary bladder [id number] C67.9 [id number] Juan Garcia MD [address] [place] [place] [address] 03/29/2022 12:36:10 04/02/2022 12:54:20 Malignant neoplasm of urinary bladder [id number] C67.9 [id number] Juan Garcia MD [address] [place] [place] [address] 07/19/2022 14:19:30 07/27/2022 15:09:48 Malignant neoplasm of urinary bladder [id number] C67.9 Pyuria [id number] R82.81 [id number] Juan Garcia MD [facility] [address] [facility] [place] [address] 01/03/2023 14:52:35 01/08/2023 11:52:12 Malignant neoplasm of urinary bladder [id number] C67.9 Pyuria [id number] R82.81 [id number] Juan Garcia MD [address] [place] [place] [address] 07/31/2023 15:42:28 08/01/2023 10:30:35 Malignant neoplasm of urinary bladder [id number] C67.9 Pyuria [id number] R82.81 Health Concerns Section Related Observation LastModified by Organization Detai ls LastModified Time None Recorded Concern Status LastModified by Organization Details LastModified Time None Recorded Advance Directives Directive None Recorded Payers Encounter Date Sequence Insurance Name Policy Number Policy Zelaya Covered Member ID Zelaya Member ID Guarantor Name 07/20/2021 1 [employer] (MEDICARE REPLACEMENT/A DVANTAGE - PPO) Cecilio Rosa [id number] Cecilio Rosa 03/29/2022 1 [employer] (MEDICARE REPLACEMENT/A DVANTAGE - PPO) Cecilio Rosa [id number] Cecilio Rosa 07/19/2022 1 [employer] (MEDICARE REPLACEMENT/A DVANTAGE - PPO) Cecilio Rosa [id number] Cecilio Rosa 01/03/2023 1 [employer] (MEDICARE REPLACEMENT/A DVANTAGE - PPO) Cecilio Rosa [id number] Cecilio Rosa 07/31/2023 1 [employer] (MEDICARE REPLACEMENT/A DVANTAGE - PPO) Cecilio Rosa [id number] Cecilio Rosa Notes Date Note Type Note Provider Name and Address Organization Details Recorded Time 07/20/2021 text/html HPI Notes: Karin hanson arrived [...] #6/6 BCG induction treatment. Juan Garcia MD [address] [place] [address],[address], [place], [address], [facility] 07/20/2021 18:21:28 03/29/2022 text/html HPI Notes: [...] 07/20/2021. No new symptoms Juan Garcia MD [address] [place] [address],[address], [address], [facility] 03/29/2022 13:49:01 07/19/2022 text/html HPI Notes: [...] No new symptoms Juan Garcia MD [address] [facility],[address], [place], [address], [facility] 07/19/2022 18:20:57 01/03/2023 text/html HPI Notes: [...] No new symptoms Juan Garcia MD [address] [facility],[address], [place], [address], [facility] 01/03/2023 15:16:45 07/31/2023 text/html HPI Notes: Mr. Mary strange is [...] of BCG completed 07/20/2021. 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 No new symptoms Juan Garcia MD [address] [facility],[address], [place], [address], [place] [facility] 07/31/2023 17:55:53
== END 2023-12-20 19:52 | disposition home or self-care (01) ==
LOC: AMB 12-25 19:05
PROVIDERS: PCP Family Medicine; Visit Provider Family Medicine
DX: R53.1 Weakness (principal)
CPT/HCPCS: A0998

== ENCOUNTER 2024-09-24 08:51 | Outpatient (CLI) | payer MEDICARE, SELFPAY | END 2024-09-24 08:52 | disposition home or self-care (01) | LOC: WOUND 08:52 | PROVIDERS: PCP Family Medicine; Referring Provider Family Medicine; Visit Provider Nurse Practitioner Family | DX: I87.313 Chronic venous hypertension (idiopathic) with ulcer of bilateral lower extremity (principal); I73.9 Peripheral vascular disease, unspecified; I89.0 Lymphedema, not elsewhere classified; E11.622 Type 2 diabetes mellitus with other skin ulcer; L97.812 Non-pressure chronic ulcer of other part of right lower leg with fat layer exposed; L97.822 Non-pressure chronic ulcer of other part of left lower leg with fat layer exposed; Z79.84 Long term (current) use of oral hypoglycemic drugs; E11.22 Type 2 diabetes mellitus with diabetic chronic kidney disease; N18.32 Chronic kidney disease, stage 3b | CPT/HCPCS: 97597; G0463 ==

== ENCOUNTER 2024-10-01 09:26 | Outpatient (CLI) | payer MEDICARE, SELFPAY | END 2024-10-01 09:27 | disposition home or self-care (01) | PROVIDERS: PCP Family Medicine; Visit Provider Nurse Practitioner Family | DX: I87.312 Chronic venous hypertension (idiopathic) with ulcer of left lower extremity (principal); I89.0 Lymphedema, not elsewhere classified; I73.9 Peripheral vascular disease, unspecified; E11.622 Type 2 diabetes mellitus with other skin ulcer; L97.822 Non-pressure chronic ulcer of other part of left lower leg with fat layer exposed; Z79.84 Long term (current) use of oral hypoglycemic drugs | CPT/HCPCS: 11042 ==

== ENCOUNTER 2024-10-08 09:57 | Outpatient (CLI) | payer MEDICARE, SELFPAY | END 2024-10-08 09:58 | disposition home or self-care (01) | PROVIDERS: PCP Family Medicine; Visit Provider Nurse Practitioner Family | DX: I89.0 Lymphedema, not elsewhere classified (principal); I73.9 Peripheral vascular disease, unspecified; E11.620 Type 2 diabetes mellitus with diabetic dermatitis; L97.822 Non-pressure chronic ulcer of other part of left lower leg with fat layer exposed; L97.322 Non-pressure chronic ulcer of left ankle with fat layer exposed; N18.32 Chronic kidney disease, stage 3b; Z79.84 Long term (current) use of oral hypoglycemic drugs | CPT/HCPCS: 11042 ==

== ENCOUNTER 2024-10-15 09:54 | Outpatient (CLI) | payer MEDICARE, SELFPAY | END 2024-10-15 09:55 | disposition home or self-care (01) | LOC: WOUND 09:54 | PROVIDERS: PCP Family Medicine; Visit Provider Nurse Practitioner Family | DX: I87.312 Chronic venous hypertension (idiopathic) with ulcer of left lower extremity (principal); I73.9 Peripheral vascular disease, unspecified; I89.0 Lymphedema, not elsewhere classified; E11.622 Type 2 diabetes mellitus with other skin ulcer; L97.822 Non-pressure chronic ulcer of other part of left lower leg with fat layer exposed; L97.322 Non-pressure chronic ulcer of left ankle with fat layer exposed; E11.22 Type 2 diabetes mellitus with diabetic chronic kidney disease; N18.32 Chronic kidney disease, stage 3b; Z79.84 Long term (current) use of oral hypoglycemic drugs | CPT/HCPCS: 11042; G0463 ==

== ENCOUNTER 2024-10-22 09:53 | Outpatient (CLI) | payer MEDICARE, SELFPAY | END 2024-10-22 09:54 | disposition home or self-care (01) | LOC: WOUND 09:53 | PROVIDERS: PCP Family Medicine; Visit Provider Nurse Practitioner Family | DX: I87.313 Chronic venous hypertension (idiopathic) with ulcer of bilateral lower extremity (principal); E11.622 Type 2 diabetes mellitus with other skin ulcer; I89.0 Lymphedema, not elsewhere classified; L97.822 Non-pressure chronic ulcer of other part of left lower leg with fat layer exposed; L97.512 Non-pressure chronic ulcer of other part of right foot with fat layer exposed; E11.22 Type 2 diabetes mellitus with diabetic chronic kidney disease; N18.32 Chronic kidney disease, stage 3b; Z79.84 Long term (current) use of oral hypoglycemic drugs | CPT/HCPCS: 97597 ==

== ENCOUNTER 2024-10-29 09:11 | Outpatient (CLI) | payer MEDICARE, SELFPAY | END 2024-10-29 09:12 | disposition home or self-care (01) | LOC: WOUND 09:11 | PROVIDERS: PCP Family Medicine; Visit Provider Nurse Practitioner Family | DX: I87.312 Chronic venous hypertension (idiopathic) with ulcer of left lower extremity (principal); I73.9 Peripheral vascular disease, unspecified; I89.0 Lymphedema, not elsewhere classified; E11.622 Type 2 diabetes mellitus with other skin ulcer; L97.822 Non-pressure chronic ulcer of other part of left lower leg with fat layer exposed; E11.22 Type 2 diabetes mellitus with diabetic chronic kidney disease; N18.32 Chronic kidney disease, stage 3b; Z79.84 Long term (current) use of oral hypoglycemic drugs | CPT/HCPCS: 11042; G0463 ==

== ENCOUNTER 2024-11-05 09:54 | Outpatient (CLI) | payer MEDICARE, SELFPAY | END 2024-11-05 09:55 | disposition home or self-care (01) | LOC: WOUND 09:54 | PROVIDERS: PCP Family Medicine; Visit Provider Nurse Practitioner Family | DX: I73.9 Peripheral vascular disease, unspecified (principal); E11.622 Type 2 diabetes mellitus with other skin ulcer; L97.822 Non-pressure chronic ulcer of other part of left lower leg with fat layer exposed; I89.0 Lymphedema, not elsewhere classified; L97.512 Non-pressure chronic ulcer of other part of right foot with fat layer exposed; E11.22 Type 2 diabetes mellitus with diabetic chronic kidney disease; N18.32 Chronic kidney disease, stage 3b; Z79.84 Long term (current) use of oral hypoglycemic drugs; I87.313 Chronic venous hypertension (idiopathic) with ulcer of bilateral lower extremity | CPT/HCPCS: 11042 ==

== ENCOUNTER 2024-11-12 09:57 | Outpatient (CLI) | payer MEDICARE, SELFPAY | END 2024-11-12 09:58 | disposition home or self-care (01) | LOC: WOUND 09:57 | PROVIDERS: PCP Family Medicine; Visit Provider Nurse Practitioner Family | DX: I87.312 Chronic venous hypertension (idiopathic) with ulcer of left lower extremity (principal); I73.9 Peripheral vascular disease, unspecified; E11.622 Type 2 diabetes mellitus with other skin ulcer; L97.822 Non-pressure chronic ulcer of other part of left lower leg with fat layer exposed; I89.0 Lymphedema, not elsewhere classified; N18.32 Chronic kidney disease, stage 3b; L97.512 Non-pressure chronic ulcer of other part of right foot with fat layer exposed; Z79.84 Long term (current) use of oral hypoglycemic drugs; E11.22 Type 2 diabetes mellitus with diabetic chronic kidney disease | CPT/HCPCS: 11042; 97597 ==

== ENCOUNTER 2024-11-19 09:53 | Outpatient (CLI) | payer MEDICARE, SELFPAY | END 2024-11-19 09:54 | disposition home or self-care (01) | LOC: WOUND 09:53 | PROVIDERS: PCP Family Medicine; Visit Provider Nurse Practitioner Family | DX: I87.312 Chronic venous hypertension (idiopathic) with ulcer of left lower extremity (principal); E11.622 Type 2 diabetes mellitus with other skin ulcer; I73.9 Peripheral vascular disease, unspecified; L97.822 Non-pressure chronic ulcer of other part of left lower leg with fat layer exposed; I89.0 Lymphedema, not elsewhere classified; L97.512 Non-pressure chronic ulcer of other part of right foot with fat layer exposed; Z79.84 Long term (current) use of oral hypoglycemic drugs | CPT/HCPCS: 11042 ==

== ENCOUNTER 2024-11-26 09:53 | Outpatient (CLI) | payer MEDICARE, SELFPAY | END 2024-11-26 09:54 | disposition home or self-care (01) | LOC: WOUND 09:53 | PROVIDERS: PCP Family Medicine; Visit Provider Nurse Practitioner Family | DX: I87.312 Chronic venous hypertension (idiopathic) with ulcer of left lower extremity (principal); I73.9 Peripheral vascular disease, unspecified; E11.622 Type 2 diabetes mellitus with other skin ulcer; L97.822 Non-pressure chronic ulcer of other part of left lower leg with fat layer exposed; Z79.84 Long term (current) use of oral hypoglycemic drugs; I89.0 Lymphedema, not elsewhere classified; L97.512 Non-pressure chronic ulcer of other part of right foot with fat layer exposed | CPT/HCPCS: 11042; 97602 ==

== ENCOUNTER 2024-12-03 09:55 | Outpatient (CLI) | payer MEDICARE, SELFPAY | END 2024-12-03 09:56 | disposition home or self-care (01) | LOC: WOUND 09:55 | PROVIDERS: PCP Family Medicine; Visit Provider Nurse Practitioner Family | DX: I87.312 Chronic venous hypertension (idiopathic) with ulcer of left lower extremity (principal); E11.622 Type 2 diabetes mellitus with other skin ulcer; L97.822 Non-pressure chronic ulcer of other part of left lower leg with fat layer exposed; Z79.84 Long term (current) use of oral hypoglycemic drugs; I89.0 Lymphedema, not elsewhere classified; L97.512 Non-pressure chronic ulcer of other part of right foot with fat layer exposed | CPT/HCPCS: 11042 ==

== ENCOUNTER 2024-12-08 10:13 | Outpatient (CLI) | payer MEDICARE, SELFPAY | END 2024-12-08 10:14 | disposition home or self-care (01) | LOC: WOUND 10:13 | PROVIDERS: PCP Family Medicine; Visit Provider Nurse Practitioner Family | DX: I87.312 Chronic venous hypertension (idiopathic) with ulcer of left lower extremity (principal); E11.622 Type 2 diabetes mellitus with other skin ulcer; L97.822 Non-pressure chronic ulcer of other part of left lower leg with fat layer exposed; Z79.84 Long term (current) use of oral hypoglycemic drugs; I89.0 Lymphedema, not elsewhere classified; L97.512 Non-pressure chronic ulcer of other part of right foot with fat layer exposed | CPT/HCPCS: 11042 ==

== ENCOUNTER 2024-12-17 09:54 | Outpatient (CLI) | payer MEDICARE, SELFPAY | END 2024-12-17 09:55 | disposition home or self-care (01) | LOC: WOUND 09:54 | PROVIDERS: PCP Family Medicine | DX: I87.312 Chronic venous hypertension (idiopathic) with ulcer of left lower extremity (principal); E11.622 Type 2 diabetes mellitus with other skin ulcer; L97.822 Non-pressure chronic ulcer of other part of left lower leg with fat layer exposed; I89.0 Lymphedema, not elsewhere classified; L97.512 Non-pressure chronic ulcer of other part of right foot with fat layer exposed; L97.521 Non-pressure chronic ulcer of other part of left foot limited to breakdown of skin; Z79.84 Long term (current) use of oral hypoglycemic drugs | CPT/HCPCS: 11042; 87070; 87186 ==

== ENCOUNTER 2024-12-24 09:56 | Outpatient (CLI) | payer MEDICARE, SELFPAY | END 2024-12-24 09:57 | disposition home or self-care (01) | LOC: WOUND 09:56 | PROVIDERS: PCP Family Medicine; Visit Provider Nurse Practitioner Family | DX: I87.312 Chronic venous hypertension (idiopathic) with ulcer of left lower extremity (principal); E11.622 Type 2 diabetes mellitus with other skin ulcer; L97.822 Non-pressure chronic ulcer of other part of left lower leg with fat layer exposed; I89.0 Lymphedema, not elsewhere classified; Z79.84 Long term (current) use of oral hypoglycemic drugs | CPT/HCPCS: 97597 ==

== ENCOUNTER 2024-12-31 09:57 | Outpatient (CLI) | payer MEDICARE, SELFPAY | END 2024-12-31 09:58 | disposition home or self-care (01) | LOC: WOUND 09:57 | PROVIDERS: PCP Family Medicine; Visit Provider Nurse Practitioner Family | DX: I87.311 Chronic venous hypertension (idiopathic) with ulcer of right lower extremity (principal); E11.622 Type 2 diabetes mellitus with other skin ulcer; I89.0 Lymphedema, not elsewhere classified; L97.512 Non-pressure chronic ulcer of other part of right foot with fat layer exposed; Z79.84 Long term (current) use of oral hypoglycemic drugs | CPT/HCPCS: 11042 ==

== ENCOUNTER 2025-01-07 09:56 | Outpatient (CLI) | payer MEDICARE, SELFPAY | END 2025-01-07 09:57 | disposition home or self-care (01) | LOC: WOUND 09:56 | PROVIDERS: PCP Family Medicine; Visit Provider Nurse Practitioner Family | DX: I89.0 Lymphedema, not elsewhere classified (principal); I73.9 Peripheral vascular disease, unspecified; L97.512 Non-pressure chronic ulcer of other part of right foot with fat layer exposed; E11.22 Type 2 diabetes mellitus with diabetic chronic kidney disease; N18.32 Chronic kidney disease, stage 3b; Z79.84 Long term (current) use of oral hypoglycemic drugs | CPT/HCPCS: 11042 ==

== ENCOUNTER 2025-01-14 09:58 | Outpatient (CLI) | payer MEDICARE, SELFPAY | END 2025-01-14 09:59 | disposition home or self-care (01) | LOC: WOUND 09:58 | PROVIDERS: PCP Family Medicine; Visit Provider Nurse Practitioner Family | DX: I89.0 Lymphedema, not elsewhere classified (principal); E11.621 Type 2 diabetes mellitus with foot ulcer; L97.512 Non-pressure chronic ulcer of other part of right foot with fat layer exposed; I73.9 Peripheral vascular disease, unspecified; Z79.84 Long term (current) use of oral hypoglycemic drugs | CPT/HCPCS: 97597 ==

== ENCOUNTER 2025-02-12 20:33 | Outpatient (CLI) | payer MEDICARE, SELFPAY | END 2025-02-12 20:34 | disposition home or self-care (01) | PROVIDERS: PCP Family Medicine; Visit Provider Emergency Medicine | DX: R53.1 Weakness (principal); R41.82 Altered mental status, unspecified | CPT/HCPCS: A0425; A0427 ==

== ENCOUNTER 2025-02-12 20:53 | Observation (INO) | payer MEDICARE, SELFPAY ==
[2025-02-12 20:53] VITALS: PULSE 71; RESP 18; TEMP 36.7; O2SAT 98; BMI 31.6
--- OUTSIDE RECORDS SUMMARY | 2025-02-12 20:55 | XMS_ITS | Clinical Summary ---
Author Organization [facility] Address [address] [place] [address] Care Team Providers Care Industrial Ecology Technician Name Role Phone Doug Taylor MD Primary Care Provider Allergies Active AllergyReactionsCriticalityNoted MkuoFacghpcsQhbwkycmppUocql29/01/2020 On 5 mg TlrbsitgrLugadboq15/30/2025 Medications MedicationSigDispense QuantityRefillsLast FilledStart DateEnd DateStatus cholecalciferol (VITAMIN D3) 1,000 unit tablet Indications:Vitamin D deficiencyTake 1 Tablet (1,000 units) by mouth once daily. 90 tablet. 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 Dispense meter, test strips, lancets covered by pt ins. E11.9 NIDDM type II - Test 1 time/day 1 Each 07/30/2022ctive Diabetic Shoe Indications:Diabetic peripheral neuropathy (HC)As directed. One pair diabetic shoes. 1 Each ctive Walker - 4 wheels Indications:Weakness of lower extremity, unspecified laterality,Unstable gaitFor home use. Length of need: 99. With seat. 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 1 unit ctive triamcinolone (ARISTOCORT; KENALOG) 0.1 % cream Indications:Acute eczemaApply topically to affected area(s) two times daily. 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 90 Tablet 5Active sotaloL 80 mg tablet Indications:Atrial fibrillation, unspecified type (HC)TAKE 1 TABLET EVERY 24 HOURS 90 Tablet 5Active tamsulosin 0.4 mg capsule Indications:Frequent urinationTake 1 Capsule (0.4 mg) by mouth once daily after a meal. 90 Capsule 5Active olmesartan 40 mg tablet Indications:Benign essential HTNTake 1 Tablet (40 mg) by mouth once daily. 90 Tablet 5Active atorvastatin (LIPITOR) 20 mg tablet Indications:Mixed hyperlipidemiaTake 1 Tablet (20 mg) by mouth once daily. 90 Tablet 5Active cyanocobalamin (Vitamin B-12) 500 mcg tablet Indications:Nutrition disorderTake 0.5 Tablets (250 mcg) by mouth once daily. 5Active warfarin (COUMADIN) 2.5 mg tablet Indications:Paroxysmal atrial fibrillation (HC),Anticoagulation monitoring, INR range 2-3Take by mouth 2.5 mg (2.5 mg x 1) every Mon, Wed, Fri; 1.25 mg (2.5 mg x 0.5) all other days in theevening OR as directed 65 Tablet 5Active gabapentin (NEURONTIN) 100 mg capsule Indications:Peripheral sensory neuropathyTake 1 Capsule (100 mg) by mouth three times daily. 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 1 Each 5Active wheelchair Indications:Leg weakness, bilateralWheelchair: lt wt with leg rests: (Swing away Length of need: 99 months 1 Each 5Active Active Problems ProblemNoted DateDiagnosed DateVenous stasis ulcer5CKD stage 3b, GFR 30-44 ml/min5Anticoagulation monitoring, INR range 2-308 Peripheral arterial eogkgbu7403/29/2022aroxysmal atrial ccjxcgzlklbe57/22/2022 Malignant neoplasm of urinary fecwscl33/11/2022Bilateral lower extremity edema 08/18/2019Diabetic peripheral eintrwyyvt64/29/2018History of DVT (deep vein thrombosis)03/11/20164237Zwhddmwlyjobzp33/15/2017TIA (transient ischemic attack) 03/11/2016 Overview (03/12/2017): 03/11/16: 20 minutes of numbness affecting his right arm- [facility] [place] showed no new acute changes, but [...] without mention of complication, not stated as xkpbvbotexqx88/15/2013Obesity, malswqlugbj32/11/2012Unspecified essential aqpnrfuqeiwx97/11/2006 Resolved Problems ProblemNoted DateDiagnosed DateResolved DateAnticoagulation monitoring, DOAC /nticoagulation monitoring, DOAC/tage 3a chronic kidney clugfhn97trial xqopclpvoqtq53/30/2019 2Chronic pain of right knee Overview (10/08/2020): August 2018: cortisone injection by Dr. Berry bilateral knees. Great improvement 2 weeks out. March 2020: Repeat Bilateral cortisone knee injections. September 2020: Repeat Bilateral cortisone knee injections. Chronic pain of left knee Overview (10/08/2020): August 2018: cortisone injection by Dr. Berry bilateral knees. Great improvement 2 weeks out. March 2020: Repeat Bilateral cortisone knee injections. September 2020: Repeat Bilateral cortisone knee injections. Trochanteric bursitis of both hips Overview (01/21/2019): July [address] [facility]. Mar 2018: bilateral Greater Trochanteric Bursa injections by Dr. Berry. Left side improved, rightside did not improve after injection. Sep 2018: repeat Greater Trochanteric Bursa injection on right side by Dr. Berry. Dec 2018: bilateral Greater Trochanteric Bursa injection. Anticoagulation monitoring, INR range 2-310//1Diabetic neuropathy Acute thromboembolism of deep veins of both lower vnzuervccnz15Type 2 diabetes mellitus with diabetic neuropathy, without long-term current use of bwsuqus3105/14/2017 Encounters DateTypeDepartmentCare GecwBfmchxaamim05/18/2025 3:45 PM CSTOffice Visit [facility] [address] [place] [address] Doug Taylor MD Medicare ANNUAL (subsequent) Visit (84 year old)02/11/2025Results Follow-Up [facility] [address] [place] [address] Doug Taylor MD 02/11/2025Telephone [facility] [address] [place] [address] Doug Taylor MD Anticoagulation (Order renewal)02/11/2025nticoagulation (warfarin) [facility] [address] [place] [address] Nurse, Ahg Anticoag Zhsoflureahysnv76/18/5568Blfgbx80/28/2025 9:45 AM CDTOrders Only [facility] [address] [place] [address] Lab, [place] Lab12/22/2024nticoagulation (warfarin) [facility] [address] [place] [address] Nurse, Ahg Anticoag Drbxfinyspcwhfg84/28/5155Htmpwc31/27/2025Anticoagulation (warfarin) [facility] [address] [place] [address] Nurse, Ahg Anticoag Anticoagulation (Chart update )12/14/2024Refill [facility] [address] [place] [address] Doug Taylor MD Refill Request (Gabapentin )12/12/2024Refill [facility] [address] [place] [address] Doug Taylor MD Refill Request (Warfarin)12/09/2024Orders Only [facility] Scanner 1 scan: (1-Ord) [facility], 5Anticoagulation (warfarin) [facility] [address] [place] [address] Nurse, Ahg Anticoag Anticoagulation (Office Visit )11/25/2024 1:15 PM CDTOffice Visit [address] [address] Doug Taylor MD Follow Up11/25/2024Travelfrom Last 3 Months Immunizations ImmunizationAdministration DatesNext DueAMB INFLUENZA IIV3 (AGE 65+ YRS) PF (Flu Clinic Only)01/01/2018Amb Influenza, Inactivated AIIV4 (Age 65+ Years) Preserv Free11/30/2019COVID-19 VACCINE MNEXSPIKE (MODERNA 10MCG/0.2ML) 12YO+ PFS 5COVID-19 vaccine ([facility]-BioNTech 30mcg/0.3mL) 12YO+ BIVALENT PF, MDV 06/28/2022,2COVID-19 vaccine (Pfizer-BioNTech 30mcg/0.3mL) 12YO+ JOSE ANGEL- SUCROSE PF, MDV2COVID-19 vaccine (Pfizer-BioNTech 30mcg/0.3mL) PF, MDV 11/24/2020,04/26/2020,04/05/2020Influenza A (H1N1), Inactivated (Age >=3 Years) 03/25/2009Influenza, High-dose Vkjelneortg29/08/2025,11/18/2023,12/14/2015, 11/29/2014,12/24/2013Influenza, IIV3 (Age 6-35 mos)12/18/2010,12/16/2007 Influenza, IIV3 (Age >=3 years)12/18/2012,01/30/2012,11/24/2009,11/16/2008, 12/26/2006,11/29/2005,12/28/2004,12/06/2003,12/18/2002,12/19/2001,02/26/1988 Influenza, Inactivated AIIV4 (Age 65+ Years) Preserv Free11/21/2022,12/27/2021, 11/24/2020Influenza, Inactivated IIV3 (Age 65+ Years) Preserv Free11/18/2018, 11/21/2016Pneumococcal Conj 20-valent (Prevnar 20)3Pneumococcal Poly,23-Valent (Pneumovax)02/20/2011,11/29/2005,01/25/2005Pneumococcal conj 13- Valent (Prevnar 13)03/15/2016,09/17/2014RSV, Recombinant ADJ Reconstituted (Arexvy 120MCG/0.5mL)02/04/2023Td (Age >=7 Years)01/25/2005,10/07/1998Td, Preservative Free (age >= 7 Years)11/29/2005Tdap04/11/2022,02/20/2011Zoster (Shingrix-RZV, recombinant)07/20/2022,04/11/2022Zoster (Zostavax-ZVL, live) 01/05/2009,02/26/2008 Family History Medical HistoryRelationNameCommentsCancer-colonNeg. 1Cancer-prostateNeg. 2 DiabetesPaternal GrandmotherAnesthesia ProblemNo Family HistoryRelationName StatusCommentsNeg. 1Neg. 2Paternal Grandmother Social History Tobacco UseTypesPacks/DayYears UsedDateSmoking Tobacco: KafliqLtrvubzftv3Elbb: 02/25/1974Smokeless Tobacco: Never Tobacco Cessation:Counseling Given: No Alcohol UseStandard Drinks/WeekCommentsYes0 (1 standard drink = 0.6 oz pure alcohol)occasionallyPHQ-2AnswerDate RecordedPHQ-2 TOTAL MNUXY38904/14/2024Social ConnectionsAnswerDate RecordedDo you often feel lonely or isolated from those around you?lcohol UseAnswerDate RecordedHow often do you have a drink containing alcohol?How many drinks containing alcohol do you have on a typical day when you are drinking?How often do you have five or more drinks on one occasion?Financial Resource StrainAnswer Date RecordedDifficulty of Paying Living Nuyqhhcw814/18/2025Difficulty of Paying Living ExpensesNot on file02/11/2025Food InsecurityAnswerDate RecordedDo you worry your food will run out before you are able to buy more? Transportation NeedsAnswerDate RecordedDoes lack of transportation keep you from medical appointments?Does lack of transportation keep you from work, meetings or getting things that you need?Housing StabilityAnswerDate RecordedWhat is your housing situation today?UtilitiesAnswerDate RecordedDo you have trouble paying for utilities (for example, heat, electricity, water, phone)?Sex and Gender InformationValueDate RecordedSex Assigned at BirthNot on fileLegal LoqTqkm4103/10/2012 6:59 AM MARKET RELATIONSHIP MANAGER Gender IdentityNot on fileSexual OrientationNot on file Last Filed Vital Signs Vital SignReadingTime TakenCommentsBlood Casdojcf566/7202/11/2025 4:22 PM MARKET RELATIONSHIP MANAGER Mzynz266202/11/2025 3:52 PM NHJOgpfnustjgk26.3 ??C (97.4 ??F)09/23/2024 7:46 AM CDTRespiratory Wwsw187305/25/2021 2:10 PM CDTOxygen Kgtaiicqme92%02/11/2025 3:52 PM CSTInhaled Oxygen Concentration--Epgcop497.1 kg (225 lb)04/09/2024 2:36 PM TITWeozsm289 cm (6' 2)04/09/2024 2:36 PM CSTBody Mass Index28.8904/09/2024 2:36 PM MARKET RELATIONSHIP MANAGER Plan of Treatment DateTypeDepartmentCare Team (Latest Contact Info)Zfukbmiduqn08/06/2026 1:00 PM CSTAncillary Procedure [facility] [address] [place] [phone] 05/07/2025 2:30 PM CDTOffice Visit [facility] [address] [place] [phone] Edison Marshall MD [address] [id number] 06/16/2025 1:15 PM CDTOrders Only [facility] [address] [place] [address] Lab, [place] 06/18/2025 2:05 PM CDTOffice Visit [facility] [address] [place] [address] Doug Taylor MD [address] [place] [address] Health MaintenanceDue DateLast DoneCommentsBMI (ht and wt on same day) for age 18+, 01/26/2021, 12/06/2020, Additional history existsCOVID- 19 vaccine series (11 - Pfizer risk 2024- season), 06/15/2024, 11/18/2023, Additional history existsDepression screening for age 12+, 02/11/2025, 01/22/2024, Additional history exists Medicare Wellness for age 65+, 01/22/2024, 01/18/2023, Additional history existsTetanus almvcer63, 02/20/2011, 11/29/2005, Additional history existsPneumococcal series for age 50+Completed 06/28/2022, 03/15/2016, 09/17/2014, Additional history existsZoster (shingles) series for age 50+Vyerdadjb31/26/2023, 04/11/2022, 01/05/2009, Additional history existsRSV vaccine for adults or dynuygzbqMzymbloor33/11/2023Influenza NsghtdkXoshhdago78/08/2025, 11/18/2023, 11/21/2022, Additional history exists Hepatitis B series for 19+Aged OutNo longer eligible based on patient's age to complete this topic Procedures Procedure NamePriorityDate/TimeAssociated DiagnosisCommentsINR,POCTRoutine 02/11/2025 4:43 PM MARKET RELATIONSHIP MANAGER Paroxysmal atrial fibrillation (HC) Anticoagulation monitoring, INR range 2-3 INR,MJGNLoezgfh31/28/2025 9:35 AM CDT Paroxysmal atrial fibrillation (HC) Anticoagulation monitoring, INR range 2-3 SCAN-EYE EXAM12/09/2024 12:00 AM CDT PROTIME-SGOUqvqwwi37/01/2025 1:55 PM CDT Paroxysmal atrial fibrillation (HC) Anticoagulation monitoring, INR range 2-3 BASIC METABOLIC REFUTAqskwdz43/01/2025 1:53 PM CDT Type 2 diabetes mellitus with diabetic neuropathy, without long-term current use of insulin (HC) HEMOGLOBIN A1C MONITORING (POCT)Kxcuuec5411/25/2024 1:53 PM CDT Type 2 diabetes mellitus with diabetic neuropathy, without long-term current use of insulin (HC) VITAMIN K21Ghjxirk29/01/2025 1:53 PM CDT B12 deficiency LIPID PANEL W REFLEX MEASURED SEORhcumxn12/01/2025 1:53 PM CDT Type 2 diabetes mellitus with diabetic neuropathy, without long-term current use of insulin (HC) from Last 3 Months Results * (ABNORMAL) INR - POCT [66762.2] - Standing Order (02/11/2025 4:43 PM MARKET RELATIONSHIP MANAGER) Only the most recent of2 resultswithin the time period is included. ComponentValueRef RangeTest MethodAnalysis TimePerformed AtPathologist Signature INR3.1(H)ratio02/11/2025 4:59 PM CSTMETHODIST REHABILITATION CENTER CLINICComment: INRs >2.9 may be falsely elevated in patients receiving either unfractionated Heparin or Low Molecular Weight Heparin. Follow up testing in a hospital laboratory may be helpful if clinically indicated. INR results of > or = 5.0 should be verified using the standard venipuncture procedure. Reference Range ? 0.9-1.1 Moderate-intensity Warfarin Therapy 2.0-3.0 Higher-intensity Warfarin Therapy ?? 3.0-4.0 PROTHROMBIN TIMEP37.0(H)10.5 - 13.1 sec02/11/2025 4:59 PM CSTALTA VISTA REGIONAL HOSPITALComment: Point of care fingerstick Prothrombin Time/INR results may vary from venous Prothrombin Time/INR methodologies. Any results exhibiting inconsistency with the patient's clinical status should be repeated using a venous Prothrombin Time/INR method. Specimen (Source)Anatomical Location / LateralityCollection Method / Volume Collection TimeReceived TimeBloodBLOOD SPECIMEN / UnknownQuest Collect / Unknown 02/11/2025 4:43 PM CST02/11/2025 4:43 PM MARKET RELATIONSHIP MANAGER Narrative Authorizing ProviderResult TypeResult StatusRichgustavo Taylor MDLABORATORY Final ResultPerforming OrganizationAddressCity/State/ZIP CodePhone Number [employer] [facility] [address] [place] [address], [place] [phone] [facility] [address] [place] [address], [place] [phone] * SCAN-EYE EXAM (12/09/2024 12:00 AM CDT) Narrative Authorizing ProviderResult TypeResult StatusScannerOTHERFinal Result * (ABNORMAL) PROTIME-INR [15214.0] - Standing Order (11/25/2024 1:55 PM CDT) ComponentValueRef RangeTest MethodAnalysis TimePerformed AtPathologist SignatureINR2.0(H)<1.310 10:42 PM CDCARILION CLINIC LABORATORY-CENTRAL SYMWNBVGEUCXVJHNW20.6(H)10.6 - 12.4 sec11/25/2024 10:42 PM CDSINGING RIVER GULFPORTCENTRAL LABORATORYSpecimen (Source)Anatomical Location / Laterality Collection Method / VolumeCollection TimeReceived TimeBloodBLOOD SPECIMEN / UnknownQuest Collect / Ypploig8111/25/2024 1:55 PM CDT1 1:55 PM CDT Narrative [facility] - 11/25/2024 10:42 PM CDT Therapeutic Range 2.0-3.0 for most anticoagulated patients 2.5-3.5 or 4.0 for high risk patients The INR is only used for patients on stable oral anticoagulant therapy. It makes no significant contribution to the diagnosis or treatment of patients whose Protime is prolonged for other reasons. INR results are increased when heparin levels exceed 1.0 U/mL, which corresponds to an aPTT >125seconds if the patient is on UFH. Authorizing ProviderResult TypeResult StatusRichard Regine Taylor MDHEMATOLOGY Final ResultPerforming OrganizationAddressCity/State/ZIP CodePhone Number [facility] [address] [place] [address], * LIPID PANEL W REFLEX MEASURED LDL (11/25/2024 1:53 PM CDT)ComponentValueRef RangeTest MethodAnalysis TimePerformed AtPathologist SignatureCHOLESTEROL, MSIJC146<200 mg/dL11/26/2024 4:07 AM CDTQUEST FORWYWERDXWYHUQGIWJIDEZY25<150 mg/dL11/26/2024 4:07 AM CDTQUEST DIAGNOSTICSHDL RJESLCHXKDK79> OR = 40 mg/dL 11/26/2024 4:07 AM CDTQUEST DIAGNOSTICSNON HDL ADBAVAJAMTJ36<130 mg/dL (calc) 11/26/2024 4:07 AM CDTQUEST DIAGNOSTICSComment: For patients with diabetes plus 1 major ASCVD risk factor, treating to a non-HDL-C goal of <100 mg/dL (LDL-C of <70 mg/dL) is considered a therapeutic option. CHOL/HDLC RATIO1.7<5.0 (calc)11/26/2024 4:07 AM CDTQUEST DIAGNOSTICS LDL-RWVGHSFXKKN00hu/dL (calc)11/26/2024 4:07 AM CDTQUEST DIAGNOSTICSComment: Reference range: <100 Desirable range <100 mg/dL for primary prevention; <70 mg/dL for patients with CHD or diabetic patients with > or = 2 CHD risk factors. LDL-C is now calculated using the Juan Antonio-Jonas calculation, which is a validated novel method providing better accuracy than the Friedewald equation in the estimation of LDL-C. Juan Antonio SS et al. CALVIN. 2013;310(19): 6698-7552 (http://education.[employer].GenerationOne/faq/YVL597) Specimen (Source)Anatomical Location / LateralityCollection Method / Volume Collection TimeReceived TimeBloodBLOOD SPECIMEN / UnknownQuest Collect / Unknown 11/25/2024 1:53 PM CDT1 1:53 PM CDT Narrative Authorizing ProviderResult TypeResult StatusDoug Taylor MDCHEMISTRY Final ResultPerforming OrganizationAddressCity/State/ZIP CodePhone Number [employer] [facility] [address] [place] [address], [place] [phone] * HEMOGLOBIN A1C MONITORING (POCT) (11/25/2024 1:53 PM CDT)ComponentValueRef RangeTest MethodAnalysis TimePerformed AtPathologist SignaturePOC HEMOGLOBIN A1C5.9<6.0 % OF TOTAL HGB1 2:15 PM [facility] Comment: Any point of care results exhibiting inconsistency with the patient's clinical status should be repeated using a different testing method. Specimen (Source)Anatomical Location / LateralityCollection Method / Volume Collection TimeReceived TimeBloodBLOOD SPECIMEN / UnknownQuest Collect / Unknown 11/25/2024 1:53 PM CDT1 1:53 PM CDT Narrative Authorizing ProviderResult TypeResult StatusDoug Taylor MDCHEMISTRY Final ResultPerforming OrganizationAddressty/State/ZIP CodePhone Number [employer] [facility] [address] [place] [address], [place] [phone] [facility] [address] [place] [address], [place] [phone] * (ABNORMAL) VITAMIN B12 (11/25/2024 1:53 PM CDT)ComponentValueRef RangeTest MethodAnalysis TimePerformed AtPathologist SignatureVITAMIN T265065(H)200 - 1100 pg/mL11/26/2024 3:15 AM CDTQUEST DIAGNOSTICSSpecimen (Source)Anatomical Location / LateralityCollection Method / VolumeCollection TimeReceived Time BloodBLOOD SPECIMEN / UnknownQuest Collect / Itakqeb6311/25/2024 1:53 PM CDT 11/25/2024 1:53 PM CDT Narrative Authorizing ProviderResult TypeResult StatusDoug Taylor MDCHEMISTRY Final ResultPerforming OrganizationAddressty/State/ZIP CodePhone Number [employer] [facility] [address] [place] [address], * (ABNORMAL) BASIC METABOLIC PANEL (11/25/2024 1:53 PM CDT)ComponentValueRef RangeTest MethodAnalysis TimePerformed AtPathologist JbelmuvieDHLMSG129834 - 146 mmol/L1 4:07 AM CDTQUEST DIAGNOSTICSPOTASSIUM4.73.5 - 5.3 mmol/L 11/26/2024 4:07 AM CDTQUEST DIAGNOSTICSCARBON YKBFWKR6544 - 32 mmol/L 11/26/2024 4:07 AM CDTQUEST JDPGBCULVFZXLMXUXI107(H)65 - 99 mg/dL11/26/2024 4:07 AM CDTQUEST DIAGNOSTICSComment: ? Fasting reference interval For someone without known diabetes, a glucose value >125 mg/dL indicates that they may have diabetes and this should be confirmed with a follow-up test. CALCIUM9.18.6 - 10.3 mg/dL11/26/2024 4:07 AM CDTQUEST DIAGNOSTICSCREATININE1.45 (H)0.70 - 1.22 mg/dL11/26/2024 4:07 AM CDTQUEST DIAGNOSTICSBUN/CREATININE RATIO 196 - 22 (calc)11/26/2024 4:07 AM CDTQUEST UMMWPVVYRXAIFAL64(L)> OR = 60 mL/min/1.86w18711/26/2024 4:07 AM CDTQUEST DIAGNOSTICSUREA NITROGEN (BUN)27(H)7 - 25 mg/dL11/26/2024 4:07 AM CDTQUEST DIAGNOSTICSELECTROLYTE BALANCE5(L)7 - 17 mmol/L (calc)11/26/2024 4:07 AM CDTQUEST DNJDOUJAADSSHBCBERY31181 - 110 mmol/L 11/26/2024 4:07 AM CDTQUEST DIAGNOSTICSSpecimen (Source)Anatomical Location / LateralityCollection Method / VolumeCollection TimeReceived TimeBloodBLOOD SPECIMEN / UnknownQuest Collect / Oojznrf3511/25/2024 1:53 PM CDT1 1:53 PM CDT Narrative Authorizing ProviderResult TypeResult StatusRichard Regine Taylor MDCHEMISTRY Final ResultPerforming OrganizationAddressCity/State/ZIP CodePhone Number [facility] [address] [place] [address], [place] [phone] from Last 3 Months Insurance * Guarantor: KATIE PIRES ONLYAccount TypeRelation to PatientDate of BirthPhoneBilling AddressOcc Health/MxswJelhvjqq56/01/[address] [place] [phone] Advance Directives * Full Code (Latest Code Status on File) Date ActivatedDate InactivatedComments04/15/2019 1:26 PM2 4:48 PM * Full Code Date ActivatedDate InactivatedComments03/11/2016 7:17 PM03/12/2016 7:38 PMQuestion AnswerCommentsCode Status Discussion:* Discussed Care Teams Team MemberRelationshipSpecialtyStart DateEnd Date Doug Taylor MD [address] [place] [address] PCP - GeneralFamily Practice04/18/12
--- OUTSIDE RECORDS SUMMARY | 2025-02-12 20:55 | XMS_ITS | Data Portability ---
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 Repeat resection with CIS only. [email or web address] Not available 03/29/2022 09:22:03 07/19/2022 07/19/2022 81 [...] CIS only. 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 Repeat resection with CIS only. [email or web address] Not available 04/02/2024 16:51:58 Plan of Treatment Reminders Order DateSubmit DateProviderLast Modified ByOrganization DetailsLast Modified TimeDetailsAppointmentsNone recorded.Laburinalysis, pxlneywj11 kpcirvbk40[facility], [address], [place], [address], 55/11/2024 16:47:42urinalysis, jlxgwzxi58/05//4rstromquist [facility], [address], [place], [address], 07/31/2023 16:23:15urinalysis, dsefbeom61/10/2022rstromquist[facility], [address], [place], [address], [address] 15:07:41urinalysis, ludvbawq78/25//jmahon5[facility], [address], [place], [address], 35 14:44:37 urinalysis, mcxlgyzq81/beckersU[facility], [address], [place], [address], [address] 13:13:22ReferralNone recorded.ProceduresNone recorded.SurgeriesNone recorded.ImagingNone recorded. Medication OrdersNone recorded. Patient TargetsNo targets recorded. Patient InstructionsNo instructions recorded. Reason for Referral None Reported. Results Created Date Observation Date Name Description Value Unit Range Abnormal Flag Note LastModifiedBy Organization Detail LastModifiedTime 03/29/2022 03/29/2022 urinalysis, dipstick Color-Status [place] ow Not AvailableUa_edina [address], [place], [address], [address] 13:12:1602urinalysis, dipstickClarity-StatusClearNot Available [facility] [address], [place], [address], 31 13:12:1602//03/2022urinalysis, dipstickGlucose-StatusNegativeNot Available[facility] [address], [place], [address], 23/03/2022 13:12:160/03/2022urinalysis, dipstickBilirubin-StatusNegativeNot AvailableU[facility] [address], [place], [address], 85/03/2022 13:12:160urinalysis, dipstickKetones-StatusNegativeNot AvailableU[facility] [address], [place], [address], 50/03/2022 13:12:160urinalysis, dipstickNitrates-StatusnegativeNot Available[facility] [address], [place], [address], 11 13:12:160urinalysis, dipstickBlood-StatusTraceNot Available [facility] [address], [place], [address], 85/03/2022 13:12:160urinalysis, dipstickLeuko-StatusNegativeNot Available[facility] [address], [place], [address], 21/03/2022 13:12:urinalysis, dipstickColor-StatusStrawNot Available [facility] [address], [place], [address], 69 14:43:/urinalysis, dipstickClarity-StatusCloudyNot Available[facility] [address], [place], [address], 28/ 14:43://urinalysis, dipstickGlucose-StatusNegativeNot Available[facility] [address], [place], [address], 23 14:43:/urinalysis, dipstickBilirubin-StatusSmallNot AvailableU[facility] [address], [place], [address], 22/ 14:43:/urinalysis, dipstickKetones-StatusNegativeNot Available[facility] [address], [place], [address], 11 14:43://urinalysis, dipstickUrobilinogen-Status4.0Not AvailableU[facility] [address], [place], [address], 96/ 14:43:/urinalysis, dipstickNitrates-StatusnegativeNot Available[facility] [address], [place], [address], 71/ 14:43:/urinalysis, dipstickBlood-StatusModerateNot AvailableU[facility] [address], [place], [address], 07/ 14:43:/urinalysis, dipstickLeuko-StatusLargeNot Available [facility] [address], [place], [address], 65/ 14:43:031urinalysis, dipstickpH-Status6.5Not Available [facility] [address], [place], [address], 70 15:06:urinalysis, dipstickProtein-Status>=9.0Not Available [facility] [address], [place], [address], 97 15:06:urinalysis, dipstickUrobilinogen-Status4.0Not Available[facility] [address], [place], [address], 97 15:06:urinalysis, dipstickNitrates-StatusnegativeNot Available[facility] [address], [place], [address], 20 15:06:urinalysis, dipstickBlood-StatusTraceNot Available [facility] [address], [place], [address], 30 15:06:urinalysis, dipstickLeuko-StatusNegativeNot Available[facility] [address], [place], [address], 35 15:06:561urinalysis, dipstickSpecimen TypeVoidedNot Available [facility] [address], [place], [address], 99/10/2022 15:06:5606//06/2023urinalysis, dipstickBLOODTrace (5 RBC/uL)Not AvailableUa_edina [address], [place], [address], 42 16:16:4806//06/2023urinalysis, dipstickUROBILINOGEN1.0 mg/dLNot AvailableUa_[facility] [address], [place], [address], 15 16:16:480urinalysis, dipstickNITRITESNegativeNot Available [facility] [address], [place], [address], 62 16:16:4806//06/2023urinalysis, dipstickp.H.5.5Not AvailableU[facility] [address], [place], [address], 40 16:16:4806urinalysis, dipstickLEUKOCYTESNegativeNot Available [facility] [address], [place], [address], 41 16:16:4802urinalysis, dipstickBLOODSmall (10 RBC/uL)Not AvailableU[facility] [address], [place], [address], 86 16:45:2802/11/2024urinalysis, dipstickBILIRUBINNegativeNot Available [facility] [address], [place], [address], 7511/2024 16:45:/189173/11/2024urinalysis, dipstickUROBILINOGEN1.0 mg/dLNot AvailableU[facility] [address], [place], [address], 58 16:45:2805004/06/2024urinalysis, dipstickKETONESNegativeNot Available [facility] [address], [place], [address], 50 16:45:5004/06/2024urinalysis, dipstickPROTEINTrace (10 mg/dL)Not AvailableU[facility] [address], [place], [address], 00 16:45:5004/06/2024urinalysis, dipstickNITRITESNegativeNot Available [facility] [address], [place], [address], Ph [phone] 16:45:urinalysis, dipstickGLUCOSENegativeNot Available [facility] [address], [place], [address], Ph [phone] 16:45:5004/06/2024urinalysis, dipstickp.H.6.5Not Available[facility] [address], [place], [address], 81 16:45:5004/06/2024urinalysis, dipstickS.G. (Specific [place])1.020Not AvailableU[facility] [address], [place], [address], [address] 16:45:28025004/06/2024urinalysis, dipstickLEUKOCYTESNegativeNot Available [facility] [address], [place], [address], 02 16:45:28 Result Notes None recorded. Problems Name Problem SNOMED Code Status Onset Date Resolution Date Notes Provider Name and Address Organization Details Recorded Time Malignant neoplasm of urinary bladder 571739794 Active 06/08/2021 Raquel Esquivel becky, [facility] Fonzhsw0406/08/2021 13:04:27 Problem Notes None recorded. Procedures Surgical History Date Name Laterality Status Provider Name and Address Organization Details Recorded Time 04/06/2024 Cystoscopy- male Ernesto Garcia MD [address] [place] [address],[address], [address], [facility] Kuwjgez6304/06/2024 17:33:47025COMPLEX VISITcomVirginia Garcia MD [address] [place] [address],[address], [address], [facility] Osrclua5704/06/2024 17:33:4802Sulfa post Cystocompleted [place] Miranda[place] Lyoliqy5704/06/2024 16:47:5106ystoscopy- maleErnesto Garcia MD [address] [place] [address],[address] [place] [address], [address], [facility] Wpclneq5107/31/2023 17:55:0406OMPLEX VISITcomVirginia Garcia MD [address] [place] [address],[address], [address], [facility] Hplfbrp0407/31/2023 17:55:3206Sulfa post Cystocompleted Savannah Tuckeral-ValeroMN [facility] Raunltk9707/31/2023 16:17:24103/05/2022 Cystoscopy- maleErnesto Garcia MD [address] [place] [address],[address], [address], [facility] Hfglnzp23/09/2023 15:16:02103/05/2022Sulfa post Cystocompleted Farrah Curtis[place] Ledkmgr09/09/2023 15:09:38007/19/2022ystoscopy- malecompletedJuan Garcia MD [address] [place] [address],[address], [place], [address], [facility] Fyfuumi1107/19/2022 18:19:49003/29/2022ystoscopy- malecompleted Juan Garcia MD [address] [place] [address],[address], [place], [address], [facility] Wopkkhz5303/29/2022 13:48:04007/20/2021CG Full Dose Tx 50mg [facility] Aeabfuj5107/20/2021 13:21:59007/13/2021G Full Dose Tx 50mgcompletedLeah [facility] Ciqwmax6407/13/2021 12:36:56 07/06/2021G Full Dose Tx 50mgcompletedLeGil[facility] 07/06/2021 13:00:0505G Full Dose Tx 50mgcompletedLeGillette [facility] Ujebpys6806/29/2021 12:37:26006/22/2021G Full Dose Tx 50mgcompletedLe[facility] Ttpbitk1906/22/2021 12:59:03006/15/2021UrinalysiscompletedLuisa CardosoMN [facility] Scvaopv9106/15/2021 15:06:05006/08/2021G Full Dose Tx 50mg completedMolly MachometaMN - [place] Mrzeecd9506/08/2021 13:18:5402/08/2021 TRANSURETHRAL RESECTION OF BLADDER TUMOR (SURG)completedDebra GraGrand [facility] Gcjistk64/15/2021 16:46:49 Imaging Results None recorded. Procedure Notes None recorded. Medical Equipment None Reported. Allergies No known drug allergies Medications Name Sig Start Date Stop Date Status Note LastModified by Organization Details LastModified Time amoxicillin 500 mg capsule TAKE 1 CAPSULE THREE TIMES DAILY UNTIL ALL TAKEN activeNot AvailableNot AvailableNot Availableatorvastatin 20 mg tabletactiveNot AvailableNot AvailableNot Availableofloxacin 0.3 % eye dropsINT 1 DROP IN OPERATIVE EYE QID STARTING SATURDAY BEFORE MLOCWRD12/25/2023completedNot AvailableNot AvailableNot Availablecephalexin 250 mg slgbwms5807/19/2022ompleted Not AvailableNot AvailableNot Availablehydrocodone 5 mg-acetaminophen 325 mg tabletTAKE 1 TABLET BY MOUTH EVERY 4-6HR NEEDED FOR PAIN IF NOT RELIEVED WITH NSAIDSactiveNot AvailableNot AvailableNot Availablesotalol 80 mg tabletactiveNot AvailableNot AvailableNot Availableprednisone 20 mg tabletTAKE 2 TABLETS BY MOUTH DAILY FOR 5 DAYSactiveNot AvailableNot AvailableNot Available cyanocobalamin (vit B-12) 1,000 mcg tabletactiveNot AvailableNot AvailableNot Availablewarfarin 2.5 mg tabletactiveNot AvailableNot AvailableNot Available sulfamethoxazole 800 mg-trimethoprim 160 mg tabletTAKE 1 TABLET BY MOUTH EVERY 12 HOURS03/29/2022ompletedNot AvailableNot AvailableNot Availabletriamcinolone acetonide 0.1 % topical creamAPPLY TOPICALLY TO THE AFFECTED AREA TWICE DAILY activeNot AvailableNot AvailableNot Availableketorolac 0.5 % eye drops07/19/2022 completedNot AvailableNot AvailableNot AvailableTice BCG 50 mg intravesical suspensionInstill 50 mL by intravesical route.ompletedNot AvailableNot AvailableNot Availableprednisolone acetate 1 % eye drops,suspension 07/19/2022ompletedNot AvailableNot AvailableNot Availabletamsulosin 0.4 mg capsuleactiveNot AvailableNot AvailableNot Availablecephalexin 500 mg capsule activeNot AvailableNot AvailableNot Availablemetformin 1,000 mg pugvbn6303/29/2022 completedNot AvailableNot AvailableNot Availabletriamcinolone acetonide 0.1 % topical ointmentAPPLY TOPICALLY TO LEFT KNEE 3 TIMES PER WEEKactiveNot Available Not AvailableNot Availablehydrochlorothiazide 25 mg tabletactiveNot AvailableNot AvailableNot Availablezolpidem 5 mg xboyuu3103/29/2022ompletedNot AvailableNot AvailableNot Availablefurosemide 20 mg ogdfkc1903/29/2022ompletedNot AvailableNot AvailableNot Availablegabapentin 100 mg capsuleactiveNot AvailableNot Available Not Availablelosartan 100 mg tabletactiveNot AvailableNot AvailableNot Available metformin ER 500 mg tablet,extended release 24 hractiveNot AvailableNot AvailableNot Availableoxycodone 5 mg czulve6607/19/2022ompletedNot AvailableNot AvailableNot Availableenoxaparin 40 mg/0.4 mL subcutaneous syringeINJECT 0.4ML SUBCUTANEOUS EVERY DAYactiveNot AvailableNot AvailableNot Availablepotassium chloride ER 10 mEq tablet,extended release(part/cryst)03/29/2022ompletedNot AvailableNot AvailableNot Availablecholecalciferol (vitamin D3) 25 mcg (1,000 unit) tabletTAKE 1 TABLET BY MOUTH EVERY DAYactiveNot AvailableNot AvailableNot Availablepeg 3350-electrolytes 236 gram-22.74 gram-6.74 gram-5.86 gram solution DRINK 3 QUARTS THE DAY BEFORE PROCEDURE AND DRINK 1 QUART 6 HOURS PRIOR TO TYYEGPPHA91/02/2023ompletedNot AvailableNot AvailableNot AvailableXarelto 15 mg tabletactiveNot AvailableNot AvailableNot AvailableXarelto 20 mg tablet 03/29/2022ompletedNot AvailableNot AvailableNot AvailableTRUEplus Lancets 33 gaugeactiveNot AvailableNot AvailableNot AvailableInvokana 100 mg tablet 03/29/2022ompletedNot AvailableNot AvailableNot AvailableTrue Metrix Glucose Test StripactiveNot AvailableNot AvailableNot AvailableXarelto DVT-PE Treatment 30-Day Starter 15 mg(42)-20 mg(9) tablet pack03/29/2022ompletedNot AvailableNot AvailableNot AvailableTrue Metrix Air Glucose MeteractiveNot AvailableNot AvailableNot AvailableTrue Metrix Air Glucose Meter kitactiveNot AvailableNot AvailableNot AvailableDropSafe Alcohol Prep PadsactiveNot AvailableNot Available Not Available Vitals Date Recorded Body height Body mass index (BMI) Body weight Provider Name and Address Organization Details Last Updated DateTime 03/29/2022 187.96 cm 29.5 kg/m2 237553.25 g Tulio Haile [facility] 03/29/2022 13:05:47 Date Recorded Body height Body mass index (BMI) Body weight Provider Name and Address Organization Details Last Updated DateTime 04/06/2024 187.96 cm 29.5 kg/m2 468356.25 g Farrah Matt [facility] 04/06/2024 16:45:19 Date Recorded Body height Body mass index (BMI) Body weight Provider Name and Address Organization Details Last Updated DateTime 07/19/2022 187.96 cm 29.5 kg/m2 106809.25 g Juan Garcia MD [address], [place], [address], [facility] 07/19/2022 14:39:36 Date Recorded Body height Body mass index (BMI) Body weight Provider Name and Address Organization Details Last Updated DateTime 07/31/2023 187.96 cm 29.5 kg/m2 087748.25 g Savannah garcia [facility] 07/31/2023 16:16:10 Date Recorded Body height Body mass index (BMI) Body weight Provider Name and Address Organization Details Last Updated DateTime 01/03/2023 187.96 cm 29.5 kg/m2 363646.25 g Farrah Curtis [facility] 01/03/2023 15:01:04 Social History Question Answer Notes LastModified by Organization D etails LastModified Time Tobacco Smoking Status [facility] Qowmlvi3303/29/2022 13:11:40What Is Your Level Of Caffeine Consumption?ModeratebbeckersInformation not bcqwazyng10/02/2023When Did You Quit Smoking?16+yearssincelastcigarettebbeckersInformation not nbbpktgyj79/02/2023 Recreational Drug UseNobbeckersInformation not mesamhopw16/02/2023What Was The Date Of Your Most Recent Tobacco Screening?04/06/20247748jhlwwfms17Klqnruuvxzj not dpaqgjjlv49/10/2025What Is Your Relationship Status?MarriedbbeckersInformation not vmvmodrxf81/02/2023Has Tobacco Cessation Counseling Been Provided?Nobbeckers Information not /02/2023How Many Years Have You Smoked Tobacco?25 bbeckersInformation not hhuxgzhpm32/02/2023 Sex: Unknown Functional Status Question Answer Note LastModified by Organization D etails LastModified Time How many times per week do you consume alcohol? 5-7 times per week oeuewo1Fpngokkbuwg not kebsiaqrn95/25/2023o you use any illicit or recreational drugs?NobbeckersInformation not uzyyjhiyq45/02/2023o you or have you ever used any other forms of tobacco or nicotine?NobbeckersInformation not available 03/29/2022What is your level of alcohol consumption?ModeratebbeckersInformation not cdigmrkze92/02/2023re you currently employed?NobbeckersInformation not ogxsziaws59/02/2023 Mental Status None recorded. Family History Nothing Reported. Medical History Condition Response Cancer Y Immunizations Vaccine Type Date Status Note Provider Nam e and Address Organization Details Recorded Time Influenza, adjuvanted, quadrivalent, PF 12/27/2021 c ompleted Farrah Vernell null, [facility]04/06/2024 16:45:06COVID-19, mRNA, LNP-S, bivalent, PF, 30 mcg/0.3 mL dose2completedRebecca Vernell null, [facility]04/06/2024 16:45:06Influenza, adjuvanted, trivalent, PF 11/18/2018completedRebecca Stromquist null, [place] [address]603/05/2022 15:01:14Influenza, adjuvanted, trivalent, PF 11/21/2016completedRebecca Stromquist null, [place] [address]/05/2022 15:01:14Influenza, adjuvanted, trivalent, PF 01/01/2018completedRebecca Stromquist null, [place] [address]/05/2022 15:01:14Influenza, adjuvanted, quadrivalent, PF 1completedRebecca Stromquist null, [place] [address]/05/2022 15:01:14Influenza, adjuvanted, quadrivalent, PF 11/30/2019completedRebecca Stromquist null, [place] [address]/05/2022 15:01:14COVID-19, mRNA, LNP-S, PF, 30 mcg/0.3 mL dose1completedRebecca Stromquist null, [place] [address]/05/2022 15:01:14COVID-19, mRNA, LNP-S, PF, 30 mcg/0.3 mL dose1completedRebecca Stromquist null, [place] [address]603/05/2022 15:01:14COVID-19, mRNA, LNP-S, PF, 30 mcg/0.3 mL dose11/24/2020ompletedRebecca Stromquist null, [facility] Bqfhyjz26/09/2023 15:01:14COVID-19, mRNA, LNP-S, PF, 30 mcg/0.3 mL dose, marvin-krhfiwb5006/12/2021ompletedRebecca Stromquist null, [facility] Zcrlcrw29/09/2023 15:01:14pneumococcal polysaccharide PPV23 11/29/2005completedRebecca Stromquist null, [facility] Qznvzsp19/09/2023 15:01:14pneumococcal polysaccharide PPV23 01/25/2005completedRebecca Stromquist null, [facility] Trojrfr84/09/2023 15:01:14pneumococcal polysaccharide PPV23 02/20/2011completedRebecca Stromquist null, [facility] Hrpfnxc74/09/2023 15:01:14influenza, unspecified formulation 11/25/2008completedRebecca Stromquist null, [facility] Mbepasw36/09/2023 15:01:83Duec1104/23/2010completedRebecca Stromquist null, [facility] Rhbkywe37/09/2023 15:01:14Pneumococcal conjugate PCV 13003/15/2016 completedRebecca Stromquist null, [facility] Dnrnvim49/09/2023 15:01:14Pneumococcal conjugate PCV 13009/17/2014 completedRebecca Stromquist null, [facility] Ibmtync41/09/2023 15:01:14zoster live02/26/2008completedRebecca Stromquist null, [facility] Vzpzuup93/09/2023 15:01:14zoster live01/05/2009completedRebecca Stromquist null, [facility] Xhfogzf17/09/2023 15:01:14Influenza, high-dose, trivalent, PF 11/29/2014completedRebecca Stromquist null, [facility] Sttixdh34/09/2023 15:01:14Influenza, high-dose, trivalent, PF 12/14/2015[facility] [place] [facility] null, [facility] Uhaoexi48/09/2023 15:01:14Influenza, high-dose, trivalent, PF 12/24/2013completed[facility] [place] Strom[place] null, [facility] Ovwjpry87/09/2023 15:01:14Influenza, split virus, trivalent, gtkknvcpdukc12/01/1989completed[facility] [place] Strom[place] null, [facility] Foxvfjn34/09/2023 15:01:14Influenza, split virus, trivalent, nrbochjwtnux20/22/2009completed[facility] [place] Stromquist null, [facility] Hjmuxhe25/09/2023 15:01:14Influenza, split virus, trivalent, yeeiutjguizh83/30/2010completed[facility] [place] Stromquist null, [place] [address]/05/2022 15:01:14Influenza, split virus, trivalent, sdadunqhfwai19/05/2006completed[facility] [place] Stromquist null, [place] [address]/05/2022 15:01:14Influenza, split virus, trivalent, pguueroomykg15/11/2004completed[facility] [place] Stromquist null, [facility] Ouhsadi03/09/2023 15:01:14Influenza, split virus, trivalent, umcjgwopysfa32/24/2003completed[facility] [place] Stromquist null, [facility] Jelvtlg12/09/2023 15:01:14Influenza, split virus, trivalent, lilzmvnjekmd94/24/2013completedRebecla Stromquist null, [facility] Saldvnm69/09/2023 15:01:14Influenza, split virus, trivalent, fjskmvipbzaf38/25/2002completedRebecca Stromquist null, [facility] Rauazhe40/09/2023 15:01:14Influenza, split virus, trivalent, trsmevlpxjwl20/01/2007completedRebecla Stromquist null, [facility] Khejqyd76/09/2023 15:01:14Influenza, split virus, trivalent, tdihlilfkfgj15/03/2005completedRebecca Stromquist null, [facility] Rutagde16/09/2023 15:01:14Influenza, split virus, trivalent, ysfbynxujpli96/05/2012completedRebecca Stromquist null, [facility] Yfjuirv35/09/2023 15:01:14Influenza, split virus, trivalent, PF 12/16/2007completedRebecca Stromquist null, [facility] Hncljme70/09/2023 15:01:14Influenza, split virus, trivalent, PF 12/18/2010completedRebecca Stromquist null, [facility] Wragbyb55/09/2023 15:01:14Novel jlehqxhbi-Y1D5-3967/29/2010 completedRebecca Stromquist null, [facility] Tziaoow18/09/2023 15:01:14Td (adult), 5 Lf tetanus toxoid, preservative free, emjaujxf11/05/2006completedRebecca Stromquist null, [facility] Vtqesbc52/09/2023 15:01:14Td (adult), 2 Lf tetanus toxoid, preservative free, wuamdqds65/13/1999completedRebecca Stromquist null, [facility] Inyvjdb22/09/2023 15:01:14Td (adult), 2 Lf tetanus toxoid, preservative free, hvxpkgak12/01/2005completedRebecca Stromquist null, [facility] Eujtwxa51/09/2023 15:01:14Influenza, split virus, quadrivalent, PF03/25/2009completedRebecca Stromquist null, [facility] Pmuozqs23/09/2023 15:01:14 Past Encounters Encounter ID Performer Location Encounter Start Date Encounter Closed Date Diagnosis/Indication Diagnosis SNOMED-CT Code Diagnosis ICD10 Code Diagnosis IMO Codes Diagnosis Note [id number] MD Ezio Brannon [address] [place] [address] 06/08/2021 12:06:29 06/09/2021 12:49:18 Malignant neoplasm of urinary bladder [id number] C67.9 [id number] Brannon [address] [place] [address] 06/15/2021 14:29:45006/16/2021 10:17:08Malignant neoplasm of urinary bladder 946013440D62.9 [id number] Brannon [address] [place] [address] 06/22/2021 12:09:0806/26/2021 10:10:48Malignant neoplasm of urinary bladder 589609521F40.9 patient will return to clinic for 3rd BCG treatment.[id number] Ezio Brannon [address] [place] [address] 06/29/2021 12:04: 10:32:05Malignant neoplasm of urinary bladder 012046378S83.9 Patient will return to clinic next week for 4th BCG treatment.[id number] Brannon [address] [place] [address] 07/06/2021 12:00:01007/10/2021 08:52:06Malignant neoplasm of urinary bladder 666659729F77.9 Patient will return to clinic next week for 5th BCG treatment.[id number] Brannon [address] [place] [address] 07/13/2021 11:55:0707/14/2021 08:27:46Malignant neoplasm of urinary bladder 183838841P51.9 Patient will return to clinic next week for 6th BCG treatment.[id number] Brannon [address] [place] [address] 07/20/2021 12:41:28007/21/2021 15:05:59Malignant neoplasm of urinary bladder 918589421R86.9 Patient will follow up with Dr. Garcia in [facility].[id number] Brannon [address] [place] [address] 03/29/2022 12:36: 12:54:20Malignant neoplasm of urinary bladder [id number] - Status post induction course of BCG- Surveillance cystoscopy today without obvious recurrence- Follow up Bladder Cx prior to next cysto- Next surveillance cystoscopy in 3 [id number] Brannon [address] [place] [address] 07/19/2022 14:19:30007/27/2022 15:09:48Malignant neoplasm of urinary bladder 907817261L70.9 - Status post induction course of BCG- Surveillance cystoscopy today without obvious recurrence- Follow up Bladder Cx prior to next cysto- Next surveillance cystoscopy in 3 [id number] - Will treat empirically with cipro x 5 [id number] Brannon [address] [place] [address] 01/03/2023 14:52:35103/10/2022 11:52:12Malignant neoplasm of urinary bladder [id number] - Status post induction course of BCG- Surveillance cystoscopy today without obvious recurrence- Send cytology- Next surveillance cystoscopy in 3 months [id number] - procedural antibiotic [id number] Brannon [address] [place] [address] 07/31/2023 15:42:28008/01/2023 10:30:35Malignant neoplasm of urinary bladder [id number] - Status post induction course of BCG- Surveillance cystoscopy today without obvious recurrence- Next surveillance cystoscopy in 6 dvhozmWepyqd6655240K30.81 - procedural antibiotic [id number] Brannon [address] [place] [address] 04/06/2024 16:22:02004/10/2024 16:21:25Malignant neoplasm of urinary bladder [id number] - Status post induction course of BCG- Surveillance cystoscopy today without obvious recurrence- Next surveillance cystoscopy in 12 ivptwfCsgtsz7067315Y44.81 - procedural antibiotic ppx-UA with 10 RBCs, no evidence of infection Health Concerns Section Related Observation LastModified by Organization Detai ls LastModified Time None Recorded Concern Status LastModified by Organization Details LastModified Time None Recorded Advance Directives Directive None Recorded Payers Insurance Date Sequence Insurance Name Policy Number Policy Zelaya Covered Member ID Zelaya Member ID Guarantor Name 04/10/2024 1 [employer] - DOS ON O R AFTER 19 (MEDICARE REPLACEMENT/ADVANTAGE - HMO) [id number] Cecilio Rosa [id number] Cecilio RosaHUMANA (PPO)Cecilio [id number] W Brown HUMANA (MEDICARE REPLACEMENT/ADVANTAGE - PPO)Cecilio [id number] Cecilio Rosa Notes Date Note Type Note Provider Name and Address Orga nization Details Recorded Time 03/29/2022 text/html Mr. Rosa is a very pleasant 81 yoM who is referred to me by his PCP, Doug Taylor MD, regarding gross hematuria. Patient experienced painless gross hematuria several times. During this time he was supratherapeutic on his Warfarin (5.72). Once his INR was corrected he had no further hematuria. He underwent a CT A/P and was referred to me today for further evaluation and treatment.He has since been transitioned to Xarelto with no recurrence of his hematuria.05/24/21Here for follow up history of bladder cancer. Underwent re- resection which revealed...A) BLADDER, DEEP, BIOPSY:1. Urothelial carcinoma in situ2. Negative for invasive tumor in this sample3. 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 Has now completed induction course ofBCG. Has been doing well. No issues. 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 No new symptomsJuan Garcia MD [address] [place] [address],[address], [place], [address], [facility] Spzndxc0703/29/2022 13:49:01007/19/2022text/html Mr. Rosa is a very pleasant 81 yoM who is referred to me by his PCP, Doug Taylor MD, regarding gross hematuria. Patient experienced painless gross hematuria several times. During this time he was supratherapeutic on his Warfarin (5.72). Once his INR was corrected he had no further hematuria. He underwent a CT A/P and was referred to me today for further evaluation and treatment.He has since been transitioned to Xarelto with no recurrence of his hematuria.05/24/21Here for follow up history of bladder cancer. Underwent re- resection which revealed...A) BLADDER, DEEP, BIOPSY:1. Urothelial carcinoma in situ2. Negative for invasive tumor in this sample3. 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 Has now completed induction course ofBCG. Has been doing well. No issues. 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 No new symptomsJuan Garcia MD [address] [place] [address],[address], [place], [address], [facility] Zkrfhje0707/19/2022 18:20:5711text/html Mr. Rosa is a very pleasant 82 yoM who is referred to me by his PCP, Doug Taylor MD, regarding gross hematuria. Patient experienced painless gross hematuria several times. During this time he was supratherapeutic on his Warfarin (5.72). Once his INR was corrected he had no further hematuria. He underwent a CT A/P and was referred to me today for further evaluation and treatment.He has since been transitioned to Xarelto with no recurrence of his hematuria.05/24/21Here for follow up history of bladder cancer. Underwent re- resection which revealed...A) BLADDER, DEEP, BIOPSY:1. Urothelial carcinoma in situ2. Negative for invasive tumor in this sample3. 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 Has now completed induction course ofBCG. Has been doing well. No issues. 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 No new symptomsJuan Garcia MD [address] [facility],[address], [place], [address], [facility] Mtddlmt41/09/2023 15:16:4506text/html Mr. Rosa is a very pleasant 82 yoM who is referred to me by his PCP, Doug Taylor MD, regarding gross hematuria. Patient experienced painless gross hematuria several times. During this time he was supratherapeutic on his Warfarin (5.72). Once his INR was corrected he had no further hematuria. He underwent a CT A/P and was referred to me today for further evaluation and treatment.He has since been transitioned to Xarelto with no recurrence of his hematuria.05/24/21Here for follow up history of bladder cancer. Underwent re- resection which revealed...A) BLADDER, DEEP, BIOPSY:1. Urothelial carcinoma in situ2. Negative for invasive tumor in this sample3. 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 Has now completed induction course ofBCG. Has been doing well. No issues. 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 No new symptomsJuan Garcia MD [address] [facility],[address], [place], [address], [facility] Qiubunz6407/31/2023 17:55:53004/06/2024text/html Mr. Rosa is a very pleasant 82 yoM who is referred to me by his PCP, Doug Taylor MD, regarding gross hematuria. Patient experienced painless gross hematuria several times. During this time he was supratherapeutic on his Warfarin (5.72). Once his INR was corrected he had no further hematuria. He underwent a CT A/P and was referred to me today for further evaluation and treatment.He has since been transitioned to Xarelto with no recurrence of his hematuria.05/24/21Here for follow up history of bladder cancer. Underwent re- resection which revealed...A) BLADDER, DEEP, BIOPSY:1. Urothelial carcinoma in situ2. Negative for invasive tumor in this sample3. 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 Has now completed induction course ofBCG. Has been doing well. No issues. 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 Reports no interval change in history.Juan Garcia MD [address] [facility],[address], [place], [address], [facility] Swkmcmt4904/06/2024 17:35:03
--- OUTSIDE RECORDS SUMMARY | 2025-02-12 20:55 | XMS_ITS | Clinical Summary ---
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 Primary Care Provider Allergies No known active allergies Medications MedicationSigDispense QuantityRefillsLast FilledStart DateEnd DateStatus cyanocobalamin 500 MCG TABS Take 1 tablet by mouth dailyActive losartan (COZAAR) 100 MG tablet Take 100 mg by mouth dailyActive metFORMIN (GLUCOPHAGE) 1000 MG tablet Take 1,000 mg by mouth 2 times daily (with meals)Active Vitamin D, Cholecalciferol, 1000 UNITS CAPS Take 1,000 Units by mouth dailyActive warfarin (COUMADIN) 5 MG tablet Take by mouth daily 5mg on Tues,Thurs,Sat, & 2.5mg on Sun,Mon,Wed,FriActive atorvastatin (LIPITOR) 20 MG tablet Take 20 mg by mouth every eveningActive aspirin 81 MG EC tablet Take 81 mg by mouth dailyActive amLODIPine (NORVASC) 5 MG tablet Take 5 mg by mouth dailyActive acetaminophen (TYLENOL) 325 MG tablet Indications:Closed fracture of right hip, initial encounter (H)Take 2 tablets (650 mg) by mouth every 6 hours as needed for mild pain 100 tablet 03/28/2017Active sennosides (SENOKOT) 8.6 MG tablet Indications:Closed fracture of right hip, initial encounter (H)Take 1-2 tablets by mouth 2 times daily as needed for constipation Hold if loose stools. 120 tablet Active polyethylene glycol (MIRALAX) powder Indications:Constipation, unspecified constipation typeTake 17 g by mouth daily 510 g Active bisacodyl (DULCOLAX) 10 MG Suppository Indications:Constipation, unspecified constipation typePlace 1 suppository (10 mg) rectally daily as needed for constipation 25 suppository Active tamsulosin (FLOMAX) 0.4 MG capsule Indications:Urine retentionTake 1 capsule (0.4 mg) by mouth daily 60 capsule 03/29/2017Active HYDROcodone-acetaminophen (NORCO) 5-325 MG per tablet Indications:Complete tear of right rotator cuffTake 1-2 tablets by mouth every 4 hours as needed for other (Moderate to Severe Pain) 40 tablet 08/13/2017Active ondansetron (ZOFRAN-ODT) 4 MG ODT tab Indications:Complete tear of right rotator cuffTake 1-2 tablets (4-8 mg) by mouth every 8 hours as needed for nausea Dissolve ON the tongue. 4 tablet 08/13/2017Active senna-docusate (SENOKOT-S;PERICOLACE) 8.6-50 MG per tablet Indications:Complete tear of right rotator cuffTake 1-2 tablets by mouth 2 times daily Take while on oral narcotics to prevent or treat constipation. 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 Gender IdentityNot on fileSexual OrientationNot on file Last Filed Vital Signs Vital SignReadingTime TakenCommentsBlood Fpazqpnb705/72008/13/2017 5:00 PM CDT Omgxb290603/23/2017 12:20 PM RLLIyvbmcqurto20 ??C (96.8 ??F)08/13/2017 4:04 PM CDT Respiratory Tyvc211608/13/2017 5:00 PM CDTOxygen Legrygqzqb43%08/13/2017 5:00 PM CDTInhaled Oxygen Concentration--Jaknys255.4 kg (247 lb 14.4 oz)08/13/2017 8:39 AM QFRZirccn803 cm (6' 2)08/13/2017 8:39 AM CDTBody Mass Index31.8308/13/2017 8:39 AM CDT Plan of Treatment Not on file Medical Devices ImplantedTypeAreaManufacturerDevice IdentifierShelf Expiration DateModel / Serial / LotImp Morris Arthrex Bio-Swivelock 4.88m02ab [id number] Implanted:Qty: 3 [facility] 08[facility]13/[facility]Anchor[facility]: XsyrbylnQCJUIMW04/31/[id number] / / [id number] Morris [employer] Bio-Swivelock 4.78d67fi [id number] Implanted:Qty: 1 on 08/13/2017 [facility]AnchorRight: KiqmzcsvQGKTJOK49/31/[id number]-8 / / [id number] Liner Acet S&N R3 Xlpe 40mm 20deg [id number] Implanted:Qty: 1 on 03/25/2017 by Lj Ornelas MD at [facility] Joint Component/InsertRight: VvsXSMVB26/28/[id number] / / [id number] Femoral Sleeve S&N Long Mod +8mm Neck Ti [id number] Implanted:Qty: 1 on 03/25/2017 by Lj Ornelas MD at [facility] Joint Component/InsertRight: FqdVONBF37/07/[id number] / / [id number] Od Three-Hole Hemispherical Coated Shell Implanted:Qty: 1 on 03/25/2017 [facility] [id number] / / [id number] Acetabular Alpine Cancellous Screw, 6.5mm Diameter Implanted:Qty: 1 on 03/25/2017 [facility]: Hip10/17/[id number] / / [id number], High Offset, Synergy Porous Femoral Component Implanted:Qty: 1 on 03/25/2017 [facility] Hip01/[id number] / / [id number] Modular Femoral Head Implanted:Qty: 1 on 03/25/2017 by [facility] Hip10/[id number] / / [id number] Insurance Advance Directives For more information, please contact: [phone] * Full Code (Latest Code Status on File) Date ActivatedDate InactivatedComments03/28/2017 2:36 PM * Full Code Date ActivatedDate InactivatedComments03/23/2017 5:42 PM03/27/2017 12:01 AM Care Teams Team MemberRelationshipSpecialtyStart DateEnd [address] [address] PCP - General03/23/17
--- NOTE | 2025-02-12 20:56 | CT_ITS ---
Patient: NICHO PAGE Facility:?[facility] RIS Patient ID:?[id number] Site Patient ID:?[id number]. Site :?1940 Study:?CT-Neck Angio CODE STROKE W/95CC ISOVUE 370-02/12/2025 9:13:12 PM Ordering Physician:Kingston Zepeda Final Report: CT ANGIOGRAM HEAD AND NECK DATE: 02/12/2025 CLINICAL HISTORY: Patient with focal neurological deficits. TECHNIQUE: Standard helical CT image acquisition through the head and neck was performed after intravenous contrast bolus enhancement. 2D and 3D MIP images for post-processing were performed and interpreted on an independent workstation and 3D images were permanently archived. COMPARISON: CT same day. FINDINGS: The origins of the great vessels from the aortic arch are patent. The origin of the right vertebral artery is patent. The origin of the left vertebral artery demonstrates severe narrowing. The common carotid arteries are patent. There is a critical (greater than 90%) stenosis at the origin of the right internal carotid artery by NASCET criteria. This is caused by calcified plaque with a hairline residual lumen. There is plaque without stenosis at the origin of the left internal carotid artery by NASCET criteria. The rest of the cervical segments of the internal carotid arteries are patent up to their intracranial segments. The intracranial segments of the internal carotid arteries are patent. The right vertebral artery is dominant. The cervical segments of the vertebral arteries are patent. The intracranial segments of the vertebral arteries are patent. The middle cerebral arteries are normal without aneurysm or proximal occlusion identified. The anterior cerebral arteries are normal without aneurysm or proximal occlusion identified. The anterior communicating artery is well visualized and appears normal. The basilar artery is normal without aneurysm or occlusion. The posterior cerebral arteries are normal without aneurysm or proximal occlusion. There is normal opacification of major intracranial venous structures. The visualized lung apices are unremarkable. The thyroid gland is unremarkable. The soft tissues of the neck are unremarkable. There are degenerative changes in the cervical spine. IMPRESSION: 1. No proximal intracranial large vessel occlusion. 2. 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 This is caused by calcified plaque with a hairline residual lumen. 3. 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 Please note that all CT scans at this facility use dose modulation, iterative reconstruction, and/or weight-based dosing when appropriate to reduce radiation dose to as low as reasonably achievable. Dictated by: Taylor Velásquez MD @ 02/12/2025 21:34:10 (Electronic Signature)
--- NOTE | 2025-02-12 20:56 | CT_ITS ---
Patient: NICHO PAGE Facility:?[facility] RIS Patient ID:?[id number] Site Patient ID:?[id number]. Site :?1940 Study:?CT-Head Angio CODE STROKE W/95CC ISOVUE 370-02/12/2025 9:12:30 PM Ordering Physician:Kingston Zepeda Final Report: CT ANGIOGRAM HEAD AND NECK DATE: 02/12/2025 CLINICAL HISTORY: Patient with focal neurological deficits. TECHNIQUE: Standard helical CT image acquisition through the head and neck was performed after intravenous contrast bolus enhancement. 2D and 3D MIP images for post-processing were performed and interpreted on an independent workstation and 3D images were permanently archived. COMPARISON: CT same day. FINDINGS: The origins of the great vessels from the aortic arch are patent. The origin of the right vertebral artery is patent. The origin of the left vertebral artery demonstrates severe narrowing. The common carotid arteries are patent. There is a critical (greater than 90%) stenosis at the origin of the right internal carotid artery by NASCET criteria. This is caused by calcified plaque with a hairline residual lumen. There is plaque without stenosis at the origin of the left internal carotid artery by NASCET criteria. The rest of the cervical segments of the internal carotid arteries are patent up to their intracranial segments. The intracranial segments of the internal carotid arteries are patent. The right vertebral artery is dominant. The cervical segments of the vertebral arteries are patent. The intracranial segments of the vertebral arteries are patent. The middle cerebral arteries are normal without aneurysm or proximal occlusion identified. The anterior cerebral arteries are normal without aneurysm or proximal occlusion identified. The anterior communicating artery is well visualized and appears normal. The basilar artery is normal without aneurysm or occlusion. The posterior cerebral arteries are normal without aneurysm or proximal occlusion. There is normal opacification of major intracranial venous structures. The visualized lung apices are unremarkable. The thyroid gland is unremarkable. The soft tissues of the neck are unremarkable. There are degenerative changes in the cervical spine. IMPRESSION: 1. No proximal intracranial large vessel occlusion. 2. 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 This is caused by calcified plaque with a hairline residual lumen. 3. 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 Please note that all CT scans at this facility use dose modulation, iterative reconstruction, and/or weight-based dosing when appropriate to reduce radiation dose to as low as reasonably achievable. Dictated by: Taylor Velásquez MD @ 02/12/2025 21:34:39 (Electronic Signature)
--- NOTE | 2025-02-12 20:56 | CT_ITS ---
Patient: NICHO PAGE Facility:?[facility] RIS Patient ID:?[id number] Site Patient ID:?[id number]. Site :?1940 Study:?CT-Head CODE STROKE W/O-02/12/2025 9:11:58 PM Ordering Physician:Kingston Zepeda Final Report: CT HEAD DATE: 02/12/2025 CLINICAL HISTORY: Patient with focal neurological deficits. TECHNIQUE: Standard CT scanning of the head was performed. COMPARISON: MRI 05/09/2021 FINDINGS: There is no intracranial hemorrhage. There is no territorial infarction. There are severe microangiopathic changes. There is diffuse parenchymal volume loss. There is no mass effect or midline shift. The calvarium is unremarkable. The orbits are unremarkable. The paranasal sinuses are unremarkable. The mastoid air cells are unremarkable. The soft tissues are unremarkable. IMPRESSION: 1. No intracranial hemorrhage or territorial infarction. 2. Severe microangiopathic changes and diffuse parenchymal volume loss. Please note that all CT scans at this facility use dose modulation, iterative reconstruction, and/or weight-based dosing when appropriate to reduce radiation dose to as low as reasonably achievable. Dictated by: Taylor Velásquez MD @ 02/12/2025 21:21:04 (Electronic Signature)
--- NOTE | 2025-02-12 21:08 | ED.GENADULT ---
HPI - General Adult General Date Seen: 02/12/25 Chief complaint: Altered Mental Status Stated complaint: Stroke Time Seen by Provider: 02/12/25 20:56 History of Present Illness HPI narrative: Patient is an 84-year-old brought in by EMS after family noted some confusion and word-finding difficulty as well as some right-sided weakness in the hour prior to presentation. EMS says that he was essentially weight, he typically is able to walk with a walker but was not able to tonight. They report that his symptoms are the same now as they were at home. Patient is able to talk to me, denies complaints, he knows that he is at the hospital, says he does not have any pain. He did note that he was not able to get up independently tonight which he says is unusual for him. Apparently has a history of TIA, family says that symptoms have never been like this. He is anticoagulated on Coumadin, this appears to be due to a history of atrial fibrillation. Other past medical history is notable for type 2 diabetes, TIA, hypertensive encephalopathy, hypertension, pancreatitis. EMS noted that he had 1 drink tonight which apparently is his habit, but said that family was insistent that he just has 1 drink a night. Medics report a normal blood sugar. Related Data Home Medications ?Medication ?Instructions ?Recorded ?Confirmed atorvastatin 20 mg tablet 20 mg PO 03/29/22 03/29/22 cyanocobalamin (vitamin B-12) 1,000 mcg PO 03/29/22 03/29/22 1,000 mcg tablet hydrochlorothiazide 25 mg tablet 25 mg PO 03/29/22 03/29/22 losartan 100 mg tablet 100 mg PO 03/29/22 03/29/22 metformin 500 mg tablet,extended mg PO 03/29/22 03/29/22 release 24 hr rivaroxaban 20 mg tablet (Xarelto) 20 mg PO 03/29/22 03/29/22 sotalol 80 mg tablet 80 mg PO 03/29/22 03/29/22 Allergies Allergy/AdvReac Type Severity Reaction Status Date / Time No Known Allergies Allergy Unknown Verified 02/12/25 21:14 Review of Systems Status of ROS: Reports: 10 or more systems reviewed and unremarkable except as noted in History and below [facility] Medical History (Updated 02/12/25 @ 23:27 by Ciera Nation MD) Alcohol use disorder ?F10.90 - Alcohol use, unspecified, uncomplicated (ICD-10) CKD stage 3b, GFR 30-44 ml/min ?N18.32 - Chronic kidney disease, stage 3b (ICD-10) History of DVT (deep vein thrombosis) ?Z86.718 - Personal history of other venous thrombosis and embolism (ICD-10) Chronic anticoagulation ?Z79.01 - FDC (current) use of anticoagulants (ICD-10) Encounter for cardioversion procedure ?Z01.89 - Encounter for other specified special examinations (ICD-10) Surgical History Status post surgical removal and fulguration of bladder neoplasm ?Z98.890 - Other specified postprocedural states (ICD-10) Social History Narrative: -Monica What is your current living situation?: I presently have a place to live Problems where you live: no known problems Problems where you live details: n/a In the past 12 months, utilities in danger of being shut off: no In past 12 months, lack of transportation kept you from medical appts, meetings, work, or getting things needed for daily living: no In the past 12 mos, have been you worried that your food would run out before you had money to buy more?: never true In the past 12 mos, the food you bought just didn't last and you didn't have money to buy more?: never true Smoking Status: Former smoker What tobacco products do you use: cigarettes Smoking quit date/years: >15 years ago Do you use any of these nicotine containing products: None Second hand tobacco smoke exposure: No How often do you have a drink containing alcohol: 4 or more times a week Alcohol type: hard liquor How many standard drinks containing alcohol do you have on a typical day: 1 or 2 How often do you have six or more drinks on one occasion: Never AUDIT-C Alcohol total score: 4 Non-prescribed substance use: denies use Are you now , , , , never or living with a partner: Social isolation score (0-1 are the most socially isolated patients): 1 How often does anyone, including family, friends and others, physically hurt you: never How often does anyone, including family, friends and others, insult or talk down to you: never How often does anyone, including family, friends and others, threaten you with harm: never How often does anyone, including family, friends and others, scream or curse at you: never service: No Exam Narrative: Exam Narrative: Initial brief exam in the [facility], blood pressure 119 systolic, normal heart rate. Patient alert, conversant, answers questions appropriately. Face is symmetric, he is able to follow commands, moves both upper extremities and lower extremities equally. Perhaps slightly dysarthric, baseline unknown. Vital signs reviewed In general, an alert, nontoxic elderly male. Cooperative. Head: Normocephalic, atraumatic. Eyes: Sclera clear. Pupils equal and reactive. ENT: Mucous membranes moist. Neck: Supple without adenopathy. Heart: Regular rate and rhythm without murmur. Lungs: Clear. No increased work of breathing, crackles or wheezes. Abdomen: Soft, nontender to palpation. Extremities: Well perfused, pulses intact. No significant edema. Neurologic: Alert, conversant. Speech fluent, mildly dysarthric. Face is symmetric. He has 5 of 5 strength in bilateral upper and lower extremities, cerebellar function intact by finger-nose testing. He was able to repeat the phrase no ifs ANDs or buts, slightly slurred. Skin: Warm, dry well perfused. Affect: Normal. Const: Vital Signs, click to edit/add: Vital Signs - 24 hr 02/12/25 20:53 02/12/25 22:39 Temperature 98.0 F Pulse Rate [Pulse Oximeter] 71 Respiratory Rate 18 Pulse Oximetry 98 97 Oxygen Delivery Me thod Room Air Course Course ED Course: On arrival, patient was seen in the back [facility] and then sent for CT scan of the head as well as CT angiogram of the head and neck. I reviewed his head CT, did not see any evidence of hemorrhage, significant atrophy. Patient is anticoagulated, he is therapeutic on his Coumadin with an INR of 2.7. Labs were otherwise notable for hemoglobin of 10.1, which is down a couple g from a year ago. Metabolic panel is notable for a sodium 134, creatinine 1.6 most recent baseline of 1.2 in 2021. Blood sugar was 149. LFTs unremarkable. Blood alcohol did return at 0.2. CT scan of the head read as negative for acute findings by Radiology, significant atrophy noted. The CT angiogram is notable for a 90% stenosis of the right carotid artery, this will require follow-up, discussed with patient and his . Case was discussed with Dr. Godinez, who recommended overnight admission for observation to ensure that symptoms were not recurrent. Diagnostic considerations at this time would include TIA versus stroke, versus alcohol intoxication, dehydration. He is seen at night, MRI not available, but neurology did not feel that MRI would be very beneficial in terms of management, recommended continuation of his Coumadin. Patient did note that he has had a cough for couple of weeks, added on a chest x-ray, I do not see evidence of significant infiltrate but I am waiting on Radiology read interpretation. In the meantime, patient is discussed with hospitalist and accepted to their service. Vital Signs Vital signs: Initial Vital Signs Temperature 98.0 F 02/12/25 20:53 Temperature Source Temporal Artery Scan 02/12/25 20:53 Pulse Rate 71 02/12/25 20:53 Respiratory Rate 18 02/12/25 20:53 Blood Pressure Position Supine 02/12/25 20:53 Pulse Oximetry 98 02/12/25 20:53 Oxygen Delivery Method Room Air 02/12/25 20:53 Vital Signs Temperature 98.0 F 02/12/25 20:53 Pulse Rate 71 02/12/25 20:53 Respiratory Rate 18 02/12/25 20:53 Pulse Oximetry 98 02/12/25 20:53 Oxygen Delivery Method Room Air 02/12/25 20:53 Temperature 97.4 F L 02/12/25 23:14 Pulse Rate 67 02/13/25 00:01 Respiratory Rate 16 02/12/25 23:14 Blood Pressure 148/70 H 02/12/25 23:14 Pulse Oximetry 98 02/12/25 23:14 Oxygen Delivery Method Room Air 02/12/25 23:14 Medications Administered Medications: Generic Name Dose Route Start Last Admin Trade Name Freq PRN Reason Stop Dose Admin Thiamine HCl 100 mg 02/12/25 23:15 02/12/25 23:49 Thiamine 100 Mg Tablet PO 02/14/25 23:16 100 mg Q24H T[place] Administration Discontinued Medications Generic Name Dose Route Start Last Admin Trade Name Freq PRN Reason Stop Dose Admin Sodium Chloride 500 mls @ 500 mls/hr 02/12/25 20:58 02/12/25 23:48 0.9 % Sodium Chloride 500 Ml IV 02/12/25 21:57 500 mls/hr .Q1H ONE Administration Medical Decision Making Lab Data Labs: Lab Results 02/12/25 Range/Units 21:13 WBC 5.92 (4.50-11.00) K/uL RBC 3.27 L (4.30-5.90) m/uL Hgb 10.1 L (13.5-17.5) gm/dL Hct 32.3 L (37.0-53.0) % MCV 99 (80-100) fL MCH 31 (26-34) pg MCHC 31 L (32-36) gm/dL RDW Coeff of [place] 14.5 (11.5-15.5) % Plt Count 161 (140-440) K/uL Neut % (Auto) 62.4 (42.0-72.0) % Lymph % (Auto) 20.1 (20-44) % [place] % (Auto) 12.8 H (0.0-11.0) % Eos % (Auto) 3.5 (0.0-7.0) % Baso % (Auto) 0.5 (0.0-3.0) % Neut # (Auto) 3.69 (1.7-7.0) K/uL Lymph # (Auto) 1.19 (0.90-2.90) K/uL [place] # (Auto) 0.80 (0.00-0.90) K/UL Eos # (Auto) 0.21 (0.00-0.50) K/uL Baso # (Auto) 0.03 (0.00-0.30) K/uL Abs Immat Gran (auto) 0.04 (0.00-0.30) K/uL Imm/Tot Granulo (auto) 0.7 % INR 2.68 H (0.91-1.10) Sodium 134 L (135-149) mmol/L Potassium 4.0 (3.6-5.1) mmol/L Chloride 105 (96-114) mmol/L Carbon Dioxide 20 (20-32) mmol/L Anion Gap 9 (7-15) mEq/L BUN 26 (7-30) mg/dL Creatinine 1.6 H (0.5-1.5) mg/dL Estimated GFR 42 ml/min Glucose 149 H (60-115) mg/dL Calcium 8.2 L (8.4-10.6) mg/dL Total Bilirubin 0.7 (0.1-1.5) mg/dL Direct Bilirubin 0.3 (0.0-0.5) mg/dL AST 18 (12-35) U/L ALT 14 (4-50) U/L Alkaline Phosphatase 85 (40-150) U/L Total Protein 6.2 (6.0-8.3) g/dL Albumin 2.9 L (3.3-5.0) g/dL Ethyl Alcohol 0.20 H (0.01-0.03) % Imaging Data CT scans: Attestation: I have reviewed the pertinent imaging results. Radiologist's impression: Patient: NICHO PAGE Facility: [facility] Site . Site : 1940 Study: CT-Neck Angio CODE STROKE W/95CC ISOVUE 370-02/12/2025 9:13:12 PM Ordering Physician: Viviana Zepeda Final Report: CT ANGIOGRAM HEAD AND NECK DATE: 02/12/2025 CLINICAL HISTORY: Patient with focal neurological deficits. TECHNIQUE: Standard helical CT image acquisition through the head and neck was performed after intravenous contrast bolus enhancement. 2D and 3D MIP images for post-processing were performed and interpreted on an independent workstation and 3D images were permanently archived. COMPARISON: CT same day. FINDINGS: The origins of the great vessels from the aortic arch are patent. The origin of the right vertebral artery is patent. The origin of the left vertebral artery demonstrates severe narrowing. The common carotid arteries are patent. There is a critical (greater than 90%) stenosis at the origin of the right internal carotid artery by NASCET criteria. This is caused by calcified plaque with a hairline residual lumen. There is plaque without stenosis at the origin of the left internal carotid artery by NASCET criteria. The rest of the cervical segments of the internal carotid arteries are patent up to their intracranial segments. The intracranial segments of the internal carotid arteries are patent. The right vertebral artery is dominant. The cervical segments of the vertebral arteries are patent. The intracranial segments of the vertebral arteries are patent. The middle cerebral arteries are normal without aneurysm or proximal occlusion identified. The anterior cerebral arteries are normal without aneurysm or proximal occlusion identified. The anterior communicating artery is well visualized and appears normal. The basilar artery is normal without aneurysm or occlusion. The posterior cerebral arteries are normal without aneurysm or proximal occlusion. There is normal opacification of major intracranial venous structures. The visualized lung apices are unremarkable. The thyroid gland is unremarkable. The soft tissues of the neck are unremarkable. There are degenerative changes in the cervical spine. IMPRESSION: 1. No proximal intracranial large vessel occlusion. 2. 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 This is caused by calcified plaque with a hairline residual lumen. 3. 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 Please note that all CT scans at this facility use dose modulation, iterative reconstruction, and/or weight-based dosing when appropriate to reduce radiation dose to as low as reasonably achievable. Dictated by: Taylor Velásquez MD @ 02/12/2025 21:34:10 Patient: NICHO PAGE Facility: [facility] Site . Site : 1940 Study: CT-Head CODE STROKE W/O-02/12/2025 9:11:58 PM Ordering Physician: Viviana Zepeda Final Report: CT HEAD DATE: 02/12/2025 CLINICAL HISTORY: Patient with focal neurological deficits. TECHNIQUE: Standard CT scanning of the head was performed. COMPARISON: MRI 05/09/2021 FINDINGS: There is no intracranial hemorrhage. There is no territorial infarction. There are severe microangiopathic changes. There is diffuse parenchymal volume loss. There is no mass effect or midline shift. The calvarium is unremarkable. The orbits are unremarkable. The paranasal sinuses are unremarkable. The mastoid air cells are unremarkable. The soft tissues are unremarkable. IMPRESSION: 1. No intracranial hemorrhage or territorial infarction. 2. Severe microangiopathic changes and diffuse parenchymal volume loss. Please note that all CT scans at this facility use dose modulation, iterative reconstruction, and/or weight-based dosing when appropriate to reduce radiation dose to as low as reasonably achievable. Dictated by: Taylor Velásquez MD @ 02/12/2025 21:21:04
[2025-02-12 21:19] LABS: Hematocrit* 32.3 % (37.0-53.0); Hemoglobin* 10.1 gm/dL (13.5-17.5); Immature Granulocytes Abs Auto 0.04 K/uL (0.00-0.30); Immature Granulocytes Pct Auto 0.7 %; Lymphocytes Absolute Auto 1.19 K/uL (0.90-2.90); Mean Corpuscular HGB Conc 31 gm/dL (32-36); Mean Corpuscular Hemoglobin 31 pg (26-34); Mean Corpuscular Volume 99 fL (80-100); RDW Coefficient of Variation % 14.5 % (11.5-15.5); Red Blood Count* 3.27 m/uL (4.30-5.90); White Blood Count* 5.92 K/uL (4.50-11.00)
[2025-02-12 21:20] LABS: Slide Review Reflex No
[2025-02-12 21:35] LABS: INR 2.68 (0.91-1.10); Prothrombin Time 29.7 Seconds
[2025-02-12 22:11] LABS: Albumin* 2.9 g/dL (3.3-5.0); Chloride* 105 mmol/L (96-114); Potassium* 4.0 mmol/L (3.6-5.1); Sodium* 134 mmol/L (135-149)
[2025-02-12 22:14] LABS: Alanine Aminotransferase* 14 U/L (4-50); Alkaline Phosphatase* 85 U/L (40-150); Anion Gap 9 mEq/L (7-15); Aspartate Amino Transferase* 18 U/L (12-35); Bilirubin Direct* 0.3 mg/dL (0.0-0.5); Bilirubin Total* 0.7 mg/dL (0.1-1.5); Blood Urea Nitrogen* 26 mg/dL (7-30); Calcium* 8.2 mg/dL (8.4-10.6); Carbon Dioxide* 20 mmol/L (20-32); Creatinine* 1.6 mg/dL (0.5-1.5); Estimated Glomerular Filt Rate 42 ml/min; Glucose* 149 mg/dL (60-115); Total Protein* 6.2 g/dL (6.0-8.3)
[2025-02-12 22:15] LABS: Ethanol* 0.20 % (0.01-0.03)
--- NOTE | 2025-02-12 22:31 | CRLHL7_ITS ---
For Patients: As a result of the Cures Act, medical imaging exams and procedure reports are released immediately into your electronic medical record. You may view this report before your referring provider. If you have questions, please contact your health care provider. INDICATION: Cough TECHNIQUE: Chest radiograph 1 view on 2 images COMPARISON: None FINDINGS: The sensitivity and specificity of the exam are severely limited by the patient`s body habitus. Mediastinum: The central pulmonary arteries are enlarged and likely due to pulmonary hypertension. Moderate cardiomegaly is noted. Lung: Minimal subsegmental atelectasis is seen in the medial lung bases. No sign of pleural effusion seen. No pneumothorax is identified. Bone and Soft tissue: Unremarkable. Moderate, diffuse osteopenia is noted. IMPRESSIONS: 1. Minimal subsegmental atelectasis is seen in the medial lung bases. 2. Moderate cardiomegaly is noted. 3. The central pulmonary arteries are enlarged and likely due to pulmonary hypertension. Dictated by Eric Sue MD @ 02/12/2025 11:20:16 PM Dictated by: Eric Sue MD @ 02/12/2025 23:20:21 (Electronically Signed)
[2025-02-12 22:39] VITALS: O2SAT 97
--- NOTE | 2025-02-12 22:55 | P.IMHP_ITS ---
Assessment and Plan Assessment and plan (1) TIA (transient ischemic attack): Problem comment: ED provider, Dr Michelle, contacted Neurology team and they recommended observation admission, But they mentioned that there is no need for further our workup or interventions such as aspirin or Plavix. Only monitoring overnight. When I asked the ED provider about the plan for his warfarin she mentioned that the neurologist said just to resume his medications. Status: Acute (2) Atrial fibrillation: Problem comment: On warfarin Status: Acute (3) Chronic anticoagulation: Problem comment: warfarin (COUMADIN) 2.5 mg tablet Maintenance plan:2.5 mg (2.5 mg x 1) every Mon, Wed, Fri; 1.25 mg (2.5 mg x 0.5) all other days Full instructions:2.5 mg every Mon, Wed, Fri; 1.25 mg all other days Anticoagulation monitoring, INR range 2-3 Status: Acute (4) History of DVT (deep vein thrombosis): Problem comment: On warfarin Status: Acute (5) CKD stage 3b, GFR 30-44 ml/min: Problem comment: Will monitor Status: Acute (6) Type 2 diabetes mellitus: Problem comment: He said he stopped taking metformin Status: Acute (7) Alcohol use disorder: Problem comment: [facility] ordered Thiamine and folate Status: Acute Total Time Spent Total Time Spent: Time spent: Today I spent 75 minutes seeing the patient, discussing the patient with ER staff, reviewing Expanse and EPIC notes/diagnostics, discussing the care plan with our care time that includes social work, PT/OT, pharmacy, RT, penitentiary and documenting my impressions and plan in the medical record. Hospitalist- H&P: HPI History of Present Illness Date Seen: 02/12/25 Chief complaint: Stroke Narrative: patient with past medical history of hypertension, history of DVT, history of TIA, atrial fibrillation (on warfarin), type 2 diabetes, CKD stage IIIB and history of urinary bladder cancer who presents to the ED with symptoms of confusion and word-finding difficulty as well as some right-sided weakness in the hour prior to presentation. history was taken from the patient himself and from his and they mentioned that around 8:00 p.m. patient felt weakness and he was not able to walk but he did not fall down. His also mentioned that he was using the wrong words and and having word-finding difficulty. At the time I saw the patient UE was doing well no issues with speech and no focal weakness, but gait test was not done, will have PT OT examine him. In addition patient mentioned that he drinks scotch every night and he had 1 drink tonight. At the ED, patient was hemodynamically stable. CTA head and neck were ordered. ED provider, Dr Michelle, contacted Neurology team and they recommended observation admission, But they mentioned that there is no need for further our workup or interventions such as aspirin or Plavix. Only monitoring overnight. When I asked the ED provider about the plan for his warfarin she mentioned that the neurologist said just to resume his medications. Review of Systems Status of ROS: Reports: 6 or more systems reviewed and unremarkable except as noted in History and below [facility] Medical History (Updated 02/12/25 @ 23:27 by Ciera Nation MD) Alcohol use disorder ?F10.90 - Alcohol use, unspecified, uncomplicated (ICD-10) CKD stage 3b, GFR 30-44 ml/min ?N18.32 - Chronic kidney disease, stage 3b (ICD-10) History of DVT (deep vein thrombosis) ?Z86.718 - Personal history of other venous thrombosis and embolism (ICD-10) Chronic anticoagulation ?Z79.01 - [employer] (current) use of anticoagulants (ICD-10) Encounter for cardioversion procedure ?Z01.89 - Encounter for other specified special examinations (ICD-10) Surgical History Status post surgical removal and fulguration of bladder neoplasm ?Z98.890 - Other specified postprocedural states (ICD-10) Social History Narrative: -Monica Smoking Status: Former smoker What tobacco products do you use: cigarettes Smoking quit date/years: >15 years ago Do you use any of these nicotine containing products: None Second hand tobacco smoke exposure: No How often do you have a drink containing alcohol: never How often do you have six or more drinks on one occasion: Never AUDIT-C Alcohol total score: 0 Non-prescribed substance use: denies use Are you now , , , , never or living with a partner: Social isolation score (0-1 are the most socially isolated patients): 1 service: No Meds Home Medications and Allergies Home Medications ?Medication ?Instructions ?Recorded ?Confirmed ?Type atorvastatin 20 mg tablet 20 mg PO 03/29/22 03/29/22 H istory cyanocobalamin (vitamin B-12) 1,000 mcg PO 03/29/22 History 1,000 mcg tablet hydrochlorothiazide 25 mg tablet 25 mg PO 03/29/2204/19 History losartan 100 mg tablet 100 mg PO 03/29/22 03/29/22 History metformin 500 mg tablet,extended mg PO 03/29/22 History release 24 hr rivaroxaban 20 mg tablet (Xarelto) 20 mg PO 03/29/22 0 03/29/22 History sotalol 80 mg tablet 80 mg PO 03/29/22 03/29/22 H istory Allergies Allergy/AdvReac Type Severity Reaction Status Date / Time No Known Allergies Allergy Unknown Verified 02/12/25 21:14 Exam Narrative: Exam Narrative: Physical exam GENERAL: Comfortable, no acute distress. HEAD AND NECK: Atraumatic, normocephalic CARDIOVASCULAR: Normal S1, S2. No murmurs. RESPIRATORY: Clear to auscultation B/L. Good air entry B/L. No wheezes or rhonchi. NEUROLOGY: Alert, awake, oriented X 3. Normal speech. No focal weakness, no drifting of limbs. No facial asymmetry. PSYCH: Normal mood, normal affect. Const: Vital Signs, click to edit/add: Vital Signs - 24 hr 02/12/25 22:39 Pulse Oximetry 97 Hospitalist - H&P: Result Labs Labs: Short CBC 02/12/25 Range/Units 21:13 WBC 5.92 (4.50-11.00) K/uL Hgb 10.1 L (13.5-17.5) gm/dL Hct 32.3 L (37.0-53.0) % Plt Count 161 (140-440) K/uL BMP 02/12/25 21:13 Sodium 134 L Potassium 4.0 Chloride 105 Carbon Dioxide 20 BUN 26 Creatinine 1.6 H Glucose 149 H Calcium 8.2 L Liver Function 02/12/25 Range/Units 21:13 Total Bilirubin 0.7 (0.1-1.5) mg/dL Direct Bilirubin 0.3 (0.0-0.5) mg/dL AST 18 (12-35) U/L ALT 14 (4-50) U/L Alkaline Phosphatase 85 (40-150) U/L Albumin 2.9 L (3.3-5.0) g/dL
[2025-02-12 23:14] VITALS: BP 148/70; PULSE 73; RESP 16; TEMP 36.3; O2SAT 98; BMI 30.9; BMI 31.0
[2025-02-12 23:37] VITALS: PULSE 67
[2025-02-12] MEDS: 0.9 % SODIUM CHLORIDE 500 ML 500 ML IV (23:48)
[2025-02-12] MEDS: THIAMINE 100 MG TABLET PO (23:49)
[2025-02-13] VITALS (7 sets, daily range): BP systolic 118–174; BP diastolic 67–87; PULSE 60–67; RESP 16–18; TEMP 36.2–36.8; O2SAT 96
--- NOTE | 2025-02-13 05:16 | PC.NURSE ---
Pt rested well this night. Neuroes unremarkable. CIWAs unremarkable. Pt pleasant and cooperative. Answering questions appropriately. VS unremarkable.
[2025-02-13 06:21] LABS: Hematocrit* 31.3 % (37.0-53.0); Hemoglobin* 10.3 gm/dL (13.5-17.5); Mean Corpuscular HGB Conc 33 gm/dL (32-36); Mean Corpuscular Hemoglobin 31 pg (26-34); Mean Corpuscular Volume 93 fL (80-100); Red Blood Count* 3.36 m/uL (4.30-5.90); White Blood Count* 4.24 K/uL (4.50-11.00)
[2025-02-13 06:26] LABS: Slide Review Reflex No
[2025-02-13 06:33] LABS: Albumin* 3.0 g/dL (3.3-5.0); Chloride* 108 mmol/L (96-114); Sodium* 137 mmol/L (135-149)
[2025-02-13 06:34] LABS: Potassium* 4.2 mmol/L (3.6-5.1)
[2025-02-13 06:36] LABS: Alanine Aminotransferase* 12 U/L (4-50); Alkaline Phosphatase* 92 U/L (40-150); Anion Gap 6 mEq/L (7-15); Aspartate Amino Transferase* 17 U/L (12-35); Bilirubin Total* 0.6 mg/dL (0.1-1.5); Blood Urea Nitrogen* 23 mg/dL (7-30); Carbon Dioxide* 23 mmol/L (20-32); Creatinine* 1.5 mg/dL (0.5-1.5); Est. Creatinine Clearance* 41.43; Estimated Glomerular Filt Rate 46 ml/min
[2025-02-13 06:37] LABS: Calcium* 8.3 mg/dL (8.4-10.6); Glucose* 92 mg/dL (60-115); Total Protein* 6.4 g/dL (6.0-8.3)
[2025-02-13 06:40] LABS: INR 2.65 (0.91-1.10); Prothrombin Time 29.4 Seconds
--- NOTE | 2025-02-13 07:46 | PM.IMPN1 ---
Subjective Interval history: 1. No proximal intracranial large vessel occlusion. 2. 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 This is caused by calcified plaque with a hairline residual lumen. 3. 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 Exam Const: Vital Signs, click to edit/add: Vital Signs - 24 hr 02/12/25 20:53 02/12/25 22:39 02/12/25 23:14 Temperature 98.0 F 97.4 F L Pulse Rate Pulse Rate [Pulse Oximeter] 71 73 Respiratory Rate 18 16 Blood Pressure [Le ft Arm] 148/70 H Pulse Oximetry 98 97 98 Oxygen Delivery Me thod Room Air Room Air 02/12/25 23:14 02/12/25 23:37 02/13/25 00:01 Temperature 97.4 F L Pulse Rate 67 Pulse Rate [Pulse Oximeter] 73 67 Respiratory Rate 16 Blood Pressure [Le ft Arm] 148/70 H Pulse Oximetry 98 Oxygen Delivery La thod Room Air 02/13/25 02:51 02/13/25 04:00 02/13/25 07:05 Temperature 98.2 F 98.2 F Pulse Rate 63 Pulse Rate [Pulse Oximeter] 60 60 Respiratory Rate 16 16 Blood Pressure [Le ft Arm] 118/67 118/67 Pulse Oximetry 96 96 Oxygen Delivery La thod Room Air Room Air 02/13/25 07:34 02/13/25 07:34 02/13/25 07:36 Temperature 97.1 F L 97.1 F L Pulse Rate Pulse Rate [Pulse Oximeter] 66 60 60 Respiratory Rate 18 18 Blood Pressure [Le ft Arm] 174/87 H 174/87 H Pulse Oximetry 96 96 Oxygen Delivery La thod Room Air Room Air Labs Labs: Laboratory Results - last 24 hr 02/12/25 02/13/25 21:13 05:25 WBC 5.92 4.24 L RBC 3.27 L 3.36 L Hgb 10.1 L 10.3 L Hct 32.3 L 31.3 L MCV 99 93 MCH 31 31 MCHC 31 L 33 RDW Coeff of [place] 14.5 Plt Count 161 169 Neut % (Auto) 62.4 Lymph % (Auto) 20.1 [place] % (Auto) 12.8 H Eos % (Auto) 3.5 Baso % (Auto) 0.5 Neut # (Auto) 3.69 Lymph # (Auto) 1.19 [place] # (Auto) 0.80 Eos # (Auto) 0.21 Baso # (Auto) 0.03 Abs Immat Gran (auto) 0.04 Imm/Tot Granulo (auto) 0.7 INR 2.68 H 2.65 H Sodium 134 L 137 Potassium 4.0 4.2 Chloride 105 108 Carbon Dioxide 20 23 Anion Gap 9 6 L BUN 26 23 Creatinine 1.6 H 1.5 Estimated Creat Clear 41.43 Estimated GFR 42 46 Glucose 149 H 92 Calcium 8.2 L 8.3 L Total Bilirubin 0.7 0.6 Direct Bilirubin 0.3 AST 18 17 ALT 14 12 Alkaline Phosphatase 85 92 Total Protein 6.2 6.4 Albumin 2.9 L 3.0 L Ethyl Alcohol 0.20 H
[2025-02-13] MEDS: LOSARTAN POTASSIUM 50 MG TABLET 100 MG PO (08:44)
[2025-02-13] MEDS: MULTIVITAMIN/MINERALS 1 TABLET 1 TAB PO (08:44)
[2025-02-13] MEDS: FOLIC ACID 1 MG TABLET PO (08:44)
[2025-02-13] MEDS: SOTALOL HCL 80 MG TABLET PO (08:44)
--- NOTE | 2025-02-13 09:49 | P.DS_ITS ---
DS: Providers Provider Date Seen: 02/13/25 Date of admission: 02/12/25 23:04 Primary care physician: Doug Taylor MD Admitting Clinician: Ciera Nation MD Consults: 02/12/25 23:13 Consult to Occupational Therapy [CONS] Routine Comment: Reason(s) for OT Consult:: Evaluate and Treat Any Restrictions?:: No Restrictions Consult to Physical Therapy [CONS] Routine Comment: Reason(s) for PT Consult:: Evaluate and Treat Any Restrictions?:: No Restrictions Attending Physician on discharge: Claudia Rodriguez MD [facility] Date of Discharge: 02/13/25 DS: Diagnosis Discharge Diagnosis (1) Alcohol intoxication delirium with moderate or severe use disorder: Status: Acute Problem details: -admission BAILEY 0.2, admits to one drink of scotch and water nightly. -counseled on risks, cutting back and abstinence (2) TIA (transient ischemic attack): Status: Acute Problem details: -ED consulted with Neuro -Admit for observation; continue full anticoagulation -symptoms resolved before arrival to the floor (3) Atrial fibrillation: Status: Acute Problem details: On warfarin, on sotalol (4) Chronic anticoagulation: Status: Acute Problem details: warfarin (COUMADIN) 2.5 mg tablet Maintenance plan:2.5 mg (2.5 mg x 1) every Mon, Wed, Fri; 1.25 mg (2.5 mg x 0.5) all other days Full instructions:2.5 mg every Mon, Wed, Fri; 1.25 mg all other days Anticoagulation monitoring, INR range 2-3 (5) Alcohol use disorder: Status: Acute Problem details: -sent thiamine, MVM, folic acid -stressed abstinence (6) CKD stage 3b, GFR 30-44 ml/min: Status: Acute Problem details: Will monitor (7) Type 2 diabetes mellitus: Status: Acute Problem details: A1C on 11/25/24 is 5.9 metformin is on home med list; pt states he no longer takes (8) Hypertension: Status: Acute Problem details: dual therapy with losartan, HCTZ (9) Hyperlipidemia associated with type 2 diabetes mellitus: Status: Acute DS: Summary Hospital Course Hospital Course: HIGH YIELD CARE NOTES FOR FOLLOW-UP -Alcohol dependence, alcohol tolerance should be addressed in the outpatient setting -Patient is high risk with cerebrovascular and cardiovascular chronic disease -Allcohol intoxication with TIA symptoms noted, neuro symptoms resolved before arrival to the floor BRIEF HOSPITAL COURSE: Patient was admitted overnight. Synopsis of acute inpatient issues are outlined above. Chronic medical conditions with notable findings outlined above. DISCHARGE MEDICATIONS: See Reconciled list - SIGNIFICANT CHANGES: I have added thiamin, MDM, folic acid. No changes to his chronic prescription home PACs. Specific instructions to the patient and follow-up are outlined below. REVIEW OF SYSTEMS No new chest pain or dyspnea Pain controlled No voiding difficulties Tolerating diet challenge PHYSICAL EXAM: CONSTITUTIONAL: Conversive, good historian. A/O. Knows setting and context. GENERAL: Well-developed, in no respiratory distress. VITAL SIGNS: see record. HEENT: Sclerae are anicteric. No petechiae. CARDIAC: rhythm is regular. There is no S3 or rub. No harsh murmurs. Extremities show trace edema with symmetrical pulses. PULM: good air entry with no wheeze. NEURO: Speech is fluent. A brief neurologic exam is negative. SKIN: No rashes, petechiae, concerning changes PSYCHIATRIC: Euthymic. DISPOSITION: Home with Time spent on discharge 37 minutes. Status at Discharge Functional status at discharge: uses cane/walker Overall status at discharge: patient is progressing back to baseline Time Spent with Patient Time attestation: Total time spent providing and/or coordinating discharge services: Time spent: Greater than 30 minutes Exam Const: Vital Signs, click to edit/add: Vital Signs - 24 hr 02/12/25 20:53 02/12/25 22:39 02/12/25 23:14 Temperature 98.0 F 97.4 F L Pulse Rate Pulse Rate [Pulse Oximeter] 71 73 Respiratory Rate 18 16 Blood Pressure [Le ft Arm] 148/70 H Pulse Oximetry 98 97 98 Oxygen Delivery Me thod Room Air Room Air 02/12/25 23:14 02/12/25 23:37 02/13/25 00:01 Temperature 97.4 F L Pulse Rate 67 Pulse Rate [Pulse Oximeter] 73 67 Respiratory Rate 16 Blood Pressure [Le ft Arm] 148/70 H Pulse Oximetry 98 Oxygen Delivery Me thod Room Air 02/13/25 02:51 02/13/25 04:00 02/13/25 07:05 Temperature 98.2 F 98.2 F Pulse Rate 63 Pulse Rate [Pulse Oximeter] 60 60 Respiratory Rate 16 16 Blood Pressure [Le ft Arm] 118/67 118/67 Pulse Oximetry 96 96 Oxygen Delivery Me thod Room Air Room Air 02/13/25 07:34 02/13/25 07:34 02/13/25 07:36 Temperature 97.1 F L 97.1 F L Pulse Rate Pulse Rate [Pulse Oximeter] 66 60 60 Respiratory Rate 18 18 Blood Pressure [Le ft Arm] 174/87 H 174/87 H Pulse Oximetry 96 96 Oxygen Delivery Me thod Room Air Room Air 02/13/25 07:49 Temperature Pulse Rate Pulse Rate [Pulse Oximeter] 60 Respiratory Rate 18 Blood Pressure [Le ft Arm] Pulse Oximetry Oxygen Delivery Me thod DS: Data Data Completed and Pending Labs on day of discharge: Labs from last 24 hours 02/13/25 02/12/25 05:25 21:13 WBC 4.24 L 5.92 RBC 3.36 L 3.27 L Hgb 10.3 L 10.1 L Hct 31.3 L 32.3 L MCV 93 99 MCH 31 31 MCHC 33 31 L RDW Coeff of [place] 14.5 Plt Count 169 161 Neut % (Auto) 62.4 Lymph % (Auto) 20.1 Colbert % (Auto) 12.8 H Eos % (Auto) 3.5 Baso % (Auto) 0.5 Neut # (Auto) 3.69 Lymph # (Auto) 1.19 Colbert # (Auto) 0.80 Eos # (Auto) 0.21 Baso # (Auto) 0.03 Abs Immat Gran (auto) 0.04 Imm/Tot Granulo (auto) 0.7 INR 2.65 H 2.68 H Sodium 137 134 L Potassium 4.2 4.0 Chloride 108 105 Carbon Dioxide 23 20 Anion Gap 6 L 9 BUN 23 26 Creatinine 1.5 1.6 H Estimated Creat Clear 41.43 Estimated GFR 46 42 Glucose 92 149 H Calcium 8.3 L 8.2 L Total Bilirubin 0.6 0.7 Direct Bilirubin 0.3 AST 17 18 ALT 12 14 Alkaline Phosphatase 92 85 Total Protein 6.4 6.2 Albumin 3.0 L 2.9 L Ethyl Alcohol 0.20 H Discharge Plan Discharge Disposition: Home w/ Parent or Adult Date of Admission: 02/12/25 23:04 Attending Provider on Discharge: Claudia Rodriguez Primary Care Provider: Doug Taylor Anticipated Discharge Date/Time: 02/13/25 09:39 Discharge Medications: New folic acid 1 mg Tablet 1 mg PO DAILY Qty: 30 0RF thiamine mononitrate (vit B1) [Vitamin B-1 (mononitrate)] 100 mg Tablet 100 mg PO Q24H Qty: 30 0RF multivitamin with folic acid [Thera] 400 mcg Tablet 1 tab PO DAILY Qty: 30 0RF Continued atorvastatin 20 mg tablet 20 mg PO Xarelto 20 mg tablet 20 mg PO losartan 100 mg tablet 100 mg PO sotalol 80 mg tablet 80 mg PO hydrochlorothiazide 25 mg tablet 25 mg PO metformin 500 mg tablet extended release 24 hr PO cyanocobalamin (vitamin B-12) 1,000 mcg tablet 1,000 mcg PO Discharge Orders: Discharge Order (Routine); Ordered 02/13/25 Ordered By: Claudia Rodriguez Patient Education: Thiamine (Vitamin B-1) (By mouth), Folic Acid (By mouth), Multivitamins with Minerals (By mouth), At-Risk Alcohol Use (IP), Skin Tear (ED), Alcohol Use Disorder (GEN) Activity Level: Activity as Tolerated Activity Detail: 1. Your alcohol level on 02/12 at 9:15pm was 0.20, legal intoxication is 0.08. This is 2.5 times the legal limit. If you did not feel intoxicated that is concerning for significant tolerance and points to years of drinking. This amount of alcohol, even if you don't feel it is dangerous. 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 Please cut back at least. Please give serious consideration to no further drinking. Please seek resources from Dr. Taylor for this as well. 2. I've sent vitamins, folic acid and thiamine to support your body's recovery. 3. No other medication changes. Discharge Diet: Heart Healthy (2 gm sodium, low fat) Follow Up Appointments: Doug Taylor MD [Primary Care Provider, Family Practice] Referral Note: 1-2 weeks Forms: Appticles Info Instructions
--- NOTE | 2025-02-13 12:13 | PC.NURSE ---
discharge. pt has been very pleasant. no pain he is alert x4 he thought it was Saturday but was right on the rest of the information. he has a skin tear on his right elbow. 2 SL where d/c intact. tele shows 1st degree HB. he is eating, drinking and voiding with no problems. he is up with SBA he uses a walker. discharge packet was done. medications, appointment, education and instruction, pt signed personal belonging form. he took all paperwork and belongings with him. he got a w/c ride out.
== END 2025-02-13 10:45 | disposition home or self-care (01) ==
LOC: ED 23:02 → MEDSURG 23:04
PROVIDERS: Admitting Provider Student in an Organized Health Care Education/Training Program; Emergency Provider Emergency Medicine; PCP Family Medicine; Visit Provider Student in an Organized Health Care Education/Training Program
DX: F10.221 Alcohol dependence with intoxication delirium (principal); G45.9 Transient cerebral ischemic attack, unspecified; I48.91 Unspecified atrial fibrillation; Z79.01 Long term (current) use of anticoagulants; N18.32 Chronic kidney disease, stage 3b; E11.29 Type 2 diabetes mellitus with other diabetic kidney complication; E78.5 Hyperlipidemia, unspecified; I10 Essential (primary) hypertension
CPT/HCPCS: 36415; 70450; 70496; 70498; 71045; 80053; 80076; 82077; 85025; 85027; 85610; 93005; 94761; 97110; 97161; 97165; 97530; 97535; 99284; 99285; A9153; A9270; G0378; J7030; Q9967